=== PATIENT | female | born 1955 | race Caucasian/White ===

== ENCOUNTER → 2016-08-18 | Outpatient (CLI) | payer BC, OTHER ==
[2016-08-18 14:50] LABS: Basophils # (A) 0.1 k/uL (0-0.2); Basophils % (A) 1 %; CH 30.5; CHCM 32.3; Eosinophils # (A) 0.3 k/uL (0-0.7); Eosinophils % (A) 3 %; HCT 42.3 % (34.0-46.0); HDW 2.47; HGB 13.7 gm/dL (11.4-16.0); Luc # (Auto) 0.17; Luc % (Auto) 2; Lymphocytes # (A) 2.8 k/uL (1.0-4.8); Lymphocytes % (A) 29 %; MCH 30.6 pg (25.0-35.0); MCHC 32.3 g/dL (31.0-37.0); MCV 94.9 fL (80.0-100.0); Mean Platelet Volume 6.4; Monocytes # (A) 0.6 k/uL (0-1.0); Monocytes % (A) 6 %; Neutrophils # (A) 5.8 k/uL (1.3-7.7); Neutrophils % (A) 60 %; RBC 4.46 m/uL (3.80-5.40); RDW 13.9 % (11.5-15.5); WBC 9.7 k/uL (3.8-10.6); WBC (Perox) 9.59
== END | disposition home or self-care (01) ==
LOC: LABPAT 14:24
PROVIDERS: ATTEND Obstetrics & Gynecology
DX: Z01.812 Encounter for preprocedural laboratory examination (principal)
CPT/HCPCS: 85025

== ENCOUNTER 2016-08-24 06:20 | Day surgery (SDC) | payer BC, OTHER ==
[2016-08-20 10:53] VITALS: BMI 39.1
--- NOTE | 2016-08-23 10:39 | HP ---
DATE OF ADMISSION: 08/24/2016 This is a 61-year-old white female, 6, para 5-0-1-5, last menstrual period 2005. The patient has a history of endometrial polyps per D&C with simple to complex hyperplasia noted without atypia. She was treated with Provera 10 mg orally daily for one month, then switched to Prometrium 200 mg daily for 2 additional months. She has done well on this therapy and presents today for re-evaluation as well as inspection of the endometrial cavity. She is well aware of the risks, benefits, and alternatives of this procedure, as well as anesthetic risks. Review of systems is otherwise negative. Past medical history is significant for asthma, type 2 diabetes, goiter, hypertension, thyroid disease and heart murmur. PAST SURGICAL HISTORY: Adenoidectomy and tonsillectomy in the past, carpal tunnel release 2008, cholecystectomy 2015, D&C in the past, tubal ligation, thyroidectomy, nasal surgery, EGD. CURRENT MEDICATIONS: 1. Janumet 50/500 oral tablet twice daily. 2. Levothyroxine, 200 mcg daily. 3. Levothyroxine 25 mcg tablet daily. 4. Lisinopril hydrochlorothiazide 20/25 mg orally daily. 5. Meclizine 25 mg 4 times daily. 6. [place] 3 fatty acids twice daily. 7. Omeprazole 40 mg daily. 8. Pravastatin 40 mg tablet daily. 9. Singulair 10 mg tablet daily. 10. Xanax 0.25 mg t.i.d. p.r.n. 11. Zoloft 50 mg pills, 2 pills once daily. ALLERGIES: None known. FAMILY HISTORY: Significant for diabetes, heart disease, hypertension, kidney disease. Reproductive history is significant for 5 full term deliveries, all vaginal, one spontaneous miscarriage not requiring D&C. SOCIAL HISTORY: Significant for marital status, negative for tobacco, alcohol or drug use, caffeine daily. Review of systems is otherwise negative. On exam, this is a pleasant female, 5 feet 8 inches, 243 pounds, BMI 37, blood pressure 140/60. Patient is afebrile. HEENT exam reveals soft, supple neck, good range of motion, no obvious thyromegaly or cervical lymphadenopathy. Chest is clear to auscultation in all romero anteriorly and posteriorly. Cardiac exam reveals regular rate and rhythm without murmur, click or rub. The abdomen is obese, nontender, no organosplenomegaly, no CVA tenderness, active bowel sounds. Breasts are normal in inspection with no skin changes, nipple discharge, axillary adenopathy or discernible lesions or masses. Extremities reveal no edema, good range of motion, good peripheral pulses. External genitalia is age appropriate, slightly atrophic. Cervix is multiparous with no bleeding. Uterus is nontender, midline, mobile and small. Adnexa are small, mobile, equal and symmetric bilaterally; nonenlarged. Anus reveals no hemorrhoids, good sphincter tone. FIT negative stool. IMPRESSION: History of postmenopausal bleeding with previous endometrial sampling consistent with simple to complex hyperplasia with atypia. Status post 3 months of progesterone therapy, here for re-evaluation of the endometrial cavity. PLAN: Patient is aware of the risks, benefits, and alternatives of our plan. We will proceed with surgery at [facility] on Tuesday08/24/16.
[~2016-08-24 06:20] MED LIST: DEXAMETHASONE SOD PHOSPHATE 10 MG/ML 1 ML VIAL IV ONE; HYDROmorphone 1 MG/ML 1 ML SYRINGE IVP PRN; LACTATED RINGERS 1,000 ML IV SCH; MIDAZOLAM 2 MG/2 ML VIAL IV PRN; ONDANSETRON 4 MG/2 ML VIAL IVP ONE; Pre Op ABX Message 1 EACH MISC MISCELLANE ONE
[2016-08-24 07:19] LABS: Glucose,Whole Blood 183 mg/dL (75-99)
[2016-08-24] MEDS ORDERED: LIDOCAINE 1% 20 ML VIAL (10MG/ML) FOR IV START INTRADERMA ONE (07:22)
[2016-08-24] MEDS ORDERED: fentaNYL (PF) 50 MCG/ML 2 ML AMP ONE (08:06)
[2016-08-24] MEDS ORDERED: KETOROLAC 30 MG/ML 1 ML VIAL ONE (08:06)
[2016-08-24] MEDS ORDERED: LIDOCAINE 1% INJ 10MG/ML (20 ML MDV) ONE (08:06)
[2016-08-24] MEDS ORDERED: SUCCINYLCHOLINE CHLORIDE 100 MG/5 ML SYR IV ONE (08:06)
[2016-08-24] MEDS ORDERED: MIDAZOLAM 2 MG/2 ML VIAL ONE (08:06)
[2016-08-24] MEDS ORDERED: PROPOFOL 10 MG/ML 20 ML VIAL IV ONE (08:06)
--- NOTE | 2016-08-24 08:29 | P.OP ---
Date of Procedure: 08/24/16 Preoperative Diagnosis: Postmenopausal bleeding Postoperative Diagnosis: Same Procedure(s) Performed: Fractional D&C, hysteroscopy Anesthesia: KIARRA Surgeon: Julieth Dickson Estimated Blood Loss (ml): 10 IV fluids (ml): 200 Urine output (ml): 200 Pathology: other (Endocervical and endometrial curettings) Condition: stable Disposition: PACU Description of Procedure: Patient is brought to the operating suite where a general anesthetic is administered without difficulty. She's placed in the dorsal lithotomy position. The appropriate timeout is performed to assure proper patient and procedural identification. No antibiotics are deemed necessary. The cervix, vagina, and perineal bodies are all prepped and draped in the usual sterile fashion. Examination under anesthesia reveals a small cervix, small mobile smooth uterus, negative adnexa bilaterally. The bladder is drained for 200 mL of clear yellow urine. Weighted speculum was placed into the vagina. Kevorkian curette is used to curettage the endocervical cavity. The uterus then sounds to a depth of 10 cm in the anteverted position. Cervix is gently and systematically dilated with Hanks dilators. Hysteroscope is placed and the cavity is distended with sterile saline. Inspection of the cavity reveals the presence of small polyps, they are smooth and pink. Cervix is then dilated to 18 mm. A medium sharp curette is used and the cavity is thoroughly curettaged for a moderate amount of polypoid appearing tissue. When I am certain that the cavity is clear, the hysteroscope was reintroduced and the cavity is once again inspected. No additional polyps or tissue is appreciated. All sponge and instrument counts are correct. Patient is brought back to the recovery room in very good condition with stable vital signs including blood pressure 139/71, pulse 89. Toradol is given prior to leaving the operative suite. Patient will follow up with me in the office in 2 weeks.
[2016-08-24 08:38] VITALS: RESP 16; TEMP 98.4
[2016-08-24 08:52] LABS: Glucose,Whole Blood 173 mg/dL (75-99)
[2016-08-24 10:02] VITALS: BP 114/59; PULSE 74
== END 2016-08-24 10:52 | disposition home or self-care (01) ==
LOC: OR 06:20
PROVIDERS: ATTEND Obstetrics & Gynecology
DX: N84.0 Polyp of corpus uteri (principal); N95.0 Postmenopausal bleeding; N85.01 Benign endometrial hyperplasia; J45.909 Unspecified asthma, uncomplicated; E11.9 Type 2 diabetes mellitus without complications; I10 Essential (primary) hypertension; E78.5 Hyperlipidemia, unspecified; R01.1 Cardiac murmur, unspecified; E89.0 Postprocedural hypothyroidism; K76.0 Fatty (change of) liver, not elsewhere classified; K21.9 Gastro-esophageal reflux disease without esophagitis; Z79.84 Long term (current) use of oral hypoglycemic drugs; Z79.899 Other long term (current) drug therapy
CPT/HCPCS: 88305; 58558; J2250; J1100; J2405; J2001; J3010; J1885; J0330; J2704

== ENCOUNTER → 2017-01-28 | Outpatient (CLI) | payer BC | END | disposition home or self-care (01) | LOC: LABWHC1 14:59 | PROVIDERS: ATTEND Internal Medicine Endocrinology, Diabetes & Metabolism | DX: C73 Malignant neoplasm of thyroid gland (principal) | CPT/HCPCS: 36415; 84432; 84443; 86800 ==

== ENCOUNTER 2017-06-17 14:51 | Emergency (ER) | payer BC ==
[2017-06-17] MEDS ORDERED: ONDANSETRON ODT 4 MG TAB PO STA (15:28)
[2017-06-17] MEDS ORDERED: MORPHINE SULFATE 4 MG/ML SYRINGE IV STA (15:28)
[2017-06-17] MEDS ORDERED: ONDANSETRON 4 MG/2 ML VIAL IVP STA (15:32)
--- NOTE | 2017-06-17 15:40 | ED ---
Back Pain [facility] - General Chief Complaint: Back Pain/Injury Stated Complaint: Back pain Time Seen by Provider: 06/17/17 15:22 Source: patient, family Limitations: physical limitation - History of Present Illness Initial Comments: 61 years old female presents with a lower back pain and now pain in the both hips, she denies any fall she does not have any chronic back pain she would have a back pain once in a while will stay around for a day or 2 then he would do so back pain started about 3 TO go the hip pain started last night she denies any nausea or playing any fall or any heavy lifting any pushing or pulling. Denies any headache no neck stiffness no chest pain or shortness of breath no abdominal pain no frequency urgency dysuria no symptoms of TIA or CVAarea and she denies any bowel or bladder dysfunction - Related Data Home Medications Medication Instructions Recorded Confirmed ALPRAZolam 0.25 mg PO DAILY PRN 08/12/14 06/17/17 Fluticasone Propionate 2 spray EA NOSTRIL HS 08/12/14 06/17/17 Meclizine [Antivert] 25 mg PO QID 08/12/14 06/17/17 Montelukast [Singulair] 10 mg PO HS 08/12/14 06/17/17 Omeprazole 40 mg PO QAM 08/12/14 06/17/17 Albuterol Inhaler [Ventolin Hfa 1 puff INHALATION RT-Q6H PRN 07/09/15 06/17/17 Inhaler] Lisinopril-Hctz 20-25 mg 1 tab PO QAM 07/09/15 06/17/17 [Zestoretic 20-25] [place]-3 Acid Ethyl Esters [Lovaza] 2 gm PO BID 07/09/15 06/17/17 Tiotropium 18 Mcg/Puff [Spiriva] 1 puff INHALATION RT-HS 07/09/15 06/17/17 Levothyroxine Sodium [Synthroid] 200 mcg PO DAILY 04/30/17 06/17/17 glipiZIDE [Glucotrol] 10 mg PO BID 04/30/17 06/17/17 sitaGLIPtin [Januvia] 100 mg PO DAILY 04/30/17 06/17/17 Mometasone/Formoterol [Dulera 200 2 puff INHALATION RT-BID 06/17/17 06/17/17 Mcg/5 Mcg Inhaler] Sertraline [Zoloft] 50 mg PO BID 06/17/17 06/17/17 metFORMIN HCL ER [Glucophage Xr] 500 mg PO BID 06/17/17 06/17/17 Previous Rx's Medication Instructions Recorded Acetaminophen Tab [Tylenol Tab] 1,000 mg PO Q6HR #45 tablet 06/17/17 HYDROmorphone [Dilaudid] 1 mg PO Q8H PRN #15 tab 06/17/17 Allergies Allergy/AdvReac Type Severity Reaction Status Date / Time cat dander Allergy Dyspnea Verified 06/17/17 16:01 pollen extracts Allergy Unknown Verified 06/17/17 16:01 yeast, dried [yeast] Allergy Wheezing Verified 06/17/17 16:01 COTTON WOOD TREES Allergy Unknown Uncoded 06/17/17 16:01 Review of Systems ROS Statement: Those systems with pertinent positive or pertinent negative responses have been documented in the HPI. ROS Other: All systems not noted in ROS Statement are negative. Past Medical History Past Medical History: Diabetes Mellitus, GERD/Reflux, Hyperlipidemia, Hypertension, Osteoarthritis (OA), Sleep Apnea/CPAP/BIPAP, Thyroid Disorder Additional Past Medical History / Comment(s): MENIERES. SEVERE ENVIRONMENTAL ALLERGIES. CPAP @ 14L. CHRONIC BACK PAIN. History of Any Multi-Drug Resistant Organisms: None Reported Past Surgical History: Tonsillectomy, Tubal Ligation Additional Past Surgical History / Comment(s): BILATERAL EYE SURGERY FOR STRABISMUS. TOTAL THYROIDECTOMY Past Anesthesia/Blood Transfusion Reactions: No Reported Reaction Past Psychological History: Anxiety Smoking Status: Former smoker Past Alcohol Use History: None Reported Past Drug Use History: None Reported - Past Family History Sister(s) Family Medical History: Cancer Additional Family Medical History / Comment(s): BREAST General Exam - General Exam Comments Initial Comments: General: The patient is awake and alert, in no distress, and does not appear acutely ill.Mild distress Skin: Skin is warm and dry and no rashes or lesions are noted. Eye: Pupils are equal, round and reactive to light, extra-ocular movements are intact; there is normal conjunctiva bilaterally. Ears, nose, mouth and throat: There are moist mucous membranes and no oral lesions. Neck: The neck is supple, there is no tenderness or JVD. Cardiovascular: There is a regular rate and rhythm. No murmur, rub or gallop is appreciated. Respiratory: To auscultation bilateral, no wheezing no rhonchi no distress respiratory patel noticed Gastrointestinal: Soft, non-distended, non-tender abdomen without masses or organomegaly noted. There is no rebound or guarding present. Bowel sounds are unremarkable. Back: There ismild tenderness at the L4 and L5 region she is also tender over the right paraspinal area and tender over the right greater trochanter area left side exam is unremarkable straight leg raise is negative bilaterally deep tendon reflexes are within normal range Musculoskeletal: Normal ROM, no tenderness, There is no pedal edema. There is no calf tenderness or swelling. No cords were appreciated. Neurological: CN II-XII intact, Cranial nerves III through XII are intact. There are no obvious motor or sensory deficits. Coordination appears grossly intact. Speech is normal. Psychiatric: Cooperative, appropriate mood & affect, normal judgment. Limitations: physical limitation Course Vital Signs 06/17/17 15:19 Temperature 97.6 F Pulse Rate 79 Respiratory 20 Rate Blood Pressure 124/74 O2 Sat by Pulse 100 Oximetry She is reassessed at 1645, pain medication and took the edge off, as the x-ray reports were reviewed and discussed with the patient there is no fracture of the hips or there was no findings about the lumbar spine is unremarkable. Patient was advised not to do any bending over and twisting pushing pulling or heavy lifting she be gone home on a Dilaudid 1 mg by mouth 3 times a day when necessary she is also advised to do Tylenol 1 g by mouth every 8 hours when necessary follow with the family doctor or return to the ER if symptoms get worse Disposition Clinical Impression: Back pain, Hip pain Disposition: HOME SELF-CARE Condition: Good Instructions: Acute Low Back Pain (ED) Prescriptions: Acetaminophen Tab [Tylenol Tab] 1,000 mg PO Q6HR #45 tablet HYDROmorphone [Dilaudid] 1 mg PO Q8H PRN #15 tab PRN Reason: Pain Referrals: Abundio Garza MD [Primary Care Provider] - 1-2 days
[2017-06-17] MEDS ORDERED: HYDROmorphone 2 MG/ML 1 ML SYRINGE IM STA (16:18)
[2017-06-17] MEDS ORDERED: ACETAMINOPHEN TAB 500 MG TAB PO STA (16:20)
--- NOTE | 2017-06-17 16:27 | XR ---
EXAMINATION TYPE: XR lumbar spine 2 or 3V DATE OF EXAM: 06/17/2017 CLINICAL HISTORY: pain TECHNIQUE: Three views of the lumbar spine are submitted. COMPARISON: None. FINDINGS: There are 5 lumbar type vertebral bodies identified. The lumbar spine shows satisfactory alignment w ithout evidence of acute fracture or dislocation. Vertebral body heights are within normal limits. Mild degenerative disc disease is seen at all levels. Moderate facet joint arthropathy. Minimal ventr al spondylosis. The overlying soft tissue appears unremarkable. IMPRESSION: No acute fracture or dislocation is seen in the lumbar spine. ICD 10 NO FRACTURE, INITIAL EVALUATION
--- NOTE | 2017-06-17 16:28 | XR ---
EXAMINATION TYPE: XR Hip Bilateral Complete DATE OF EXAM: 06/17/2017 CLINICAL HISTORY: pain TECHNIQUE: AP and frogleg views of the bilateral hips are obtained. COMPARISON: None. FINDINGS: There is no acute fracture/dislocation evident. Moderate bilateral joint space narrowing. Associated spur formation. Bony convexity supra-acetabular regions may result in femoral acetabular i mpingement. The overlying soft tissue appears unremarkable. IMPRESSION: 1. There is no acute fracture or dislocation. ICD 10 NO FRACTURE, INITIAL EVALUATION
[2017-06-17 17:00] VITALS: BP 141/77; PULSE 75; RESP 18; TEMP 98
== END 2017-06-17 17:10 | disposition home or self-care (01) ==
LOC: EC 14:51
DX: M54.5 Low back pain (principal); M25.552 Pain in left hip; M25.551 Pain in right hip; I10 Essential (primary) hypertension; K21.9 Gastro-esophageal reflux disease without esophagitis; E11.9 Type 2 diabetes mellitus without complications; G47.30 Sleep apnea, unspecified; E07.9 Disorder of thyroid, unspecified; F41.9 Anxiety disorder, unspecified; Z87.891 Personal history of nicotine dependence; Z79.51 Long term (current) use of inhaled steroids; Z79.84 Long term (current) use of oral hypoglycemic drugs; Z79.899 Other long term (current) drug therapy; Z91.02 Food additives allergy status; Z91.09 Other allergy status, other than to drugs and biological substances; Z99.89 Dependence on other enabling machines and devices
CPT/HCPCS: 72100; 73521; 99283; 96374; 96375; 96372; J2270; J1170; J2405

== ENCOUNTER → 2017-08-23 | Outpatient (CLI) | payer BC ==
[2017-08-23 14:33] LABS: ALT 30 U/L (9-52); AST 60 U/L (14-36); Albumin 4.6 g/dL (3.5-5.0); Alkaline Phosphatase 54 U/L (38-126); Anion Gap 17 mmol/L; Blood Urea Nitrogen 21 mg/dL (7-17); Calcium 10.1 mg/dL (8.4-10.2); Carbon Dioxide 27 mmol/L (22-30); Chloride 102 mmol/L (98-107); Cholesterol 270 mg/dL (<200); Glucose 182 mg/dL (74-99); HDL Cholesterol 41 mg/dL (40-60); LDL Cholesterol,Calculated 164 mg/dL (0-99); Potassium 4.7 mmol/L (3.5-5.1); Sodium 146 mmol/L (137-145); Total Bilirubin 0.9 mg/dL (0.2-1.3); Total Protein 8.5 g/dL (6.3-8.2); Triglycerides 327 mg/dL (<150)
[2017-08-23 20:20] LABS: Thyroglobulin <0.20 ng/mL (1.60-59.90)
[2017-08-23 22:53] LABS: Hemoglobin A1C 7.7 % (4.0-6.0)
== END | disposition home or self-care (01) ==
LOC: LABWHC1 13:14
PROVIDERS: ATTEND Internal Medicine Endocrinology, Diabetes & Metabolism
DX: C73 Malignant neoplasm of thyroid gland (principal); E11.65 Type 2 diabetes mellitus with hyperglycemia
CPT/HCPCS: 36415; 80053; 80061; 82043; 82570; 83036; 84432; 84443; 86800

== ENCOUNTER 2017-12-27 23:52 | Observation (INO) | payer BC ==
--- NOTE | 2017-12-28 01:07 | ED ---
Abdominal Pain HPI - General Source: patient Mode of arrival: EMS Limitations: no limitations <Gale Rutledge - Last Filed: 12/28/17 02:42> <Alba Mariscal - Last Filed: 12/30/17 08:38> - General Chief Complaint: Abdominal Pain Stated Complaint: upper gastric pain Time Seen by Provider: 12/28/17 00:07 - History of Present Illness Initial Comments: 62-year-old female patient presented to the emergency department today as a transfer from [facility]. The patient was seen and evaluated there for epigastric abdominal pain. Patient reports that she was having pain in her mid abdomen for the last couple of months over the last 2 days her pain has been worsening. Patient states the pain worsens whenever she attempts to eat. She describes it as a burning pain. States that she has been having diarrhea for the last 4 years, that has not changed. She denies any nausea or vomiting. Denies any hematochezia or melena. She denies any fevers or chills. She does report that she has been feeling mildly short of breath but has been diagnosed with COPD. Patient does see Dr. Colon outpatient, she is scheduled for an EGD with her on Tuesday. Patient states that her pain was getting so bad that she couldn't wait to be seen till Tuesday. Patient was given a couple doses of pain medication as well as Pepcid and Zofran and there emergency department, she had no improvement of her symptoms of a center here for further evaluation. Patient did have CT abdomen and pelvis which did show a 14 mm umbilical hernia and inguinal hernias bilaterally which contained omental fat, no signs of incarceration. Patient denies any recent rash, chest pain, abdominal pain, back pain, numbness, tingling, dizziness, weakness, hematuria, dysuria, urinary urgency, urinary frequency, headache, visual changes, or any other complaints. (Gale Rutledge) - Related Data Home Medications Medication Instructions Recorded Confirmed Fluticasone Propionate 2 spray EA NOSTRIL HS 08/12/14 12/28/17 Montelukast [Singulair] 10 mg PO HS 08/12/14 12/28/17 Albuterol Inhaler [Ventolin Hfa 1 puff INHALATION RT-Q6H PRN 07/09/15 12/28/17 Inhaler] [place]-3 Acid Ethyl Esters [Lovaza] 2 gm PO BID 07/09/15 12/28/17 Tiotropium 18 Mcg/Puff [Spiriva] 1 puff INHALATION RT-HS 07/09/15 12/28/17 Levothyroxine Sodium [Synthroid] 200 mcg PO DAILY 04/30/17 12/28/17 glipiZIDE [Glucotrol] 10 mg PO BID 04/30/17 12/28/17 sitaGLIPtin [Januvia] 100 mg PO DAILY 04/30/17 12/28/17 Mometasone/Formoterol [Dulera 200 2 puff INHALATION RT-BID 06/17/17 12/28/17 Mcg/5 Mcg Inhaler] Sertraline [Zoloft] 50 mg PO BID 06/17/17 12/28/17 metFORMIN HCL ER [Glucophage Xr] 1,000 mg PO QAM 06/17/17 12/28/17 Atorvastatin [Lipitor] 40 mg PO HS 12/28/17 12/28/17 Gabapentin [Neurontin] 200 mg PO BID 12/28/17 12/28/17 Levothyroxine Sodium [Synthroid] 25 mcg PO DAILY 12/28/17 12/28/17 metFORMIN HCL ER [Glucophage Xr] 500 mg PO HS 12/28/17 12/28/17 Previous Rx's Medication Instructions Recorded Lisinopril [Zestril] 20 mg PO DAILY #30 tab 12/29/17 Omeprazole [PriLOSEC] 40 mg PO AC-BID #60 capsule. 12/29/17 Allergies Allergy/AdvReac Type Severity Reaction Status Date / Time cat dander Allergy Dyspnea Verified 12/28/17 11:52 pollen extracts Allergy Unknown Verified 12/28/17 11:52 yeast, dried [yeast] Allergy Wheezing Verified 12/28/17 11:52 COTTON WOOD TREES Allergy Unknown Uncoded 12/28/17 03:14 Review of Systems ROS Other: All systems not noted in ROS Statement are negative. <Gale Rutledge - Last Filed: 12/28/17 02:42> ROS Other: All systems not noted in ROS Statement are negative. <Alba Mariscal - Last Filed: 12/30/17 08:38> ROS Statement: Those systems with pertinent positive or pertinent negative responses have been documented in the HPI. Past Medical History Past Medical History: Diabetes Mellitus, GERD/Reflux, Hyperlipidemia, Hypertension, Osteoarthritis (OA), Sleep Apnea/CPAP/BIPAP, Thyroid Disorder Additional Past Medical History / Comment(s): MENIERES. SEVERE ENVIRONMENTAL ALLERGIES. CPAP @ 14L. CHRONIC BACK PAIN. History of Any Multi-Drug Resistant Organisms: None Reported Past Surgical History: Tonsillectomy, Tubal Ligation Additional Past Surgical History / Comment(s): BILATERAL EYE SURGERY FOR STRABISMUS. TOTAL THYROIDECTOMY Past Anesthesia/Blood Transfusion Reactions: No Reported Reaction Past Psychological History: Anxiety Smoking Status: Former smoker Past Alcohol Use History: None Reported Past Drug Use History: None Reported - Past Family History Sister(s) Family Medical History: Cancer Additional Family Medical History / Comment(s): BREAST <Gale Rutledge Filed: 12/28/17 02:42> General Exam Limitations: no limitations General appearance: alert, in no apparent distress, other (This is a well- developed, obese adult female patient in no acute distress. Vital signs upon presentation are temperature 99.9F, pulse 80, respirations 18, blood pressure 162/75, pulse ox 94% on room air.) Eye exam: Present: normal appearance, PERRL, EOMI. Absent: scleral icterus, conjunctival injection, periorbital swelling ENT exam: Present: normal exam, normal oropharynx, mucous membranes moist Cardiovascular Exam: Present: regular rate, normal rhythm, normal heart sounds. Absent: systolic murmur, diastolic murmur, rubs, gallop, clicks GI/Abdominal exam: Present: soft, tenderness (Patient has generalized abdominal tenderness), normal bowel sounds. Absent: distended, guarding, rebound, rigid Neurological exam: Present: alert, oriented X3, CN II-XII intact Psychiatric exam: Present: normal affect, normal mood Skin exam: Present: warm, dry, intact, normal color. Absent: rash <Gale Rutledge Filed: 12/28/17 02:42> Vital Signs 12/28/17 12/28/17 00:03 02:44 Temperature 99.9 F H 98.9 F Pulse Rate 80 78 Respiratory 18 16 Rate Blood Pressure 162/75 155/80 O2 Sat by Pulse 94 L 95 Oximetry Medical Decision Making - Radiology Data Radiology results: report reviewed <Gale Rutledge Filed: 12/28/17 02:42> - Lab Data Result diagrams: 12/29/17 06:47 12/29/17 06:47 <MariscalAlba Allen - Last Filed: 12/30/17 08:38> - Medical Decision Making 62-year-old female patient presented as a transfer from [facility] for abdominal pain with known hernia. The patient does see Dr. Colon outpatient. Patient had received several pain medications and nausea medication at the other facility, this did not improve her pain so she was transferred here for further evaluation. Upon arrival patient is complaining of some shortness of breath and does have to her oxygen, she does not wear this at home. We will add chest x-ray and EKG. Temperature is 99.9F she does exhibit generalized abdominal tenderness at all at lactic acid and blood culture as well. Patient will be admitted to Dr. Galindo with Dr. Colon consult. Pain management and nausea management will be provided. (Gale Rutledge) - EKG Data EKG Comments: EKG obtained at 05 23 shows sinus rhythm with a first-degree AV block. Ventricular rate is 70, IN interval 220, QR mandaen 100, QT 444, QTC 479. No evidence of ST elevation or depression. (Gale Rutledge) - Radiology Data CT abdomen and pelvis without contrast was obtained at [facility], finding show heart and lung bases exhibit linear scarring in the right lung base. Lung bases are otherwise clear. There are no pleural effusions. Heart size is normal. There is no pericardial effusion. Liver shows fatty infiltration. The gallbladder surgically absent. Spleen is normal. Pancreas is normal. There is a 12 mm in diameter left adrenal adenoma which is unchanged from previous computed tomography scan. The right adrenal gland has a normal unenhanced appearance. The kidneys and urinary bladder abnormal unenhanced appearance. The uterus is enlarged, irregular in outline, and contains numerous coarse calcifications consistent with multiple degenerating uterine fibroids. The ovaries are normal. There is no free fluid in the pelvis. There is no pelvic or inguinal lymphadenopathy. There are scattered colonic diverticula without evidence of acute inflammation. There is a normal appendix demonstrated. The gastrointestinal tract is otherwise unremarkable. There is no umbilical hernia containing normal fat measuring 14 mm in diameter. There is a left inguinal hernia containing normal fat measuring 2.6 cm in diameter. There is right inguinal hernia, containing normal fat measuring 20 mm in diameter. There is no mesenteric or retroperitoneal lymphadenopathy. Aorta and vascularity show calcific atherosclerotic vascular disease and the abdominal aorta. The inferior vena cava and portal venous system are normal. There is multilevel degenerative disc disease of the lumbar spine. There is a partially calcified disc protrusion at L5-S1. There is mild arthritis in both sacroiliac joints of both hips. Impression by Dr. West shows umbilical and bilateral inguinal hernias containing normal fat as described. These are unchanged since prior exam. Fatty liver infiltration. Left adrenal adenoma. Other findings as noted Two-view x-ray of the chest is obtained. There is no heart failure pneumonic infiltrate. costophrenic angles are clear. there is some linear density at the posterior lung base on the lateral view probably in the left lower lobe. impression by dr. finn shows some new pleural reaction at the left posterior lung bases compared to old exam. no heart failure. (Gale Rutledge) Disposition Decision to Admit Reason: Admit from [facility] Decision Date: 12/28/17 Decision Time: 01:16 <Gale Rutledge - Last Filed: 12/28/17 02:42> <Alba Mariscal - Last Filed: 12/30/17 08:38> Clinical Impression: Intractable abdominal pain, Hernia Disposition: ADMITTED IP TO THIS HOSP Condition: Serious
[2017-12-28] MEDS ORDERED: MORPHINE SULFATE 4 MG/ML SYRINGE IV PRN (01:08)
[2017-12-28] MEDS ORDERED: ONDANSETRON 4 MG/2 ML VIAL IVP PRN (01:08)
[2017-12-28] MEDS ORDERED: NALOXONE 0.4 MG/ML 1 ML VIAL IV PRN (01:08)
--- NOTE | 2017-12-28 01:30 | XR ---
EXAMINATION TYPE: XR chest 2V DATE OF EXAM: 12/28/2017 COMPARISON: 04/30/2017 HISTORY: Short of breath TECHNIQUE: Frontal and lateral views of the chest are obtained. FINDINGS: There is no heart failure nor confluent pneumonic infiltrate. Costophrenic angles are carol r. There is some linear density at the posterior lung base on the lateral view probably in the left l ower lobe. IMPRESSION: There is some new pleural reaction at the left posterior lung base compared to old exam. No heart failure.
[2017-12-28] MEDS: SODIUM CHLORIDE 0.9% 1,000 ML IV SCH ×2 (02:02→21:18)
[2017-12-28 03:19] VITALS: BMI 37.5
[2017-12-28] MEDS ORDERED: ALPRAZolam 0.25 MG TAB PO PRN (11:23)
[2017-12-28] MEDS ORDERED: ALBUTEROL NEBULIZED 2.5 MG/3 ML INHALATION PRN (11:23)
--- NOTE | 2017-12-28 11:46 | P.GSCN ---
History of Present Illness Consult date: 12/28/17 History of present illness: CHIEF COMPLAINT: Abdominal pain HISTORY OF PRESENT ILLNESS: The patient is a 62-year-old female who comes in with severe epigastric abdominal pain. She was seeing me in the outpatient setting as she reported epigastric abdominal pain for a few months on and off. She presented to a local emergency room and [place]. She reported the pain being severe 10 out of 10 prompting her presentation to the ER. Separately she also plan a bilateral abdominal pain. She has been able to pass flatus and have bowel movements on. She is scheduled for an outpatient upper endoscopy. As a result of her symptoms, she is admitted. Separately, she had a questionable outside computed tomography scan of bilateral inguinal hernias and umbilical hernia. General surgery is consulted further evaluation and management. PAST MEDICAL HISTORY: See list. PAST SURGICAL HISTORY: See list. MEDICATIONS: See list. ALLERGIES: See list. SOCIAL HISTORY: No illicit drug use FAMILY HISTORY: No reports of Crohn's disease or inflammatory bowel disease REVIEW OF ORGAN SYSTEMS: CONSTITUTIONAL: No fevers or chills. Morbidly obese, overweight 80+ pounds. HEENT: No troubles with vision or hearing. No reports of dysphagia. ENDOCRINE: Has diabetes. Past history of thyroid cancer. CARDIOVASCULAR: No heart attack. No chest pain. RESPIRATORY: She reports shortness of breath. GASTROINTESTINAL: No reports of recent blood in stools. Has history of hiatal hernia. NEURO: No reports of stroke or seizure disorders. PSYCH: No depression or suicidal ideation. History of anxiety. History of chronic pain. HEMATOLOGIC: No easy bruising or bleeding LYMPHATIC: No history of lymphoma. GENITOURINARY: Denies any blood in urine or increased urinary frequency. MUSCULOSKELETAL: Has back pain, stiffness or joint arthritis. SKIN: No skin cancer PHYSICAL EXAM: VITAL SIGNS: Currently stable. GENERAL: Well-developed in no acute distress. HEENT: No sclera icterus. Extraocular movements grossly intact. Moist buccal mucosa. Head is atraumatic, normocephalic. Hears conversational speech. No nasal drainage. NECK: Supple without lymphadenopathy. CHEST: Non-labored respirations and equal bilateral excursions. CARDIOVASCULAR: Regular rate with regular rhythm. Palpable 2+ radial pulses. ABDOMEN: Soft. Tender along epigastrium. Mild tenderness along bilateral lower abdomen. MUSCULOSKELETAL: No clubbing, cyanosis or edema. NEUROLOGIC: No focal or lateralizing signs. Cranial nerves II through XII grossly intact. PSYCH: Appropriate affect. Alert and oriented to person, place and time. SKIN: Well perfused. Good skin turgor. LABS: Pending ASSESSMENT: 1. Epigastric abdominal pain 2. History of intractable abdominal pain PLAN: 1. Will proceed with EGD. 2. Clear liquid diet. 3. Hernias to be addressed as outpatient. 4. Repeat CT abdomen and pelvis as well as computed tomography scan was over 1 week ago now with acute findings Thank you for this kind consultation. Past Medical History Past Medical History: COPD, Diabetes Mellitus, GERD/Reflux, Hyperlipidemia, Hypertension, Osteoarthritis (OA), Sleep Apnea/CPAP/BIPAP, Thyroid Disorder Additional Past Medical History / Comment(s): MENIERES. SEVERE ENVIRONMENTAL ALLERGIES. CPAP @ 14L. CHRONIC BACK PAIN. History of Any Multi-Drug Resistant Organisms: None Reported Past Surgical History: Cholecystectomy, Tonsillectomy, Tubal Ligation Additional Past Surgical History / Comment(s): BILATERAL EYE SURGERY FOR STRABISMUS. TOTAL THYROIDECTOMY, bilateral carpal tunnel Past Anesthesia/Blood Transfusion Reactions: No Reported Reaction Past Psychological History: Anxiety Smoking Status: Former smoker Past Alcohol Use History: None Reported Additional Past Alcohol Use History / Comment(s): SMOKED FOR 37 YRS, 1PPD Past Drug Use History: None Reported - Past Family History Sister(s) Family Medical History: Cancer Additional Family Medical History / Comment(s): BREAST Medications and Allergies Home Medications Medication Instructions Recorded Confirmed Type ALPRAZolam 0.25 mg PO DAILY PRN 08/12/14 12/28/17 History Fluticasone Propionate 2 spray EA NOSTRIL 08/12/14 12/28/17 History Meclizine [Antivert] 25 mg PO QID 08/12/14 12/28/17 History Montelukast [Singulair] 10 mg PO HS 08/12/14 12/28/17 History Omeprazole 40 mg PO QAM 08/12/14 12/28/17 History Albuterol Inhaler [Ventolin Hfa 1 puff INHALATION RT-Q6H PRN 07/09/15 12/28/17 History Inhaler] Lisinopril-Hctz 20-25 mg 1 tab PO QAM 07/09/15 12/28/17 History [Zestoretic 20-25] [place]-3 Acid Ethyl Esters [Lovaza] 2 gm PO BID 07/09/15 12/28/17 History Tiotropium 18 Mcg/Puff [Spiriva] 1 puff INHALATION RT-HS 07/09/15 12/28/17 History Levothyroxine Sodium [Synthroid] 200 mcg PO DAILY 04/30/17 12/28/17 History glipiZIDE [Glucotrol] 10 mg PO BID 04/30/17 12/28/17 History sitaGLIPtin [Januvia] 100 mg PO DAILY 04/30/17 12/28/17 History Acetaminophen Tab [Tylenol Tab] 1,000 mg PO Q6HR #45 tablet 06/17/17 12/28/17 Rx HYDROmorphone [Dilaudid] 1 mg PO Q8H PRN #15 tab 06/17/17 12/28/17 Rx Mometasone/Formoterol [Dulera 200 2 puff INHALATION RT-BID 06/17/17 12/28/17 History Mcg/5 Mcg Inhaler] Sertraline [Zoloft] 50 mg PO BID 06/17/17 12/28/17 History metFORMIN HCL ER [Glucophage Xr] 500 mg PO BID 06/17/17 12/28/17 History Allergies Allergy/AdvReac Type Severity Reaction Status Date / Time cat dander Allergy Dyspnea Verified 12/28/17 03:14 pollen extracts Allergy Unknown Verified 12/28/17 03:14 yeast, dried [yeast] Allergy Wheezing Verified 12/28/17 03:14 COTTON WO[employer]REES Allergy Unknown Uncoded 12/28/17 03:14 Surgical - Exam Vital Signs Temp Pulse Resp BP Pulse Ox 99.9 F H 80 18 162/75 94 L 12/28/17 00:03 12/28/17 00:03 12/28/17 00:03 12/28/17 00:03 12/28/17 00:03 Assessment and Plan (1) Hiatal hernia with GERD Current Visit: Yes Status: Acute Code(s): K21.9 - GASTRO-ESOPHAGEAL REFLUX DISEASE WITHOUT ESOPHAGITIS; K44.9 - DIAPHRAGMATIC HERNIA WITHOUT OBSTRUCTION OR GANGRENE SNOMED Code(s): 309762760 (2) Morbid obesity due to excess calories Current Visit: Yes Status: Acute Code(s): E66.01 - MORBID (SEVERE) OBESITY DUE TO EXCESS CALORIES SNOMED Code(s): 708503850 (3) BMI 37.0-37.9, adult Current Visit: Yes Status: Acute Code(s): Z68.37 - BODY MASS INDEX (BMI) 37.0-37.9, ADULT SNOMED Code(s): 582233616 (4) Thyroid cancer Current Visit: Yes Status: Acute Code(s): C73 - MALIGNANT NEOPLASM OF THYROID GLAND SNOMED Code(s): 990539975 (5) Diabetes type 2, uncontrolled Current Visit: Yes Status: Acute Code(s): E11.65 - TYPE 2 DIABETES MELLITUS WITH HYPERGLYCEMIA SNOMED Code(s): 19803385 (6) Hypothyroid Current Visit: Yes Status: Acute Code(s): E03.9 - HYPOTHYROIDISM, UNSPECIFIED SNOMED Code(s): 91202254 (7) Chronic pain Current Visit: Yes Status: Acute Code(s): G89.29 - OTHER CHRONIC PAIN SNOMED Code(s): 86841537 (8) Inguinal hernia Current Visit: Yes Status: Acute Code(s): K40.90 - UNIL INGUINAL HERNIA, W/ O OBST OR GANGR, NOT SPCF RECUR SNOMED Code(s): 954272368 (9) Umbilical hernia Current Visit: Yes Status: Acute Code(s): K42.9 - UMBILICAL HERNIA WITHOUT OBSTRUCTION OR GANGRENE SNOMED Code(s): 024139316
[2017-12-28] MEDS: IOPAMIDOL-300 CONTRAST 30 ML VIAL (ORAL USE) PO PRN ×2 (12:09→12:54)
[2017-12-28 12:25] LABS: ALT 36 U/L (9-52); AST 49 U/L (14-36); Albumin 3.6 g/dL (3.5-5.0); Alkaline Phosphatase 42 U/L (38-126); Amylase 39 U/L (30-110); Anion Gap 5 mmol/L; Blood Urea Nitrogen 22 mg/dL (7-17); Calcium 8.6 mg/dL (8.4-10.2); Carbon Dioxide 32 mmol/L (22-30); Chloride 105 mmol/L (98-107); Glucose 109 mg/dL (74-99); Lipase 71 U/L (23-300); Potassium 4.1 mmol/L (3.5-5.1); Sodium 142 mmol/L (137-145); Total Bilirubin 0.9 mg/dL (0.2-1.3); Total Protein 6.4 g/dL (6.3-8.2)
[2017-12-28 12:30] LABS: Basophils # (A) 0.1 k/uL (0-0.2); Basophils % (A) 1 %; Eosinophils # (A) 0.4 k/uL (0-0.7); Eosinophils % (A) 6 %; HCT 34.9 % (34.0-46.0); HGB 11.3 gm/dL (11.4-16.0); Lymphocytes # (A) 1.6 k/uL (1.0-4.8); Lymphocytes % (A) 23 %; MCH 29.7 pg (25.0-35.0); MCHC 32.5 g/dL (31.0-37.0); MCV 91.5 fL (80.0-100.0); Mean Platelet Volume 6.6; Monocytes # (A) 0.3 k/uL (0-1.0); Monocytes % (A) 5 %; Neutrophils # (A) 4.2 k/uL (1.3-7.7); Neutrophils % (A) 63 %; Platelet Count 290 k/uL (150-450); RBC 3.81 m/uL (3.80-5.40); WBC 6.7 k/uL (3.8-10.6)
--- NOTE | 2017-12-28 13:04 | P.HPIM ---
History of Present Illness Patient is 62-year-old female given his severe epigastric abdominal pain sharp in nature on and off has been going on for sometime and/in severity nonradiating had a cholecystectomy in the past. Patient the abdominal pain is associated with nausea worsens with eating area patient was seen in [facility]. Patient is supposed to get an upper GI endoscopy next Tuesday because of uncontrolled pain patient was transferred here for possible upper GI endoscopy or peptic ulcer disease. Patient was evaluated by Dr. Colon who is her surgeon. Patient will be started on IV Protonix. Patient has bilateral inguinal hernias which doesn't appear to be incarcerated or strangulated from the CAT scan. Review of Systems REVIEW OF SYSTEMS: CONSTITUTIONAL: No fever, no malaise, no fatigue. HEENT: No recent visual problems or hearing problems. Denied any sore throat. CARDIOVASCULAR: No chest pain, orthopnea, PND, no palpitations, no syncope. PULMONARY: No shortness of breath, no cough, no hemoptysis. GASTROINTESTINAL: As mentioned in HPI NEUROLOGICAL: No headaches, no weakness, no numbness. HEMATOLOGICAL: Denies any bleeding or petechiae. GENITOURINARY: Denies any burning micturition, frequency, or urgency. MUSCULOSKELETAL/RHEUMATOLOGICAL: Denies any joint pain, swelling, or any muscle pain. ENDOCRINE: Denies any polyuria or polydipsia. The rest of the 14-point review of systems is negative. Past Medical History Past Medical History: COPD, Diabetes Mellitus, GERD/Reflux, Hyperlipidemia, Hypertension, Osteoarthritis (OA), Sleep Apnea/CPAP/BIPAP, Thyroid Disorder Additional Past Medical History / Comment(s): MENIERES. SEVERE ENVIRONMENTAL ALLERGIES. CPAP @ 14L. CHRONIC BACK PAIN. History of Any Multi-Drug Resistant Organisms: None Reported Past Surgical History: Cholecystectomy, Tonsillectomy, Tubal Ligation Additional Past Surgical History / Comment(s): BILATERAL EYE SURGERY FOR STRABISMUS. TOTAL THYROIDECTOMY, bilateral carpal tunnel Past Anesthesia/Blood Transfusion Reactions: No Reported Reaction Past Psychological History: Anxiety Smoking Status: Former smoker Past Alcohol Use History: None Reported Additional Past Alcohol Use History / Comment(s): SMOKED FOR 37 YRS, 1PPD Past Drug Use History: None Reported - Past Family History Sister(s) Family Medical History: Cancer Additional Family Medical History / Comment(s): BREAST Medications and Allergies Home Medications Medication Instructions Recorded Confirmed Type Fluticasone Propionate 2 spray EA NOSTRIL HS 08/12/14 12/28/17 History Montelukast [Singulair] 10 mg PO HS 08/12/14 12/28/17 History Omeprazole 40 mg PO QAM 08/12/14 12/28/17 History Albuterol Inhaler [Ventolin Hfa 1 puff INHALATION RT-Q6H PRN 07/09/15 12/28/17 History Inhaler] Lisinopril-Hctz 20-25 mg 1 tab PO QAM 07/09/15 12/28/17 History [Zestoretic 20-25] [place]-3 Acid Ethyl Esters [Lovaza] 2 gm PO BID 07/09/15 12/28/17 History Tiotropium 18 Mcg/Puff [Spiriva] 1 puff INHALATION RT-HS 07/09/15 12/28/17 History Levothyroxine Sodium [Synthroid] 200 mcg PO DAILY 04/30/17 12/28/17 History glipiZIDE [Glucotrol] 10 mg PO BID 04/30/17 12/28/17 History sitaGLIPtin [Januvia] 100 mg PO DAILY 04/30/17 12/28/17 History Mometasone/Formoterol [Dulera 200 2 puff INHALATION RT-BID 06/17/17 12/28/17 History Mcg/5 Mcg Inhaler] Sertraline [Zoloft] 50 mg PO BID 06/17/17 12/28/17 History metFORMIN HCL ER [Glucophage Xr] 1,000 mg PO QAM 06/17/17 12/28/17 History Atorvastatin [Lipitor] 40 mg PO HS 12/28/17 12/28/17 History Gabapentin [Neurontin] 200 mg PO BID 12/28/17 12/28/17 History Levothyroxine Sodium [Synthroid] 25 mcg PO DAILY 12/28/17 12/28/17 History Meloxicam [Mobic] 7.5 mg PO DAILY 12/28/17 12/28/17 History Nitrofurantoin Monohyd/M-Cryst 100 mg PO Q12HR 12/28/17 12/28/17 History [Macrobid] metFORMIN HCL ER [Glucophage Xr] 500 mg PO HS 12/28/17 12/28/17 History Allergies Allergy/AdvReac Type Severity Reaction Status Date / Time cat dander Allergy Dyspnea Verified 12/28/17 11:52 pollen extracts Allergy Unknown Verified 12/28/17 11:52 yeast, dried [yeast] Allergy Wheezing Verified 12/28/17 11:52 COT[employer] Allergy Unknown Uncoded 12/28/17 03:14 Physical Exam Vitals: Vital Signs Temp Pulse Pulse Resp BP BP Pulse Ox 12/28/17 12:30 61 16 100/62 93 L 12/28/17 08:25 97.7 F 55 L 16 92/57 93 L 12/28/17 03:08 98.0 F 71 18 112/68 93 L 12/28/17 02:44 98.9 F 78 16 155/80 95 12/28/17 00:03 99.9 F H 80 18 162/75 94 L Intake and Output 12/27/17 12/28/17 12/28/17 22:59 06:59 14:59 Other: # Voids 1 Weight 108.862 kg PHYSICAL EXAMINATION: GENERAL: The patient is alert and oriented x3, not in any acute distress. Well developed, well nourished. HEENT: Pupils are round and equally reacting to light. EOMI. No scleral icterus. No conjunctival pallor. Normocephalic, atraumatic. No pharyngeal erythema. No thyromegaly. CARDIOVASCULAR: S1 and S2 present. No murmurs, rubs, or gallops. PULMONARY: Chest is clear to auscultation, no wheezing or crackles. ABDOMEN: Soft moderate abdominal tenderness and epigastric area no rebound or rigidity. Patient does have right upper quadrant tenderness as well. MUSCULOSKELETAL: No joint swelling or deformity. EXTREMITIES: No cyanosis, clubbing, or pedal edema. NEUROLOGICAL: Gross neurological examination did not reveal any focal deficits. SKIN: No rashes. Results CBC & Chem 7: 12/28/17 11:48 12/28/17 11:48 Labs: Abnormal Lab Results - Last 24 Hours (Table) 12/28/17 12/28/17 Range/Units 11:48 11:48 Hgb 11.3 L (11.4-16.0) gm/dL Carbon Dioxide 32 H (22-30) mmol/L BUN 22 H (7-17) mg/dL Glucose 109 H (74-99) mg/dL AST 49 H (14-36) U/L Thrombosis Risk Factor Assmnt - Choose All That Apply Any of the Below Risk Factors Present?: Yes Each Factor Represents 1 point: Age 41-60 years, Obesity (BMI >25) Other Risk Factors: No Thrombosis Risk Factor Assessment Total Risk Factor Score: 2 Thrombosis Risk Factor Assessment Level: Low Risk Assessment and Plan Plan: -Epigastric abdominal pain: Probably secondary to peptic ulcer disease with a hiatal hernia. Patient will undergo upper GI endoscopy will continue Protonix twice a day. -Type 2 diabetes mellitus: Patient will be started on sliding scale insulin hold off on oral hypoglycemic agents. -History of thyroid cancer status post thyroidectomy and patient is on high- dose of levothyroxine which will be continued -Morbid obesity -Hypertension -Bilateral inguinal hernia which doesn't appear to be incarcerated or strangulated. -Chronic pain -Hyperlipidemia -Sleep apnea and uses CPAP machine which will be continued
[2017-12-28] MEDS: PANTOPRAZOLE 40 MG/10 ML VIAL IVP SCH ×2 (14:12→21:18)
--- NOTE | 2017-12-28 14:28 | CT ---
EXAMINATION TYPE: CT abdomen pelvis w con DATE OF EXAM: 12/28/2017 COMPARISON: None HISTORY: Pain CT DLP: 1688 mGycm CONTRAST: CT scan of the abdomen and pelvis is performed with Oral Contrast and with IV Contrast, patient injec wendy with 100 mL of Isovue 300. FINDINGS: LUNG BASES-: No visible nodule. No infiltrate. Right basilar atelectasis. LIVER/GB: The gallbladde r surgically absent. The liver is enlarged. No space occupying hepatic lesion. Biliary tree is of nor mal caliber. PANCREAS: No inflammation. No distinct mass. SPLEEN: No splenic enlargement. No lesion seen. ADRENALS: No nodule. No thickening. KIDNEYS/BLADDER: No hydronephrosis. No nephrolithiasis. No distinct renal mass. Urinary bladder g rossly unremarkable. BOWEL: Normal appendix. Normal bowel caliber. No inflammation. GENITAL ORGANS: Uterine enlargement with multiple calcified masses compatible with leiomyomas. Uteru s measures 11.6 cm craniocaudal dimension. No ovarian masses seen. LYMPH NODES: There is evidence of periportal adenopathy with lymph node mass noted to measure approxi mately 4.0 x 2.7 cm as well as another lymph node measuring 1.6 cm. No additional adenopathy present. AORTA: No significant abnormality. OSSEOUS STRUCTURES: No significant abnormality is seen. OTHER: No significant additional abnormality is seen. IMPRESSION: 1. Periportal adenopathy of uncertain etiology. 2. Hepatomegaly. 3. Leiomyomatous change of the uterus with a uterine enlargement.
[2017-12-28] MEDS: INSULIN ASPART 100 UNIT/ML 1 ML 10 ML VIAL SQ SCH ×3 (14:33→21:17)
[2017-12-28] MEDS: ACETAMINOPHEN TAB 500 MG TAB PO SCH (15:51)
[2017-12-28] MEDS: MECLIZINE 25 MG TAB PO SCH ×3 (15:52→21:18)
[2017-12-28] MEDS ORDERED: IPRATROPIUM 0.5 MG/2.5 ML NEBU INHALATION SCH (16:00)
[2017-12-28 17:13] LABS: Glucose,Whole Blood 125 mg/dL (75-99)
[2017-12-28 18:21] LABS: Hemoglobin A1C 6.8 % (4.0-6.0)
[2017-12-28] MEDS: IPRATROPIUM 0.5 MG/2.5 ML NEBU INHALATION SCH (19:00)
[2017-12-28] MEDS: SYMBICORT 160-4.5 MCG INHALER INHALATION SCH (19:01)
[2017-12-28] MEDS ORDERED: MONTELUKAST 10 MG TAB PO SCH (21:00)
[2017-12-28] MEDS ORDERED: FLUTICASONE 50MCG/SPRAY NASAL 16GM EA NOSTRIL SCH (21:00)
[2017-12-28 21:06] LABS: Glucose,Whole Blood 109 mg/dL (75-99)
[2017-12-28] MEDS: SERTRALINE 50 MG TAB PO SCH (21:18)
[2017-12-29] MEDS: ACETAMINOPHEN TAB 500 MG TAB PO SCH ×4 (00:18→12:14)
[2017-12-29] MEDS ORDERED: LEVOTHYROXINE 100 MCG TAB PO SCH (06:30)
[2017-12-29 06:51] LABS: Glucose,Whole Blood 109 mg/dL (75-99)
[2017-12-29] MEDS: INSULIN ASPART 100 UNIT/ML 1 ML 10 ML VIAL SQ SCH ×2 (06:51→12:16)
[2017-12-29 07:10] LABS: Basophils # (A) 0.1 k/uL (0-0.2); Basophils % (A) 1 %; Eosinophils # (A) 0.3 k/uL (0-0.7); Eosinophils % (A) 5 %; HCT 36.2 % (34.0-46.0); HGB 11.6 gm/dL (11.4-16.0); Lymphocytes # (A) 2.1 k/uL (1.0-4.8); Lymphocytes % (A) 32 %; MCH 29.8 pg (25.0-35.0); MCHC 32.1 g/dL (31.0-37.0); MCV 92.8 fL (80.0-100.0); Mean Platelet Volume 6.7; Monocytes # (A) 0.3 k/uL (0-1.0); Monocytes % (A) 5 %; Neutrophils # (A) 3.6 k/uL (1.3-7.7); Neutrophils % (A) 55 %; Platelet Count 300 k/uL (150-450); WBC 6.5 k/uL (3.8-10.6)
[2017-12-29 07:34] LABS: Albumin 3.6 g/dL (3.5-5.0); Calcium 8.8 mg/dL (8.4-10.2); Potassium 4.9 mmol/L (3.5-5.1); Total Bilirubin 0.7 mg/dL (0.2-1.3); Total Protein 6.5 g/dL (6.3-8.2)
[2017-12-29] MEDS: IPRATROPIUM 0.5 MG/2.5 ML NEBU INHALATION SCH ×2 (08:09→12:18)
[2017-12-29] MEDS: SYMBICORT 160-4.5 MCG INHALER INHALATION SCH (08:09)
[2017-12-29] MEDS: MECLIZINE 25 MG TAB PO SCH ×2 (09:01→14:12)
[2017-12-29] MEDS: PANTOPRAZOLE 40 MG/10 ML VIAL IVP SCH (09:01)
[2017-12-29] MEDS: SERTRALINE 50 MG TAB PO SCH (09:40)
[2017-12-29 12:11] LABS: Glucose,Whole Blood 127 mg/dL (75-99)
--- NOTE | 2017-12-29 12:51 | P.DS ---
Providers Date of admission: 12/28/17 01:09 Attending physician: Leonardo Kwan Consults: 12/28/17 01:09 Consult Physician Routine Consulting Provider: Julieth Colon Consult Reason/Comments: Hernia; Abdominal Pain Do you want consulting provider notified?: Yes Primary care physician: Abundio Toledo Hospital Course: Patient was admitted for epigastric abdominal pain secondary to peptic is a disease and the patient is undergoing upper GI endoscopy. Patient most probably after the procedure patient will be discharged on Prilosec twice a day for 15 days followed by 40 mg daily. Meloxicam was discontinued. Patient blood pressure was low on admission because of which I'm getting rid of hydrocodone thiazide patient will continue her lisinopril. Rest of the regimen will be continued as it is. Her abdominal pain did improve from yesterday. Patient has an incidental finding of EOMI I'm of the uterus for which she can follow with a public health director as an outpatient PHYSICAL EXAMINATION: GENERAL: The patient is alert and oriented x3, not in any acute distress. Well developed, well nourished. HEENT: Pupils are round and equally reacting to light. EOMI. No scleral icterus. No conjunctival pallor. Normocephalic, atraumatic. No pharyngeal erythema. No thyromegaly. CARDIOVASCULAR: S1 and S2 present. No murmurs, rubs, or gallops. PULMONARY: Chest is clear to auscultation, no wheezing or crackles. ABDOMEN: Soft, nontender, nondistended, normoactive bowel sounds. No palpable organomegaly. MUSCULOSKELETAL: No joint swelling or deformity. EXTREMITIES: No cyanosis, clubbing, or pedal edema. NEUROLOGICAL: Gross neurological examination did not reveal any focal deficits. SKIN: No rashes. Assessment and Plan Plan: -Epigastric abdominal pain: Probably secondary to peptic ulcer disease with a hiatal hernia. -Type 2 diabetes mellitus: Patient will be started on sliding scale insulin hold off on oral hypoglycemic agents. -History of thyroid cancer status post thyroidectomy and patient is on high- dose of levothyroxine which will be continued -Morbid obesity -Hypertension -Bilateral inguinal hernia which doesn't appear to be incarcerated or strangulated. -Chronic pain -Hyperlipidemia -Sleep apnea and uses CPAP machine which will be continued Patient Condition at Discharge: Serious Plan - Discharge Summary Discharge Rx Participant: No New Discharge Prescriptions: New Lisinopril [Zestril] 20 mg PO DAILY #30 tab Omeprazole [PriLOSEC] 40 mg PO AC-BID #[address] Dempsey Montelukast [Singulair] 10 mg PO HS Fluticasone Propionate 2 spray EA NOSTRIL HS Tiotropium 18 Mcg/Puff [Spiriva] 1 puff INHALATION RT-HS [place]-3 Acid Ethyl Esters [Lovaza] 2 gm PO BID Albuterol Inhaler [Ventolin Hfa Inhaler] 1 puff INHALATION RT-Q6H PRN PRN Reason: Shortness Of Breath Or Wheezing sitaGLIPtin [Januvia] 100 mg PO DAILY glipiZIDE [Glucotrol] 10 mg PO BID Levothyroxine Sodium [Synthroid] 200 mcg PO DAILY metFORMIN HCL ER [Glucophage Xr] 1,000 mg PO QAM Mometasone/Formoterol [Dulera 200 Mcg/5 Mcg Inhaler] 2 puff INHALATION RT-BID Sertraline [Zoloft] 50 mg PO BID Atorvastatin [Lipitor] 40 mg PO HS Gabapentin [Neurontin] 200 mg PO BID metFORMIN HCL ER [Glucophage Xr] 500 mg PO HS Levothyroxine Sodium [Synthroid] 25 mcg PO DAILY Discontinued Omeprazole 40 mg PO QAM Lisinopril-Hctz 20-25 mg [Zestoretic 20-25] 1 tab PO QAM Meloxicam [Mobic] 7.5 mg PO DAILY Nitrofurantoin Monohyd/M-Cryst [Macrobid] 100 mg PO Q12HR Discharge Medication List Fluticasone Propionate 2 spray EA NOSTRIL HS 08/12/14 [History] Montelukast [Singulair] 10 mg PO HS 08/12/14 [History] Albuterol Inhaler [Ventolin Hfa Inhaler] 1 puff INHALATION RT-Q6H PRN 07/09/15 [ History] [place]-3 Acid Ethyl Esters [Lovaza] 2 gm PO BID 07/09/15 [History] Tiotropium 18 Mcg/Puff [Spiriva] 1 puff INHALATION RT-HS 07/09/15 [History] Levothyroxine Sodium [Synthroid] 200 mcg PO DAILY 04/30/17 [History] glipiZIDE [Glucotrol] 10 mg PO BID 04/30/17 [History] sitaGLIPtin [Januvia] 100 mg PO DAILY 04/30/17 [History] Mometasone/Formoterol [Dulera 200 Mcg/5 Mcg Inhaler] 2 puff INHALATION RT-BID [History] Sertraline [Zoloft] 50 mg PO BID 06/17/17 [History] metFORMIN HCL ER [Glucophage Xr] 1,000 mg PO QAM 06/17/17 [History] Atorvastatin [Lipitor] 40 mg PO HS 12/28/17 [History] Gabapentin [Neurontin] 200 mg PO BID 12/28/17 [History] Levothyroxine Sodium [Synthroid] 25 mcg PO DAILY 12/28/17 [History] metFORMIN HCL ER [Glucophage Xr] 500 mg PO HS 12/28/17 [History] Lisinopril [Zestril] 20 mg PO DAILY #30 tab 12/29/17 [Rx] Omeprazole [PriLOSEC] 40 mg PO AC-BID #60 capsule. 12/29/17 [Rx] Follow up Appointment(s)/Referral(s): Abundio Garza MD [Primary Care Provider] - 3 Days
--- NOTE | 2017-12-29 13:36 | P.PN ---
Subjective Progress Note Date: 12/29/17 Patient has been nothing by mouth for upper endoscopy today. Her computed tomography scan shows no acute findings. Patient's abdominal pain has improved. Objective - Vital Signs Vital signs: Vital Signs Temp 97.6 F 12/29/17 10:17 Pulse 60 12/29/17 12:27 Resp 18 12/29/17 10:17 BP 150/68 12/29/17 10:17 Pulse Ox 94 L 12/29/17 10:17 Intake & Output 12/28/17 12/29/17 12/29/17 18:59 06:59 18:59 Intake Total 1600 Balance 1600 Intake: Intake, IV Titration 400 Amount Sodium Chloride 0.9% 1, 400 000 ml @ 50 mls/hr IV . Q20H SHIRA Rx#:[id number] Oral 1200 Other: # Voids 1 - Exam ABDOMEN: Soft. No peritonitis. Minimal tenderness epigastrium. - Labs CBC & Chem 7: 12/29/17 06:47 12/29/17 06:47 Labs: Abnormal Lab Results - Last 24 Hours (Table) 12/28/17 12/28/17 12/28/17 Range/Units 11:48 17:07 21:03 BUN (7-17) mg/dL Glucose (74-99) mg/dL POC Glucose (mg/dL) 125 H 109 H (75-99) mg/dL Hemoglobin A1c 6.8 H (4.0-6.0) % AST (14-36) U/L 12/29/17 12/29/17 12/29/17 Range/Units 06:47 06:49 12:01 BUN 19 H (7-17) mg/dL Glucose 103 H (74-99) mg/dL POC Glucose (mg/dL) 109 H 127 H (75-99) mg/dL Hemoglobin A1c (4.0-6.0) % AST 46 H (14-36) U/L Microbiology - Last 24 Hours (Table) 12/28/17 01:53 Blood Culture - Preliminary Blood No Growth after 24 hours Assessment and Plan (1) Hiatal hernia with GERD Current Visit: Yes Status: Acute Code(s): K21.9 - GASTRO-ESOPHAGEAL REFLUX DISEASE WITHOUT ESOPHAGITIS; K44.9 - DIAPHRAGMATIC HERNIA WITHOUT OBSTRUCTION OR GANGRENE SNOMED Code(s): 165038175 (2) Morbid obesity due to excess calories Current Visit: Yes Status: Acute Code(s): E66.01 - MORBID (SEVERE) OBESITY DUE TO EXCESS CALORIES SNOMED Code(s): 884166787 (3) BMI 37.0-37.9, adult Current Visit: Yes Status: Acute Code(s): Z68.37 - BODY MASS INDEX (BMI) 37.0-37.9, ADULT SNOMED Code(s): 032229612 (4) Thyroid cancer Current Visit: Yes Status: Acute Code(s): C73 - MALIGNANT NEOPLASM OF THYROID GLAND SNOMED Code(s): 207446955 (5) Diabetes type 2, uncontrolled Current Visit: Yes Status: Acute Code(s): E11.65 - TYPE 2 DIABETES MELLITUS WITH HYPERGLYCEMIA SNOMED Code(s): 28891598 (6) Hypothyroid Current Visit: Yes Status: Acute Code(s): E03.9 - HYPOTHYROIDISM, UNSPECIFIED SNOMED Code(s): 46880031 (7) Chronic pain Current Visit: Yes Status: Acute Code(s): G89.29 - OTHER CHRONIC PAIN SNOMED Code(s): 94172495 (8) Inguinal hernia Current Visit: Yes Status: Acute Code(s): K40.90 - UNIL INGUINAL HERNIA, W/ O OBST OR GANGR, NOT SPCF RECUR SNOMED Code(s): 576411114 (9) Umbilical hernia Current Visit: Yes Status: Acute Code(s): K42.9 - UMBILICAL HERNIA WITHOUT OBSTRUCTION OR GANGRENE SNOMED Code(s): 161696289 Plan: 1. I have described options including continue hospitalization for upper endoscopy versus outpatient upper endoscopy. 2. Patient elected for outpatient upper endoscopy, Tuesday, January 02 at [facility] 3. Diet as tolerated. 4. Patient cleared from a surgical standpoint for discharge home
[2017-12-29 13:42] VITALS: BP 123/67; PULSE 62; RESP 16; TEMP 97.4
== END 2017-12-29 14:52 ==
LOC: EC 23:52 → 6PED 12-28 01:09
PROVIDERS: ADMIT Internal Medicine; ATTEND Internal Medicine
DX: R10.13 Epigastric pain (principal); K27.9 Peptic ulcer, site unspecified, unspecified as acute or chronic, without hemorrhage or perforation; K44.9 Diaphragmatic hernia without obstruction or gangrene; E11.65 Type 2 diabetes mellitus with hyperglycemia; E89.0 Postprocedural hypothyroidism; Z85.850 Personal history of malignant neoplasm of thyroid; E66.01 Morbid (severe) obesity due to excess calories; Z68.37 Body mass index [BMI] 37.0-37.9, adult; I10 Essential (primary) hypertension; K40.20 Bilateral inguinal hernia, without obstruction or gangrene, not specified as recurrent; G89.29 Other chronic pain; E78.5 Hyperlipidemia, unspecified; G47.30 Sleep apnea, unspecified; Z99.89 Dependence on other enabling machines and devices; R19.7 Diarrhea, unspecified; D25.9 Leiomyoma of uterus, unspecified; J44.9 Chronic obstructive pulmonary disease, unspecified; K42.9 Umbilical hernia without obstruction or gangrene; Z79.51 Long term (current) use of inhaled steroids; Z79.899 Other long term (current) drug therapy; Z79.890 Hormone replacement therapy; Z79.84 Long term (current) use of oral hypoglycemic drugs; Z91.018 Allergy to other foods; Z91.048 Other nonmedicinal substance allergy status; K21.9 Gastro-esophageal reflux disease without esophagitis; M19.90 Unspecified osteoarthritis, unspecified site; H81.09 Meniere's disease, unspecified ear; M54.9 Dorsalgia, unspecified; J30.1 Allergic rhinitis due to pollen; F41.9 Anxiety disorder, unspecified; Z87.891 Personal history of nicotine dependence; Z80.3 Family history of malignant neoplasm of breast; Z90.49 Acquired absence of other specified parts of digestive tract
CPT/HCPCS: 99285; 96374; 96375; 96376 ×2; 94640 ×4; 93005; 80053 ×2; 82150; 83605; 83690; 85025 ×2; 87040; 83036; 71046; 74177; G0378 ×2; J2270; J2405; C9113 ×2; Q9967

== ENCOUNTER 2018-04-20 09:25 | Day surgery (SDC) | payer BC ==
[2018-04-18 12:04] VITALS: BMI 36.1
[~2018-04-20 09:25] MED LIST changes: +HEPARIN SODIUM,PORCINE 5,000 UNIT/ML 1 ML VIAL SQ ONE; -HYDROmorphone 1 MG/ML 1 ML SYRINGE IVP PRN; -LACTATED RINGERS 1,000 ML IV SCH; +LIDOCAINE 1% 20 ML VIAL (10MG/ML) FOR IV START INTRADERMA PRN; -Pre Op ABX Message 1 EACH MISC MISCELLANE ONE; +SCOPOLAMINE 1.5MG/72HR PATCH TRANSDERM ONE; +ceFAZolin IN SWFI 2 GM/20 ML SYRINGE IVP ONE
[2018-04-20] MEDS: LACTATED RINGERS 1,000 ML IV SCH (10:15)
[2018-04-20 10:26] LABS: Glucose,Whole Blood 135 mg/dL (75-99)
--- NOTE | 2018-04-20 11:32 | P.GSHP ---
History of Present Illness H&P Date: 04/20/18 CHIEF COMPLAINT: Inguinal hernia, bilateral HISTORY OF PRESENT ILLNESS: The patient is a 62-year-old female who presents with a history of swelling and pain along the groins. Sh's noted increased swelling including pain of the area. Now she presents for repair of his inguinal hernia. PAST MEDICAL HISTORY: Please see list. PAST SURGICAL HISTORY: Please see list. MEDICATIONS: Please see list. ALLERGIES: Please see list. SOCIAL HISTORY: No illicit drug use FAMILY HISTORY: No reports of Crohn disease or ulcerative colitis. REVIEW OF ORGAN SYSTEMS: CONSTITUTIONAL: No reports of fevers or chills. No reports of weight loss despite prior attempts. GI: Denies any blood in stools or constipation. PHYSICAL EXAM: VITAL SIGNS: Stable GENERAL: Well-developed pleasant male in no acute distress. HEENT: No scleral icterus. Extraocular movements grossly intact. Moist buccal mucosa. NECK: Supple without lymphadenopathy. CHEST: Unlabored respirations. Equal bilateral excursions. CARDIOVASCULAR: Regular rate and rhythm. Distal 2+ pulses. ABDOMEN: Soft, nondistended. No peritoneal signs. Palpable defect of the groin MUSCULOSKELETAL: No clubbing, cyanosis, or edema. ASSESSMENT: 1. Inguinal hernia, bilateral PLAN: 1. Recommend proceeding with a robotic inguinal repair with mesh with bilateral approach. 2. Benefits and risks of surgical intervention was discussed including possibility of open technique. 3. DVT prophylaxis. 4. Antibiotic prophylaxis. Past Medical History Past Medical History: COPD, Diabetes Mellitus, GERD/Reflux, Hyperlipidemia, Hypertension, Osteoarthritis (OA), Sleep Apnea/CPAP/BIPAP, Thyroid Disorder Additional Past Medical History / Comment(s): MENIERES. SEVERE ENVIRONMENTAL ALLERGIES. CPAP @ 14L. CHRONIC BACK PAIN. History of Any Multi-Drug Resistant Organisms: None Reported Past Surgical History: Cholecystectomy, Orthopedic Surgery, Tonsillectomy, Tubal Ligation Additional Past Surgical History / Comment(s): BILATERAL EYE SURGERY FOR STRABISMUS. TOTAL THYROIDECTOMY, bilateral carpal tunnel Past Anesthesia/Blood Transfusion Reactions: No Reported Reaction Smoking Status: Former smoker - Past Family History Sister(s) Family Medical History: Cancer Additional Family Medical History / Comment(s): BREAST Medications and Allergies Home Medications Medication Instructions Recorded Confirmed Type Fluticasone Propionate 2 spray EA NOSTRIL HS 08/12/14 04/20/18 History Montelukast [Singulair] 10 mg PO HS 08/12/14 04/18/18 History Albuterol Inhaler [Ventolin Hfa 1 puff INHALATION RT-Q6H PRN 07/09/15 04/20/18 History Inhaler] [place]-3 Acid Ethyl Esters [Lovaza] 2 gm PO BID 07/09/15 04/18/18 History Tiotropium 18 Mcg/Puff [Spiriva] 1 puff INHALATION RT-HS 07/09/15 04/20/18 History Levothyroxine Sodium [Synthroid] 200 mcg PO DAILY 04/30/17 04/20/18 History glipiZIDE [Glucotrol] 10 mg PO BID 04/30/17 04/18/18 History sitaGLIPtin [Januvia] 100 mg PO DAILY 04/30/17 04/20/18 History Mometasone/Formoterol [Dulera 200 2 puff INHALATION RT-BID 06/17/17 04/18/18 History Mcg/5 Mcg Inhaler] Sertraline [Zoloft] 50 mg PO BID 06/17/17 04/18/18 History metFORMIN HCL ER [Glucophage Xr] 1,000 mg PO QAM 06/17/17 04/18/18 History Atorvastatin [Lipitor] 40 mg PO HS 12/28/17 04/20/18 History Gabapentin [Neurontin] 200 mg PO BID 12/28/17 04/18/18 History Levothyroxine Sodium [Synthroid] 25 mcg PO DAILY 12/28/17 04/18/18 History metFORMIN HCL ER [Glucophage Xr] 500 mg PO HS 12/28/17 04/18/18 History ALPRAZolam [Xanax] 0.25 mg PO TID PRN 04/18/18 04/18/18 History Cetirizine HCl [Zyrtec] 10 mg PO HS 04/18/18 04/18/18 History Lisinopril-Hctz 20-25 mg 1 tab PO DAILY 04/18/18 04/18/18 History [Zestoretic 20-25] Meclizine [Antivert] 25 mg PO QID 04/18/18 04/18/18 History Meloxicam [Mobic] 15 mg PO DAILY 04/18/18 04/18/18 History Omeprazole [PriLOSEC] 40 mg PO DAILY 04/18/18 04/18/18 History Allergies Allergy/AdvReac Type Severity Reaction Status Date / Time cat dander Allergy Dyspnea Verified 04/20/18 09:53 pollen extracts Allergy Unknown Verified 04/20/18 09:53 yeast, dried [yeast] Allergy Wheezing Verified 04/20/18 09:53 COTTON WOOD TREES Allergy Unknown Uncoded 04/20/18 09:53 Surgical - Exam Vital Signs Temp Pulse Resp BP Pulse Ox 98.2 F 59 L 16 143/63 94 L 04/20/18 10:14 04/20/18 10:14 04/20/18 10:14 04/20/18 10:14 04/20/18 10:14 Results - Labs Abnormal Lab Results - Last 24 Hours (Table) 04/20/18 Range/Units 10:06 POC Glucose (mg/dL) 135 H (75-99) mg/dL
[2018-04-20] MEDS ORDERED: LIDOCAINE 1% INJ 10MG/ML (20 ML MDV) ONE (11:46)
[2018-04-20] MEDS ORDERED: MIDAZOLAM 2 MG/2 ML VIAL ONE (11:46)
[2018-04-20] MEDS ORDERED: fentaNYL (PF) 50 MCG/ML 2 ML AMP ONE (11:46)
[2018-04-20] MEDS ORDERED: ePHEDrine SULFATE/0.9% NACL/PF 50 MG/5 ML SYRINGE IV ONE (11:46)
[2018-04-20] MEDS ORDERED: NEOSTIGMINE 1 MG/ML 10 ML VIAL ONE (11:46)
[2018-04-20] MEDS ORDERED: GLYCOPYRROLATE 0.2 MG/ML 2 ML VIAL ONE (11:46)
[2018-04-20] MEDS ORDERED: PROPOFOL 10 MG/ML 20 ML VIAL IV ONE (11:46)
[2018-04-20] MEDS ORDERED: ROCURONIUM BROMIDE 10 MG/ML 10 ML VIAL IV ONE (11:46)
[2018-04-20] MEDS ORDERED: SUCCINYLCHOLINE CHLORIDE 100 MG/5 ML SYR IV ONE (11:46)
[2018-04-20] MEDS ORDERED: BUPIVACAIN-EPI 0.25%-1:200,000 30 ML VIAL SQ ONE (12:50)
--- NOTE | 2018-04-20 13:54 | P.OP ---
Date of Procedure: 04/20/18 Description of Procedure: SURGEON: JULIETH COLON MD PREOPERATIVE DIAGNOSES: 1. Bilateral inguinal hernia per abnormal computed tomography scan 2. Umbilical hernia per abnormal computed tomography scan 3. Diabetes type 2, insulin-dependent, uncontrolled with diabetic neuropathy 4. Morbid obesity due to excess calories, BMI 36.2 5. Hypothyroidism 6. History of thyroid cancer, status post thyroidectomy 7. Fibromyalgia 8. Chronic obstructive pulmonary disease with chronic bronchitis 9. Gastroesophageal reflux disease 10. Depressive disorder 11. Hyperlipidemia 12. Generalized anxiety disorder 13. Obstructive sleep apnea POSTOPERATIVE DIAGNOSES: 1. Left lower abdominal wall incisional hernia with incarceration, 4 cm, initial 2. Umbilical hernia initial and reducible, 3 cm 3. Diabetes type 2, insulin-dependent, uncontrolled with diabetic neuropathy 4. Morbid obesity due to excess calories, BMI 36.2 5. Hypothyroidism 6. History of thyroid cancer, status post thyroidectomy 7. Fibromyalgia 8. Chronic obstructive pulmonary disease with chronic bronchitis 9. Gastroesophageal reflux disease 10. Depressive disorder 11. Hyperlipidemia 12. Generalized anxiety disorder 13. Obstructive sleep apnea OPERATION: 1. Robotic-assisted da Ronan Xi laparoscopic umbilical hernia repair with mesh , initial reducible, 3 cm 2. Robotic-assisted da Ronan Xi laparoscopic repair of incarcerated initial incisional hernia left lower abdomen, 4 cm without mesh Anesthesia: enio PLUNKETT Estimated Blood Loss (ml): 5 Pathology: none sent Condition: stable COMPLICATIONS: None. INDICATIONS: The patient is a 62-year-old female who presents with lower abdominal pain. Computed tomography scan demonstrated initial bilateral inguinal hernias and umbilical hernia. Surgical intervention with laparoscopic versus robotic and open techniques were reviewed. Placement of mesh was also reviewed. Benefits and risks were thoroughly described. Informed consent was obtained. DESCRIPTION OF PROCEDURE: The patient was brought into the operating room and laid in supine position. After general induction, the abdomen had been prepped and draped in standard sterile fashion. Ioban draping was also placed. Prior to incision, a timeout protocol was confirmed with surgical team regarding the patient's name including procedures to be performed. The robot was primed prior to the procedure. A field block using local anesthetic was placed along the proposed port sites. Initial incision was made with an #11 blade along the left upper quadrant. A 0 degree 5 mm laparoscopic trocar entry was performed and insufflated. Diagnostic laparoscopy demonstrated an umbilical hernia including no defects of the bilateral groins. At the left lower abdominal wall, an incarcerated hernia was identified. An 8 mm port was placed along the epigastrium followed by the right upper quadrant under direct localization. The 5-mm port was exchanged for an 8 mm robotic port. Placements of the ports were 15 cm from the target anatomy and approximately 10 cm apart. All trochars were positioned along the upper abdomen. The patient was positioned in reverse Trendelenburg 14 head down. The da Ronan Xi robot was previously primed, prepped and draped then docked along the left side of the patient. I then sat at the robot Da Ronan Xi console where working arms of the robot including Bovie cautery connected to robotic scissors, vessel sealer, needle driver/merchandiser, and graspers placed by the entry level administrative assistant. Fascial defect of 3 cm of the umbilicus was identified after cleaning the peritoneal fat of the abdominal wall. The hernia defect was oversewn using #1 Stratafix using fascial imbrication 3. Next, ventralight ST mesh 11.4 cm was placed with the rough side towards the abdominal wall and a Prolene stitch placed at the epicenter of the mesh to allow fixation during the case. 2-0 VLOC 12 inch sutures were used to fixate the mesh. Attention is now brought to the left lower quadrant abdominal wall hernia. The incarcerated contents was reduced as the peritoneal fat was cleaned from the abdominal wall. The defect was 4 cm in size of the fascia. Next, hemostasis was checked with cautery. The hernia defect was oversewn using #1 Stratafix using fascial imbrication 3. As a soft tissue buttress, a soft tissue flap was placed over the repair as the defect overlayed the sigmoid colon. A final endoscopic imaging was obtained. All instruments and pneumoperitoneum were evacuated from the abdominal cavity. The da Ronan Xi robot was undocked from the patient. I re-scrubbed into the case for closure of incisions. The incisions were reapproximated using 4-0 Monocryl in an interrupted subcuticular fashion. Liquid glue was applied to the skin after cleansing the skin with normal saline and dilute hydrogen peroxide. An abdominal binder was placed. At the end of the procedure, needle, sponge, and instrument count had been verified correct by registered nurse surgical services. The patient was taken to the postanesthesia care unit in stable condition. Operative Findings: 1. No hernias found in the bilateral groin 2. Large left lower abdominal wall incarcerated ventral hernia, initial 4 cm 3. Umbilical hernia initial and without incarceration, 3 cm 4. Mesh repair of umbilicus with 11.4 cm mesh 5. Soft tissue repair without mesh of left lower quadrant with fascial imbrication x 3 6. Console time 45 minutes Plan - Discharge Summary New Discharge Prescriptions: No Action Montelukast [Singulair] 10 mg PO HS Fluticasone Propionate 2 spray EA NOSTRIL HS Tiotropium 18 Mcg/Puff [Spiriva] 1 puff INHALATION RT-HS [place]-3 Acid Ethyl Esters [Lovaza] 2 gm PO BID Albuterol Inhaler [Ventolin Hfa Inhaler] 1 puff INHALATION RT-Q6H PRN PRN Reason: Shortness Of Breath Or Wheezing sitaGLIPtin [Januvia] 100 mg PO DAILY glipiZIDE [Glucotrol] 10 mg PO BID Levothyroxine Sodium [Synthroid] 200 mcg PO DAILY metFORMIN HCL ER [Glucophage Xr] 1,000 mg PO QAM Mometasone/Formoterol [Dulera 200 Mcg/5 Mcg Inhaler] 2 puff INHALATION RT-BID Sertraline [Zoloft] 50 mg PO BID Atorvastatin [Lipitor] 40 mg PO HS Gabapentin [Neurontin] 200 mg PO BID metFORMIN HCL ER [Glucophage Xr] 500 mg PO HS Levothyroxine Sodium [Synthroid] 25 mcg PO DAILY Cetirizine HCl [Zyrtec] 10 mg PO HS Meloxicam [Mobic] 15 mg PO DAILY Meclizine [Antivert] 25 mg PO QID Omeprazole [PriLOSEC] 40 mg PO DAILY Lisinopril-Hctz 20-25 mg [Zestoretic 20-25] 1 tab PO DAILY ALPRAZolam [Xanax] 0.25 mg PO TID PRN PRN Reason: Anxiety Discharge Medication List Fluticasone Propionate 2 spray EA NOSTRIL HS 08/12/14 [History] Montelukast [Singulair] 10 mg PO HS 08/12/14 [History] Albuterol Inhaler [Ventolin Hfa Inhaler] 1 puff INHALATION RT-Q6H PRN 07/09/15 [ History] [place]-3 Acid Ethyl Esters [Lovaza] 2 gm PO BID 07/09/15 [History] Tiotropium 18 Mcg/Puff [Spiriva] 1 puff INHALATION RT-HS 07/09/15 [History] Levothyroxine Sodium [Synthroid] 200 mcg PO DAILY 04/30/17 [History] glipiZIDE [Glucotrol] 10 mg PO BID 04/30/17 [History] sitaGLIPtin [Januvia] 100 mg PO DAILY 04/30/17 [History] Mometasone/Formoterol [Dulera 200 Mcg/5 Mcg Inhaler] 2 puff INHALATION RT-BID [History] Sertraline [Zoloft] 50 mg PO BID 06/17/17 [History] metFORMIN HCL ER [Glucophage Xr] 1,000 mg PO QAM 06/17/17 [History] Atorvastatin [Lipitor] 40 mg PO HS 12/28/17 [History] Gabapentin [Neurontin] 200 mg PO BID 12/28/17 [History] Levothyroxine Sodium [Synthroid] 25 mcg PO DAILY 12/28/17 [History] metFORMIN HCL ER [Glucophage Xr] 500 mg PO HS 12/28/17 [History] ALPRAZolam [Xanax] 0.25 mg PO TID PRN 04/18/18 [History] Cetirizine HCl [Zyrtec] 10 mg PO HS 04/18/18 [History] Lisinopril-Hctz 20-25 mg [Zestoretic 20-25] 1 tab PO DAILY 04/18/18 [History] Meclizine [Antivert] 25 mg PO QID 04/18/18 [History] Meloxicam [Mobic] 15 mg PO DAILY 04/18/18 [History] Omeprazole [PriLOSEC] 40 mg PO DAILY 04/18/18 [History] Follow up Appointment(s)/Referral(s): Julieth Colon MD [STAFF PHYSICIAN] - 04/25/18 4:15 pm Patient Instructions/Handouts: *Surgery [facility] - (Anesthesia) Discharge Instructions Outpatient Surgery, Abdominal Binder (DC), Ventral Hernia Repair ( DC) Activity/Diet/Wound Care/Special Instructions: No lifting over 4 pounds in 4 weeks. May shower. No bathtub soaks. Wear abdominal binder at all times for comfort. Discharge Disposition: HOME SELF-CARE
[2018-04-20 14:05] VITALS: TEMP 99.4
[2018-04-20] MEDS: HYDROmorphone 1 MG/ML 1 ML SYRINGE IVP PRN ×2 (14:10→14:15)
[2018-04-20 14:40] LABS: Glucose,Whole Blood 214 mg/dL (75-99)
[2018-04-20 16:34] VITALS: RESP 18
[2018-04-20 17:52] VITALS: BP 118/67; PULSE 68
== END 2018-04-20 17:54 | disposition home or self-care (01) ==
LOC: OR 09:25
PROVIDERS: ATTEND Surgery Plastic and Reconstructive Surgery
DX: K42.9 Umbilical hernia without obstruction or gangrene (principal); K43.0 Incisional hernia with obstruction, without gangrene; E11.40 Type 2 diabetes mellitus with diabetic neuropathy, unspecified; E11.65 Type 2 diabetes mellitus with hyperglycemia; E66.01 Morbid (severe) obesity due to excess calories; E78.5 Hyperlipidemia, unspecified; E89.0 Postprocedural hypothyroidism; F32.9 Major depressive disorder, single episode, unspecified; F41.1 Generalized anxiety disorder; G47.33 Obstructive sleep apnea (adult) (pediatric); I10 Essential (primary) hypertension; J44.9 Chronic obstructive pulmonary disease, unspecified; K21.9 Gastro-esophageal reflux disease without esophagitis; M19.90 Unspecified osteoarthritis, unspecified site; M79.7 Fibromyalgia; Z79.4 Long term (current) use of insulin; Z68.36 Body mass index [BMI] 36.0-36.9, adult; Z85.850 Personal history of malignant neoplasm of thyroid; Z87.891 Personal history of nicotine dependence; Z79.890 Hormone replacement therapy
CPT/HCPCS: 49653; C1781; J2250; J1644; J1100; J2710; J2405; J2001; J3010; J1170; J0330; J2704; J0690

== ENCOUNTER → 2018-11-20 | Outpatient (CLI) | payer BC ==
--- NOTE | 2018-11-20 11:33 | US ---
EXAMINATION TYPE: US thyroid st tissue head/neck DATE OF EXAM: 11/20/2018 COMPARISON: A 25/09/2014 CLINICAL HISTORY: C73 Malignant neoplasm of thyroid gland. Thyroidectomy thyroid ca. GLAND SIZE: Right Lobe: Surgically absent Left Lobe: Surgically absent Isthmus Thickness: Surgically absent Bilateral neck scanned, no evidence of lymphadenopathy. IMPRESSION: Postsurgical change with no evidence of recurrent mass or sizable residual thyroid tissue by ultrasou nd.
[2018-11-20 12:10] LABS: ALT 28 U/L (9-52); AST 47 U/L (14-36); African American GFR (CKD) >90 (>60 ml/min/1.73 sqM); Albumin 4.5 g/dL (3.5-5.0); Alkaline Phosphatase 51 U/L (38-126); Anion Gap 12 mmol/L; Blood Urea Nitrogen 23 mg/dL (7-17); Calcium 9.4 mg/dL (8.4-10.2); Carbon Dioxide 24 mmol/L (22-30); Chloride 108 mmol/L (98-107); Glucose 156 mg/dL (74-99); Potassium 4.3 mmol/L (3.5-5.1); Sodium 144 mmol/L (137-145); Total Bilirubin 0.7 mg/dL (0.2-1.3); Total Protein 7.6 g/dL (6.3-8.2)
[2018-11-20 17:53] LABS: Thyroglobulin <0.20 ng/mL (1.60-59.90)
[2018-11-20 18:38] LABS: Hemoglobin A1C 7.6 % (4.0-6.0)
== END | disposition home or self-care (01) ==
LOC: RADUSWWP 10:40
PROVIDERS: ATTEND Internal Medicine Endocrinology, Diabetes & Metabolism
DX: E11.65 Type 2 diabetes mellitus with hyperglycemia (principal); Z98.890 Other specified postprocedural states
CPT/HCPCS: 36415; 76536; 80053; 83036; 84432; 84443; 86800

== ENCOUNTER 2019-02-04 11:03 | Emergency (ER) | payer BC ==
[2019-02-04] MEDS ORDERED: SODIUM CHLORIDE 0.9% 1,000 ML IV STA (11:53)
[2019-02-04] MEDS ORDERED: ONDANSETRON 4 MG/2 ML VIAL IVP STA (11:54)
[2019-02-04 12:35] LABS: Basophils # (A) 0.1 k/uL (0-0.2); Basophils % (A) 1 %; Eosinophils # (A) 0.1 k/uL (0-0.7); Eosinophils % (A) 2 %; HCT 39.4 % (34.0-46.0); HGB 13.1 gm/dL (11.4-16.0); Lymphocytes # (A) 1.8 k/uL (1.0-4.8); Lymphocytes % (A) 23 %; MCH 29.9 pg (25.0-35.0); MCHC 33.3 g/dL (31.0-37.0); MCV 89.8 fL (80.0-100.0); Mean Platelet Volume 6.7; Monocytes # (A) 0.4 k/uL (0-1.0); Monocytes % (A) 5 %; Neutrophils # (A) 5.2 k/uL (1.3-7.7); Neutrophils % (A) 67 %; Platelet Count 261 k/uL (150-450); RBC 4.39 m/uL (3.80-5.40); RDW 13.8 % (11.5-15.5); WBC 7.7 k/uL (3.8-10.6)
[2019-02-04 12:45] LABS: Albumin 4.5 g/dL (3.5-5.0); Calcium 9.1 mg/dL (8.4-10.2); Potassium 3.6 mmol/L (3.5-5.1); Total Protein 7.7 g/dL (6.3-8.2)
--- NOTE | 2019-02-04 13:28 | ED ---
General Adult HPI - General Chief complaint: Fall Stated complaint: Fell/head/back/sides/bleeding Time Seen by Provider: 02/04/19 11:36 Source: patient, RN notes reviewed Mode of arrival: wheelchair Limitations: no limitations - History of Present Illness Initial comments: 63-year-old female with a past medical history of COPD, diabetes, GERD, hyperlipidemia, hypertension presents to the emergency department for multiple complaints. Patient states that about 4 days ago she had a trip and fall from standing and hit the front of her head on the ground. Patient did not lose consciousness at that time. Patient states she has had abdominal pain lower back pain and a headache since that time. States that she started to have nausea as well as diarrhea as well. States this is causing her to feel weak. Patient denies any saddle anesthesia. Denies any difficulty urinating. Denies any weakness of the lower extremities. Patient has no other complaints at this time including shortness of breath, chest pain, headache, or visual changes. - Related Data Home Medications Medication Instructions Recorded Confirmed Fluticasone Propionate 2 spray EA NOSTRIL HS 08/12/14 04/20/18 Montelukast [Singulair] 10 mg PO HS 08/12/14 04/18/18 Albuterol Inhaler [Ventolin Hfa 1 puff INHALATION RT-Q6H PRN 07/09/15 04/20/18 Inhaler] [place]-3 Acid Ethyl Esters [Lovaza] 2 gm PO BID 07/09/15 04/18/18 Tiotropium 18 Mcg/Puff [Spiriva] 1 puff INHALATION RT-HS 07/09/15 04/20/18 Levothyroxine Sodium [Synthroid] 200 mcg PO DAILY 04/30/17 04/20/18 glipiZIDE [Glucotrol] 10 mg PO BID 04/30/17 04/18/18 sitaGLIPtin [Januvia] 100 mg PO DAILY 04/30/17 04/20/18 Mometasone/Formoterol [Dulera 200 2 puff INHALATION RT-BID 06/17/17 04/18/18 Mcg/5 Mcg Inhaler] Sertraline [Zoloft] 50 mg PO BID 06/17/17 04/18/18 metFORMIN HCL ER [Glucophage Xr] 1,000 mg PO QAM 06/17/17 04/18/18 Atorvastatin [Lipitor] 40 mg PO HS 12/28/17 04/20/18 Gabapentin [Neurontin] 200 mg PO BID 12/28/17 04/18/18 Levothyroxine Sodium [Synthroid] 25 mcg PO DAILY 12/28/17 04/18/18 metFORMIN HCL ER [Glucophage Xr] 500 mg PO HS 12/28/17 04/18/18 ALPRAZolam [Xanax] 0.25 mg PO TID PRN 04/18/18 04/18/18 Cetirizine HCl [Zyrtec] 10 mg PO HS 04/18/18 04/18/18 Lisinopril-Hctz 20-25 mg 1 tab PO DAILY 04/18/18 04/18/18 [Zestoretic 20-25] Meclizine [Antivert] 25 mg PO QID 04/18/18 04/18/18 Meloxicam [Mobic] 15 mg PO DAILY 04/18/18 04/18/18 Omeprazole [PriLOSEC] 40 mg PO DAILY 04/18/18 04/18/18 Previous Rx's Medication Instructions Recorded Ciprofloxacin HCl [Cipro] 500 mg PO Q12H 5 Days #10 tab 02/04/19 Dicyclomine [Bentyl] 20 mg PO TID PRN #20 tablet 02/04/19 Metoclopramide [Reglan] 5 mg PO TID PRN #12 tab 02/04/19 Allergies Allergy/AdvReac Type Severity Reaction Status Date / Time cat dander Allergy Dyspnea Verified 02/04/19 11:15 pollen extracts Allergy Unknown Verified 02/04/19 11:15 yeast, dried [yeast] Allergy Wheezing Verified 02/04/19 11:15 COTTON WOOD TREES Allergy Unknown Uncoded 02/04/19 11:15 Review of Systems ROS Statement: Those systems with pertinent positive or pertinent negative responses have been documented in the HPI. ROS Other: All systems not noted in ROS Statement are negative. Past Medical History Past Medical History: COPD, Diabetes Mellitus, GERD/Reflux, Hyperlipidemia, Hypertension, Osteoarthritis (OA), Sleep Apnea/CPAP/BIPAP, Thyroid Disorder Additional Past Medical History / Comment(s): MENIERES. SEVERE ENVIRONMENTAL ALLERGIES. CPAP @ 14L. CHRONIC BACK PAIN. History of Any Multi-Drug Resistant Organisms: None Reported Past Surgical History: Cholecystectomy, Orthopedic Surgery, Tonsillectomy, Tubal Ligation Additional Past Surgical History / Comment(s): BILATERAL EYE SURGERY FOR STRABISMUS. TOTAL THYROIDECTOMY, bilateral carpal tunnel Past Anesthesia/Blood Transfusion Reactions: No Reported Reaction Past Psychological History: Anxiety Smoking Status: Former smoker Past Alcohol Use History: None Reported Past Drug Use History: None Reported - Past Family History Sister(s) Family Medical History: Cancer Additional Family Medical History / Comment(s): BREAST General Exam Limitations: no limitations General appearance: alert, in no apparent distress Head exam: Present: atraumatic, normocephalic, normal inspection Eye exam: Present: normal appearance, PERRL, EOMI. Absent: scleral icterus, conjunctival injection, periorbital swelling ENT exam: Present: normal exam, mucous membranes moist Neck exam: Present: normal inspection, full ROM. Absent: tenderness, meningismus, lymphadenopathy Respiratory exam: Present: normal lung sounds bilaterally. Absent: respiratory distress, wheezes, rales, rhonchi, stridor Cardiovascular Exam: Present: regular rate, normal rhythm, normal heart sounds. Absent: systolic murmur, diastolic murmur, rubs, gallop, clicks GI/Abdominal exam: Present: soft, tenderness (generalized tenderness in the abdomen), normal bowel sounds. Absent: distended, guarding, rebound, rigid Back exam: Absent: vertebral tenderness Neurological exam: Present: alert Psychiatric exam: Present: normal affect, normal mood Course Vital Signs 02/04/19 02/04/19 11:15 12:22 Temperature 97.4 F L Pulse Rate 72 69 Respiratory 18 20 Rate Blood Pressure 106/49 120/53 O2 Sat by Pulse 93 L 92 L Oximetry Medical Decision Making - Medical Decision Making 63-year-old female presents for multiple complaints. States that about 4 days ago she had a trip and fall from standing and hit the front of her head on the ground. Did not lose consciousness. No blood thinners. States she has had abdominal pain and some back pain since that time. No weakness of the lower extremities, numbness or tingling in the lower extremities, bladder or bowel changes, no difficulty urinating. Patient also started to have nausea and diarrhea. Vitals have been stable throughout patient's stay. CBC is unremarkable. CMP does show evidence of dehydration with a BUN to creatinine ratio of 31. Urine is positive for nitrites and 7 white blood cells. Culture pending. C. diff was negative however stool culture has pending. CT brain and C-spine was obtained which showed no acute changes. Given patient's abdominal discomfort with diarrhea CT abdomen and pelvis was ordered which showed lymph nodes in hepatomegaly that are unchanged. No acute abnormality. She reevaluated if not much better. At this time patient will be given Cipro which would cover for both urinary tract infection and infectious diarrhea. She will follow up with primary care in 1-2 days. She will return if she has any worsening symptoms. - Lab Data Result diagrams: 02/04/19 12:15 02/04/19 12:15 Lab Results 02/04/19 02/04/19 02/04/19 Range/Units 12:15 12:15 13:40 WBC 7.7 (3.8-10.6) k/uL RBC 4.39 (3.80-5.40) m/uL Hgb 13.1 (11.4-16.0) gm/dL Hct 39.4 (34.0-46.0) % MCV 89.8 (80.0-100.0) fL MCH 29.9 (25.0-35.0) pg MCHC 33.3 (31.0-37.0) g/dL RDW 13.8 (11.5-15.5) % Plt Count 261 (150-450) k/uL Neutrophils % 67 % Lymphocytes % 23 % Monocytes % 5 % Eosinophils % 2 % Basophils % 1 % Neutrophils # 5.2 (1.3-7.7) k/uL Lymphocytes # 1.8 (1.0-4.8) k/uL Monocytes # 0.4 (0-1.0) k/uL Eosinophils # 0.1 (0-0.7) k/uL Basophils # 0.1 (0-0.2) k/uL Sodium 141 (137-145) mmol/L Potassium 3.6 (3.5-5.1) mmol/L Chloride 105 (98-107) mmol/L Carbon Dioxide 23 (22-30) mmol/L Anion Gap 13 mmol/L BUN 26 H (7-17) mg/dL Creatinine 0.83 (0.52-1.04) mg/dL Est GFR (CKD-EPI)AfAm 87 (>60 ml/min/1.73 sqM) Est GFR (CKD-EPI)NonAf 76 (>60 ml/min/1.73 sqM) Glucose 92 (74-99) mg/dL Calcium 9.1 (8.4-10.2) mg/dL Total Bilirubin 1.0 (0.2-1.3) mg/dL AST 32 (14-36) U/L ALT 20 (9-52) U/L Alkaline Phosphatase 51 (38-126) U/L Total Protein 7.7 (6.3-8.2) g/dL Albumin 4.5 (3.5-5.0) g/dL Amylase 53 (30-110) U/L Lipase 107 (23-300) U/L Urine Color Yellow Urine Appearance Cloudy H (Clear) Urine pH 6.0 (5.0-8.0) Ur Specific [place] 1.030 (1.001-1.035) Urine Protein 1+ H (Negative) Urine Glucose (UA) Negative (Negative) Urine Ketones Negative (Negative) Urine Blood Moderate H (Negative) Urine Nitrite Positive H (Negative) Urine Bilirubin Negative (Negative) Urine Urobilinogen <2.0 (<2.0) mg/dL Ur Leukocyte Esterase Large H (Negative) Urine RBC 2 (0-5) /hpf Urine WBC 7 H (0-5) /hpf Ur Squamous Epith Cells 2 (0-4) /hpf Amorphous Sediment Few H (None) /hpf Urine Bacteria Many H (None) /hpf Hyaline Casts 13 H (0-2) /lpf C. difficile (EIA) Intrp (Negative) 02/04/19 Range/Units 13:40 WBC (3.8-10.6) k/uL RBC (3.80-5.40) m/uL Hgb (11.4-16.0) gm/dL Hct (34.0-46.0) % MCV (80.0-100.0) fL MCH (25.0-35.0) pg MCHC (31.0-37.0) g/dL RDW (11.5-15.5) % Plt Count (150-450) k/uL Neutrophils % % Lymphocytes % % Monocytes % % Eosinophils % % Basophils % % Neutrophils # (1.3-7.7) k/uL Lymphocytes # (1.0-4.8) k/uL Monocytes # (0-1.0) k/uL Eosinophils # (0-0.7) k/uL Basophils # (0-0.2) k/uL Sodium (137-145) mmol/L Potassium (3.5-5.1) mmol/L Chloride (98-107) mmol/L Carbon Dioxide (22-30) mmol/L Anion Gap mmol/L BUN (7-17) mg/dL Creatinine (0.52-1.04) mg/dL Est GFR (CKD-EPI)AfAm (>60 ml/min/1.73 sqM) Est GFR (CKD-EPI)NonAf (>60 ml/min/1.73 sqM) Glucose (74-99) mg/dL Calcium (8.4-10.2) mg/dL Total Bilirubin (0.2-1.3) mg/dL AST (14-36) U/L ALT (9-52) U/L Alkaline Phosphatase (38-126) U/L Total Protein (6.3-8.2) g/dL Albumin (3.5-5.0) g/dL Amylase (30-110) U/L Lipase (23-300) U/L Urine Color Urine Appearance (Clear) Urine pH (5.0-8.0) Ur Specific [place] (1.001-1.035) Urine Protein (Negative) Urine Glucose (UA) (Negative) Urine Ketones (Negative) Urine Blood (Negative) Urine Nitrite (Negative) Urine Bilirubin (Negative) Urine Urobilinogen (<2.0) mg/dL Ur Leukocyte Esterase (Negative) Urine RBC (0-5) /hpf Urine WBC (0-5) /hpf Ur Squamous Epith Cells (0-4) /hpf Amorphous Sediment (None) /hpf Urine Bacteria (None) /hpf Hyaline Casts (0-2) /lpf C. difficile (EIA) Intrp Negative (Negative) Disposition Clinical Impression: Diarrhea, Nausea Disposition: HOME SELF-CARE Condition: Good Instructions (If sedation given, give patient instructions): Acute Diarrhea (ED), Abdominal Pain (ED) Additional Instructions: Please take antibiotic as directed. Drink plenty of fluids. Follow-up with primary care in 1-2 days. Return to the emergency department if you have any worsening symptoms. Prescriptions: Dicyclomine [Bentyl] 20 mg PO TID PRN #20 tablet PRN Reason: pain Ciprofloxacin HCl [Cipro] 500 mg PO Q12H 5 Days #10 tab Metoclopramide [Reglan] 5 mg PO TID PRN #12 tab PRN Reason: Nausea Is patient prescribed a controlled substance at d/c from ED?: No Referrals: Abundio Garza MD [Primary Care Provider] - 1-2 days Time of Disposition: 16:06
--- NOTE | 2019-02-04 14:45 | CT ---
EXAMINATION TYPE: CT brain angelo alston con DATE OF EXAM: 02/04/2019 COMPARISON: None HISTORY: Fall injury CT DLP: 1553 mGycm Automated exposure control for dose reduction was used. TECHNIQUE: CT scan of the head and cervical spine are performed without contrast. FINDINGS: Ventricles have normal size. There is no mass effect nor midline shift. There is no sign of intracranial hemorrhage. The calvarium is intact. Vertebra have normal alignment. There is hypertrophic spurring anteriorly from C3 to C7. There is hyp ertrophic multilevel facet arthropathy. Skull base is intact. There is no evidence of a fracture. IMPRESSION: Spondylotic changes. No fracture. Negative CT scan of the brain.
[2019-02-04 14:49] LABS: Amorphous Sediment,Urine Few /hpf; Appearance,Urine Cloudy (Clear); Bacteria,Urine Many /hpf; Bilirubin,Urine Negative (Negative); Blood,Urine Moderate (Negative); Color,Urine Yellow; Glucose,Urine (UA) Negative (Negative); Hyaline Casts,Urine 13 /lpf (0-2); Ketones,Urine Negative (Negative); Leukocyte Esterase,Urine Large (Negative); Nitrite,Urine Positive (Negative); Protein,Urine 1+ (Negative); RBC,Urine 2 /hpf (0-5); Squamous Epithelial Cell,Urine 2 /hpf (0-4); Urobilinogen,Urine <2.0 mg/dL (<2.0); WBC,Urine 7 /hpf (0-5)
--- NOTE | 2019-02-04 14:50 | CT ---
EXAMINATION TYPE: CT abdomen pelvis w con DATE OF EXAM: 02/04/2019 COMPARISON: 12/28/2017 HISTORY: Abdominal pain CT DLP: 2172.3 mGycm Automated exposure control for dose reduction was used. TECHNIQUE: Helical acquisition of images was performed from the lung bases through the pelvis. CONTRAST: Performed without Oral Contrast and with IV Contrast, patient injected with 100 mL of Isovue 300. FINDINGS: There is some patchy atelectasis at the lung bases. There is no pleural effusion. Heart size is fadumo l. Liver is enlarged and measures 22.5 cm in length.. There are a few enlarged lymph nodes at the shimon hepatis that measure up to 1.8 cm. There are clips from cholecystectomy. Bile ducts are not dilated. Spleen appears normal. There is no pancreatic mass. There is stable 1 cm low-density left adrenal mass. Kidneys show satisfactory contrast opacification. There is no hydronephrosis. Ureters are not dilated. There is no retroperitoneal adenopathy. Bladder distends smoothly. There is no inguinal hernia. There are numerous phleboliths in the pelvis. Append ix appears normal. There is no mesenteric edema. There is no ascites or free air. There is no sign of a bowel obstructio n. Lumbar spine is intact. I see no bony destructive process. Bony pelvis is intact. There are multip le uterine fibroids with calcification. IMPRESSION: There are a few periportal lymph nodes unchanged. Hepatomegaly unchanged. No acute abnormality of the abdomen pelvis.
[2019-02-04 16:54] VITALS: BP 106/52; PULSE 80; RESP 21; TEMP 98.7
== END 2019-02-04 16:53 | disposition home or self-care (01) ==
LOC: EC 11:03
DX: R11.0 Nausea (principal); R19.7 Diarrhea, unspecified; R10.9 Unspecified abdominal pain; M54.5 Low back pain; E86.0 Dehydration; R16.0 Hepatomegaly, not elsewhere classified; R10.817 Generalized abdominal tenderness; J44.9 Chronic obstructive pulmonary disease, unspecified; E11.9 Type 2 diabetes mellitus without complications; K21.9 Gastro-esophageal reflux disease without esophagitis; E78.5 Hyperlipidemia, unspecified; I10 Essential (primary) hypertension; G47.30 Sleep apnea, unspecified; E07.9 Disorder of thyroid, unspecified; F41.9 Anxiety disorder, unspecified; Z79.890 Hormone replacement therapy; Z79.84 Long term (current) use of oral hypoglycemic drugs; Z79.899 Other long term (current) drug therapy; Z79.1 Long term (current) use of non-steroidal anti-inflammatories (NSAID); Z91.09 Other allergy status, other than to drugs and biological substances; Z91.018 Allergy to other foods; Z91.048 Other nonmedicinal substance allergy status; Z87.891 Personal history of nicotine dependence; Z90.49 Acquired absence of other specified parts of digestive tract
CPT/HCPCS: 36415; 80053; 82150; 83690; 85025; 81001; 87324; 87086; 87045; 87077; 87186; 87046; 72125; 70450; 74177; 99283; 96374; 96361; J2405; Q9967

== ENCOUNTER → 2019-10-11 | Outpatient (CLI) | payer BC ==
--- NOTE | 2019-10-11 13:09 | US ---
EXAMINATION TYPE: US thyroid st tissue head/neck DATE OF EXAM: 10/11/2019 COMPARISON: US 2019 CLINICAL HISTORY: C73 Malignant neoplasm of thyroid gland. History thyroid CA, thyroidectomy 3 years ago, patient on thyroid meds. RIGHT: surgically absent LEFT: surgically absent ISTHMUS: surgically absent Bilateral neck scanned, no evidence of lymphadenopathy. IMPRESSION: No suspicious nodule in the thyroidectomy bed sonographically. If increasing thyroglobuli n levels are seen repeat ultrasound would be recommended.
== END | disposition home or self-care (01) ==
LOC: RADUSWWP 12:18
PROVIDERS: ATTEND Internal Medicine Endocrinology, Diabetes & Metabolism
DX: C73 Malignant neoplasm of thyroid gland (principal)
CPT/HCPCS: 76536

== ENCOUNTER 2020-04-29 03:21 | Emergency (ER) | payer BC ==
[2020-04-29 03:30] VITALS: RESP 20
--- NOTE | 2020-04-29 03:36 | ED ---
Recheck HPI - General Chief Complaint: Overdose Stated Complaint: Overdose Time Seen by Provider: 04/29/20 03:27 Source: patient, EMS, RN notes reviewed, old records reviewed Mode of arrival: EMS Limitations: no limitations - History of Present Illness Initial Comments: This is a 64-year-old female who is accepted in transfer for evaluation. Patient was transfer secondary to history of positive coronavirus which was a positive chest today although patient states she originally tested positive greater than 20 days ago. Patient was also found to have taken one more vertical besides at night in transfer for observation. Patient has no symptoms. A symptomatic has no complaints and had no low blood sugars at prior facility per EMS her here in this emergency department MD Complaint: abnormal lab (Concern for low blood pressure secondary to many diabetic medications) -: hour(s) Returns Today for: Called Because of Abnormal Lab/Test, other (Sent DF for evaluation and observation regarding possibility of low blood sugar) Symptoms Since Prior Visit: no new symptoms Associated Symptoms: none Treatments Prior to Arrival: other (Patient was given no medications) - Related Data Home Medications Medication Instructions Recorded Confirmed Fluticasone Propionate 2 spray EA NOSTRIL HS 08/12/14 04/20/18 Montelukast [Singulair] 10 mg PO HS 08/12/14 04/18/18 Albuterol Inhaler (Mhu) [Ventolin 1 puff INHALATION RT-Q6H PRN 07/09/15 04/20/18 Hfa Inhaler (Mhu)] [place]-3 Acid Ethyl Esters [Lovaza] 2 gm PO BID 07/09/15 04/18/18 Tiotropium 18 Mcg/Puff [Spiriva] 1 puff INHALATION RT-HS 07/09/15 04/20/18 Levothyroxine Sodium [Synthroid] 200 mcg PO DAILY 04/30/17 04/20/18 glipiZIDE [Glucotrol] 10 mg PO BID 04/30/17 04/18/18 sitaGLIPtin [Januvia] 100 mg PO DAILY 04/30/17 04/20/18 Mometasone/Formoterol [Dulera 200 2 puff INHALATION RT-BID 06/17/17 04/18/18 Mcg-5 Mcg Inhaler] Sertraline [Zoloft] 50 mg PO BID 06/17/17 04/18/18 metFORMIN HCL ER [Glucophage Xr] 1,000 mg PO QAM 06/17/17 04/18/18 Atorvastatin [Lipitor] 40 mg PO HS 12/28/17 04/20/18 Gabapentin [Neurontin] 200 mg PO BID 12/28/17 04/18/18 Levothyroxine Sodium [Synthroid] 25 mcg PO DAILY 12/28/17 04/18/18 metFORMIN HCL ER [Glucophage Xr] 500 mg PO HS 12/28/17 04/18/18 ALPRAZolam [Xanax] 0.25 mg PO TID PRN 04/18/18 04/18/18 Cetirizine HCl [Zyrtec] 10 mg PO HS 04/18/18 04/18/18 Lisinopril-Hctz 20-25 mg 1 tab PO DAILY 04/18/18 04/18/18 [Zestoretic 20-25] Meclizine [Antivert] 25 mg PO QID 04/18/18 04/18/18 Meloxicam [Mobic] 15 mg PO DAILY 04/18/18 04/18/18 Omeprazole [PriLOSEC] 40 mg PO DAILY 04/18/18 04/18/18 Previous Rx's Medication Instructions Recorded Ciprofloxacin HCl [Cipro] 500 mg PO Q12H 5 Days #10 tab 02/04/19 Dicyclomine [Bentyl] 20 mg PO TID PRN #20 tablet 02/04/19 Metoclopramide [Reglan] 5 mg PO TID PRN #12 tab 02/04/19 Allergies Allergy/AdvReac Type Severity Reaction Status Date / Time cat dander Allergy Dyspnea Verified 04/29/20 03:27 pollen extracts Allergy Unknown Verified 04/29/20 03:27 yeast, dried [yeast] Allergy Wheezing Verified 04/29/20 03:27 COTTON WOOD TREES Allergy Unknown Uncoded 04/29/20 03:27 Review of Systems ROS Statement: Those systems with pertinent positive or pertinent negative responses have been documented in the HPI. ROS Other: All systems not noted in ROS Statement are negative. Past Medical History Past Medical History: COPD, Diabetes Mellitus, GERD/Reflux, Hyperlipidemia, Hypertension, Osteoarthritis (OA), Sleep Apnea/CPAP/BIPAP, Thyroid Disorder Additional Past Medical History / Comment(s): MENIERES. SEVERE ENVIRONMENTAL ALLERGIES. CPAP @ 14L. CHRONIC BACK PAIN. History of Any Multi-Drug Resistant Organisms: None Reported Past Surgical History: Cholecystectomy, Orthopedic Surgery, Tonsillectomy, Tubal Ligation Additional Past Surgical History / Comment(s): BILATERAL EYE SURGERY FOR STRABI SMUS. TOTAL THYROIDECTOMY, bilateral carpal tunnel Past Anesthesia/Blood Transfusion Reactions: No Reported Reaction Past Psychological History: Anxiety Smoking Status: Former smoker Past Alcohol Use History: None Reported Past Drug Use History: None Reported - Past Family History Sister(s) Family Medical History: Cancer Additional Family Medical History / Comment(s): BREAST General Exam Limitations: no limitations General appearance: alert, in no apparent distress Head exam: Present: atraumatic, normocephalic, normal inspection Eye exam: Present: normal appearance, PERRL, EOMI. Absent: scleral icterus, conjunctival injection, periorbital swelling ENT exam: Present: normal exam, mucous membranes moist Neck exam: Present: normal inspection. Absent: tenderness, meningismus, lymphadenopathy Respiratory exam: Present: normal lung sounds bilaterally. Absent: respiratory distress, wheezes, rales, rhonchi, stridor Cardiovascular Exam: Present: regular rate, normal rhythm, normal heart sounds. Absent: systolic murmur, diastolic murmur, rubs, gallop, clicks GI/Abdominal exam: Present: soft, normal bowel sounds. Absent: distended, tenderness, guarding, rebound, rigid Extremities exam: Present: normal inspection, full ROM, normal capillary refill. Absent: tenderness, pedal edema, joint swelling, calf tenderness Back exam: Present: normal inspection Neurological exam: Present: alert, oriented X3, CN II-XII intact Psychiatric exam: Present: normal affect, normal mood Skin exam: Present: warm, dry, intact, normal color. Absent: rash Course Vital Signs 04/29/20 04/29/20 04/29/20 03:23 03:27 06:48 Temperature 98.4 F 98.7 F Pulse Rate 76 71 78 Respiratory 20 20 Rate Blood Pressure 159/90 152/71 154/82 O2 Sat by Pulse 94 L 95 95 Oximetry - Reevaluation(s) Reevaluation #1: Medical record is reviewed Patient has significant improvement in symptoms Patient has no recent change in complaints Patient is informed of findings and plan here in the ER, due to no recurrent low blood sugar no we'll low blood sugar in the first place as well as coronavirus greater than 20 days ago Patient feels good for discharge Medical Decision Making - Medical Decision Making C4 female was sent for observation regarding possibility of low blood sugar secondary to much diabetic medication oral patient no low blood sugar throughout ER stay no low blood sugar prior facility and has no complaints able to eat and drink and can be discharged home - Lab Data Lab Results 04/29/20 04/29/20 04/29/20 Range/Units 04:20 05:19 06:11 POC Glucose (mg/dL) 149 H 160 H 127 H (75-99) mg/dL POC Glu Utility Bagger ID Abundio Lopez Taylor Myers, Taylor Disposition Clinical Impression: Drug overdose Disposition: HOME SELF-CARE Condition: Good Instructions (If sedation given, give patient instructions): Adult Overdose (ED) Is patient prescribed a controlled substance at d/c from ED?: No Referrals: None,Stated [Primary Care Provider] - 1-2 days
[2020-04-29 04:21] LABS: Glucose,Whole Blood 149 mg/dL (75-99)
[2020-04-29 05:21] LABS: Glucose,Whole Blood 160 mg/dL (75-99)
[2020-04-29 06:14] LABS: Glucose,Whole Blood 127 mg/dL (75-99)
[2020-04-29 06:50] VITALS: BP 154/82; PULSE 78; TEMP 98.7
== END 2020-04-29 07:46 | disposition home or self-care (01) ==
LOC: EC 03:21
DX: T38.3X1A Poisoning by insulin and oral hypoglycemic [antidiabetic] drugs, accidental (unintentional), initial encounter (principal); I10 Essential (primary) hypertension; G89.29 Other chronic pain; M54.9 Dorsalgia, unspecified; E07.9 Disorder of thyroid, unspecified; J44.9 Chronic obstructive pulmonary disease, unspecified; E11.9 Type 2 diabetes mellitus without complications; E78.5 Hyperlipidemia, unspecified; K21.9 Gastro-esophageal reflux disease without esophagitis; M19.90 Unspecified osteoarthritis, unspecified site; F41.9 Anxiety disorder, unspecified; G47.30 Sleep apnea, unspecified; Z79.1 Long term (current) use of non-steroidal anti-inflammatories (NSAID); Z79.899 Other long term (current) drug therapy; Z79.51 Long term (current) use of inhaled steroids; Z79.890 Hormone replacement therapy; Z79.84 Long term (current) use of oral hypoglycemic drugs; Z91.048 Other nonmedicinal substance allergy status; Z91.09 Other allergy status, other than to drugs and biological substances; Z99.89 Dependence on other enabling machines and devices; Z87.891 Personal history of nicotine dependence
CPT/HCPCS: 36415; 99284

== ENCOUNTER → 2020-10-08 | Outpatient (CLI) | payer MEDICARE ==
[2020-10-09 01:57] LABS: African American GFR (CKD) 54.9 (60.0-200.0); Albumin 4.6 g/dL (3.80-4.90); Albumin/Globulin Ratio 1.64 (1.60-3.17); Anion Gap 11.3 mmol/L (4.00-12.00); BUN/Creat Ratio 27.5 Ratio (12.00-20.00); Calcium 10.1 mg/dL (8.7-10.3); Carbon Dioxide 22.7 mmol/L (21.6-31.8); Chol/HDL Ratio 6.29; Globulin 2.8 g/dL (1.6-3.3); LDL Cholesterol,Calculated 167.8 mg/dL (0.0-131.0); Non-African American GFR(CKD) 47.4 (60.0-200.0); Potassium 4.7 mmol/L (3.5-5.5); Total Bilirubin 0.6 mg/dL (0.2-1.2); Total Protein 7.4 g/dL (6.2-8.2); VLDL Calculation 49.2 mg/dL (5.00-40.00)
== END | disposition home or self-care (01) ==
LOC: LABWHC1 09:04
PROVIDERS: ATTEND Internal Medicine Endocrinology, Diabetes & Metabolism
DX: E11.65 Type 2 diabetes mellitus with hyperglycemia (principal); C73 Malignant neoplasm of thyroid gland
CPT/HCPCS: 36415; 80053; 80061; 82043; 82570; 83036; 84432; 84443; 86800

== ENCOUNTER 2020-10-28 22:39 | Inpatient (IN) | payer MEDICARE ==
--- NOTE | 2020-10-28 23:18 | ED ---
Recheck HPI - General Chief Complaint: Abdominal Pain Stated Complaint: Abdominal pain Time Seen by Provider: 10/28/20 22:43 Source: patient, EMS, RN notes reviewed, old records reviewed Mode of arrival: EMS - History of Present Illness Initial Comments: This is a 65-year-old female presented by EMS for evaluation of abdominal pain. Patient was found of splenic infarct outside facility. At this time patient symptoms are controlled. She will be admitted for evaluation and treatment MD Complaint: other (She found of splenic infarction) -: unknown Returns Today for: persistent/worsening pain related to initial visit Symptoms Since Prior Visit: worsening pain Associated Symptoms: nausea, abdominal pain Treatments Prior to Arrival: other medications, Given Pain Meds on - Related Data Home Medications Medication Instructions Recorded Confirmed Montelukast [Singulair] 10 mg PO HS 08/12/14 10/28/20 Levothyroxine Sodium [Synthroid] 200 mcg PO DAILY 04/30/17 10/28/20 glipiZIDE [Glucotrol] 10 mg PO BID 04/30/17 10/28/20 Sertraline [Zoloft] 150 mg PO DAILY 06/17/17 10/28/20 metFORMIN HCL ER [Glucophage Xr] 1,000 mg PO DAILY 06/17/17 10/28/20 Levothyroxine Sodium [Synthroid] 25 mcg PO DAILY 12/28/17 10/28/20 metFORMIN HCL ER [Glucophage Xr] 500 mg PO HS 12/28/17 10/28/20 Cetirizine HCl [Zyrtec] 10 mg PO HS 04/18/18 10/28/20 Meclizine [Antivert] 25 mg PO QID PRN 04/18/18 10/28/20 Meloxicam [Mobic] 15 mg PO DAILY 04/18/18 10/28/20 Omeprazole [PriLOSEC] 40 mg PO DAILY 04/18/18 10/28/20 Fenofibrate Nanocrystallized 145 mg PO DAILY 10/28/20 10/28/20 [Fenofibrate] Furosemide [Lasix] 40 mg PO DAILY 10/28/20 10/28/20 lisinopriL [Prinivil] 20 mg PO DAILY 10/28/20 10/28/20 Previous Rx's Medication Instructions Recorded Aspirin 325 mg PO DAILY #30 tab 10/31/20 HYDROcodone/APAP 5-325MG [Hugo 1 each PO Q6H PRN #12 tab 10/31/20 5-325] Allergies Allergy/AdvReac Type Severity Reaction Status Date / Time cat dander Allergy Dyspnea Verified 10/28/20 23:02 pollen extracts Allergy Unknown Verified 10/28/20 23:02 yeast, dried [yeast] Allergy Wheezing Verified 10/28/20 23:02 COTTON WOOD TREES Allergy Unknown Uncoded 10/28/20 22:51 Review of Systems ROS Statement: Those systems with pertinent positive or pertinent negative responses have been documented in the HPI. ROS Other: All systems not noted in ROS Statement are negative. Past Medical History Past Medical History: COPD, Diabetes Mellitus, GERD/Reflux, Hyperlipidemia, Hypertension, Osteoarthritis (OA), Sleep Apnea/CPAP/BIPAP, Thyroid Disorder Additional Past Medical History / Comment(s): MENIERES. SEVERE ENVIRONMENTAL ALLERGIES. CPAP @ 14L. CHRONIC BACK PAIN. History of Any Multi-Drug Resistant Organisms: None Reported Past Surgical History: Cholecystectomy, Orthopedic Surgery, Tonsillectomy, Tubal Ligation Additional Past Surgical History / Comment(s): BILATERAL EYE SURGERY FOR STRABISMUS. TOTAL THYROIDECTOMY, bilateral carpal tunnel Past Anesthesia/Blood Transfusion Reactions: No Reported Reaction Past Psychological History: Anxiety Smoking Status: Former smoker Past Alcohol Use History: None Reported Past Drug Use History: None Reported - Past Family History Sister(s) Family Medical History: Cancer Additional Family Medical History / Comment(s): BREAST Mother Family Medical History: Coronary Artery Disease (CAD), Diabetes Mellitus, Hypertension, Renal Disease Father Family Medical History: Coronary Artery Disease (CAD), Diabetes Mellitus, Hypertension General Exam General appearance: alert, in no apparent distress Head exam: Present: atraumatic, normocephalic, normal inspection Eye exam: Present: normal appearance, PERRL, EOMI. Absent: scleral icterus, conjunctival injection, periorbital swelling ENT exam: Present: normal exam, mucous membranes moist Neck exam: Present: normal inspection. Absent: tenderness, meningismus, lymphadenopathy Respiratory exam: Present: normal lung sounds bilaterally. Absent: respiratory distress, wheezes, rales, rhonchi, stridor Cardiovascular Exam: Present: regular rate, normal rhythm, normal heart sounds. Absent: systolic murmur, diastolic murmur, rubs, gallop, clicks GI/Abdominal exam: Present: soft, normal bowel sounds. Absent: distended, tende rness, guarding, rebound, rigid Extremities exam: Present: normal inspection, full ROM, normal capillary refill. Absent: tenderness, pedal edema, joint swelling, calf tenderness Back exam: Present: normal inspection Neurological exam: Present: alert, oriented X3, CN II-XII intact Psychiatric exam: Present: normal affect, normal mood Skin exam: Present: warm, dry, intact, normal color. Absent: rash Course Vital Signs 10/28/20 10/29/20 10/29/20 22:46 01:01 02:37 Temperature 98.6 F Pulse Rate 60 65 54 L Respiratory 16 22 18 Rate Blood Pressure 135/50 107/51 107/51 O2 Sat by Pulse 95 92 L 95 Oximetry 10/29/20 10/29/20 10/29/20 04:00 05:00 06:00 Temperature Pulse Rate 58 L 70 58 L Respiratory 18 18 18 Rate Blood Pressure 90/50 96/51 100/46 O2 Sat by Pulse 95 95 94 L Oximetry 10/29/20 10/29/20 09:41 15:24 Temperature 97.9 F Pulse Rate 65 70 Respiratory 22 16 Rate Blood Pressure 123/56 96/48 O2 Sat by Pulse 95 97 Oximetry - Reevaluation(s) Reevaluation #1: Medical record is reviewed Transferring paperwork is reviewed Patient no significant acute distress Patient symptoms improved here in the ER Patient informed of results and questions answered Medical Decision Making - Medical Decision Making 65 female who did present for splenic infarct does have history of chronic abdominal pain. At this point patient will be admitted for abdominal pain and treatment. Vascular surgery to evaluate - Lab Data Result diagrams: 10/30/20 07:00 10/30/20 07:00 Disposition Clinical Impression: Chronic pain, Intractable abdominal pain, Splenic infarction Disposition: ADMITTED IP TO THIS [facility] Condition: Fair Is patient prescribed a controlled substance at d/c from ED?: No
[2020-10-28] MEDS ORDERED: MORPHINE SULFATE 4 MG/ML SYRINGE IV PRN (23:45)
[2020-10-28] MEDS ORDERED: NALOXONE 0.4 MG/ML 1 ML VIAL IV PRN (23:45)
[2020-10-29] MEDS ORDERED: HEPARIN SODIUM 1,000 UN/ML (10ML VL) IV PRN (00:29)
[2020-10-29] MEDS: SODIUM CHLORIDE 0.9% 1,000 ML IV SCH ×2 (00:32→21:02)
[2020-10-29] MEDS: HYDROmorphone 1 MG/ML 1 ML SYRINGE IVP PRN ×3 (00:47→21:08)
[2020-10-29] MEDS: ONDANSETRON 4 MG/2 ML VIAL IVP PRN ×2 (00:48→19:57)
[2020-10-29] MEDS: HEPARIN SOD,PORK IN 0.45% NACL 25,000 UNIT in 0.45% NACL 1 250ML.BAG IV SCH (00:58)
[2020-10-29] MEDS ORDERED: MECLIZINE 25 MG TAB PO PRN (02:12)
--- NOTE | 2020-10-29 02:13 | P.HPIM ---
History of Present Illness H&P Date: 10/29/20 The patient is a 65-year-old female with a PMH of hypertension, hypothyroidism, type II DM, objective sleep apnea who was sent to the [facility] emergency room from [facility] where she had presented earlier today with a complaint of abdominal pain. The patient reports that she has been experiencing left-sided sharp abdominal pain for the past 2 days, which initially was mild 2-3 out of 10 and gradually worsened to 7 out of 10 at maximal intensity. She reports that the pain is constant, with no alleviating or exacerbating features. She also reports associated nausea and thereby has not been able to eat or drink much for the past 2 days. She denied any history of abdominal pain. The patient underwent an extensive evaluation at [facility] which was all reviewed including a CT abdomen and pelvis with and without contrast which revealed evidence of a splenic infarct along with multiple calcified uterine fibroids. Patient denied any history of blood clots in the past. Also denied history of A. fib or any other cardiac arrhythmias. Laboratory evaluation was remarkable for WBC count of 9.9, hemoglobin 12.6, platelets 256, sodium 143, potassium 3.6, chloride 104, CO2 25, glucose 81, BUN 26, creatinine 0.9, calcium 9.4, AST 46, ALT 18, alk phos 45, T bili 0.7, abdomen 5.0, lactic acid 1.6, INR 1.07, magnesium 1.9, troponin less than 0.012, lipase 346, UA unremarkable. The patient was started on heparin infusion and was transferred to [facility]. EKG from [facility] revealed sinus rhythm at 62 bpm with borderline prolonged SC interval along with borderline intraventricular conduction delay. Review of systems: Pertinent positives and negatives as discussed in HPI, a complete review of systems was performed and all other systems are negative. Physical examination: General: non toxic, no distress, appears at stated age, obese Derm: no unusual rashes/lesions no unusual ecchymoses, warm, dry Head: atraumatic, normocephalic, symmetric Eyes: EOMI, no lid lag, anicteric sclera, pupils equal round reactive to light ENT: Nose and ears atraumatic, no thrush, no pharyngeal erythema Neck: No thyromegaly, no cervical lymphadenopathy, trachea midline, supple Mouth: no lip lesion, mucus membranes moist Cardiovascular: S1S2 reg, no murmur, positive posterior tibial pulse bilateral, no edema, capillary refill less than 2 seconds Lungs: CTA bilateral, no rhonchi, no rales , no accessory muscle use Abdominal: soft, diffuse left-sided tenderness to palpation, minimal guarding, no appreciable organomegaly, normal bowel sounds Ext: no gross muscle atrophy, muscle strength 5 out of 5 in all 4 extremities grossly, no contractures, Neuro: CN II-XI grossly intact, light touch intact all 4 extremities, finger to nose within normal limits, Psych: Alert, oriented, appropriate affect Assessment/plan Splenic infarct, unclear etiology -Case was discussed by Dr. Rocha with vascular surgery it infrastructure consultant who plans on angiography and possible intervention in a.m. -Continue with heparin infusion -Pain control -Antiemetics -IV fluids -Cardiac monitoring -Obtain echocardiogram Type II DM -Lispro insulin sliding scale with blood glucose monitoring -Hold oral hypoglycemics -Check A1c Chronic conditions: Hypertension, hyperlipidemia, hypothyroidism, obstructive sleep apnea -Continue with home meds -Advised patient to obtain her home CPAP - if unavailable, start patient on BiPAP at night DVT prophylaxis -Heparin infusion The patient is admitted with an anticipated greater than 2 midnight stay for evaluation of splenic infarct CODE STATUS: Full Code Discussed with: Patient Anticipated discharge date: 2-[address]: Home A total of 35 minutes was spent on the care of this complex patient more than 50% of the time was spent in counseling and care coordination. Past Medical History Past Medical History: COPD, Diabetes Mellitus, GERD/Reflux, Hyperlipidemia, Hypertension, Osteoarthritis (OA), Sleep Apnea/CPAP/BIPAP, Thyroid Disorder Additional Past Medical History / Comment(s): MENIERES. SEVERE ENVIRONMENTAL ALLERGIES. CPAP @ 14L. CHRONIC BACK PAIN. History of Any Multi-Drug Resistant Organisms: None Reported Past Surgical History: Cholecystectomy, Orthopedic Surgery, Tonsillectomy, Tubal Ligation Additional Past Surgical History / Comment(s): BILATERAL EYE SURGERY FOR STRABISMUS. TOTAL THYROIDECTOMY, bilateral carpal tunnel Past Anesthesia/Blood Transfusion Reactions: No Reported Reaction Past Psychological History: Anxiety Smoking Status: Former smoker Past Alcohol Use History: None Reported Past Drug Use History: None Reported - Past Family History Sister(s) Family Medical History: Cancer Additional Family Medical History / Comment(s): BREAST Medications and Allergies Home Medications Medication Instructions Recorded Confirmed Type Montelukast [Singulair] 10 mg PO HS 08/12/14 10/28/20 History Levothyroxine Sodium [Synthroid] 200 mcg PO DAILY 04/30/17 10/28/20 History glipiZIDE [Glucotrol] 10 mg PO BID 04/30/17 10/28/20 History Sertraline [Zoloft] 150 mg PO DAILY 06/17/17 10/28/20 History metFORMIN HCL ER [Glucophage Xr] 1,000 mg PO DAILY 06/17/17 10/28/20 History Levothyroxine Sodium [Synthroid] 25 mcg PO DAILY 12/28/17 10/28/20 History metFORMIN HCL ER [Glucophage Xr] 500 mg PO HS 12/28/17 10/28/20 History Cetirizine HCl [Zyrtec] 10 mg PO HS 04/18/18 10/28/20 History Meclizine [Antivert] 25 mg PO QID PRN 04/18/18 10/28/20 History Meloxicam [Mobic] 15 mg PO DAILY 04/18/18 10/28/20 History Omeprazole [PriLOSEC] 40 mg PO DAILY 04/18/18 10/28/20 History Famotidine [Pepcid] 20 mg PO HS 10/28/20 10/28/20 History Fenofibrate Nanocrystallized 145 mg PO DAILY 10/28/20 10/28/20 History [Fenofibrate] Furosemide [Lasix] 40 mg PO DAILY 10/28/20 10/28/20 History lisinopriL [Prinivil] 20 mg PO DAILY 10/28/20 10/28/20 History Allergies Allergy/AdvReac Type Severity Reaction Status Date / Time cat dander Allergy Dyspnea Verified 10/28/20 23:02 pollen extracts Allergy Unknown Verified 10/28/20 23:02 yeast, dried [yeast] Allergy Wheezing Verified 10/28/20 23:02 COTTON WOOD TREES Allergy Unknown Uncoded 10/28/20 22:51 Physical Exam Vitals: Vital Signs Temp Pulse Resp BP Pulse Ox 10/29/20 01:01 65 22 107/51 92 L 10/28/20 22:46 98.6 F 60 16 135/50 95 Intake and Output 10/28/20 10/28/20 10/29/20 14:59 22:59 06:59 Other: Weight 110.677 kg
[2020-10-29 04:17] LABS: Basophils # (A) 0.1 k/uL (0-0.2); Basophils % (A) 1 %; Eosinophils # (A) 0.2 k/uL (0-0.7); Eosinophils % (A) 3 %; HGB 11.8 gm/dL (11.4-16.0); Lymphocytes # (A) 2.5 k/uL (1.0-4.8); Lymphocytes % (A) 34 %; MCH 29.6 pg (25.0-35.0); MCV 92.6 fL (80.0-100.0); Mean Platelet Volume 7.2; Monocytes # (A) 0.4 k/uL (0-1.0); Monocytes % (A) 5 %; Neutrophils # (A) 4.1 k/uL (1.3-7.7); Neutrophils % (A) 55 %; Platelet Count 239 k/uL (150-450); RDW 13.9 % (11.5-15.5); WBC 7.4 k/uL (3.8-10.6)
[2020-10-29 04:21] LABS: Potassium 3.6 mmol/L (3.5-5.1)
[2020-10-29 04:22] LABS: Albumin 4.4 g/dL (3.5-5.0); Calcium 8.8 mg/dL (8.4-10.2); Phosphorus 4.6 mg/dL (2.5-4.5); Total Bilirubin 0.4 mg/dL (0.2-1.3); Total Protein 7.2 g/dL (6.3-8.2)
[2020-10-29 07:42] LABS: Glucose,Whole Blood 130 mg/dL (75-99)
[2020-10-29] MEDS: INSULIN ASPART (NovoLOG) 100 UNIT/ML VIAL SQ SCH ×4 (07:46→21:08)
[2020-10-29] MEDS: SERTRALINE 50 MG TAB PO SCH (09:27)
[2020-10-29] MEDS: lisinopriL 20 MG TAB PO SCH (09:32)
[2020-10-29] MEDS: FENOFIBRATE 160 MG TAB PO SCH (09:32)
[2020-10-29] MEDS: LEVOTHYROXINE 25 MCG TAB PO SCH (09:32)
[2020-10-29] MEDS: PANTOPRAZOLE 40 MG/10 ML VIAL IV SCH (09:33)
--- NOTE | 2020-10-29 10:08 | P.GSCN ---
History of Present Illness Consult date: 10/29/20 Reason for Consult: Splenic infarct Requesting physician: Antonieta Santana History of present illness: As a pleasant 65-year-old white female who presented to the hospital yesterday with complaints of sharp pain in the left lower quadrant abdomen that was wrapping around to her back. Her past medical history includes COPD, diabetes mellitus, GERD, hyperlipidemia, hypertension, osteoarthritis, thyroid disorder, and obstructive sleep apnea. Her past surgical history includes cholecystectomy and tubal ligation. She is a former smoker who quit in 2010. She reports that pain is constant and sharp with nothing relieving it. She has having some nausea, no vomiting, reports normal bowel movements with no blood or black stool. She denies any previous history of pain similar. States last colonoscopy was approximately 5 years ago with no concerning findings. Denies any history of clotting disorder, heart disease, no history of DVT or pulmonary embolism. Does report a history of fibroids with previous pain in the past. States she is menopausal, did have postmenopausal bleeding approximately [address] of abdomen and pelvis with and without contrast completed at [facility] showing multiple calcified uterine fibroids. 3 cm area of decreased density and decreased enhancement in superior spleen consistent with infarct. 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 She denies any shortness of breath, chest pain, fevers or chills. Reports not much improvement in her pain, continues to be sharp and constant wrapping around to her flank region. She is currently on a heparin drip. Labs unremarkable. Review of Systems A 14 point review of systems was completed all pertinent positives and negatives as stated in the HPI. Past Medical History Past Medical History: COPD, Diabetes Mellitus, GERD/Reflux, Hyperlipidemia, Hypertension, Osteoarthritis (OA), Sleep Apnea/CPAP/BIPAP, Thyroid Disorder Additional Past Medical History / Comment(s): MENIERES. SEVERE ENVIRONMENTAL ALLERGIES. CPAP @ 14L. CHRONIC BACK PAIN. History of Any Multi-Drug Resistant Organisms: None Reported Past Surgical History: Cholecystectomy, Orthopedic Surgery, Tonsillectomy, Tubal Ligation Additional Past Surgical History / Comment(s): BILATERAL EYE SURGERY FOR STRABISMUS. TOTAL THYROIDECTOMY, bilateral carpal tunnel Past Anesthesia/Blood Transfusion Reactions: No Reported Reaction Past Psychological History: Anxiety Smoking Status: Former smoker Past Alcohol Use History: None Reported Past Drug Use History: None Reported - Past Family History Sister(s) Family Medical History: Cancer Additional Family Medical History / Comment(s): BREAST Medications and Allergies Home Medications Medication Instructions Recorded Confirmed Type Montelukast [Singulair] 10 mg PO HS 08/12/14 10/28/20 History Levothyroxine Sodium [Synthroid] 200 mcg PO DAILY 04/30/17 10/28/20 History glipiZIDE [Glucotrol] 10 mg PO BID 04/30/17 10/28/20 History Sertraline [Zoloft] 150 mg PO DAILY 06/17/17 10/28/20 History metFORMIN HCL ER [Glucophage Xr] 1,000 mg PO DAILY 06/17/17 10/28/20 History Levothyroxine Sodium [Synthroid] 25 mcg PO DAILY 12/28/17 10/28/20 History metFORMIN HCL ER [Glucophage Xr] 500 mg PO HS 12/28/17 10/28/20 History Cetirizine HCl [Zyrtec] 10 mg PO HS 04/18/18 10/28/20 History Meclizine [Antivert] 25 mg PO QID PRN 04/18/18 10/28/20 History Meloxicam [Mobic] 15 mg PO DAILY 04/18/18 10/28/20 History Omeprazole [PriLOSEC] 40 mg PO DAILY 04/18/18 10/28/20 History Famotidine [Pepcid] 20 mg PO HS 10/28/20 10/28/20 History Fenofibrate Nanocrystallized 145 mg PO DAILY 10/28/20 10/28/20 History [Fenofibrate] Furosemide [Lasix] 40 mg PO DAILY 10/28/20 10/28/20 History lisinopriL [Prinivil] 20 mg PO DAILY 10/28/20 10/28/20 History Allergies Allergy/AdvReac Type Severity Reaction Status Date / Time cat dander Allergy Dyspnea Verified 10/28/20 23:02 pollen extracts Allergy Unknown Verified 10/28/20 23:02 yeast, dried [yeast] Allergy Wheezing Verified 10/28/20 23:02 COTTON WO[employer] TREES Allergy Unknown Uncoded 10/28/20 22:51 Surgical - Exam Vital Signs Temp Pulse Resp BP Pulse Ox 98.6 F 60 16 135/50 95 10/28/20 22:46 10/28/20 22:46 10/28/20 22:46 10/28/20 22:46 10/28/20 22:46 General appearance: The patient is alert, oriented, appears in no acute distress. HET: Head is normocephalic and atraumatic. Neck: Supple without lymphadenopathy. Trachea midline. Heart: S1 S2. Regular rate and rhythm. Lungs: Clear to auscultation. Abdomen: Soft, tender in left lower quadrant and left upper quadrant, epigastric tenderness, nondistended with bowel sounds. No peritoneal signs. No palpable organomegaly or masses. Extremities: Normal skin color and turgor. No cyanosis, rash, ulceration, clu bbing, or edema. Radial and pedal pulses are 2/4 bilaterally. Neurological: No focal deficits. Strength and sensation are grossly intact. Results - Labs 10/29/20 03:56 10/29/20 03:56 Abnormal Lab Results - Last 24 Hours (Table) 10/29/20 10/29/20 Range/Units 03:56 07:41 BUN 26 H (7-17) mg/dL Glucose 114 H (74-99) mg/dL POC Glucose (mg/dL) 130 H (75-99) mg/dL Phosphorus 4.6 H (2.5-4.5) mg/dL AST 41 H (14-36) U/L Diabetes panel 10/29/20 Range/Units 03:56 Sodium 142 (137-145) mmol/L Potassium 3.6 (3.5-5.1) mmol/L Chloride 106 (98-107) mmol/L Carbon Dioxide 29 (22-30) mmol/L BUN 26 H (7-17) mg/dL Creatinine 0.89 (0.52-1.04) mg/dL Glucose 114 H (74-99) mg/dL Calcium 8.8 (8.4-10.2) mg/dL AST 41 H (14-36) U/L ALT 17 (4-34) U/L Alkaline Phosphatase 42 (38-126) U/L Total Protein 7.2 (6.3-8.2) g/dL Albumin 4.4 (3.5-5.0) g/dL Calcium panel 10/29/20 Range/Units 03:56 Calcium 8.8 (8.4-10.2) mg/dL Phosphorus 4.6 H (2.5-4.5) mg/dL Albumin 4.4 (3.5-5.0) g/dL Pituitary panel 10/29/20 Range/Units 03:56 Sodium 142 (137-145) mmol/L Potassium 3.6 (3.5-5.1) mmol/L Chloride 106 (98-107) mmol/L Carbon Dioxide 29 (22-30) mmol/L BUN 26 H (7-17) mg/dL Creatinine 0.89 (0.52-1.04) mg/dL Glucose 114 H (74-99) mg/dL Calcium 8.8 (8.4-10.2) mg/dL Adrenal panel 10/29/20 Range/Units 03:56 Sodium 142 (137-145) mmol/L Potassium 3.6 (3.5-5.1) mmol/L Chloride 106 (98-107) mmol/L Carbon Dioxide 29 (22-30) mmol/L BUN 26 H (7-17) mg/dL Creatinine 0.89 (0.52-1.04) mg/dL Glucose 114 H (74-99) mg/dL Calcium 8.8 (8.4-10.2) mg/dL Total Bilirubin 0.4 (0.2-1.3) mg/dL AST 41 H (14-36) U/L ALT 17 (4-34) U/L Alkaline Phosphatase 42 (38-126) U/L Total Protein 7.2 (6.3-8.2) g/dL Albumin 4.4 (3.5-5.0) g/dL Assessment and Plan Assessment: 1. Abdominal pain 2. CT abdomen and pelvis with reported evidence of splenic infarct 3. Multiple uterine fibroids 4. History COPD 5. Diabetes mellitus 6. History of GERD 7. Hyperlipidemia 8. Hypertension 9. Hypothyroid Plan: 1. Continue IV heparin drip for now 2. CT abdomen and pelvis report reviewed 3. Protonix 40 mg twice a day 4. Antiemetics as needed 5. Further recommendations to follow following evaluation by vascular surgeon Thank you for this consultation and allowing us take part in the plan of care of your patient during her hospital stay The impression and plan of care has been dictated as directed. Dr. Jeong I performed a history and examination of this patient, discussed the same with the dictator. I agree with the dictator's note ,documented as a scribe. Any additional findings or plans will be noted.
[2020-10-29 12:17] LABS: Glucose,Whole Blood 103 mg/dL (75-99)
--- NOTE | 2020-10-29 13:54 | P.PN ---
Subjective Progress Note Date: 10/29/20 Patient was seen and evaluated by me in the ER. She still complaining of pain mostly in the left upper quadrant. No acute events overnight. She is currently on IV heparin drip. Objective - Vital Signs Vital signs: Vital Signs Temp 98.6 F 10/28/20 22:46 Pulse 65 10/29/20 09:41 Resp 22 10/29/20 09:41 BP 123/56 10/29/20 09:41 Pulse Ox 95 10/29/20 09:41 Intake & Output 10/28/20 10/29/20 10/29/20 18:59 06:59 18:59 Intake Total 109.571 Balance 109.571 Weight 110.677 kg 110.677 kg Intake: Intake, IV Titration 109.571 Amount Heparin Sod,Pork in 0.45% 109.571 NaCl 25,000 unit In 0.45 % NaCl 1 250ml.bag @ 9 UNITS/KG/HR 9.961 mls/hr IV .Q24H [facility] Rx#: [id number] - Exam General: The patient is awake and alert, in no distress Eye: there is normal conjunctiva bilaterally. Neck: The neck is supple, there is no JVD. Cardiovascular: Normal S1-S2, no S3-S4, no murmurs. Respiratory: Lungs clear to auscultation bilaterally Gastrointestinal: Abdomen is soft, nontender Musculoskeletal: There is no pedal edema. Neurological:. Speech is normal. Skin: Skin is warm and dry - Labs CBC & Chem 7: 10/29/20 03:56 10/29/20 03:56 Labs: Abnormal Lab Results - Last 24 Hours (Table) 10/29/20 10/29/20 10/29/20 Range/Units 03:56 07:41 12:06 BUN 26 H (7-17) mg/dL Glucose 114 H (74-99) mg/dL POC Glucose (mg/dL) 130 H 103 H (75-99) mg/dL Phosphorus 4.6 H (2.5-4.5) mg/dL AST 41 H (14-36) U/L Assessment and Plan Assessment: This is a 65-year-old female with past medical history noted below who presented to [facility] originally with abdominal pain. Patient was evaluated and a computed tomography scan of the abdomen and pelvis showed evidence of splenic infarct. Patient was transferred to our hospital for vascular surgery evaluation. 1. Splenic infarct, currently on IV heparin drip awaiting vascular surgery recommendations. Pain control and supportive care. IV fluid hydration. 2. Type 2 diabetes, continue sliding scale insulin. Hold oral agent 3. Chronic medical problems: Essential hypertension, hyperlipidemia, hypothyroidism, obstructive sleep apnea Today, I reviewed her medication list and lab work results. We will continue supportive care. Appreciate vascular surgery recommendations.
[2020-10-29 14:47] LABS: Hemoglobin A1C 5.7 % (4.0-6.0)
[2020-10-29 16:56] LABS: Glucose,Whole Blood 99 mg/dL (75-99)
--- NOTE | 2020-10-29 19:39 | CT ---
EXAMINATION TYPE: CT angio thor/abd pel aorta DATE OF EXAM: 10/29/2020 COMPARISON: Chest CT scan 04/30/2017 HISTORY: chest pain CT DLP: 1147.8 mGycm Automated exposure control for dose reduction was used. CONTRAST: Performed with IV Contrast, patient injected with 100 mL of Isovue 370. Images obtained from the thoracic inlet to the floor the pelvis with IV contrast. There are 3-D post processed images. There is noncalcified 1.5 cm nodule in the lateral aspect of the right upper lobe. There is mild subs egmental atelectasis at the lung bases. Heart size is fairly normal. There is no pericardial effusion . There is no mediastinal adenopathy. There are no hilar masses. Pulmonary arteries appear intact. Th ere are no filling defects. Thoracic aorta is intact. There is no aneurysm or dissection. Liver spleen stomach pancreas appear intact. The bile ducts are not dilated. There are clips from cho lecystectomy. There is no adrenal mass. Kidneys show satisfactory contrast opacification. There is no hydronephrosi s. Ureters are not dilated. Bladder distends smoothly. There are calcified multiple uterine fibroids. Uterus is anteverted. There is no inguinal hernia. There is arterial flow in the celiac artery and superior mesenteric artery. There is arterial flow in the renal and femoral and iliac arteries. I see no hemodynamic stenosis. There is no arterial aneury sm or dissection. Thoracic and lumbar spine are intact. There is no compression fracture. The bony pelvis is intact. Th e hip joints are intact. There is no hip dysplasia. IMPRESSION: No significant angiographic abnormality. Mild patchy atelectasis at the lung bases. This appears slightly increased compared to old exam. There is right upper lobe mass noncalcified which is new compared to old exam. Follow-up recommended.
[2020-10-29 20:21] LABS: Glucose,Whole Blood 134 mg/dL (75-99)
[2020-10-29] MEDS: MONTELUKAST 10 MG TAB PO SCH (21:08)
[2020-10-30] MEDS: SODIUM CHLORIDE 0.9% 1,000 ML IV SCH (02:42)
[2020-10-30] MEDS: HEPARIN SOD,PORK IN 0.45% NACL 25,000 UNIT in 0.45% NACL 1 250ML.BAG IV SCH (03:05)
[2020-10-30 06:32] LABS: Glucose,Whole Blood 107 mg/dL (75-99)
[2020-10-30] MEDS: INSULIN ASPART (NovoLOG) 100 UNIT/ML VIAL SQ SCH ×4 (06:34→20:12)
[2020-10-30] MEDS: LEVOTHYROXINE 25 MCG TAB PO SCH (06:36)
[2020-10-30 07:30] LABS: Basophils # (A) 0.1 k/uL (0-0.2); Basophils % (A) 1 %; Eosinophils # (A) 0.1 k/uL (0-0.7); Eosinophils % (A) 2 %; Lymphocytes # (A) 2.2 k/uL (1.0-4.8); Lymphocytes % (A) 33 %; MCH 30.9 pg (25.0-35.0); MCHC 33.3 g/dL (31.0-37.0); MCV 92.8 fL (80.0-100.0); Mean Platelet Volume 7.4; Monocytes # (A) 0.3 k/uL (0-1.0); Monocytes % (A) 4 %; Neutrophils % (A) 59 %; Platelet Count 239 k/uL (150-450); RBC 3.88 m/uL (3.80-5.40); RDW 13.6 % (11.5-15.5); WBC 6.7 k/uL (3.8-10.6)
[2020-10-30 08:03] LABS: African American GFR (CKD) >90 (>60 ml/min/1.73 sqM); Anion Gap 4 mmol/L; Blood Urea Nitrogen 18 mg/dL (7-17); Carbon Dioxide 32 mmol/L (22-30); Chloride 109 mmol/L (98-107); Glucose 112 mg/dL (74-99); Non-African American GFR(CKD) 81 (>60 ml/min/1.73 sqM); Potassium 4.1 mmol/L (3.5-5.1); Sodium 145 mmol/L (137-145)
[2020-10-30] MEDS: FENOFIBRATE 160 MG TAB PO SCH (09:37)
[2020-10-30] MEDS: SERTRALINE 50 MG TAB PO SCH (09:37)
[2020-10-30] MEDS: lisinopriL 20 MG TAB PO SCH (09:37)
[2020-10-30] MEDS: PANTOPRAZOLE 40 MG/10 ML VIAL IV SCH (09:37)
[2020-10-30] MEDS: LORATADINE 10 MG TAB PO SCH (10:49)
[2020-10-30 11:40] LABS: Glucose,Whole Blood 132 mg/dL (75-99)
--- NOTE | 2020-10-30 14:39 | P.PN ---
Subjective Progress Note Date: 10/30/20 Principal diagnosis: Splenic infarct The patient is seen and examined lying in bed. She states her pain has improved some today. Still states about a 6 out of 10 in a little worse after eating. Denies any nausea or vomiting. States that she did have a normal bowel movement today. Denies any shortness of breath or chest pain. Denies any pain in her lower extremities. She is on a heparin drip at this time. Her CTA showed splenic infarct when Dr. Jeong reviewed it, she discussed with radiology who is going to add addendum to note. Objective - Vital Signs Vital signs: Vital Signs Temp 98.4 F 10/30/20 02:00 Pulse 58 L 10/30/20 02:00 Resp 17 10/30/20 02:00 BP 123/58 10/30/20 02:00 Pulse Ox 92 L 10/30/20 02:00 Intake & Output 10/29/20 10/30/20 10/30/20 18:59 06:59 18:59 Intake Total 202.317 47.683 180 Balance 202.317 47.683 180 Weight 110.677 kg Intake: Intake, IV Titration 202.317 47.683 Amount Heparin Sod,Pork in 0.45% 202.317 47.683 NaCl 25,000 unit In 0.45 % NaCl 1 250ml.bag @ 9 UNITS/KG/HR 9.961 mls/hr IV .Q24H [facility] Rx#: [id number] Oral 180 Other: Voiding Method Toilet - Exam General appearance: The patient is alert, oriented, appears in no acute distress. Obese. HET: Head is normocephalic and atraumatic. Neck: Supple without lymphadenopathy. Trachea midline. Heart: S1 S2. Regular rate and rhythm. Lungs: Clear to auscultation. Abdomen: Soft, left lower quadrant tenderness, left flank tenderness, nondistended with bowel sounds. Obese. Extremities: Normal skin color and turgor. No cyanosis, rash, ulceration, clubbing, or edema. Radial and pedal pulses are 2/4 bilaterally. Neurological: No focal deficits. Alert and oriented 3. - Labs CBC & Chem 7: 10/30/20 07:00 10/30/20 07:00 Labs: Abnormal Lab Results - Last 24 Hours (Table) 10/29/20 10/29/20 10/29/20 Range/Units 12:06 17:47 20:18 APTT 37.3 H (22.0-30.0) sec Chloride (98-107) mmol/L Carbon Dioxide (22-30) mmol/L BUN (7-17) mg/dL Glucose (74-99) mg/dL POC Glucose (mg/dL) 103 H 134 H (75-99) mg/dL 10/30/20 10/30/20 10/30/20 Range/Units 06:29 07:00 07:00 APTT 33.0 H (22.0-30.0) sec Chloride 109 H (98-107) mmol/L Carbon Dioxide 32 H (22-30) mmol/L BUN 18 H (7-17) mg/dL Glucose 112 H (74-99) mg/dL POC Glucose (mg/dL) 107 H (75-99) mg/dL Assessment and Plan Assessment: 1. Abdominal pain 2. CT abdomen and pelvis with reported evidence of splenic infarct 3. Multiple uterine fibroids 4. History COPD 5. Diabetes mellitus 6. History of GERD 7. Hyperlipidemia 8. Hypertension 9. Hypothyroid Plan: 1. May discontinue heparin gtt and will not require long-term anticoagulation 2. CT angiogram thoracic aortic abdomen and pelvis ordered and reviewed 3. Protonix 40 mg twice a day 4. Antiemetics as needed 5. Claritin ordered for seasonal ALLERGIES 6. [facility] Thank you for this consultation and allowing us take part in the plan of care of your patient during her hospital stay The impression and plan of care has been dictated as directed. Dr. Jeong I performed a history and examination of this patient, discussed the same with the dictator. I agree with the dictator's note ,documented as a scribe. Any additional findings or plans will be noted.
--- NOTE | 2020-10-30 15:09 | P.PN ---
Subjective Progress Note Date: 10/30/20 Patient is doing fairly well today. She is still having pain in the left upper quadrant that she is rating is 5 out of 10 which is better compared to yesterday. No acute events overnight. Objective - Vital Signs Vital signs: Vital Signs Temp 97.2 F L 10/30/20 12:00 Pulse 59 L 10/30/20 12:00 Resp 16 10/30/20 12:00 BP 140/61 10/30/20 12:00 Pulse Ox 96 10/30/20 12:00 Intake & Output 10/29/20 10/30/20 10/30/20 18:59 06:59 18:59 Intake Total 202.317 47.683 727.523 Balance 202.317 47.683 727.523 Weight 110.677 kg Intake: Intake, IV Titration 202.317 47.683 187.523 Amount Heparin Sod,Pork in 0.45% 202.317 47.683 187.523 NaCl 25,000 unit In 0.45 % NaCl 1 250ml.bag @ 9 UNITS/KG/HR 9.961 mls/hr IV .Q24H [facility] Rx#: [id number] Oral 540 Other: Voiding Method Toilet Toilet # Voids 2 # Bowel Movements 1 - Exam General: The patient is awake and alert, in no distress Eye: there is normal conjunctiva bilaterally. Neck: The neck is supple, there is no JVD. Cardiovascular: Normal S1-S2, no S3-S4, no murmurs. Respiratory: Lungs clear to auscultation bilaterally Gastrointestinal: Abdomen is soft, nontender Musculoskeletal: There is no pedal edema. Neurological:. Speech is normal. Skin: Skin is warm and dry - Labs CBC & Chem 7: 10/30/20 07:00 10/30/20 07:00 Labs: Abnormal Lab Results - Last 24 Hours (Table) 10/29/20 10/29/20 10/30/20 Range/Units 17:47 20:18 06:29 APTT 37.3 H (22.0-30.0) sec Chloride (98-107) mmol/L Carbon Dioxide (22-30) mmol/L BUN (7-17) mg/dL Glucose (74-99) mg/dL POC Glucose (mg/dL) 134 H 107 H (75-99) mg/dL 10/30/20 10/30/20 10/30/20 Range/Units 07:00 07:00 11:39 APTT 33.0 H (22.0-30.0) sec Chloride 109 H (98-107) mmol/L Carbon Dioxide 32 H (22-30) mmol/L BUN 18 H (7-17) mg/dL Glucose 112 H (74-99) mg/dL POC Glucose (mg/dL) 132 H (75-99) mg/dL 10/30/20 Range/Units 12:12 APTT 36.4 H (22.0-30.0) sec Chloride (98-107) mmol/L Carbon Dioxide (22-30) mmol/L BUN (7-17) mg/dL Glucose (74-99) mg/dL POC Glucose (mg/dL) (75-99) mg/dL Assessment and Plan Assessment: This is a 65-year-old female with past medical history noted below who presented to [facility] originally with abdominal pain. Patient was evaluated and a computed tomography scan of the abdomen and pelvis showed evidence of splenic infarct. Patient was transferred to our hospital for vascular surgery evaluation. 1. 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 CT angiogram of the thoracic, abdomen, and pelvis aorta showed evidence of a focal wedge-shaped defect in the upper pole of the spleen representing splenic infarct noted on outside CT. No acute findings otherwise. We will obtain echocardiogram to rule out intracardiac source of emboli. I discussed the case with vascular surgery attending. No need for full anticoagulation at this time. Would discontinue IV heparin drip and start aspirin 325 mg daily. Pain control and supportive care. 2. Type 2 diabetes, continue sliding scale insulin. Hold oral agent 3. Chronic medical problems: Essential hypertension, hyperlipidemia, hypothyroidism, obstructive sleep apnea Today, I reviewed her medication list and lab work results. We will continue supportive care. Appreciate vascular surgery recommendations. Anticipate discharge home tomorrow
[2020-10-30 16:46] LABS: Glucose,Whole Blood 87 mg/dL (75-99)
[2020-10-30] MEDS: HYDROcodone/APAP 5-325MG 1 EACH TAB PO PRN (16:53)
[2020-10-30] MEDS: ASPIRIN 325 MG TAB PO SCH (16:53)
[2020-10-30] MEDS: MONTELUKAST 10 MG TAB PO SCH (20:13)
[2020-10-30 20:14] LABS: Glucose,Whole Blood 100 mg/dL (75-99)
[2020-10-31 06:21] LABS: Glucose,Whole Blood 114 mg/dL (75-99)
[2020-10-31] MEDS: INSULIN ASPART (NovoLOG) 100 UNIT/ML VIAL SQ SCH ×2 (06:35→12:19)
[2020-10-31] MEDS: HYDROcodone/APAP 5-325MG 1 EACH TAB PO PRN ×2 (06:36→12:25)
[2020-10-31] MEDS: LEVOTHYROXINE 25 MCG TAB PO SCH (06:36)
[2020-10-31 06:43] VITALS: BP 141/65; PULSE 59; RESP 16; TEMP 97.4
[2020-10-31] MEDS ORDERED: PANTOPRAZOLE 40 MG TABLET PO SCH (07:30)
--- NOTE | 2020-10-31 10:16 | P.PN ---
Subjective Progress Note Date: 10/31/20 Principal diagnosis: Splenic infarct Patient is seen and examined sitting up at bedside. She's been up and ambulating. States her pain has improved. Rates it at a 5 out of 10 as an achy/throbbing pain. No nausea or vomiting. Tolerating her diet. Echocardiogram performed this morning and pending results. Heparin drip has been discontinued. Objective - Vital Signs Vital signs: Vital Signs Temp 97.4 F L 10/31/20 06:00 Pulse 59 L 10/31/20 06:00 Resp 16 10/31/20 06:00 BP 141/65 10/31/20 06:00 Pulse Ox 95 10/31/20 06:00 Intake & Output 10/30/20 10/31/20 10/31/20 18:59 06:59 18:59 Intake Total 727.523 180 Balance 727.523 180 Intake: Intake, IV Titration 187.523 Amount Heparin Sod,Pork in 0.45% 187.523 NaCl 25,000 unit In 0.45 % NaCl 1 250ml.bag @ 9 UNITS/KG/HR 9.961 mls/hr IV .Q24H [facility] Rx#: [id number] Oral 540 180 Other: Voiding Method Toilet # Voids 1 1 # Bowel Movements 1 - Exam General appearance: The patient is alert, oriented, appears in no acute distress. Obese. HET: Head is normocephalic and atraumatic. Neck: Supple without lymphadenopathy. Trachea midline. Heart: S1 S2. Regular rate and rhythm. Lungs: Clear to auscultation. Abdomen: Soft, left lower quadrant tenderness, left flank tenderness, nondistended with bowel sounds. Obese. Extremities: Normal skin color and turgor. No cyanosis, rash, ulceration, clubbing, or edema. Radial and pedal pulses are 2/4 bilaterally. Neurological: No focal deficits. Alert and oriented 3. - Labs CBC & Chem 7: 10/30/20 07:00 10/30/20 07:00 Labs: Abnormal Lab Results - Last 24 Hours (Table) 10/30/20 10/30/20 10/30/20 Range/Units 11:39 12:12 20:12 APTT 36.4 H (22.0-30.0) sec POC Glucose (mg/dL) 132 H 100 H (75-99) mg/dL 10/31/20 Range/Units 06:19 APTT (22.0-30.0) sec POC Glucose (mg/dL) 114 H (75-99) mg/dL Assessment and Plan Assessment: 1. Abdominal pain 2. CT abdomen and pelvis with reported evidence of splenic infarct 3. Multiple uterine fibroids 4. History COPD 5. Diabetes mellitus 6. History of GERD 7. Hyperlipidemia 8. Hypertension 9. Hypothyroid Plan: 1. May discontinue heparin gtt and will not require custodial anticoagulation 2. CT angiogram thoracic aortic abdomen and pelvis ordered and reviewed 3. Protonix 40 mg twice a day 4. Antiemetics as needed 5. Claritin ordered for seasonal ALLERGIES 6. Echocardiogram pending results 7. [facility] Thank you for this consultation and allowing us take part in the plan of care of your patient during her hospital stay The impression and plan of care has been dictated as directed. Dr. Jeong I performed a history and examination of this patient, discussed the same with the dictator. I agree with the dictator's note ,documented as a scribe. Any additional findings or plans will be noted.
[2020-10-31] MEDS: FENOFIBRATE 160 MG TAB PO SCH (10:27)
[2020-10-31] MEDS: ASPIRIN 325 MG TAB PO SCH (10:27)
[2020-10-31] MEDS: lisinopriL 20 MG TAB PO SCH (10:28)
[2020-10-31] MEDS: LORATADINE 10 MG TAB PO SCH (10:28)
[2020-10-31] MEDS: SERTRALINE 50 MG TAB PO SCH (10:28)
--- NOTE | 2020-10-31 10:43 | ECHOF ---
Referral Reason:Rule out intracardiac source for emboli MEASUREMENTS -------- HEIGHT: 358.1 cm WEIGHT: 43.1 kg BP: IVSd: 1.3 cm (0.6 - 1.1) LVIDd: 4.4 cm (3.9 - 5.3) LVPWd: 1.5 cm (0.6 - 1.1) IVSs: 1.5 cm LVIDs: 3.6 cm LVPWs: 1.4 cm LAESV Index (A-L): 21.51 ml/m Ao Diam: 3.1 cm (2.0 - 3.7) AV Cusp: 2.0 cm (1.5 - 2.6) MV EXCURSION: 21.844 mm (> 18.000) MV EF SLOPE: 114 mm/s (70 - 150) MV E Mejia: 0.41 m/s MV DecT: 319 ms MV A Mejia: 0.64 m/s MV E/A Ratio: 0.64 RAP: 5.00 mmHg RVSP: 15.03 mmHg FINDINGS -------- Sinus rhythm. This was a technically adequate study. The left ventricular size is normal. There is mild concentric left ventricular hypertrophy. Overa ll left ventricular systolic function is normal with, an EF between 55 - 60 %. The right ventricle is normal in size. Normal LA size by volume 22+/-6 ml/m2. The right atrial size is normal. The aortic valve was not well visualized. Mild mitral regurgitation is present. Mild tricuspid regurgitation present. Right ventricular systolic pressure is normal at < 35 mmHg. The pulmonic valve was not well visualized. The aortic root size is normal. Echo free space represents a pericardial fat pad. CONCLUSIONS -------- 1. The left ventricular size is normal. 2. There is mild concentric left ventricular hypertrophy. 3. Overall left ventricular systolic function is normal with, an EF between 55 - 60 %. 4. The right ventricle is normal in size. 5. Normal LA size by volume 22+/-6 ml/m2. 6. The right atrial size is normal. 7. The aortic valve was not well visualized. 8. Mild mitral regurgitation is present. 9. Mild tricuspid regurgitation present. 10. The pulmonic valve was not well visualized. 11. The aortic root size is normal. 12. Echo free space represents a pericardial fat pad. REPRODUCTION PRODUCTION MANAGER: Astrid Liao RDCS
--- NOTE | 2020-10-31 11:52 | P.DS ---
Providers Date of admission: 10/28/20 23:47 Expected date of discharge: 10/31/20 Attending physician: Antonieta Santana MD Consults: 10/28/20 23:45 Consult Physician Routine Consulting Provider: Shakir Roper Consult Reason/Comments: ?thrombus Do you want consulting provider notified?: Yes Primary care physician: Stated None Hospital Course: This is a 65-year-old female with past medical history noted below who presented to [facility] originally with abdominal pain. Patient was evaluated and a computed tomography scan of the abdomen and pelvis showed evidence of splenic infarct. Patient was transferred to our hospital for vascular surgery evaluation. 1. 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 CT angiogram of the thoracic, abdomen, and pelvis aorta showed evidence of a focal wedge-shaped defect in the upper pole of the spleen representing splenic infarct noted on outside CT. No acute findings otherwise. ECHOCARDIOGRAM WITH NO EVIDENCE OF INTRACARDIAC SOURCE. I discussed the case with vascular surgery attending. No need for full anticoagulation at this time. start aspirin 325 mg daily. Pain control and supportive care. 2. Type 2 diabetes, resume home medication 3. Chronic medical problems: Essential hypertension, hyperlipidemia, hypothyroidism, obstructive sleep apnea Patient will be discharged home in a stable condition. She will follow-up with hematology for further hypercoagulable workup. She was advised to follow-up with her PCP to get up-to-date on her pneumococcal vaccine, H. influenza type B, and N. meningitis Patient Condition at Discharge: Fair Plan - Discharge Summary Discharge Rx Participant: No New Discharge Prescriptions: New Aspirin 325 mg PO DAILY #30 tab HYDROcodone/APAP 5-325MG [[place] 5-325] 1 each PO Q6H PRN #12 tab PRN Reason: Pain Continue Montelukast [Singulair] 10 mg PO HS glipiZIDE [Glucotrol] 10 mg PO BID Levothyroxine Sodium [Synthroid] 200 mcg PO DAILY metFORMIN HCL ER [Glucophage Xr] 1,000 mg PO DAILY Sertraline [Zoloft] 150 mg PO DAILY metFORMIN HCL ER [Glucophage Xr] 500 mg PO HS Levothyroxine Sodium [Synthroid] 25 mcg PO DAILY Cetirizine HCl [Zyrtec] 10 mg PO HS Meloxicam [Mobic] 15 mg PO DAILY Meclizine [Antivert] 25 mg PO QID PRN PRN Reason: Vertigo Omeprazole [PriLOSEC] 40 mg PO DAILY Fenofibrate Nanocrystallized [Fenofibrate] 145 mg PO DAILY Furosemide [Lasix] 40 mg PO DAILY lisinopriL [Prinivil] 20 mg PO DAILY Discontinued Famotidine [Pepcid] 20 mg PO HS Discharge Medication List Montelukast [Singulair] 10 mg PO HS 08/12/14 [History] Levothyroxine Sodium [Synthroid] 200 mcg PO DAILY 04/30/17 [History] glipiZIDE [Glucotrol] 10 mg PO BID 04/30/17 [History] Sertraline [Zoloft] 150 mg PO DAILY 06/17/17 [History] metFORMIN HCL ER [Glucophage Xr] 1,000 mg PO DAILY 06/17/17 [History] Levothyroxine Sodium [Synthroid] 25 mcg PO DAILY 12/28/17 [History] metFORMIN HCL ER [Glucophage Xr] 500 mg PO HS 12/28/17 [History] Cetirizine HCl [Zyrtec] 10 mg PO HS 04/18/18 [History] Meclizine [Antivert] 25 mg PO QID PRN 04/18/18 [History] Meloxicam [Mobic] 15 mg PO DAILY 04/18/18 [History] Omeprazole [PriLOSEC] 40 mg PO DAILY 04/18/18 [History] Fenofibrate Nanocrystallized [Fenofibrate] 145 mg PO DAILY 10/28/20 [History] Furosemide [Lasix] 40 mg PO DAILY 10/28/20 [History] lisinopriL [Prinivil] 20 mg PO DAILY 10/28/20 [History] Aspirin 325 mg PO DAILY #30 tab 10/31/20 [Rx] HYDROcodone/APAP 5-325MG [[place] 5-325] 1 each PO Q6H PRN #12 tab 10/31/20 [Rx] Follow up Appointment(s)/Referral(s): Stas Fernandez MD [STAFF PHYSICIAN] - 1 Week None,Stated [Primary Care Provider] - 1-2 days Discharge Disposition: HOME SELF-CARE
[2020-10-31 12:04] LABS: Glucose,Whole Blood 93 mg/dL (75-99)
== END 2020-10-31 15:05 | disposition home or self-care (01) | DRG 816 ==
LOC: EC 22:39 → 5NMEDONC 23:47 → 3SCARD 10-29 15:16
PROVIDERS: ADMIT Internal Medicine; ATTEND Internal Medicine
DX: D73.5 Infarction of spleen (principal); E11.9 Type 2 diabetes mellitus without complications; I10 Essential (primary) hypertension; E89.0 Postprocedural hypothyroidism; E78.5 Hyperlipidemia, unspecified; G47.33 Obstructive sleep apnea (adult) (pediatric); K21.9 Gastro-esophageal reflux disease without esophagitis; D25.9 Leiomyoma of uterus, unspecified; J44.9 Chronic obstructive pulmonary disease, unspecified; G89.29 Other chronic pain; M54.9 Dorsalgia, unspecified; Z79.82 Long term (current) use of aspirin; Z79.890 Hormone replacement therapy; Z79.4 Long term (current) use of insulin; Z79.899 Other long term (current) drug therapy; Z83.3 Family history of diabetes mellitus; Z87.891 Personal history of nicotine dependence; Z90.49 Acquired absence of other specified parts of digestive tract; Z98.51 Tubal ligation status; Z91.048 Other nonmedicinal substance allergy status
CPT/HCPCS: 71275; 74174; 80048; 80053; 83036; 83735; 84100; 85025; 85730; 87635; 93306; 99285

== ENCOUNTER 2021-04-08 07:29 | Day surgery (SDC) | payer MEDICARE, OTHER ==
[2021-04-06 10:59] VITALS: BMI 36.1
[2021-04-08] MEDS ORDERED: SODIUM CHLORIDE 0.9% 500 ML 500 ML IV ONE (07:48)
[2021-04-08 08:03] VITALS: RESP 16; TEMP 97.8
[2021-04-08 08:07] LABS: Glucose,Whole Blood 120 mg/dL (75-99)
[2021-04-08] MEDS ORDERED: fentaNYL (PF) 50 MCG/ML 2 ML AMP IV ONE (09:57)
[2021-04-08] MEDS ORDERED: MIDAZOLAM 2 MG/2 ML VIAL IV ONE (09:57)
[2021-04-08] MEDS ORDERED: BENZOCAINE SPRAY 1 CAN MUCOUS MEM ONE (09:57)
[2021-04-08 10:56] VITALS: PULSE 56
[2021-04-08 11:15] VITALS: BP 174/80
[2021-04-08] MEDS ORDERED: SODIUM CHLORIDE 0.9% 1,000 ML IV SCH (12:00)
--- NOTE | 2021-04-28 12:32 | ECHOT ---
TRANSESOPHAGEAL ECHOCARDIOGRAM INDICATION: Splenic infarct. Rule out cardiac source for thromboembolic phenomenon. PROCEDURE NOTE: After obtaining informed consent, transesophageal echocardiogram was performed in left lateral position using an Omniplane probe. Local and IV sedation were obtained using Xylocaine spray, intravenous Versed and fentanyl. Tolerated the procedure well without any obvious immediate complications. The total sedation time was 10 minutes. Patient underwent 2D, M-mode and color Doppler evaluation along with spectral analysis. FINDINGS: 1. Interatrial septum. There is a small atrial septal defect noted with rdhz-ea-eedzm shunt by color-flow Doppler and dnxkc-qr-biko shunt by agitated saline contrast study. 2. Left ventricle has normal size and systolic function. 3. Left atrial appendage is free of thrombus. Mitral valve shows moderate mitral regurgitation. 4. Aortic valve is free of stenosis or regurgitation. Tricuspid valve appears normal. CONCLUSIONS: Septum secundum atrial septal defect with bidirectional shunt. PLAN: This patient has splenic infarct without any clear-cut etiology and will be referred to Dr. Sands for ASD closure. MMODL / IJN: [id number] /
== END 2021-04-08 11:40 | disposition home or self-care (01) ==
LOC: CATHCVL 07:29
PROVIDERS: ATTEND Internal Medicine Cardiovascular Disease
DX: Q21.1 Atrial septal defect (principal); I10 Essential (primary) hypertension; E11.9 Type 2 diabetes mellitus without complications; E03.9 Hypothyroidism, unspecified; G47.33 Obstructive sleep apnea (adult) (pediatric); C34.91 Malignant neoplasm of unspecified part of right bronchus or lung; Z82.49 Family history of ischemic heart disease and other diseases of the circulatory system; D73.5 Infarction of spleen; E78.2 Mixed hyperlipidemia; F17.210 Nicotine dependence, cigarettes, uncomplicated; Z79.84 Long term (current) use of oral hypoglycemic drugs; Z79.899 Other long term (current) drug therapy; Z20.822 Contact with and (suspected) exposure to COVID-19
CPT/HCPCS: 93312; 93320; 93325; 87635; J2250; J3010

== ENCOUNTER → 2021-04-22 | Outpatient (CLI) | payer MEDICARE, OTHER ==
[2021-04-22 12:34] LABS: HCT 40.4 % (34.0-46.0); MCH 30.1 pg (25.0-35.0); MCHC 32.3 g/dL (31.0-37.0); MCV 93.4 fL (80.0-100.0); Mean Platelet Volume 7.3; Platelet Count 302 k/uL (150-450); RBC 4.33 m/uL (3.80-5.40); WBC 8.2 k/uL (3.8-10.6)
[2021-04-22 12:52] LABS: Potassium 4.2 mmol/L (3.5-5.1)
== END | disposition home or self-care (01) ==
LOC: LABPAT 11:19
PROVIDERS: ATTEND Internal Medicine
DX: Z01.812 Encounter for preprocedural laboratory examination (principal); Q21.1 Atrial septal defect
CPT/HCPCS: 36415; 80051; 82565; 84520; 85027

== ENCOUNTER 2021-05-07 10:18 | Day surgery (SDC) | payer MEDICARE, OTHER ==
[2021-05-04 12:27] VITALS: BMI 36.6
[~2021-05-07 10:18] MED LIST changes: -DEXAMETHASONE SOD PHOSPHATE 10 MG/ML 1 ML VIAL IV ONE; -HEPARIN SODIUM,PORCINE 5,000 UNIT/ML 1 ML VIAL SQ ONE; -LIDOCAINE 1% 20 ML VIAL (10MG/ML) FOR IV START INTRADERMA PRN; -MIDAZOLAM 2 MG/2 ML VIAL IV PRN; -ONDANSETRON 4 MG/2 ML VIAL IVP ONE; -SCOPOLAMINE 1.5MG/72HR PATCH TRANSDERM ONE; +SODIUM CHLORIDE 0.9% 1,000 ML in EMPTY BAG 1 BAG IV ONE; -ceFAZolin IN SWFI 2 GM/20 ML SYRINGE IVP ONE
[2021-05-07 10:52] VITALS: RESP 18
[2021-05-07 10:52] LABS: Glucose,Whole Blood 130 mg/dL (75-99)
[2021-05-07] MEDS ORDERED: LIDOCAINE 1% INJ 10MG/ML (20 ML MDV) ONE ×2 (11:57→12:16)
[2021-05-07] MEDS ORDERED: CLOPIDOGREL 75 MG TAB PO ONE (12:04)
[2021-05-07] MEDS ORDERED: MIDAZOLAM 2 MG/2 ML VIAL IV ONE (12:05)
[2021-05-07] MEDS ORDERED: fentaNYL (PF) 50 MCG/ML 2 ML AMP IV ONE (12:05)
[2021-05-07] MEDS ORDERED: fentaNYL (PF) 50 MCG/ML 2 ML AMP ONE (12:09)
[2021-05-07] MEDS ORDERED: CLOPIDOGREL 75 MG TAB ONE (12:09)
[2021-05-07] MEDS: HEPARIN SODIUM 1,000 UN/ML (10ML VL) IV ONE ×2 (12:15→12:35)
[2021-05-07] MEDS ORDERED: LIDOCAINE 1% INJ 10MG/ML (20 ML MDV) SQ ONE (12:15)
[2021-05-07] MEDS ORDERED: HEPARIN SODIUM 1,000 UN/ML (10ML VL) ONE (12:22)
--- NOTE | 2021-05-07 12:56 | P.PCN ---
Description of Procedure: TRANSCATHETER CLOSURE OF INTERATRIAL COMMUNICATION/ ASD PROCEDURES PERFORMED: 1. Closure of secundum ASD via a right femoral venous percutaneous approach using a 30mm Amplatzer Occluder device. 2. Intracardiac echocardiography using an 8-Estonian AcuNav ultrasound catheter 3. RFV access under direct U/S visualization x 2 OPERATORS: 1. Miguel Sands DO interventional cardiology INDICATIONS: History of thromboembolism with splenic infarct. ASD with color flow across inter-atrial septum and positive bubble study by CELSO. SEDATION: Under my direct supervision the patient was administered moderate conscious sedation with Versed and Fentanyl for a total of 38 minutes. PRPOCEDURE SUMMARY: Prior to sedation, the risks, benefits and alternatives of the procedure were discussed with the patient in detail and all questions were answered to the patient's satisfaction. Both verbal and written consents were obtained. The patient was transported to the cardiac catheterization suite and prepped and draped in the usual sterile fashion for access to the right groin. The patient received conscious sedation in the form of Versed and Fentanyl intravenously. 2% lidocaine was infused into the right groin for local anesthesia. Then, under direct ultrasound visualization, right femoral vein was accessed using micropuncture technique and two 8-Estonian 11 cm sheaths were placed into the right femoral vein. The 8-Estonian AcuNav ICE ultrasound catheter was then advanced through into the right atrium where intracardiac echocardiography was performed. PRE PROCEDURE ULTRASOUND: This demonstrated no evidence of pericardial effusion. It demonstrated normal appearing aortic valve. Overall the left ventricular function and chamber size appeared within normal limits. The LV function appeared preserved with no significant wall motion abnormalities. There was color flow visualized across the inter-atrial septum with ICE. The tricuspid valve appeared normal and the RV appeared normal in size. The visualized portions of the left atrium and left atrial appendage demonstrated no significant abnormalities. There was a signi ficant 8 mm secundum ASD with predominantly igub-vb-hipgy shunt. After images were obtained with the ICE catheter, a 6-Estonian multipurpose catheter was inserted into the RFV and was used to cross the septum into the left atrium. Heparin was given to keep ACT > 200-250. The catheter was then advanced into the LA and placed in the L superior pulmonary vein. A 0.035 260 cm Steele wire was then advanced via the catheter and placed in the vein. The catheter was then removed and the 8-Estonian sheath was also removed over the Amplatzer wire. This was exchanged for a 8 Estonian 36-zhqfkg-lyxb delivery sheath with introducer. This was advanced to the septal defect where the sheath was then advanced across the defect over the Steele wire. The introducer was removed and blood was drawn. The Amplatzer wire was then removed. A 30mm Amplatzer PFO occluder device was then opened, prepped and then loaded into the sheath. Under fluoroscopy and ultrasound guidance, the Amplatzer occluder was advanced through the edge of the sheath. The left atrial side was deployed and was pulled back to the interatrial septum and the right atrial side was deployed. With the device still captured, intracardiac echocardiography was performed demonstrating good capture on all 6 rims with no impingement on valvular function. The delivery system was then released and removed. The final intracardiac echocardiographic i mages were again once obtained. POST DELIVERY INTRACARDIAC ECHOCARDIOGRAPHIC IMAGES: This demonstrated again no evidence of pericardial effusion. All 6 rims were visualized and demonstrated adequate purchase and the device in stable position. There was no further evidence of interatrial communication by color flow Doppler. The aortic and mitral valves appeared to be functioning appropriately with no impingement of flow. Again overall the left ventricular function appeared within normal limits and again, no effusion was noted. At this point, the 8-Estonian catheters were left in place to be pulled in post op. The patient was transferred to the CVSU in stable condition. COMPLICATIONS: None. FINAL IMPRESSIONS: Successful closure of a secundum ASD with a 30 mm Amplatzer PFO occluder device. No evidence of complication, arrhythmia or other noted. RECOMMENDATIONS: A limited transthoracic echocardiogram will be obtained in the morning. The patient will be transferred to the floor, monitoring overnight. Will plan for discharge in the morning. Aspirin daily, Plavix 75 mg daily, followup in the clinic in approximately 1 week as previously scheduled. Antibiotic prophylaxis for any procedure for one year.
[2021-05-07] MEDS ORDERED: ALBUTEROL NEBULIZED 2.5 MG/3 ML INHALATION PRN (12:58)
[2021-05-07] MEDS ORDERED: hydrALAZINE HCL 20 MG/ML 1 ML VIAL ONE (14:31)
[2021-05-07] MEDS ORDERED: hydrALAZINE HCL 20 MG/ML 1 ML VIAL IVP STA (14:39)
[2021-05-07 15:30] LABS: Glucose,Whole Blood 98 mg/dL (75-99)
[2021-05-07 16:38] LABS: Glucose,Whole Blood 131 mg/dL (75-99)
[2021-05-07] MEDS: MECLIZINE 25 MG TAB PO SCH ×3 (16:56→21:15)
[2021-05-07] MEDS ORDERED: ONDANSETRON 4 MG/2 ML VIAL IVP STA (16:58)
[2021-05-07] MEDS: SODIUM CHLORIDE 0.9% 1,000 ML IV SCH (16:59)
[2021-05-07] MEDS: glipiZIDE 10 MG TAB PO SCH (17:00)
[2021-05-07 20:16] LABS: Glucose,Whole Blood 145 mg/dL (75-99)
[2021-05-07] MEDS: SYMBICORT 160-4.5 MCG INHALER INHALATION SCH (20:28)
[2021-05-07] MEDS ORDERED: MONTELUKAST 10 MG TAB PO SCH (21:00)
[2021-05-07] MEDS ORDERED: FAMOTIDINE 20 MG TAB PO SCH (21:00)
[2021-05-07] MEDS ORDERED: tiZANidine 4 MG TAB PO SCH (21:00)
[2021-05-07] MEDS: metFORMIN 500 MG TAB PO SCH (21:15)
[2021-05-07] MEDS: amLODIPine 10 MG TAB PO SCH (21:15)
[2021-05-08 06:03] LABS: Glucose,Whole Blood 113 mg/dL (75-99)
[2021-05-08] MEDS: glipiZIDE 10 MG TAB PO SCH (06:20)
[2021-05-08] MEDS: SODIUM CHLORIDE 0.9% 1,000 ML IV SCH (06:21)
[2021-05-08] MEDS ORDERED: LEVOTHYROXINE 125 MCG TAB PO SCH (06:30)
[2021-05-08] MEDS: SYMBICORT 160-4.5 MCG INHALER INHALATION SCH (07:22)
[2021-05-08] MEDS: IPRATROPIUM 0.5 MG/2.5 ML NEBU INHALATION SCH ×2 (07:22→11:04)
--- NOTE | 2021-05-08 07:54 | XR ---
EXAMINATION TYPE: XR chest 2V DATE OF EXAM: 05/08/2021 COMPARISON: 12/28/2017 HISTORY: 65-year-old female ASD, PFO placement TECHNIQUE: PA and lateral views FINDINGS: Heart upper limits of normal in size. PFO closure device noted. Aorta and pulmonary vasculature are w ithin normal limits. Hyperinflation. Mild interstitial prominence. Strandy bibasilar atelectasis. Enlarging right upper lobe pulmonary nodule now 2.4 cm versus 1.5 cm on 10/29/2020. Lung cancer is hig hly suggested. IMPRESSION: 1. Enlarging right upper lobe pulmonary nodule currently 2.4 cm versus 1.5 cm on 10/29/2020. Lung canc er is highly suspected. Appropriate further workup and evaluation is recommended. Called to nurse Maya ross in [facility] at 7:50am. 2. Hyperinflation likely reflects mild emphysema. PFO closure device. Portal and heart size.
[2021-05-08] MEDS ORDERED: MELOXICAM 7.5 MG TAB PO SCH (09:00)
[2021-05-08] MEDS ORDERED: FLUTICASONE 50MCG/SPRAY NASAL 16GM EA NOSTRIL SCH (09:00)
[2021-05-08] MEDS ORDERED: CLOPIDOGREL 75 MG TAB PO SCH (09:00)
[2021-05-08] MEDS ORDERED: FENOFIBRATE 160 MG TAB PO SCH (09:00)
[2021-05-08] MEDS ORDERED: ASPIRIN 325 MG TAB PO SCH (09:00)
[2021-05-08] MEDS ORDERED: FUROSEMIDE 40 MG TAB PO SCH (09:00)
[2021-05-08] MEDS ORDERED: MAGNESIUM OXIDE 400 MG TAB PO SCH (09:00)
[2021-05-08] MEDS ORDERED: SERTRALINE 50 MG TAB PO SCH (09:00)
[2021-05-08] MEDS ORDERED: PANTOPRAZOLE 40 MG TABLET PO SCH (09:00)
[2021-05-08] MEDS ORDERED: lisinopriL 20 MG TAB PO SCH (09:00)
[2021-05-08 09:05] VITALS: TEMP 97.9
[2021-05-08] MEDS: amLODIPine 10 MG TAB PO SCH (09:43)
[2021-05-08] MEDS: MECLIZINE 25 MG TAB PO SCH (09:43)
[2021-05-08] MEDS: metFORMIN 500 MG TAB PO SCH (09:44)
--- NOTE | 2021-05-08 09:48 | P.DS ---
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 She therefore was evaluated with recommendations for ASD closure. She underwent successful ASD closure 05/07/2021 with a 30 mm Amplatzer to follow closure device. On 05/08/2021 she has been hemodynamically stable without any hematoma noted from the right femoral site. Echocardiogram performed this morning showed PFO occluder in position without any abnormalities. She did have a chest x-ray performed which showed increasing size of a nodule however this was compared to before she had partial lobectomy for lung cancer. We therefore discussed following up with Dr. Fernandez for further evaluation in the next week or 2. Plan - Discharge Summary Discharge Rx Participant: Yes New Discharge Prescriptions: New Clopidogrel [Plavix] 75 mg PO DAILY #90 tab Continue Aspirin 325 mg PO DAILY #30 tab No Action Montelukast [Singulair] 10 mg PO HS glipiZIDE [Glucotrol] 10 mg PO BID Sertraline [Zoloft] 50 mg PO DAILY metFORMIN HCL ER [Glucophage XR] 500 mg PO BID Meloxicam [Mobic] 15 mg PO DAILY Meclizine [Antivert] 25 mg PO QID Omeprazole [PriLOSEC] 40 mg PO DAILY Fenofibrate Nanocrystallized [Fenofibrate] 145 mg PO DAILY ondansetron HCL [Zofran] 8 mg PO Q8HR PRN PRN Reason: Nausea Famotidine [Pepcid] 20 mg PO HS Budesonide/Formoterol Fumarate [Symbicort 160-4.5 Mcg Inhaler] 2 puff INHA LATION BID Levothyroxine Sodium [Euthyrox] 250 mcg PO DAILY Cinnamon Bark [Cinnamon] 500 mg PO DAILY Tiotropium 18 Mcg/Puff [Spiriva] 1 puff INHALATION DAILY Fluticasone Nasal [place] [Flonase Nasal [place]] 2 spray EA NOSTRIL DAILY Furosemide [Lasix] 40 mg PO DAILY lisinopriL [Prinivil] 20 mg PO QAM tiZANidine [Zanaflex] 4 mg PO HS Albuterol Sulfate [Ventolin HFA] 1 - 2 puff INHALATION Q6H PRN PRN Reason: COPD Magnesium 250 mg PO DAILY Discharge Medication List Montelukast [Singulair] 10 mg PO HS 08/12/14 [History] glipiZIDE [Glucotrol] 10 mg PO BID 04/30/17 [History] Sertraline [Zoloft] 50 mg PO DAILY 06/17/17 [History] metFORMIN HCL ER [Glucophage XR] 500 mg PO BID 12/28/17 [History] Meclizine [Antivert] 25 mg PO QID 04/18/18 [History] Meloxicam [Mobic] 15 mg PO DAILY 04/18/18 [History] Omeprazole [PriLOSEC] 40 mg PO DAILY 04/18/18 [History] Fenofibrate Nanocrystallized [Fenofibrate] 145 mg PO DAILY 10/28/20 [History] Furosemide [Lasix] 40 mg PO DAILY 10/28/20 [History] lisinopriL [Prinivil] 20 mg PO QAM 10/28/20 [History] Albuterol Sulfate [Ventolin HFA] 1 - 2 puff INHALATION Q6H PRN 04/06/21 [History] Budesonide/Formoterol Fumarate [Symbicort 160-4.5 Mcg Inhaler] 2 puff INHALATION BID 04/06/21 [History] Cinnamon Bark [Cinnamon] 500 mg PO DAILY 04/06/21 [History] Famotidine [Pepcid] 20 mg PO HS 04/06/21 [History] Levothyroxine Sodium [Euthyrox] 250 mcg PO DAILY 04/06/21 [History] Magnesium 250 mg PO DAILY 04/06/21 [History] Tiotropium 18 Mcg/Puff [Spiriva] 1 puff INHALATION DAILY 04/06/21 [History] ondansetron HCL [Zofran] 8 mg PO Q8HR PRN 04/06/21 [History] tiZANidine [Zanaflex] 4 mg PO HS 04/06/21 [History] Fluticasone Nasal [place] [Flonase Nasal [place]] 2 spray EA NOSTRIL DAILY 05/04/21 [History] Aspirin 325 mg PO DAILY #30 tab 05/08/21 [Rx] Clopidogrel [Plavix] 75 mg PO DAILY #90 tab 05/08/21 [Rx] Follow up Appointment(s)/Referral(s): Channing Macias MD [STAFF PHYSICIAN] - 1 Week Stas Fernandez MD [STAFF PHYSICIAN] - 1 Week
--- NOTE | 2021-05-08 10:00 | ECHOF ---
Referral Reason:Post ASD/PFO Insertion MEASUREMENTS -------- HEIGHT: 175.3 cm WEIGHT: 112.9 kg BP: 124/58 FINDINGS -------- This was a technically difficult study with suboptimal views. There is an interatrial closure device in place without evidence of shunt. There is no pericardial effusion. CONCLUSIONS -------- 1. There is an interatrial closure device in place without evidence of shunt. 2. There is no pericardial effusion. NET LEAD ARCHITECT: Rosa Andrews RDCS
[2021-05-08 11:48] LABS: Glucose,Whole Blood 87 mg/dL (75-99)
[2021-05-08 13:38] VITALS: BP 140/67; PULSE 60
== END 2021-05-08 15:12 | disposition home health service (06) ==
LOC: CATHCVL 10:18 → 3SCARD 12:51 → CATHCVL 05-08 15:12
PROVIDERS: ATTEND Internal Medicine
DX: Q21.1 Atrial septal defect (principal); Z20.822 Contact with and (suspected) exposure to COVID-19
CPT/HCPCS: 93662; 93580; 93308; 94640; 86900; 86901; 86850; 87635; 71046; C1769 ×5; C1894; J2250; J0360; J2405; J0690; J2001; J3010; J1644

== ENCOUNTER → 2021-06-24 | Outpatient (CLI) | payer MEDICARE, OTHER ==
--- NOTE | 2021-06-24 13:50 | CT ---
EXAMINATION TYPE: CT Chest Abd Pelvis w con DATE OF EXAM: 06/24/2021 COMPARISON: CT dated 10/29/2020 HISTORY: lung CA CT DLP: 2446 mGycm Automated exposure control for dose reduction was used. CONTRAST: CT scan of the chest, abdomen and pelvis is performed with Oral Contrast and with IV Contrast, patien t injected with 100 mL of Isovue 300. FINDINGS: Chest: Expiratory exposure. Interval partial resection of the right upper lobe with surgical sutures seen at the posterior aspect of the right upper lobe. Soft tissue thickening is seen along the surgical sutu re measuring 19 x 51 mm, likely related to postoperative changes. It is not possible to exclude under lying lesion at that location. Expected loss of volume of the right lung postsurgically. Minimal atelectasis is seen at the medial a spect of the right lower lobe. Minimal peripheral reticulations are seen in the lung bases more on th e left side. Grossly unremarkable lungs otherwise. No sizable pleural or pericardial effusion. Cardiomegaly, for correlation with echocardiographic results. Scattered arterial atherosclerotic calc ifications. No pathologically enlarged lymph nodes in the chest. Healed fracture of the axillary port ion of the right eighth rib. Degenerative changes of thoracic spine. No aggressive bone lesion. Abdomen and pelvis: Motion artifacts in the abdomen. Enlarged liver with hepatic steatosis. With this limitation, no defi nite hepatic focal lesion identified. Previous cholecystectomy. Expected evolution of the previously seen superior splenic infarct. Unremarkable spleen otherwise. Persistent collateral vessels seen surr ounding the spleen mainly inferiorly. Unremarkable pancreas, right adrenal and kidneys. Stable 15 mm left adrenal nodule since 2018 CT scan consistent with a benign nodule, likely adenoma. Scattered arterial atherosclerotic calcifications. The urinary bladder is not distended. Multiple variable sized calcifications are seen within the bulk y uterus likely due to underlying multiple uterine fibroids, please correlate with pelvic ultrasound results. No gross adnexal mass. Unremarkable nondistended stomach, duodenum and small bowel. Significant fecal loading of the colon. Normal appendix. Bilateral fat-containing inguinal hernias. N o suspicious lymphadenopathy or sizable ascites. Degenerative changes of the lower lumbar spine with significant facet osteoarthropathy. Degenerative changes of the sacroiliac joints, symphysis pubis an d to a lesser extent the right hip joint. No aggressive bone lesion. IMPRESSION: Interval partial resection of the right upper lobe as described above. The described soft tissue thic kening along the surgical suture in the right upper lobe could be related to postsurgical changes how ever it is not possible to exclude underlying lesion. Attention on follow-up. No other suspicious les ion or lymphadenopathy is seen in the chest. No evidence of metastatic disease seen in the abdomen or the pelvis. Incidental findings as described above.
== END | disposition home or self-care (01) ==
LOC: RADCTMAIN 09:45
PROVIDERS: ATTEND Internal Medicine Hematology & Oncology
DX: C34.11 Malignant neoplasm of upper lobe, right bronchus or lung (principal)
CPT/HCPCS: 82565; 84520; 71260; 74177; 36415; Q9967

== ENCOUNTER → 2021-08-28 | Outpatient (CLI) | payer MEDICARE, OTHER ==
--- NOTE | 2021-08-28 11:36 | CT ---
EXAMINATION TYPE: CT ChestAbdPelvis w con DATE OF EXAM: 08/28/2021 COMPARISON: CT 06/24/2021 HISTORY: Lung CA CT DLP: 2393.6 mGycm Automated exposure control for dose reduction was used. CONTRAST: CT scan of the chest, abdomen and pelvis is performed with Oral Contrast and with IV Contrast, patien t injected with 100 mL of Isovue 300. FINDINGS: Postop changes are again noted in the posterior right chest, there is areas of scarring, pl eural thickening, linear high attenuation likely related to surgery LUNGS: The lungs are grossly clear, there is no concerning parenchymal mass or nodule identified. T here is no pleural effusion or pneumothorax seen. The tracheobronchial tree is patent. MEDIASTINUM: Right hilar adenopathy is present AORTA: No significant abnormality is seen. OTHER: Inferior atrial occlusive device is again noted. LIVER/GB: No significant change is appreciated, patient is post cholecystectomy, liver shows low atte nuation possibly related to hepatic steatosis, liver is enlarged. PANCREAS: No significant abnormality is seen. SPLEEN: Somewhat irregular in shape similar to prior. ADRENALS: Nodule associated with the left adrenal gland appears stable, right adrenal gland shows no mass. KIDNEYS: No significant abnormality is seen. REPRODUCTIVE ORGANS: Bulky partially calcified uterus is consistent with fibroids and similar to prio r exam BOWEL: Some thickening in the colonic wall could be related to muscular hypertrophy, difficult to ex clude a mucosal lesion, the appendix is normal, there is no bowel obstruction. FREE AIR: No Free Air visible. ASCITES: None seen. RETROPERITONEAL ADENOPATHY: No retroperitoneal adenopathy is seen. LYMPH NODES: No greater than 1 cm abdominal or pelvic lymph nodes are appreciated. URINARY BLADDER: No significant abnormality is seen. PELVIC ADENOPATHY: None visualized. OSSEOUS STRUCTURES: No significant abnormality is seen. IMPRESSION: Postop changes, right hilar adenopathy. Hepatomegaly and hepatic steatosis. Stable left a drenal nodule.
== END | disposition home or self-care (01) ==
LOC: RADCTMAIN 08:02
PROVIDERS: ATTEND Internal Medicine Hematology & Oncology
DX: C34.11 Malignant neoplasm of upper lobe, right bronchus or lung (principal); K76.0 Fatty (change of) liver, not elsewhere classified; R16.0 Hepatomegaly, not elsewhere classified; R59.0 Localized enlarged lymph nodes; E27.8 Other specified disorders of adrenal gland
CPT/HCPCS: 82565; 84520; 71260; 74177; 36415; Q9967

== ENCOUNTER → 2021-11-05 | Outpatient (CLI) | payer MEDICARE, OTHER ==
--- NOTE | 2021-11-06 17:05 | CT ---
EXAMINATION TYPE: CT ChestAbdPelvis w con DATE OF EXAM: 11/05/2021 COMPARISON: CT dated 08/28/2021 HISTORY: lung cancer, follow up for METS CT DLP: 2555.2 mGycm Automated exposure control for dose reduction was used. CONTRAST: CT scan of the chest, abdomen and pelvis is performed with Oral Contrast and with IV Contrast, patien t injected with 70mL mL of Isovue 300. FINDINGS: LUNGS: Grossly stable postsurgical changes and soft tissue thickening along the surgical suture in th e superior posterior aspect of the right lung. Newly seen 8mm groundglass infiltration at the posteri or aspect of the right lower lobe, nonspecific. Attention on follow-up. Unchanged lungs otherwise. Pa tent trachea and main bronchi. No pleural effusion. MEDIASTINUM: Larger right hilar lymphadenopathy measuring 2.6 x 3.9 cm compared to 2.1 x 2.7 cm previ ously. No other pathologically enlarged or progressive lymph nodes in the chest. No gross cardiomegal y. Scattered arterial atherosclerotic calcifications. OTHER: Degenerative changes of the thoracic and lower cervical spine. No gross aggressive bone lesio n. LIVER/GB: Enlarged liver with hepatic steatosis. With this limitation, no definite hepatic focal lesi on identified. Previous cholecystectomy. PANCREAS: No significant abnormality is seen. SPLEEN: Stable irregular outline of the spleen as well as perisplenic collateral vascular channels. ADRENALS: Stable 16 mm left adrenal nodule. Unremarkable right adrenal. KIDNEYS: No significant abnormality is seen. BOWEL: Duodenal diverticulum. No evidence of bowel obstruction. REPRODUCTIVE ORGANS: Enlarged uterus with multiple uterine calcifications, possibly due to uterine fi broids. Recommend correlation with pelvic ultrasound results. No gross adnexal mass. LYMPH NODES: No significant abdominal or pelvic lymph nodes are appreciated. OSSEOUS STRUCTURES: No aggressive bone lesion. OTHER: Scattered arterial atherosclerotic calcifications. No sizable ascites. IMPRESSION: 1. Newly seen 8mm groundglass infiltration at the posterior aspect of the right lower lung lobe, nons pecific. Attention on follow-up. Unchanged lungs otherwise. 2. Interval enlargement of the right hilar lymph node, suspicious for progressive metastatic lymph no de. 3. Otherwise stable condition in the chest, abdomen and the pelvis. Other findings as described above .
== END | disposition home or self-care (01) ==
LOC: RADCTMAIN 16:29
PROVIDERS: ATTEND Internal Medicine Hematology & Oncology
DX: C34.11 Malignant neoplasm of upper lobe, right bronchus or lung (principal); I51.7 Cardiomegaly
CPT/HCPCS: 82565; 84520; 71260; 74177; 36415; Q9967 ×2

== ENCOUNTER → 2022-02-26 | Outpatient (CLI) | payer MEDICARE, OTHER ==
--- NOTE | 2022-02-26 22:18 | CT ---
EXAMINATION TYPE: CT abdomen w con DATE OF EXAM: 02/26/2022 COMPARISON: 11/05/2021, 08/28/2021 HISTORY: 66-year-old female C34.11, lung cancer, abdominal pain and distention TECHNIQUE: Contiguous axial scanning of the abdomen following administration of 70 mL Isovue 300 IV c ontrast. Delayed images through the kidneys and coronal/sagittal reconstructions performed. CT DLP: 1810.6 mGycm Automated exposure control for dose reduction was used. FINDINGS: Heart upper limits of normal in size without pericardial effusion. PFO closure device noted. Scattere d cysts scarring within the lower lungs. No pleural effusion. Liver enlarged at 22.2 cm with diffuse low-attenuation. No focal lesions seen. Portal venous system i s patent. No biliary ductal dilatation. Cholecystectomy clips. 1.2 cm lymph node right paracardiac was only 6 mm back on 08/28/2021. Gastrohepatic ligament lymph node increasing in size currently 9 mm versus 5 mm, previously. Scattered prominent retroperitoneal nodes measuring up to 9 mm in the aortocaval region. 1.4 cm nodule left adrenal gland remains unchanged. Right adrenal gland, spleen, pancreas within normal limits. No excretion of contrast from the kidneys on delayed kidney images. No dilated small bowel, free fluid, or free air. Mild stool burden. Normal appendix. No pericolonic i nflammatory change. Collateral vessels noted posterior and inferior to the spleen. Partially visualized fibroid uterus. Pelvis not imaged. Bones: Hypertrophic facet arthropathy mid to lower lumbar spine with grade 1 anterolisthesis L4-L5. A new osseous lytic lesion posterior aspect of the T12 vertebral body. IMPRESSION: 1. FINDINGS SUGGEST EARLY RECURRENT DISEASE: 2. ENLARGING RIGHT PERICARDIAC LYMPH NODE CURRENTLY 1.2 CM VERSUS 6 MM BACK ON 08/28/2021. 3. ENLARGING GASTROHEPATIC LIGAMENT LYMPH NODE CURRENTLY 9 MM VERSUS 5 MM, PREVIOUSLY. 4. NEW LYTIC OSSEOUS LESION POSTERIOR T12 VERTEBRAL BODY. 5. INCIDENTAL: PFO CLOSURE DEVICE, HEPATOMEGALY WITH HEPATIC STEATOSIS, AND STABLE 1.4 CM LEFT ADRENA L NODULE/ADENOMA, AND PARTIALLY VISUALIZED FIBROID UTERUS. PELVIS NOT IMAGED.
== END | disposition home or self-care (01) ==
LOC: RADCTMAIN 13:27
PROVIDERS: ATTEND Internal Medicine
DX: C34.11 Malignant neoplasm of upper lobe, right bronchus or lung (principal); D25.9 Leiomyoma of uterus, unspecified; M89.9 Disorder of bone, unspecified
CPT/HCPCS: 82565; 84520; 74160; 36415; Q9967

== ENCOUNTER 2022-05-16 12:14 | Emergency (ER) | payer MEDICARE, OTHER ==
--- NOTE | 2022-05-16 12:25 | ED ---
General Adult HPI - General Source: patient, RN notes reviewed Mode of arrival: wheelchair Limitations: no limitations <Christopher Yip - Last Filed: 05/16/22 12:23> <Radha Jason - Last Filed: 05/16/22 22:43> - General Stated complaint: hip pain Time Seen by Provider: 05/16/22 12:23 - History of Present Illness Initial comments: 66 year old female presents emergency Department with chief complaint of right hip pain. Patient states that she is on chemotherapy and which her last treatment was 2 weeks ago for lung cancer and Lymph Nodes. Patient States Her Oncologist Is Dr. Arambula. Patient states that she was told that the pain was from the chemotherapy that she was having some reaction with this. Patient states is too painful cannot tolerated at home with pain medication. Patient has appears or chills denies any rashes. Denies any trauma or fall. (Christopher Yip) Advanced triage note reviewed: 66-year-old female presents to the emergency department with a chief complaint of right hip pain has progressively gotten worse over the last 5 days. She notes that occurs every same that she has chemotherapy. Last chemotherapy dose was on 2021. She reports that the pain has worsened and she is unable to bear weight. She was prescribed Pur[place] 10's and has been taking double her dose without relief. She denies any recent trauma or previous injury. She denies any dizziness lightheadedness numbness, tingling. (Radha Jason) - Related Data Home Medications Medication Instructions Recorded Confirmed Montelukast [Singulair] 10 mg PO HS 08/12/14 05/16/22 Sertraline [Zoloft] 150 mg PO DAILY 06/17/17 05/16/22 Meclizine [Antivert] 25 mg PO QID 04/18/18 05/16/22 Meloxicam [Mobic] 15 mg PO DAILY 04/18/18 05/16/22 Omeprazole [PriLOSEC] 40 mg PO DAILY 04/18/18 05/16/22 Fenofibrate Nanocrystallized 145 mg PO DAILY 10/28/20 05/16/22 [Fenofibrate] Furosemide [Lasix] 40 mg PO DAILY 10/28/20 05/16/22 lisinopriL [Prinivil] 20 mg PO QAM 10/28/20 05/16/22 Albuterol Sulfate [Ventolin HFA] 1 - 2 puff INHALATION Q6H PRN 04/06/21 05/16/22 Budesonide/Formoterol Fumarate 2 puff INHALATION BID 04/06/21 05/16/22 [Symbicort 160-4.5 Mcg Inhaler] Cinnamon Bark [Cinnamon] 500 mg PO DAILY 04/06/21 05/16/22 Tiotropium 18 Mcg/Puff [Spiriva] 1 puff INHALATION DAILY 04/06/21 05/16/22 ondansetron HCL [Zofran] 8 mg PO Q8HR PRN 04/06/21 05/16/22 tiZANidine [Zanaflex] 4 mg PO TID 04/06/21 05/16/22 Fluticasone Nasal [place] [Flonase 2 spray EA NOSTRIL DAILY 05/04/21 05/16/22 Nasal [place]] Ascorbic Acid [Vitamin C] 500 mg PO DAILY 05/16/22 05/16/22 Bismuth Subsalicylate [Kaopectate] 262 mg PO DAILY PRN 05/16/22 05/16/22 Cholecalciferol [Vitamin D3 (10 10 mcg PO DAILY 05/16/22 05/16/22 Mcg = 400 Iu)] Hydrocodone/Acetaminophen 1 tab PO Q6H 05/16/22 05/16/22 [Hydrocodone/Acetaminophen 10-325] Levothyroxine Sodium [Euthyrox] 200 mcg PO DAILY 05/16/22 05/16/22 Talala-3 Fatty Acids [Talala-3] 1,000 mg PO DAILY 05/16/22 05/16/22 Sucralfate [Carafate] 1 gm PO QID 05/16/22 05/16/22 Tirzepatide [Mounjaro] 2.5 mg SQ LOZANO 05/16/22 05/16/22 Vitamin A 2,400 mcg PO DAILY 05/16/22 05/16/22 Vitamin E 268 mg PO DAILY 05/16/22 05/16/22 Previous Rx's Medication Instructions Recorded Clopidogrel [Plavix] 75 mg PO DAILY #90 tab 05/08/21 Allergies Allergy/AdvReac Type Severity Reaction Status Date / Time cat dander Allergy Dyspnea Verified 05/16/22 15:52 pollen extracts Allergy Unknown Verified 05/16/22 15:52 yeast, dried [yeast] Allergy Wheezing Verified 05/16/22 15:52 COTTON WOOD TREES Allergy Unknown Uncoded 09/04/21 17:48 Review of Systems ROS Other: All systems not noted in ROS Statement are negative. <Christopher Yip - Last Filed: 05/16/22 12:23> ROS Other: All systems not noted in ROS Statement are negative. <Radha Jason - Last Filed: 05/16/22 22:43> ROS Statement: Those systems with pertinent positive or pertinent negative responses have been documented in the HPI. Past Medical History Past Medical History: Cancer, COPD, Diabetes Mellitus, GERD/Reflux, Hyperlipidemia, Hypertension, Osteoarthritis (OA), Sleep Apnea/CPAP/BIPAP, Thyroid Disorder Additional Past Medical History / Comment(s): Right lung cancer diagnosed November 2020. MENIERES. SEVERE ENVIRONMENTAL ALLERGIES. CPAP use. CHRONIC BACK PAIN. Splenic Infarct. Hx Thyroid cancer 6 yrs ago. Fatty liver. Varicose veins. had diarrhea couple weeks ago but resolved History of Any Multi-Drug Resistant Organisms: None Reported Past Surgical History: Cholecystectomy, Orthopedic Surgery, Tonsillectomy, Tubal Ligation Additional Past Surgical History / Comment(s): BILATERAL EYE SURGERY FOR STRABISMUS. TOTAL THYROIDECTOMY, bilateral carpal tunnel, "cancer removed from right lung". recent CELSO 05-07-21 PFO closure Past Anesthesia/Blood Transfusion Reactions: No Reported Reaction Past Psychological History: No Psychological Hx Reported Smoking Status: Former smoker Past Alcohol Use History: None Reported Past Drug Use History: None Reported - Past Family History Mother Family Medical History: Coronary Artery Disease (CAD), Diabetes Mellitus, Hypertension, Renal Disease Father Family Medical History: Coronary Artery Disease (CAD), Diabetes Mellitus, Hypertension Sister(s) Family Medical History: Cancer Additional Family Medical History / Comment(s): BREAST Cancer. <Christopher Yip - Last Filed: 05/16/22 12:23> General Exam General appearance: alert, in no apparent distress Head exam: Present: atraumatic, normocephalic, normal inspection Eye exam: Present: normal appearance, PERRL, EOMI. Absent: scleral icterus, conjunctival injection, periorbital swelling ENT exam: Present: normal exam, mucous membranes moist Neck exam: Present: normal inspection. Absent: tenderness, meningismus, lymphadenopathy Respiratory exam: Present: normal lung sounds bilaterally. Absent: respiratory distress, wheezes, rales, rhonchi, stridor Cardiovascular Exam: Present: regular rate, normal rhythm, normal heart sounds. Absent: systolic murmur, diastolic murmur, rubs, gallop, clicks GI/Abdominal exam: Present: soft, normal bowel sounds. Absent: distended, tenderness, guarding, rebound, rigid Extremities exam: Present: normal inspection, full ROM, normal capillary refill. Absent: tenderness, pedal edema, joint swelling, calf tenderness Back exam: Present: normal inspection Neurological exam: Present: alert, oriented X3, CN II-XII intact Psychiatric exam: Present: normal affect, normal mood Skin exam: Present: warm, dry, intact, normal color. Absent: rash <Radha Jason - Last Filed: 05/16/22 22:43> Course Vital Signs 05/16/22 05/16/22 12:27 16:00 Temperature 97.8 F 97.7 F Pulse Rate 77 91 Respiratory 16 18 Rate Blood Pressure 183/70 145/64 O2 Sat by Pulse 95 96 Oximetry Medical Decision Making - Lab Data Result diagrams: 05/16/22 13:10 05/16/22 13:10 <Radha Jason - Last Filed: 05/16/22 22:43> - Medical Decision Making Was pt. sent in by a medical professional or institution ([facility] Prince, BARGAIN TABLE CLERK, urgent care, hospital, or fdc...) When possible be specific @ -[No] Did you speak to anyone other than the patient for history (EMS, parent, family, police, friend...)? What history was obtained from this source @ -[No] Did you review nursing and triage notes (agree or disagree)? Why? @ -[I reviewed and agree with nursing and triage notes] Were old charts reviewed (outside hosp., previous admission, EMS record, old EKG, old radiological studies, urgent care reports/EKG's, fdc records)? Report findings @ -[No old charts were reviewed] Differential Diagnosis (chest pain, altered mental status, abdominal pain women, abdominal pain men, vaginal bleeding, weakness, fever, dyspnea, syncope, heada isha, dizziness, GI bleed, back pain, seizure, CVA, palpatations, mental health)? @ -[not applicable] EKG interpreted by me (3pts min.). @ - X-rays interpreted by me (1pt min.). @ -negative for acute fracture CT interpreted by me (1pt min.). @ -[None done] U/S interpreted by me (1pt. min.). @ -[None done] What testing was considered but not performed or refused? (CT, X-rays, U/S, labs)? Why? @ -[None] What meds were considered but not given or refused? Why? @ -[None] Did you discuss the management of the patient with other professionals (professionals i.e. , PA, BARGAIN TABLE CLERK, lab, RT, psych nurse, licensed master social worker, horse riding coach or instructor, teacher, correctional program officer, showcase maker)? Give summary @ -[No] Was smoking cessation discussed for >3mins.? @ -[No] Was critical care preformed (if so, how long)? @ -[No] Were there social determinants of health that impacted care today? How? (Homelessness, low income, unemployed, alcoholism, drug addiction, transportation, low edu. Level, literacy, decrease access to med. care, mcc, rehab)? @ -[No] Was there de-escalation of care discussed even if they declined (Discuss DNR or withdrawal of care, Hospice)? DNR status @ -[No] What co-morbidities impacted this encounter? (DM, HTN, Smoking, COPD, CAD, Cancer, CVA, ARF, Chemo, Hep., AIDS, mental health diagnosis, sleep apnea, morbid obesity)? @ -[None] Was patient admitted / discharged? Hospital course, mention meds given and r oute, prescriptions, significant lab abnormalities, going to OR and other pertinent info. @ 66 -year-old female presents to the emergency for chronic low back pain. Physical exam is essentially unremarkable. X-rays are unremarkable for any evidence of trauma or fracture. 0.5 mg of Dilaudid for symptomatic improvement in the emergency department. I discussed the results in detail with the patient, patient verbalized understanding and return precautions were discu ssed. I recommend close follow-up with PCP in 1-2 days. Case discussed with Dr. Rocha who agrees with plan for care Undiagnosed new problem with uncertain prognosis? @ -Chronic back pain Drug Therapy requiring intensive monitoring for toxicity (Heparin, Nitro, Insulin, Cardizem)? @ -[No] Were any procedures done? @ -[No] Diagnosis/symptom? @ -chronic back pain Acute, or Chronic, or Acute on Chronic? @ -acute Uncomplicated (without systemic symptoms) or Complicated (systemic symptoms)? @ -uncomplicated Side effects of treatment? @ -[No] Exacerbation, Progression, or Severe Exacerbation? @ -[No] Poses a threat to life or bodily function? How? (Chest pain, [place], [place], pneumonia, PE, COPD, DKA, ARF, appy, cholecystitis, CVA, Diverticulitis, Homicidal, Suicidal, threat to staff... and all critical care pts) @ -[No] (Radha Jason) - Lab Data Lab Results 05/16/22 05/16/22 05/16/22 Range/Units 13:10 13:10 13:10 WBC 6.8 (3.8-10.6) k/uL RBC 4.32 (3.80-5.40) m/uL Hgb 12.9 (11.4-16.0) gm/dL Hct 38.7 (34.0-46.0) % MCV 89.5 (80.0-100.0) fL MCH 29.9 (25.0-35.0) pg MCHC 33.3 (31.0-37.0) g/dL RDW 13.1 (11.5-15.5) % Plt Count 348 (150-450) k/uL MPV 7.6 Neutrophils % 77 % Lymphocytes % 13 % Monocytes % 4 % Eosinophils % 2 % Basophils % 1 % Neutrophils # 5.2 (1.3-7.7) k/uL Lymphocytes # 0.9 L (1.0-4.8) k/uL Monocytes # 0.3 (0-1.0) k/uL Eosinophils # 0.2 (0-0.7) k/uL Basophils # 0.1 (0-0.2) k/uL Sodium 145 (137-145) mmol/L Potassium 3.8 (3.5-5.1) mmol/L Chloride 108 H (98-107) mmol/L Carbon Dioxide 24 (22-30) mmol/L Anion Gap 13 mmol/L BUN 13 (7-17) mg/dL Creatinine 0.59 (0.52-1.04) mg/dL Est GFR (CKD-EPI)AfAm >90 (>60 ml/min/1.73 sqM) Est GFR (CKD-EPI)NonAf >90 (>60 ml/min/1.73 sqM) Glucose 115 H (74-99) mg/dL Plasma Lactic Acid Jose 0.9 (0.7-2.0) mmol/L Calcium 9.5 (8.4-10.2) mg/dL Total Bilirubin 0.7 (0.2-1.3) mg/dL AST 48 H (14-36) U/L ALT 15 (4-34) U/L Alkaline Phosphatase 64 (38-126) U/L C-Reactive Protein 2.0 H (<1.0) mg/dL Total Protein 8.4 H (6.3-8.2) g/dL Albumin 4.7 (3.5-5.0) g/dL Disposition <Christopher Yip - Last Filed: 05/16/22 12:23> Is patient prescribed a controlled substance at d/c from ED?: No Time of Disposition: 22:43 <Radha Jason - Last Filed: 05/16/22 22:43> Clinical Impression: Chronic back pain Disposition: HOME SELF-CARE Condition: Stable Referrals: Nonstaff,Physician [Primary Care Provider] - 1-2 days
--- NOTE | 2022-05-16 13:02 | XR ---
EXAMINATION TYPE: XR Hip RT and AP Pelvis DATE OF EXAM: 05/16/2022 12:46 PM INDICATION: Patient age:Female; 66 years old; Reason for study: pain; COMPARISON: 06/17/2017 TECHNIQUE: The right hip was examined in the frontal and lateral projections and a AP pelvis. FINDINGS: Osteophytes formation of the right acetabulum and to a lesser extent the left acetabulum. N o evidence for acute process, joint dislocation or significant soft tissue swelling. Scattered pelvic fluid was are present. Suspected calcified uterine fibroids also present. IMPRESSION: 1. No acute process. 2. Mild to moderate hip osteoporosis.
[2022-05-16 13:37] LABS: Basophils # (A) 0.1 k/uL (0-0.2); Basophils % (A) 1 %; Eosinophils # (A) 0.2 k/uL (0-0.7); Eosinophils % (A) 2 %; HCT 38.7 % (34.0-46.0); HGB 12.9 gm/dL (11.4-16.0); Lymphocytes # (A) 0.9 k/uL (1.0-4.8); Lymphocytes % (A) 13 %; MCH 29.9 pg (25.0-35.0); MCHC 33.3 g/dL (31.0-37.0); MCV 89.5 fL (80.0-100.0); Mean Platelet Volume 7.6; Monocytes # (A) 0.3 k/uL (0-1.0); Monocytes % (A) 4 %; Neutrophils # (A) 5.2 k/uL (1.3-7.7); Neutrophils % (A) 77 %; Platelet Count 348 k/uL (150-450); RBC 4.32 m/uL (3.80-5.40); RDW 13.1 % (11.5-15.5); WBC 6.8 k/uL (3.8-10.6)
[2022-05-16 13:48] LABS: ALT 15 U/L (4-34); AST 48 U/L (14-36); African American GFR (CKD) >90 (>60 ml/min/1.73 sqM); Albumin 4.7 g/dL (3.5-5.0); Alkaline Phosphatase 64 U/L (38-126); Anion Gap 13 mmol/L; Blood Urea Nitrogen 13 mg/dL (7-17); Calcium 9.5 mg/dL (8.4-10.2); Carbon Dioxide 24 mmol/L (22-30); Chloride 108 mmol/L (98-107); Glucose 115 mg/dL (74-99); Non-African American GFR(CKD) >90 (>60 ml/min/1.73 sqM); Potassium 3.8 mmol/L (3.5-5.1); Sodium 145 mmol/L (137-145); Total Bilirubin 0.7 mg/dL (0.2-1.3); Total Protein 8.4 g/dL (6.3-8.2)
[2022-05-16] MEDS ORDERED: LIDOCAINE 5% PATCH TOPICAL SCH (14:45)
[2022-05-16] MEDS ORDERED: HYDROmorphone 0.5 MG/0.5 ML SYRINGE IVP STA (15:02)
[2022-05-16 16:53] VITALS: BP 145/64; PULSE 91; RESP 18; TEMP 97.7
== END 2022-05-16 16:00 | disposition home or self-care (01) ==
LOC: EC 12:14
DX: G89.29 Other chronic pain (principal); M54.50 Low back pain, unspecified; I10 Essential (primary) hypertension; J44.9 Chronic obstructive pulmonary disease, unspecified; E11.9 Type 2 diabetes mellitus without complications; K21.9 Gastro-esophageal reflux disease without esophagitis; M19.90 Unspecified osteoarthritis, unspecified site; G47.30 Sleep apnea, unspecified; E07.9 Disorder of thyroid, unspecified; Z87.891 Personal history of nicotine dependence; Z79.51 Long term (current) use of inhaled steroids; Z79.890 Hormone replacement therapy; Z79.899 Other long term (current) drug therapy; Z91.018 Allergy to other foods
CPT/HCPCS: 36415; 80053; 83605; 85025; 86140; 73502; 99284; 96374; J1170

== ENCOUNTER 2022-05-19 10:46 | Emergency (ER) | payer MEDICARE, OTHER ==
[2022-05-19 12:07] LABS: Basophils # (A) 0.1 k/uL (0-0.2); Basophils % (A) 1 %; Eosinophils # (A) 0.1 k/uL (0-0.7); Eosinophils % (A) 2 %; HCT 42.4 % (34.0-46.0); HGB 13.8 gm/dL (11.4-16.0); Lymphocytes # (A) 0.7 k/uL (1.0-4.8); Lymphocytes % (A) 11 %; MCH 29.2 pg (25.0-35.0); MCHC 32.5 g/dL (31.0-37.0); Monocytes # (A) 0.3 k/uL (0-1.0); Monocytes % (A) 5 %; Neutrophils # (A) 4.8 k/uL (1.3-7.7); Neutrophils % (A) 80 %; Platelet Count 399 k/uL (150-450); RBC 4.71 m/uL (3.80-5.40); RDW 13.3 % (11.5-15.5); WBC 6.1 k/uL (3.8-10.6)
[2022-05-19] MEDS ORDERED: MORPHINE SULFATE 2 MG/ML SYRINGE IVP ONE (12:11)
[2022-05-19 12:17] LABS: Appearance,Urine Cloudy (Clear); Bacteria,Urine Many /hpf; Bilirubin,Urine Negative (Negative); Blood,Urine Negative (Negative); Color,Urine Yellow; Glucose,Urine (UA) Negative (Negative); Ketones,Urine 1+ (Negative); Leukocyte Esterase,Urine Moderate (Negative); Mucus,Urine Few /hpf; Nitrite,Urine Negative (Negative); Protein,Urine 1+ (Negative); Specific Gravity,Urine 1.029 (1.001-1.035); Squamous Epithelial Cell,Urine 8 /hpf (0-4); WBC,Urine 7 /hpf (0-5)
[2022-05-19 12:22] LABS: ALT 16 U/L (4-34); AST 49 U/L (14-36); African American GFR (CKD) >90 (>60 ml/min/1.73 sqM); Albumin 4.8 g/dL (3.5-5.0); Alkaline Phosphatase 67 U/L (38-126); Anion Gap 11 mmol/L; Blood Urea Nitrogen 22 mg/dL (7-17); C Reactive Protein 2.3 mg/dL (<1.0); Calcium 9.6 mg/dL (8.4-10.2); Carbon Dioxide 26 mmol/L (22-30); Chloride 106 mmol/L (98-107); Glucose 124 mg/dL (74-99); Lipase 678 U/L (23-300); Non-African American GFR(CKD) >90 (>60 ml/min/1.73 sqM); Sodium 143 mmol/L (137-145); Total Bilirubin 0.8 mg/dL (0.2-1.3); Total Protein 8.7 g/dL (6.3-8.2)
[2022-05-19 12:33] LABS: Potassium 3.9 mmol/L (3.5-5.1)
[2022-05-19] MEDS ORDERED: HYDROmorphone 0.5 MG/0.5 ML SYRINGE IVP STA (13:37)
--- NOTE | 2022-05-19 13:50 | CT ---
EXAMINATION TYPE: CT abdomen pelvis wo con DATE OF EXAM: 05/19/2022 COMPARISON: 02/26/2022 INDICATION: Abdominal pain DLP: 860.9 mGycm, Automated exposure control for dose reduction was used. CONTRAST: 0 mL of Isovue 300. Study performed without Oral Contrast TECHNIQUE: Axial images were obtained from above the diaphragm to the pubic rami in the axial plane a t 5 mm thick sections. Reconstructed images are reviewed on the computer in the coronal plane. FINDINGS: Limited CT sections are obtained the lung bases. The lung bases are clear. CT ABDOMEN: There is a 0.6 cm retrocrural lymph node which is slightly enlarged by CT criteria. Veronica l less than 0.5 cm. There is a prominent celiac axis lymph node measuring 1.3 cm. Series 201 image 23 . This is larger than comparison. Additional shotty lymphadenopathy is upper abdomen. There are addit ional prominent lymph nodes periaortic region measuring 1.1-1.2 cm in size. Example image 201 image 3 2. Liver: Normal Spleen: Normal Pancreas: Normal Adrenal glands: Left adrenal gland is thickened with a 1.3 cm nodule on the posterior limb Gallbladder: Surgically absent Kidneys: No masses are evident. No hydronephrosis is present. No cysts are present. Delayed images were obtained through the kidneys, which remain unremarkable. Aorta: Vascular calcification is within the aorta. Inferior vena cava: Normal. CT PELVIS: Loops of bowel within the abdomen and pelvis are normal. There are loops of bowel which are incom pletely distended or lack oral contrast limiting their evaluation. Appendix: Normal as visualized. Urinary bladder: Normal. Genitourinary structures: Multiple calcified uterine fibroids are present. Adnexa are normal. Osseous structures: The lower thoracic lytic area is again evident with loss of the posterior wall an d extension towards the left pedicle. Series 201 image 19. Sacroiliac joint degenerative changes are present. Facet hypertrophy is present through the lumbar spine. IMPRESSIONS: 1. Multiple enlarged lymph nodes through the upper abdomen and retrocrural space. 2. Stable appearance left adrenal gland 3. Increased lytic lesion lower thoracic level.
--- NOTE | 2022-05-19 14:19 | CT ---
EXAMINATION TYPE: CT pelvis wo con DATE OF EXAM: 05/19/2022 COMPARISON: None HISTORY: Right hip pain CT DLP: 899.1 mGycm Automated exposure control for dose reduction was used. Contrast: None Technique: Axial images 3 mm thick sections. Reconstructed images in the coronal and sagittal plane. FINDINGS: Sacroiliac joint vacuum phenomenon is present on the right. Note is made of calcified fibroids within the uterus. Attention is paid to the right hip. Femoral head articulates with the acetabulum. Joint space narrowi ng is present. No acute fracture is evident. Soft tissues appear normal. IMPRESSION: 1. MODERATE OSTEOARTHRITIC DEGENERATIVE CHANGE. 2. NO ACUTE OSSEOUS ABNORMALITY RADIOGRAPHICALLY APPARENT. FOLLOW-UP CAN BE PERFORMED CLINICALLY I NDICATED.
--- NOTE | 2022-05-19 14:32 | ED ---
General Adult HPI - General Chief complaint: Extremity Problem,Nontraumatic Stated complaint: revisit - cancer pt/pain/abn labs Time Seen by Provider: 05/19/22 11:27 Source: patient, RN notes reviewed Mode of arrival: ambulatory Limitations: no limitations - History of Present Illness Initial comments: 66-year-old female with a past medical history of cancer presents to the emergency department with a chief complaint of a right hip pain. She reports that the pain is so bad that she has been able to walk around and get around at home She was here on 03/16/2023 for the same. She reports that her pain is unmanageable at home and that her PCP recommend she be evaluated in the ED. She has been taking [place] without relief of her symptoms. She denies any trauma or previous injury. Denies any ache, abdominal pain, nausea,, diarrhea. - Related Data Home Medications Medication Instructions Recorded Confirmed Montelukast [Singulair] 10 mg PO HS 08/12/14 05/19/22 Sertraline [Zoloft] 150 mg PO DAILY 06/17/17 05/19/22 Meclizine [Antivert] 25 mg PO QID 04/18/18 05/19/22 Meloxicam [Mobic] 15 mg PO DAILY 04/18/18 05/19/22 Omeprazole [PriLOSEC] 40 mg PO DAILY 04/18/18 05/19/22 Fenofibrate Nanocrystallized 145 mg PO DAILY 10/28/20 05/19/22 [Fenofibrate] Furosemide [Lasix] 40 mg PO DAILY 10/28/20 05/19/22 lisinopriL [Prinivil] 20 mg PO DAILY 10/28/20 05/19/22 Albuterol Sulfate [Ventolin HFA] 1 puff INHALATION RT-Q4H PRN 04/06/21 05/19/22 Budesonide/Formoterol Fumarate 2 puff INHALATION RT-BID 04/06/21 05/19/22 [Symbicort 160-4.5 Mcg Inhaler] Cinnamon Bark [Cinnamon] 500 mg PO DAILY 04/06/21 05/19/22 Tiotropium 18 Mcg/Puff [Spiriva] 1 puff INHALATION RT-DAILY 04/06/21 05/19/22 ondansetron HCL [Zofran] 8 mg PO Q8HR PRN 04/06/21 05/19/22 tiZANidine [Zanaflex] 4 mg PO TID 04/06/21 05/19/22 Fluticasone Nasal [place] [Flonase 2 spray EA NOSTRIL DAILY 05/04/21 05/19/22 Nasal [place]] Ascorbic Acid [Vitamin C] 500 mg PO DAILY 05/16/22 05/19/22 Bismuth Subsalicylate [Kaopectate] 262 mg PO DAILY PRN 05/16/22 05/19/22 Cholecalciferol [Vitamin D3 (10 10 mcg PO DAILY 05/16/22 05/19/22 Mcg = 400 Iu)] Hydrocodone/Acetaminophen 1 tab PO Q6H 05/16/22 05/19/22 [Hydrocodone/Acetaminophen 10-325] [place]-3 Fatty Acids [[place]-3] 1,000 mg PO DAILY 05/16/22 05/19/22 Sucralfate [Carafate] 1 gm PO QID 05/16/22 05/19/22 Tirzepatide [Mounjaro] 2.5 mg SQ [place]ZAN[place] 05/16/22 05/19/22 Vitamin A 2,400 mcg PO DAILY 05/16/22 05/19/22 Vitamin E 268 mg PO DAILY 05/16/22 05/19/22 Levothyroxine Sodium [Euthyrox] 250 mcg PO DAILY 05/19/22 05/19/22 amLODIPine [Norvasc] 5 mg PO DAILY 05/19/22 05/19/22 Previous Rx's Medication Instructions Recorded Clopidogrel [Plavix] 75 mg PO DAILY #90 tab 05/08/21 Naproxen 250 mg PO TID 14 Days #45 tab 05/19/22 Allergies Allergy/AdvReac Type Severity Reaction Status Date / Time cat dander Allergy Dyspnea Verified 05/19/22 13:09 pollen extracts Allergy Unknown Verified 05/19/22 13:09 yeast, dried [yeast] Allergy Wheezing Verified 05/19/22 13:09 COTTON WOOD TREES Allergy Unknown Uncoded 05/19/22 13:09 Review of Systems ROS Statement: Those systems with pertinent positive or pertinent negative responses have been documented in the HPI. ROS Other: All systems not noted in ROS Statement are negative. Past Medical History Past Medical History: Cancer, COPD, Diabetes Mellitus, GERD/Reflux, Hyperlipidemia, Hypertension, Osteoarthritis (OA), Sleep Apnea/CPAP/BIPAP, Thyroid Disorder Additional Past Medical History / Comment(s): Right lung cancer diagnosed November 2020. MENIERES. SEVERE ENVIRONMENTAL ALLERGIES. CPAP use. CHRONIC BACK PAIN. Splenic Infarct. Hx Thyroid cancer 6 yrs ago. Fatty liver. Varicose veins. had diarrhea couple weeks ago but resolved History of Any Multi-Drug Resistant Organisms: None Reported Past Surgical History: Cholecystectomy, Orthopedic Surgery, Tonsillectomy, Tubal Ligation Additional Past Surgical History / Comment(s): BILATERAL EYE SURGERY FOR STRABISMUS. TOTAL THYROIDECTOMY, bilateral carpal tunnel, "cancer removed from right lung". recent CELSO 05-07-21 PFO closure Past Anesthesia/Blood Transfusion Reactions: No Reported Reaction Past Psychological History: No Psychological Hx Reported Smoking Status: Former smoker Past Alcohol Use History: None Reported Past Drug Use History: None Reported - Past Family History Mother Family Medical History: Coronary Artery Disease (CAD), Diabetes Mellitus, Hype rtension, Renal Disease Father Family Medical History: Coronary Artery Disease (CAD), Diabetes Mellitus, Hypertension Sister(s) Family Medical History: Cancer Additional Family Medical History / Comment(s): BREAST Cancer. General Exam Limitations: no limitations General appearance: alert, in no apparent distress Head exam: Present: atraumatic, normocephalic, normal inspection Eye exam: Present: normal appearance, PERRL, EOMI. Absent: scleral icterus, conjunctival injection, periorbital swelling ENT exam: Present: normal exam, mucous membranes moist Neck exam: Present: normal inspection. Absent: tenderness, meningismus, lymphadenopathy Respiratory exam: Present: normal lung sounds bilaterally. Absent: respiratory distress, wheezes, rales, rhonchi, stridor Cardiovascular Exam: Present: regular rate, normal rhythm, normal heart sounds. Absent: systolic murmur, diastolic murmur, rubs, gallop, clicks GI/Abdominal exam: Present: soft, normal bowel sounds. Absent: distended, tenderness, guarding, rebound, rigid Extremities exam: Present: normal inspection, full ROM, normal capillary refill. Absent: tenderness, pedal edema, joint swelling, calf tenderness Back exam: Present: normal inspection Neurological exam: Present: alert, oriented X3, CN II-XII intact Psychiatric exam: Present: normal affect, normal mood Skin exam: Present: warm, dry, intact, normal color. Absent: rash Course Vital Signs 05/19/22 05/19/22 11:01 14:42 Temperature 98.5 F Pulse Rate 81 83 Respiratory 24 18 Rate Blood Pressure 177/82 174/77 O2 Sat by Pulse 96 95 Oximetry - Reevaluation(s) Reevaluation #1: 05/19/22 13:36 He shouldn't reevaluated. Patient still reports pain at rest. Dilaudid ordered. Reevaluation #2: 05/19/22 15:[address] Georges who agrees with plan for discharge with recommend follow up with pain management. Reevaluation #3: 05/19/22 16:16 Pt ambulated to bathroom with minimal assistance Medical Decision Making - Medical Decision Making Was pt. sent in by a medical professional or institution (, PA, [employer], urgent care, hospital, or penitentiary...) When possible be specific @ -[No] Did you speak to anyone other than the patient for history (EMS, parent, family, police, friend...)? What history was obtained from this source @ -[No] Did you review nursing and triage notes (agree or disagree)? Why? @ -[I reviewed and agree with nursing and triage notes] Were old charts reviewed (outside hosp., previous admission, EMS record, old EKG, old radiological studies, urgent care reports/EKG's, penitentiary records)? Report findings @ -[No old charts were reviewed] Differential Diagnosis (chest pain, altered mental status, abdominal pain women, abdominal pain men, vaginal bleeding, weakness, fever, dyspnea, syncope, headache, dizziness, GI bleed, back pain, seizure, CVA, palpatations, mental health)? @ -[not applicable] EKG interpreted by me (3pts min.). @ -[As above] X-rays interpreted by me (1pt min.). @ -[None done] CT interpreted by me (1pt min.). @ -Negative for any acute abdominal process, no acute pelvic fracture or soft tissue swelling U/S interpreted by me (1pt. min.). @ -[None done] What testing was considered but not performed or refused? (CT, X-rays, U/S, labs)? Why? @ -[None] What meds were considered but not given or refused? Why? @ -[None] Did you discuss the management of the patient with other professionals (professionals i.e. , PA, [employer], lab, RT, psych nurse, social work faculty member, traffic engineering director, teacher, staff antisubmarine officer, classification case manager)? Give summary @ -i discussed the Case with Dr. Georges, PCP who agrees with plan and for patient to follow up with pain management. Was smoking cessation discussed for >3mins.? @ -[No] Was critical care preformed (if so, how long)? @ -[No] Were there social determinants of health that impacted care today? How? (Homelessness, low income, unemployed, alcoholism, drug addiction, transportatio n, low edu. Level, literacy, decrease access to med. care, group home, rehab)? @ -[No] Was there de-escalation of care discussed even if they declined (Discuss DNR or withdrawal of care, Hospice)? DNR status @ -[No] What co-morbidities impacted this encounter? (DM, HTN, Smoking, COPD, CAD, Cancer, CVA, ARF, Chemo, Hep., AIDS, mental health diagnosis, sleep apnea, morbid obesity)? @ -[None] Was patient admitted / discharged? Hospital course, mention meds given and route, prescriptions, significant lab abnormalities, going to OR and other pertinent info. @ -66-year-old female presents to the emergency department for chronic right hip pain. Patient had assisted 3 and physical performed, physical exam is essentially unremarkable with mild tenderness to palpation of the right hip. Patient had lab work and imaging ordered and performed while in the emerg ency department, workup is essentially unremarkable. I discussed the results in detail with the patient, all questions and concerns were addressed. Patient is agreeable with the plan for discharge and will report her pain symptoms at her next infusion appointment which is scheduled for 05/25/2022. MARCELA Ogchild welfare manager will call the pain clinic tomorrow and will call the patient when the ap pointment is scheduled. The patient was discharged in stable condition with recommended close follow-up with primary care in 1-2 days. Return precautions were discussed. I discussed the case with Dr. Priya ANDERSON who agrees with the plan of care. Undiagnosed new problem with uncertain prognosis? @ -[No] Drug Therapy requiring intensive monitoring for toxicity (Heparin, Nitro, Insulin, Cardizem)? @ -[No] Were any procedures done? @ -[No] Diagnosis/symptom? @ -Chronic R hip pain Acute, or Chronic, or Acute on Chronic? @ -chronic Uncomplicated (without systemic symptoms) or Complicated (systemic symptoms)? @ -[default] Side effects of treatment? @ -[No] Exacerbation, Progression, or Severe Exacerbation? @ -[No] Poses a threat to life or bodily function? How? (Chest pain, [place], MD, pneumonia, PE, COPD, DKA, ARF, appy, cholecystitis, CVA, Diverticulitis, Homicidal, Suic idal, threat to staff... and all critical care pts) @ -[No] - Lab Data Result diagrams: 05/19/22 12:02 05/19/22 12:02 Lab Results 05/19/22 05/19/22 05/19/22 Range/Units 12:02 12:02 12:02 WBC 6.1 (3.8-10.6) k/uL RBC 4.71 (3.80-5.40) m/uL Hgb 13.8 (11.4-16.0) gm/dL Hct 42.4 (34.0-46.0) % MCV 90.0 (80.0-100.0) fL MCH 29.2 (25.0-35.0) pg MCHC 32.5 (31.0-37.0) g/dL RDW 13.3 (11.5-15.5) % Plt Count 399 (150-450) k/uL MPV 8.0 Neutrophils % 80 % Lymphocytes % 11 % Monocytes % 5 % Eosinophils % 2 % Basophils % 1 % Neutrophils # 4.8 (1.3-7.7) k/uL Lymphocytes # 0.7 L (1.0-4.8) k/uL Monocytes # 0.3 (0-1.0) k/uL Eosinophils # 0.1 (0-0.7) k/uL Basophils # 0.1 (0-0.2) k/uL Sodium 143 (137-145) mmol/L Potassium 3.9 (3.5-5.1) mmol/L Chloride 106 (98-107) mmol/L Carbon Dioxide 26 (22-30) mmol/L Anion Gap 11 mmol/L BUN 22 H (7-17) mg/dL Creatinine 0.59 (0.52-1.04) mg/dL Est GFR (CKD-EPI)AfAm >90 (>60 ml/min/1.73 sqM) Est GFR (CKD-EPI)NonAf >90 (>60 ml/min/1.73 sqM) Glucose 124 H (74-99) mg/dL Calcium 9.6 (8.4-10.2) mg/dL Total Bilirubin 0.8 (0.2-1.3) mg/dL AST 49 H (14-36) U/L ALT 16 (4-34) U/L Alkaline Phosphatase 67 (38-126) U/L C-Reactive Protein 2.3 H (<1.0) mg/dL Total Protein 8.7 H (6.3-8.2) g/dL Albumin 4.8 (3.5-5.0) g/dL Lipase 678 H (23-300) U/L Urine Color Yellow Urine Appearance Cloudy H (Clear) Urine pH 6.0 (5.0-8.0) Ur Specific [place] 1.029 (1.001-1.035) Urine Protein 1+ H (Negative) Urine Glucose (UA) Negative (Negative) Urine Ketones 1+ H (Negative) Urine Blood Negative (Negative) Urine Nitrite Negative (Negative) Urine Bilirubin Negative (Negative) Urine Urobilinogen 2.0 (<2.0) mg/dL Ur Leukocyte Esterase Moderate H (Negative) Urine WBC 7 H (0-5) /hpf Ur Squamous Epith Cells 8 H (0-4) /hpf Urine Bacteria Many H (None) /hpf Urine Mucus Few H (None) /hpf Disposition Clinical Impression: Right hip pain Disposition: HOME SELF-CARE Condition: Stable Instructions (If sedation given, give patient instructions): Constipation (ED) Additional Instructions: Please return to the nearest emergency department if worsening pain, abdominal pain, or fevers develop Prescriptions: Naproxen 250 mg PO TID 14 Days #45 tab Is patient prescribed a controlled substance at d/c from ED?: No If Rx opioid, was Start Talking consent form obtained?: No [facility]errals: [facility] [NON-STAFF] - As Soon As Possible (Contact regarding a ppointment.) Nonstaff,Physician [Primary Care Provider] - 1-2 days Michael Arambula MD [STAFF PHYSICIAN] - 06/01/22 11:15 am (soonest available appointment) Time of Disposition: 16:17
[2022-05-19 14:43] VITALS: PULSE 83; RESP 18
[2022-05-19 17:14] VITALS: BP 182/84; TEMP 97.6
== END 2022-05-19 17:15 | disposition home or self-care (01) ==
LOC: EC 10:46
DX: M25.551 Pain in right hip (principal); I10 Essential (primary) hypertension; J44.9 Chronic obstructive pulmonary disease, unspecified; K21.9 Gastro-esophageal reflux disease without esophagitis; E78.5 Hyperlipidemia, unspecified; M19.90 Unspecified osteoarthritis, unspecified site; G47.30 Sleep apnea, unspecified; E07.9 Disorder of thyroid, unspecified; Z87.891 Personal history of nicotine dependence; Z79.890 Hormone replacement therapy; Z79.899 Other long term (current) drug therapy; Z88.8 Allergy status to other drugs, medicaments and biological substances
CPT/HCPCS: 36415; 80053; 83690; 85025; 86140; 81001; 72192; 74176; 99284; 96374; 96375; J2270; J1170

== ENCOUNTER 2022-05-28 10:35 | Inpatient (IN) | payer MEDICARE, OTHER ==
[2022-05-28] MEDS ORDERED: SODIUM CHLORIDE 0.9% 1,000 ML IV STA (10:51)
[2022-05-28] MEDS ORDERED: FAMOTIDINE 20 MG/2 ML VIAL IV STA (10:52)
--- NOTE | 2022-05-28 10:54 | ED ---
General Adult HPI - General Chief complaint: Weakness Stated complaint: Weakness Time Seen by Provider: 05/28/22 10:36 Source: patient, EMS, RN notes reviewed Mode of arrival: EMS Limitations: no limitations - History of Present Illness Initial comments: Patient is a pleasant 66-year-old female presenting to the emergency department with concerns with not feeling well. Patient has lung cancer with positive lymph nodes. Patient did do 3 rounds of chemotherapy, last was around a month ago. Patient has progressively worsened over the past month. Decreased appetite, only tolerating around half of normal. Patient occasionally has nausea. Patient feels fatigued and generally weak. Patient feels generally achy. On questioning patient does admit to having some abdominal discomfort - Related Data Home Medications Medication Instructions Recorded Confirmed Montelukast [Singulair] 10 mg PO HS 08/12/14 05/28/22 Sertraline [Zoloft] 150 mg PO DAILY 06/17/17 05/28/22 Meclizine [Antivert] 25 mg PO QID 04/18/18 05/28/22 Meloxicam [Mobic] 15 mg PO DAILY 04/18/18 05/28/22 Omeprazole [PriLOSEC] 40 mg PO DAILY 04/18/18 05/28/22 Fenofibrate Nanocrystallized 145 mg PO DAILY 10/28/20 05/28/22 [Fenofibrate] Furosemide [Lasix] 40 mg PO DAILY 10/28/20 05/28/22 lisinopriL [Prinivil] 20 mg PO DAILY 10/28/20 05/28/22 Albuterol Sulfate [Ventolin HFA] 1 puff INHALATION RT-Q4H PRN 04/06/21 05/28/22 Budesonide/Formoterol Fumarate 2 puff INHALATION RT-BID 04/06/21 05/28/22 [Symbicort 160-4.5 Mcg Inhaler] Cinnamon Bark [Cinnamon] 500 mg PO DAILY 04/06/21 05/28/22 Tiotropium 18 Mcg/Puff [Spiriva] 1 puff INHALATION RT-DAILY 04/06/21 05/28/22 ondansetron HCL [Zofran] 8 mg PO Q8HR PRN 04/06/21 05/28/22 tiZANidine [Zanaflex] 4 mg PO TID 04/06/21 05/28/22 Fluticasone Nasal [place] [Flonase 2 spray EA NOSTRIL DAILY 05/04/21 05/28/22 Nasal [place]] Ascorbic Acid [Vitamin C] 500 mg PO DAILY 05/16/22 05/28/22 Bismuth Subsalicylate [Kaopectate] 262 mg PO DAILY PRN 05/16/22 05/28/22 Cholecalciferol [Vitamin D3 (10 10 mcg PO DAILY 05/16/22 05/28/22 Mcg = 400 Iu)] [place]-3 Fatty Acids [[place]-3] 1,000 mg PO DAILY 05/16/22 05/28/22 Sucralfate [Carafate] 1 gm PO QID 05/16/22 05/28/22 Tirzepatide [Mounjaro] 2.5 mg SQ LOZANO 05/16/22 05/28/22 Vitamin A 2,400 mcg PO DAILY 05/16/22 05/28/22 Vitamin E 268 mg PO DAILY 05/16/22 05/28/22 Levothyroxine Sodium [Euthyrox] 250 mcg PO DAILY 05/19/22 05/28/22 amLODIPine [Norvasc] 5 mg PO DAILY 05/19/22 05/28/22 HYDROcodone/APAP 5-325MG [Severance 1 tab PO TID PRN 05/28/22 05/28/22 5-325] Previous Rx's Medication Instructions Recorded Clopidogrel [Plavix] 75 mg PO DAILY #90 tab 05/08/21 Naproxen 250 mg PO TID 14 Days #45 tab 05/19/22 Allergies Allergy/AdvReac Type Severity Reaction Status Date / Time cat dander Allergy Dyspnea Verified 05/19/22 13:09 pollen extracts Allergy Unknown Verified 05/19/22 13:09 yeast, dried [yeast] Allergy Wheezing Verified 05/19/22 13:09 COTTON WOOD TREES Allergy Unknown Uncoded 05/19/22 13:09 Review of Systems ROS Statement: Those systems with pertinent positive or pertinent negative responses have been documented in the HPI. ROS Other: All systems not noted in ROS Statement are negative. Constitutional: Denies: fever Eyes: Denies: eye pain ENT: Denies: ear pain Respiratory: Denies: cough, dyspnea Cardiovascular: Denies: chest pain Endocrine: Reports: fatigue Gastrointestinal: Reports: as per HPI, abdominal pain, nausea Genitourinary: Denies: dysuria Musculoskeletal: Denies: back pain Skin: Denies: rash Past Medical History Past Medical History: Cancer, COPD, Diabetes Mellitus, GERD/Reflux, Hyperlipidemia, Hypertension, Osteoarthritis (OA), Sleep Apnea/CPAP/BIPAP, Thyroid Disorder Additional Past Medical History / Comment(s): Right lung cancer diagnosed November 2020. MENIERES. SEVERE ENVIRONMENTAL ALLERGIES. CPAP use. CHRONIC BACK PAIN. Splenic Infarct. Hx Thyroid cancer 6 yrs ago. Fatty liver. Varicose veins. had diarrhea couple weeks ago but resolved History of Any Multi-Drug Resistant Organisms: None Reported Past Surgical History: Cholecystectomy, Orthopedic Surgery, Tonsillectomy, Tubal Ligation Additional Past Surgical History / Comment(s): BILATERAL EYE SURGERY FOR STRABISMUS. TOTAL THYROIDECTOMY, bilateral carpal tunnel, "cancer removed from right lung". recent CELSO 05-07-21 PFO closure Past Anesthesia/Blood Transfusion Reactions: No Reported Reaction Past Psychological History: No Psychological Hx Reported Smoking Status: Former smoker Past Alcohol Use History: None Reported Past Drug Use History: None Reported - Past Family History Mother Family Medical History: Coronary Artery Disease (CAD), Diabetes Mellitus, Hypertension, Renal Disease Father Family Medical History: Coronary Artery Disease (CAD), Diabetes Mellitus, Hypertension Sister(s) Family Medical History: Cancer Additional Family Medical History / Comment(s): BREAST Cancer. General Exam Limitations: no limitations General appearance: alert, in no apparent distress Head exam: Present: normocephalic Eye exam: Present: normal appearance, PERRL Neck exam: Present: normal inspection Respiratory exam: Present: normal lung sounds bilaterally Cardiovascular Exam: Present: regular rate, normal rhythm GI/Abdominal exam: Present: soft, tenderness (Mild to moderate diffuse tenderness), normal bowel sounds. Absent: distended, guarding, rebound, rigid, pulsatile mass Extremities exam: Present: normal inspection. Absent: pedal edema, calf tenderness Neurological exam: Present: alert. Absent: motor sensory deficit Psychiatric exam: Present: normal affect, normal mood Skin exam: Present: normal color Course Vital Signs 05/28/22 05/28/22 05/28/22 10:39 12:06 13:46 Temperature 97.4 F L Pulse Rate 73 90 90 Respiratory 20 18 20 Rate Blood Pressure 167/93 169/89 170/90 O2 Sat by Pulse 93 L 94 L 93 L Oximetry EKG Findings - EKG Results: EKG: interpreted by ERMD (Left axis. LVH criteria. No acute ST change.), sinus rhythm Medical Decision Making - Medical Decision Making Was pt. sent in by a medical professional or institution (MIGUE Prince, INFORMATION SECURITY DIRECTOR, urgent care, hospital, or halfway...) When possible be specific @ -No Did you speak to anyone other than the patient for history (EMS, parent, family, police, friend...)? What history was obtained from this source @ -Family is available including and daughter for help provide history of patient. They were not available on original assessment however provide history and reevaluation. Did you review nursing and triage notes (agree or disagree)? Why? @ -I reviewed and agree with nursing and triage notes Were old charts reviewed (outside hosp., previous admission, EMS record, old EKG, old radiological studies, urgent care reports/EKG's, halfway records)? Report findings @ -No old charts were reviewed Differential Diagnosis (chest pain, altered mental status, abdominal pain women, abdominal pain men, vaginal bleeding, weakness, fever, dyspnea, syncope, headache, dizziness, GI bleed, back pain, seizure, CVA, palpatations, mental health)? @ -Differential Abdominal Pain Women: Appendicitis, Cholecystitis, diverticulosis, ischemic bowel, pancreatitis, hepatitis, UTI, gastroenteritis, AAA, incarcerated hernia, bowel obstruction, constipation, inflammatory bowel, hepatitis, peptic ulcer disease, splenic infarction, perforated viscus, vulvitis, ovarian torsion, PID, kidney stone, placenta abruption, this is not meant to be an all-inclusive list EKG interpreted by me (3pts min.). @ -As above X-rays interpreted by me (1pt min.). @ -As above CT interpreted by me (1pt min.). @ -None done U/S interpreted by me (1pt. min.). @ -None done What testing was considered but not performed or refused? (CT, X-rays, U/S, labs)? Why? @ -None What meds were considered but not given or refused? Why? @ -None Did you discuss the management of the patient with other professionals (professionals i.e. , MIGUE, INFORMATION SECURITY DIRECTOR, lab, RT, psych nurse, social services, entertainment lawyer, teacher, equal opportunity officer, director of casework)? Give summary @ -Case was discussed with Dr. Galindo, who will admit covering hospital call. Was smoking cessation discussed for >3mins.? @ -No Was critical care preformed (if so, how long)? @ -No Were there social determinants of health that impacted care today? How? (Homelessness, low income, unemployed, alcoholism, drug addiction, transportation, low edu. Level, literacy, decrease access to med. care, senior care, rehab)? @ -No Was there de-escalation of care discussed even if they declined (Discuss DNR or withdrawal of care, Hospice)? DNR status @ -No What co-morbidities impacted this encounter? (DM, HTN, Smoking, COPD, CAD, Cancer, CVA, ARF, Chemo, Hep., AIDS, mental health diagnosis, sleep apnea, morbid obesity)? @ -Patient does have history of lung cancer Was patient admitted / discharged? Hospital course, mention meds given and route, prescriptions, significant lab abnormalities, going to OR and other pertinent info. @ -Patient reevaluated and still remains uncomfortable, somewhat worse now having some back spasms. Patient and family updated on results and plan. Patient will be admitted for oncology evaluation regarding further care as well as pain control Undiagnosed new problem with uncertain prognosis? @ -No Drug Therapy requiring intensive monitoring for toxicity (Heparin, Nitro, Insulin, Cardizem)? @ -No Were any procedures done? @ -No Diagnosis/symptom? @ -Abdominal pain Acute, or Chronic, or Acute on Chronic? @ -Acute on chronic Uncomplicated (without systemic symptoms) or Complicated (systemic symptoms)? @ -, Acute metastatic disease Side effects of treatment? @ -No Exacerbation, Progression, or Severe Exacerbation? @ -Severe exacerbation Poses a threat to life or bodily function? How? (Chest pain, [place], [place], pneumonia, PE, COPD, DKA, ARF, appy, cholecystitis, CVA, Diverticulitis, Homicidal, Suicidal, threat to staff... and all critical care pts) @ -Threat to vital he function regarding metastatic lung cancer - Lab Data Result diagrams: 05/28/22 11:05 05/28/22 11:05 Lab Results 05/28/22 05/28/22 05/28/22 Range/Units 11:05 11:05 11:05 WBC 8.7 (3.8-10.6) k/uL RBC 4.87 (3.80-5.40) m/uL Hgb 13.8 (11.4-16.0) gm/dL Hct 43.1 (34.0-46.0) % MCV 88.4 (80.0-100.0) fL MCH 28.4 (25.0-35.0) pg MCHC 32.1 (31.0-37.0) g/dL RDW 13.5 (11.5-15.5) % Plt Count 361 (150-450) k/uL MPV 7.1 Neutrophils % 84 % Lymphocytes % 10 % Monocytes % 3 % Eosinophils % 1 % Basophils % 0 % Neutrophils # 7.3 (1.3-7.7) k/uL Lymphocytes # 0.8 L (1.0-4.8) k/uL Monocytes # 0.3 (0-1.0) k/uL Eosinophils # 0.1 (0-0.7) k/uL Basophils # 0.0 (0-0.2) k/uL Sodium 143 (137-145) mmol/L Potassium 3.5 (3.5-5.1) mmol/L Chloride 108 H (98-107) mmol/L Carbon Dioxide 25 (22-30) mmol/L Anion Gap 10 mmol/L BUN 18 H (7-17) mg/dL Creatinine 0.46 L (0.52-1.04) mg/dL Est GFR (CKD-EPI)AfAm >90 (>60 ml/min/1.73 sqM) Est GFR (CKD-EPI)NonAf >90 (>60 ml/min/1.73 sqM) Glucose 128 H (74-99) mg/dL Plasma Lactic Acid Jose 1.2 (0.7-2.0) mmol/L Calcium 9.1 (8.4-10.2) mg/dL Phosphorus 3.1 (2.5-4.5) mg/dL Magnesium 1.8 (1.6-2.3) mg/dL Total Bilirubin 0.8 (0.2-1.3) mg/dL AST 51 H (14-36) U/L ALT 13 (4-34) U/L Alkaline Phosphatase 73 (38-126) U/L Total Protein 7.9 (6.3-8.2) g/dL Albumin 4.4 (3.5-5.0) g/dL TSH 5.130 H (0.465-4.680) mIU/L Free T4 1.53 (0.78-2.19) ng/dL Free T3 pg/mL 3.0 (2.8-5.3) pg/ml - Radiology Data Radiology results: report reviewed (Report CT abdomen and pelvis reviewed) Interpreted by me: Chest x-ray shows no acute process Disposition Clinical Impression: Abdominal pain, Metastatic primary lung cancer Disposition: ADMITTED IP TO THIS [facility] Condition: Serious Is patient prescribed a controlled substance at d/c from ED?: No Referrals: None,Stated [REFERRING] - 1-2 days Time of Disposition: 13:56
[2022-05-28 11:16] LABS: Basophils % (A) 0 %; Eosinophils # (A) 0.1 k/uL (0-0.7); Eosinophils % (A) 1 %; HCT 43.1 % (34.0-46.0); HGB 13.8 gm/dL (11.4-16.0); Lymphocytes # (A) 0.8 k/uL (1.0-4.8); Lymphocytes % (A) 10 %; MCH 28.4 pg (25.0-35.0); MCHC 32.1 g/dL (31.0-37.0); MCV 88.4 fL (80.0-100.0); Mean Platelet Volume 7.1; Monocytes # (A) 0.3 k/uL (0-1.0); Monocytes % (A) 3 %; Neutrophils # (A) 7.3 k/uL (1.3-7.7); Neutrophils % (A) 84 %; Platelet Count 361 k/uL (150-450); RBC 4.87 m/uL (3.80-5.40); RDW 13.5 % (11.5-15.5); WBC 8.7 k/uL (3.8-10.6)
[2022-05-28 11:37] LABS: ALT 13 U/L (4-34); AST 51 U/L (14-36); African American GFR (CKD) >90 (>60 ml/min/1.73 sqM); Albumin 4.4 g/dL (3.5-5.0); Alkaline Phosphatase 73 U/L (38-126); Anion Gap 10 mmol/L; Blood Urea Nitrogen 18 mg/dL (7-17); Calcium 9.1 mg/dL (8.4-10.2); Carbon Dioxide 25 mmol/L (22-30); Chloride 108 mmol/L (98-107); Glucose 128 mg/dL (74-99); Magnesium 1.8 mg/dL (1.6-2.3); Non-African American GFR(CKD) >90 (>60 ml/min/1.73 sqM); Phosphorus 3.1 mg/dL (2.5-4.5); Potassium 3.5 mmol/L (3.5-5.1); Sodium 143 mmol/L (137-145); Total Bilirubin 0.8 mg/dL (0.2-1.3); Total Protein 7.9 g/dL (6.3-8.2)
[2022-05-28 11:53] LABS: T4, Free (Free Thyroxine) 1.53 ng/dL (0.78-2.19)
[2022-05-28] MEDS ORDERED: MORPHINE SULFATE 4 MG/ML SYRINGE IVP STA (11:59)
--- NOTE | 2022-05-28 12:45 | XR ---
EXAMINATION TYPE: XR chest 1V portable DATE OF EXAM: 05/28/2022 12:40 PM COMPARISON: Chest radiographs from 05/08/2021 TECHNIQUE: XR chest 1V portable Portable AP radiograph of the chest. CLINICAL INDICATION:Female, 66 years old with history of Weakness; FINDINGS: Lungs/Pleura: There is no evidence of pleural effusion, focal consolidation, or pneumothorax. Hyperi nflation. Postsurgical changes of the right lung. Pulmonary vascularity: Unremarkable. Heart/mediastinum: Cardiomediastinal silhouette is unremarkable. PFO closure device noted. Musculoskeletal: Multiple level degenerative disc disease changes seen throughout the spine. No acute osseous and amounted. IMPRESSION: 1. No acute cardiopulmonary disease/process. 2. COPD changes.
--- NOTE | 2022-05-28 13:14 | CT ---
EXAMINATION TYPE: CT abdomen pelvis w con DATE OF EXAM: 05/28/2022 COMPARISON: 05/19/2022, 02/26/2022, 11/05/2021 HISTORY: 66-year-old female lower abd pain. Previous reports indicate a history of lung cancer. TECHNIQUE: Contiguous axial scanning of the abdomen and pelvis following administration of 100 ml Iso [id number] IV contrast. Delayed images through the kidneys and coronal/sagittal reconstructions perform ed. CT DLP: 1322.7 mGycm Automated exposure control for dose reduction was used. FINDINGS: Heart normal size without pericardial effusion. Some strandy atelectasis or scarring in the lower margret gs. A couple small adjacent 5 mm and smaller pulmonary nodules overlying the right hemidiaphragm, axi al image 9. 3 mm subpleural pulmonary nodule lateral left lower lobe, axial image 3. Liver enlarged measuring 21.0 cm. No focal lesion seen. Portal venous system is patent. There are cho lecystectomy clips. Stable prominence to the bile duct. Right pericardiac lymph node 1.3 cm versus 1.2 cm on 02/26/2022. Gastrohepatic ligament alonzo mass now much larger at 5.3 cm on axial and 5.0 cm on coronal. Chirs hepatic alonzo mass measuring up to 4.5 cm on axial and 6.1 cm on coronal. Portacaval node 2.4 cm results is not enlarged previously. Anterior peripancreatic node enlarged at 3.7 cm. Left periaortic node 3.1 x 1.7 cm versus nonenlarged previously. Few additional enlarged upper abdominal retroperitoneal nodes are demonstrated. Right retrocrural node enlarged at 1 cm now. Nodule within the left adrenal gland measures 1.8 cm versus 1.5 cm, previously. Low attenuation on th e 05/19/2022 study, possible underlying adrenal adenoma. Right adrenal gland, kidneys, spleen, common pancreas otherwise show no gross abnormality. Some scattered prominent fluid-filled small bowel loops are present. No dilated small bowel, free air , or free fluid. Normal appendix. Some liquid stool within the right side of the colon. Left-sided clonic diverticulos is. No pericolic inflammatory change seen. Bladder is urine distended. Very bulky fibroid uterus. Multiple calcified and noncalcified uterine fi broids are present measuring up to 4.9 cm, sagittal image 52. The fibroid change distorts the uterine contours. Large bilateral periuterine varices are demonstrated. Numerous pelvic phleboliths. Ovaries not well seen, likely small postmenopausal. No abnormal fluid collection the pelvis or pelvic lympha denopathy. Bones: Moderate degenerative change at the hips. Lytic lesion involving the T12 vertebral body. There is some extraosseous extension through the poste rior vertebral body cortex into the ventral epidural space. Possible moderate focal spinal canal sten osis here, axial image 24 and sagittal image 62. Additional lytic lesion involving the left L3 vertebral body. Lytic lesion involving the right ischial tuberosity. IMPRESSION: 1. ADVISED APPROPRIATE ONCOLOGIC FOLLOW-UP . THERE HAS BEEN NEOPLASTIC DISEASE PROGRESSION COMPARED T O 02/26/2022: 2. INTERVAL DEVELOPMENT OF METASTATIC ALONZO MASSES IN THE GASTROHEPATIC LIGAMENT AND CHRIS HEPATIC RE GION MEASURING UP TO 6.1 CM. 3. ADDITIONAL RIGHT PERICARDIAC, PORTACAVAL, ANTERIOR PERIPANCREATIC, RIGHT RETROCRURAL, AND UPPER AB DOMINAL RETROPERITONEAL ADENOPATHY MEASURING UP TO 3.7 CM. 4. A FEW SUBTLE PULMONARY NODULES IN THE VISUALIZED LOWER LUNGS MEASURING UP TO 5 MM ARE NONSPECIFIC BUT COULD BE EARLY METASTATIC PULMONARY NODULES THEY WERE NOT CLEARLY SEEN PREVIOUSLY. 5. PROGRESSION IN OSSEOUS METASTATIC DISEASE. THE T12 LYTIC LESION NOW SHOWS GREATER DEGREE OF EXTRAO SSEOUS EXTENSION INTO THE VENTRAL EPIDURAL SPACE. THERE MAY BE A MODERATE FOCAL SPINAL CANAL STENOSIS HERE. NEW LESION TOWARDS THE LEFT AT L3 AND WITHIN THE RIGHT ISCHIAL TUBEROSITY. 6. INCIDENTAL: PROMINENT FLUID-FILLED SMALL BOWEL LOOPS AND LIQUID STOOL IN THE RIGHT SIDE OF THE COL ON. CONSIDER ENTERITIS. 7. VERY BULKY FIBROID UTERUS. THERE ARE LARGE BILATERAL PERIUTERINE VARICES WHICH MAY REFLECT PELVIC CONGESTION SYNDROME.
[2022-05-28] MEDS ORDERED: HYDROmorphone 1 MG/ML 1 ML SYRINGE IVP STA (13:56)
[2022-05-28] MEDS ORDERED: ACETAMINOPHEN TAB 325 MG TAB PO PRN (13:57)
[2022-05-28] MEDS ORDERED: ONDANSETRON 4 MG/2 ML VIAL IVP PRN (13:57)
[2022-05-28] MEDS ORDERED: NALOXONE 0.4 MG/ML 1 ML VIAL IV PRN (13:57)
[2022-05-28] MEDS ORDERED: HYDROmorphone 0.5 MG/0.5 ML SYRINGE IVP PRN (13:57)
[2022-05-28] MEDS ORDERED: SODIUM CHLORIDE 0.9% 1,000 ML IV SCH (14:00)
[2022-05-28] MEDS: DEXAMETHASONE SOD PHOSPHATE 4 MG/ML 1 ML VIAL IVP SCH ×2 (18:08→22:55)
[2022-05-28] MEDS ORDERED: ONDANSETRON 4 MG TAB PO PRN (18:22)
[2022-05-28] MEDS ORDERED: HYDROcodone/APAP 5-325MG 1 EACH TAB PO PRN (18:22)
[2022-05-28 19:44] LABS: Appearance,Urine Clear (Clear); Bacteria,Urine Many /hpf; Bilirubin,Urine Negative (Negative); Blood,Urine Negative (Negative); Color,Urine Yellow; Glucose,Urine (UA) Negative (Negative); Hyaline Casts,Urine 18 /lpf (0-2); Ketones,Urine Trace (Negative); Leukocyte Esterase,Urine Trace (Negative); Nitrite,Urine Positive (Negative); PH, Urine 6.5 (5.0-8.0); Protein,Urine 1+ (Negative); RBC,Urine 2 /hpf (0-5); Squamous Epithelial Cell,Urine 3 /hpf (0-4); WBC,Urine 18 /hpf (0-5)
[2022-05-28] MEDS: SYMBICORT 160-4.5 MCG INHALER INHALATION SCH (19:44)
[2022-05-28 19:50] LABS: Specific Gravity,Urine >1.050 (1.001-1.035)
[2022-05-28] MEDS ORDERED: LACTULOSE 20 GM/30 ML CUP PO PRN (19:52)
[2022-05-28] MEDS ORDERED: TEMAZEPAM 15 MG CAP PO PRN (19:52)
[2022-05-28] MEDS ORDERED: CALCIUM CARBONATE 500 MG CHEWABLE PO PRN (19:52)
--- NOTE | 2022-05-28 19:55 | P.HPIM ---
History of Present Illness H&P Date: 05/28/22 Chief Complaint: Weak tired This is a pleasant 66-year-old patient was family doctor is out of the area . She follows locally with her oncologist Dr. Fernandez. Patient was diagnosed with lung cancer around October 2020. Patient has received several rounds of chemotherapy and radiation treatment. As of her last visit she would hold things are coming along fine. But for last few weeks patient is being having decreased appetite. Increasing weight loss. Abdominal pain. Has normally 5-7 bowel movements loose every day. Last chemotherapy was about a month ago. Finding it difficult to get about. Patient is accompanied by her in the room, her daughters on the phone and a sister at the bedside. No fever no chills. Patient was told earlier today by Dr. Fernandez that other alternative treatments will be looked into. Because of her back pain. She doesn't finding it difficult to get up. Review of systems: GEN.: Weight loss decreased appetite EYES: None HEENT: None NECK: None RESPIRATORY: None CARDIOVASCULAR: None GASTROINTESTINAL: Abdominal pain, diarrhea GENITOURINARY: None MUSCULOSKELETAL: Back joint pains LYMPHATICS: None HEMATOLOGICAL: None PSYCHIATRY: Feels low NEUROLOGICAL: None Past medical history to include: COPD, diabetes, GERD, hypertension, hyperlipidemia, prostatitis, obstetrical sleep apnea does not use CPAP, hypothyroid, lung cancer diagnosed in October 2020 Mnire's disease, splenic infarct, thyroid cancer 6 years ago, fatty liver, varicose veins Social history: This with her and son. Does use a walker. Patient smoked for about 37 years stopped in 2008. No alcohol. Physical examination: VITAL SIGNS: 97.4, 73, 20, 167/93, 93% room air GENERAL: BMI 34.1, laying in bed awake tired. EYES: Pupils equal. Conjunctiva palel. HEENT: External appearance of nose and ears normal, oral cavity grossly normal. NECK: JVD not raised; masses not palpable. HEART: First and second heart sounds are normal; no edema. LUNGS: Respiratory rate normal; decreased breath sounds. ABDOMEN: Soft, diffuse tenderness, no guarding rigidity, liver spleen not palpable, no masses palpable. PSYCH: Alert and oriented x3; mood and affect anxiousl. MUSCULOSKELETAL:No Clubbing/cyanosis;muscles-grossly intact NEUROLOGICAL: Cranial nerves grossly intact; no facial asymmetry, power and sensation grossly intact. LYMPHATICS: No lymph nodes palpable in the axilla and neck INVESTIGATIONS, reviewed in the clinical context: White count 8.17 globin 13.8 platelets 361 progression 3.5 BUN 18 creatinine 0.46 TSH 5.1 EKG tracing personally reviewed by me-normal sinus rhythm. Some ST deviations depression. Chest x-ray film personally reviewed by me-portable/mediastinum to the right. PFO closure device reported. Hyperinflation. CT abdomen pelvis: Plastic disease progression. Metastatic alonzo masses in the gastrohepatic liga ment and shimon hepatic lesion up to 6.1 cm. Right pericardiac, portocaval, anterior perihepatic the pancreatic right retrocrural, upper abdominal retroperitoneal adenopathy up to 3.07 cm progression of osseous metastatic disease. T12 lactic lesion showing fixed extension into the ventral epidural space. Focal spinal canal stenosis. Fluid-filled small bowel loops and liquid stools. Large bilateral periuterine varices. Assessment and plan: -Patient has a diagnosis of lung cancer from summer. Being followed by Dr. neff. Has received chemo and radiation treatment. Of late patient been having progressive worsening systemic symptoms including weight loss loci of appetite. Increasing generalized pain including bone and abdominal pain. Computed tomography scan is showing extensive metastatic disease. In closing intra-abdominal lymphadenopathy. Consult Dr. Feranndez -Clinical dehydration from poor oral intake Ensure one can 3 times a day. Full liquid diet. -COPD in a previous smoker Symbicort -Hypothyroid Levothyroxin -Metastatic bone pain NSAIDs. IV Solu-Medrol -GERD Prilosec -Depression Zoloft -Essential hypertension Prinivil, Norvasc -DO NOT RESUSCITATE Discussed at length with the patient and her down on the phone and a sister the bedside. IV fluids. Full liquid diet. Pain management. Advanced care planning: Care was discussed the patient, of the bedside and patient's daughter and the phone. Given her advanced condition patient decided proceed with a DO NOT RESUSCITATE CODE STATUS. Understanding other treatment is to continue right now. She understands the guarded prognosis. Time spent for this 20 minutes Past Medical History Past Medical History: Cancer, COPD, Diabetes Mellitus, GERD/Reflux, Hyperlipidemia, Hypertension, Osteoarthritis (OA), Sleep Apnea/CPAP/BIPAP, Thyroid Disorder Additional Past Medical History / Comment(s): Right lung cancer diagnosed OctNovember 2020-came into ER on 05/28/[address] showing neoplastic disease progression compared to 02/26/22 and progression in osseous metastatic disease in thoracic and lumbar spine, MENIERES disease, SEVERE ENVIRONMENTAL ALLERGIES. CHRONIC BACK PAIN. Splenic Infarct. Hx Thyroid cancer 6 yrs ago. Fatty liver. Varicose veins. had diarrhea couple weeks ago but resolved History of Any Multi-Drug Resistant Organisms: None Reported Past Surgical History: Cholecystectomy, Orthopedic Surgery, Tonsillectomy, Tubal Ligation Additional Past Surgical History / Comment(s): BILATERAL EYE SURGERY FOR STRABISMUS. TOTAL THYROIDECTOMY, bilateral carpal tunnel, "cancer removed from right lung". recent CELSO 05-07-21 PFO closure Past Anesthesia/Blood Transfusion Reactions: No Reported Reaction Past Psychological History: No Psychological Hx Reported Additional Psychological History / Comment(s): Pt resides with her spouse and their son. She has a cane and walker. She drives. Smoking Status: Former smoker Past Alcohol Use History: None Reported Additional Past Alcohol Use History / Comment(s): Pt started smoking in 1971 and quit in 2008. Past Drug Use History: None Reported - Past Family History Mother Family Medical History: Coronary Artery Disease (CAD), Diabetes Mellitus, Hypertension, Renal Disease Father Family Medical History: Coronary Artery Disease (CAD), Diabetes Mellitus, Hypertension Sister(s) Family Medical History: Cancer Additional Family Medical History / Comment(s): BREAST Cancer. Medications and Allergies Home Medications Medication Instructions Recorded Confirmed Type Montelukast [Singulair] 10 mg PO HS 08/12/14 05/28/22 History Sertraline [Zoloft] 150 mg PO DAILY 06/17/17 05/28/22 History Meclizine [Antivert] 25 mg PO QID 04/18/18 05/28/22 History Meloxicam [Mobic] 15 mg PO DAILY 04/18/18 05/28/22 History Omeprazole [PriLOSEC] 40 mg PO DAILY 04/18/18 05/28/22 History Fenofibrate Nanocrystallized 145 mg PO DAILY 10/28/20 05/28/22 History [Fenofibrate] Furosemide [Lasix] 40 mg PO DAILY 10/28/20 05/28/22 History lisinopriL [Prinivil] 20 mg PO DAILY 10/28/20 05/28/22 History Albuterol Sulfate [Ventolin HFA] 1 puff INHALATION RT-Q4H PRN 04/06/21 05/28/22 History Budesonide/Formoterol Fumarate 2 puff INHALATION RT-BID 04/06/21 05/28/22 History [Symbicort 160-4.5 Mcg Inhaler] Cinnamon Bark [Cinnamon] 500 mg PO DAILY 04/06/21 05/28/22 History Tiotropium 18 Mcg/Puff [Spiriva] 1 puff INHALATION RT-DAILY 04/06/21 05/28/22 History ondansetron HCL [Zofran] 8 mg PO Q8HR PRN 04/06/21 05/28/22 History tiZANidine [Zanaflex] 4 mg PO TID 04/06/21 05/28/22 History Fluticasone Nasal [place] [Flonase 2 spray EA NOSTRIL DAILY 05/04/21 05/28/22 History Nasal [place]] Clopidogrel [Plavix] 75 mg PO DAILY #90 tab 05/08/21 05/28/22 Rx Ascorbic Acid [Vitamin C] 500 mg PO DAILY 05/16/22 05/28/22 History Bismuth Subsalicylate [Kaopectate] 262 mg PO DAILY PRN 05/16/22 05/28/22 History Cholecalciferol [Vitamin D3 (10 10 mcg PO DAILY 05/16/22 05/28/22 History Mcg = 400 Iu)] [place]-3 Fatty Acids [[place]-3] 1,000 mg PO DAILY 05/16/22 05/28/22 History Sucralfate [Carafate] 1 gm PO QID 05/16/22 05/28/22 History Tirzepatide [Mounjaro] 2.5 mg SQ LOZANO 05/16/22 05/28/22 History Vitamin A 2,400 mcg PO DAILY 05/16/22 05/28/22 History Vitamin E 268 mg PO DAILY 05/16/22 05/28/22 History Levothyroxine Sodium [Euthyrox] 250 mcg PO DAILY 05/19/22 05/28/22 History Naproxen 250 mg PO TID 14 Days #45 tab 05/19/22 05/28/22 Rx amLODIPine [Norvasc] 5 mg PO DAILY 05/19/22 05/28/22 History HYDROcodone/APAP 5-325MG [[place] 1 tab PO TID PRN 05/28/22 05/28/22 History 5-325] Non Formulary Drug 1 each PO ONCE 05/28/22 05/28/22 History Allergies Allergy/AdvReac Type Severity Reaction Status Date / Time cat dander Allergy Dyspnea Verified 05/19/22 13:09 pollen extracts Allergy Unknown Verified 05/19/22 13:09 yeast, dried [yeast] Allergy Wheezing Verified 05/19/22 13:09 COTTON WOOD TREES Allergy Unknown Uncoded 05/19/22 13:09 Physical Exam Vitals: Vital Signs Temp Pulse Pulse Resp BP BP Pulse Ox 05/28/22 19:00 97.8 F 70 16 153/91 91 L 05/28/22 13:46 90 20 170/90 93 L 05/28/22 12:06 90 18 169/89 94 L 05/28/22 10:39 97.4 F L 73 20 167/93 93 L Intake and Output 05/28/22 05/28/22 05/28/22 06:59 14:59 22:59 Intake Total 225 Balance 225 Intake: Intake, IV Titration 225 Amount Sodium Chloride 0.9% 1, 225 000 ml @ 75 mls/hr IV . [id number] [facility] Rx#:[id number] Other: Weight 98.883 kg 98.883 kg Results CBC & Chem 7: 05/28/22 11:05 05/28/22 11:05 Labs: Abnormal Lab Results - Last 24 Hours (Table) 05/28/22 05/28/22 Range/Units 11:05 11:05 Lymphocytes # 0.8 L (1.0-4.8) k/uL Chloride 108 H (98-107) mmol/L BUN 18 H (7-17) mg/dL Creatinine 0.46 L (0.52-1.04) mg/dL Glucose 128 H (74-99) mg/dL AST 51 H (14-36) U/L TSH 5.130 H (0.465-4.680) mIU/L Thrombosis Risk Factor Assmnt - Choose All That Apply Any of the Below Risk Factors Present?: Yes Each Factor Represents 1 point: Abnormal pulmonary function (COPD), Obesity (BMI >25) Other Risk Factors: Yes Each Risk Factor Represents 2 Points: Age 61-74 years, Malignancy Other congenital or acquired thrombophilia - If yes, enter type in comment: No Thrombosis Risk Factor Assessment Total Risk Factor Score: 6 Thrombosis Risk Factor Assessment Level: High Risk
[2022-05-28] MEDS ORDERED: DEXTROSE 50% SYRINGE 50 ML IVP PRN ×2 (19:57)
[2022-05-28] MEDS: FLUTICASONE 50MCG/SPRAY NASAL 16GM EA NOSTRIL SCH ×2 (20:38→20:40)
[2022-05-28] MEDS: PANTOPRAZOLE 40 MG TABLET PO SCH (20:38)
[2022-05-28] MEDS: PSYLLIUM HUSK 100% 6 GM PACKET PO SCH (20:38)
[2022-05-28] MEDS: ENOXAPARIN 40 MG/0.4 ML SYRINGE SQ SCH (20:40)
[2022-05-28] MEDS: tiZANidine 4 MG TAB PO SCH (20:41)
[2022-05-28] MEDS: DEXTROSE 5%-0.45% NACL 1,000 ML IV SCH (20:41)
[2022-05-28] MEDS ORDERED: FAMOTIDINE 20 MG TAB PO SCH (21:00)
[2022-05-28] MEDS: HYDROmorphone 1 MG/ML 1 ML SYRINGE IVP PRN (22:54)
--- NOTE | 2022-05-28 22:55 | MR ---
EXAMINATION TYPE: MR tspine/lspine wo con DATE OF EXAM: 05/28/2022 COMPARISON: None HISTORY: Met lung ca,poss cord compression Multiplanar multiecho imaging of the thoracic and lumbar spine performed with no contrast. The thoracic vertebral normal alignment. On the T2 images there is increased signal in the vertebral bodies in the midthoracic spine and could relate to radiation reaction. This is seen at T3-T7 levels. No thoracic paraspinal mass. There is a rounded 1.5 cm area of increased signal on the STIR images i n the T10 vertebral body on the right side. This has corresponding low signal on T1 images and extend s into the pedicle. There is similar abnormal increased signal in the T12 vertebral body with slight compression of 10%. The thoracic spinal cord has normal signal pattern. No edema. No evidence of thoracic spinal stenosis . The lumbar vertebrae have normal alignment. Disc spaces are fairly normal. No compression fracture. T he neural foramina are widely patent in the lumbar spine. Lumbar nerve roots appear normal. No spinal stenosis. Posterior elements are intact. The sacroiliac joints are intact. On the STIR images there is abnormal increased signal in the L3 vertebral body anteriorly which invol ves most of the left side of the body. There is similar increased signal in the S1 vertebra. No signi ficant compression. IMPRESSION: There is evidence of radiation changes in the T3 to the T7 vertebral bodies. Abnormal signal pattern in the T10 and T12 L3 and S1 vertebra suggestive of metastatic disease. Mild compression fracture of T12. There is some mild T12 expansion of the vertebral body but no significan t spinal stenosis. Expansion is towards the left side impinging on the left side T12-L1 neural forame n.
[2022-05-29] MEDS: DEXTROSE 5%-0.45% NACL 1,000 ML IV SCH ×3 (05:47→21:15)
[2022-05-29] MEDS: LEVOTHYROXINE 125 MCG TAB PO SCH (05:47)
[2022-05-29] MEDS: HYDROmorphone 1 MG/ML 1 ML SYRINGE IVP PRN ×2 (05:51→08:56)
[2022-05-29 07:09] LABS: Glucose,Whole Blood 107 mg/dL (70-110)
[2022-05-29] MEDS ORDERED: PANTOPRAZOLE 40 MG TABLET PO SCH (07:30)
[2022-05-29] MEDS: INSULIN ASPART (NovoLOG) 100 UNIT/ML VIAL SQ SCH ×3 (07:52→17:58)
[2022-05-29] MEDS: SYMBICORT 160-4.5 MCG INHALER INHALATION SCH ×2 (07:57→19:28)
[2022-05-29] MEDS: ALBUTEROL HFA INHALER INHALATION PRN ×3 (07:58→19:28)
[2022-05-29] MEDS: TIOTROPIUM 2.5 MCG INHALER INHALATION SCH (07:58)
[2022-05-29] MEDS: tiZANidine 4 MG TAB PO SCH ×3 (08:29→23:06)
[2022-05-29] MEDS: ENOXAPARIN 40 MG/0.4 ML SYRINGE SQ SCH (08:29)
[2022-05-29] MEDS: amLODIPine 5 MG TAB PO SCH (08:29)
[2022-05-29] MEDS: lisinopriL 20 MG TAB PO SCH (08:29)
[2022-05-29] MEDS: SERTRALINE 50 MG TAB PO SCH (08:29)
[2022-05-29] MEDS: DEXAMETHASONE SOD PHOSPHATE 4 MG/ML 1 ML VIAL IVP SCH ×2 (08:29→18:00)
[2022-05-29] MEDS: FENOFIBRATE 160 MG TAB PO SCH (08:29)
[2022-05-29] MEDS: PSYLLIUM HUSK 100% 6 GM PACKET PO SCH ×2 (08:29→21:15)
[2022-05-29] MEDS: PANTOPRAZOLE 40 MG TABLET PO SCH ×2 (08:29→21:13)
[2022-05-29] MEDS: CLOPIDOGREL 75 MG TAB PO SCH (08:30)
[2022-05-29] MEDS: FLUTICASONE 50MCG/SPRAY NASAL 16GM EA NOSTRIL SCH (08:30)
[2022-05-29] MEDS ORDERED: MORPHINE SULFATE 4 MG/ML SYRINGE IVP PRN ×3 (11:03→15:30)
--- NOTE | 2022-05-29 11:23 | P.CONS ---
History of Present Illness - Reason for Consult Consult date: 05/28/22 metastatic lung cancer Requesting physician: Xander Suarez - Chief Complaint weakness, pain - History of Present Illness Patient is a 66-year-old female presenting to the emergency department with generalized weakness and pain. 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 Patient reports that she has been having increased lower abdominal pain, lower back pain and hip pain over the last month. Also reports generalized weakness, fatigue and decreased appetite with a 35 pound weight loss. Also complains of nausea, mild dysphagia and intermittent headache and dizziness. Oncology Hx: Patient presented with left-sided abdominal discomfort for the past 2-3 weeks, progressed 2-3 days prior to admit to where the patient was having difficulty with walking or taking a deep breathe. At [facility] and had a CT that showed evidence of a splenic infarct in the upper pole of the spleen. Transferred to [facility]. CT angiogram confirmed presence of a focal wedge defect in the upper pole of the spleen that was felt to be compatible with infarct. Spleen otherwise appeared to be normal. Angiogram did not show any specific vascular abnormality especially in the abdominal vasculature. There was a right upper lobe noncalcified mass, 1.5 cm that was new finding compared to prior CT scan in 04/24. The patient had echocardiogram that showed EF between 55-60%. Labs from 10/30/20 showed CBC to be normal. Baseline coags were also normal. The patient has multiple cardiovascular risk factors including hypertension, hypercholesterolemia and diabetes. She also has a long-standing smoking history but quit in 2008. She has never had a documented arterial or venous thrombosis prior to this event. She denied any family history of clotting disorder. She denied any known chronic inflammatory disorder, ongoing steroid use or hormonal supplementation. She did have Covid in 03/28, but did not require hospitaliz ation. Had colonoscopy within the prior 3-4 years, as well as a mammogram in 2019. Hypercoagulable workup was negative, other than barely positive cardiolipin IgM only with a titer of 14 ( ULN 12), which is nonspecific. Workup for any underlying hemolysis was also negative. She did see pulmonary medicine regarding RUL nodule, and PET 12/27/20 did show abnormal uptake with SUV 8.05. No other areas of uptake were seen. Sent to cardiothoracic surgery, resection of lung nodule 02/27/21, path large cell neuroendocrine carcinoma, grade 3, 2.4 cm with margins negative. 0/4 lymph nodes were involved. Referred to the [facility] for opinion regarding need for adjuvant chemotherapy, ad juvant chemotherapy was not recommended. She was placed on f/u with serial imaging. CT CAP 11/06/21 revealed increased sized of right hilar LAD, possible small right paratracheal lymph node, but this is less than 1 cm (8 mm). She started concurrent chemo/RT and completed 6 cycles. She is s/p 3 cycles of Imfinzi, missed last treatment due to progressive symptoms as above. Review of Systems 10 point ROS is negative except as stated in the HPI Past Medical History Past Medical History: Cancer, COPD, Diabetes Mellitus, GERD/Reflux, Hyperlipidemia, Hypertension, Osteoarthritis (OA), Sleep Apnea/CPAP/BIPAP, Thyroid Disorder Additional Past Medical History / Comment(s): Right lung cancer diagnosed November 2020-came into ER on 05/28/[address] showing neoplastic disease progression compared to 02/26/22 and progression in osseous metastatic disease in thoracic and lumbar spine, MENIERES disease, SEVERE ENVIRONMENTAL ALLERGIES. CHRONIC BACK PAIN. Splenic Infarct. Hx Thyroid cancer 6 yrs ago. Fatty liver. Varicose veins. had diarrhea couple weeks ago but resolved History of Any Multi-Drug Resistant Organisms: None Reported Past Surgical History: Cholecystectomy, Orthopedic Surgery, Tonsillectomy, Tubal Ligation Additional Past Surgical History / Comment(s): BILATERAL EYE SURGERY FOR STRABISMUS. TOTAL THYROIDECTOMY, bilateral carpal tunnel, "cancer removed from right lung". recent CELSO 05-07-21 PFO closure Past Anesthesia/Blood Transfusion Reactions: No Reported Reaction Past Psychological History: No Psychological Hx Reported Additional Psychological History / Comment(s): Pt resides with her spouse and their son. She has a cane and walker. She drives. Smoking Status: Former smoker Past Alcohol Use History: None Reported Additional Past Alcohol Use History / Comment(s): Pt started smoking in 1971 and quit in 2008. Past Drug Use History: None Reported - Past Family History Mother Family Medical History: Coronary Artery Disease (CAD), Diabetes Mellitus, Hypertension, Renal Disease Father Family Medical History: Coronary Artery Disease (CAD), Diabetes Mellitus, Hypertension Sister(s) Family Medical History: Cancer Additional Family Medical History / Comment(s): BREAST Cancer. Medications and Allergies Home Medications Medication Instructions Recorded Confirmed Type Montelukast [Singulair] 10 mg PO HS 08/12/14 05/28/22 History Sertraline [Zoloft] 150 mg PO DAILY 06/17/17 05/28/22 History Meclizine [Antivert] 25 mg PO QID 04/18/18 05/28/22 History Meloxicam [Mobic] 15 mg PO DAILY 04/18/18 05/28/22 History Omeprazole [PriLOSEC] 40 mg PO DAILY 04/18/18 05/28/22 History Fenofibrate Nanocrystallized 145 mg PO DAILY 10/28/20 05/28/22 History [Fenofibrate] Furosemide [Lasix] 40 mg PO DAILY 10/28/20 05/28/22 History lisinopriL [Prinivil] 20 mg PO DAILY 10/28/20 05/28/22 History Albuterol Sulfate [Ventolin HFA] 1 puff INHALATION RT-Q4H PRN 04/06/21 05/28/22 History Budesonide/Formoterol Fumarate 2 puff INHALATION RT-BID 04/06/21 05/28/22 History [Symbicort 160-4.5 Mcg Inhaler] Cinnamon Bark [Cinnamon] 500 mg PO DAILY 04/06/21 05/28/22 History Tiotropium 18 Mcg/Puff [Spiriva] 1 puff INHALATION RT-DAILY 04/06/21 05/28/22 History ondansetron HCL [Zofran] 8 mg PO Q8HR PRN 04/06/21 05/28/22 History tiZANidine [Zanaflex] 4 mg PO TID 04/06/21 05/28/22 History Fluticasone Nasal [place] [Flonase 2 spray EA NOSTRIL DAILY 05/04/21 05/28/22 History Nasal [place]] Clopidogrel [Plavix] 75 mg PO DAILY #90 tab 05/08/21 05/28/22 Rx Ascorbic Acid [Vitamin C] 500 mg PO DAILY 05/16/22 05/28/22 History Bismuth Subsalicylate [Kaopectate] 262 mg PO DAILY PRN 05/16/22 05/28/22 History Cholecalciferol [Vitamin D3 (10 10 mcg PO DAILY 05/16/22 05/28/22 History Mcg = 400 Iu)] [place]-3 Fatty Acids [[place]-3] 1,000 mg PO DAILY 05/16/22 05/28/22 History Sucralfate [Carafate] 1 gm PO QID 05/16/22 05/28/22 History Tirzepatide [Mounjaro] 2.5 mg SQ LOZANO 05/16/22 05/28/22 History Vitamin A 2,400 mcg PO DAILY 05/16/22 05/28/22 History Vitamin E 268 mg PO DAILY 05/16/22 05/28/22 History Levothyroxine Sodium [Euthyrox] 250 mcg PO DAILY 05/19/22 05/28/22 History Naproxen 250 mg PO TID 14 Days #45 tab 05/19/22 05/28/22 Rx amLODIPine [Norvasc] 5 mg PO DAILY 05/19/22 05/28/22 History HYDROcodone/APAP 5-325MG [[place] 1 tab PO TID PRN 05/28/22 05/28/22 History 5-325] Non Formulary Drug 1 each PO ONCE 05/28/22 05/28/22 History Allergies Allergy/AdvReac Type Severity Reaction Status Date / Time cat dander Allergy Dyspnea Verified 05/19/22 13:09 pollen extracts Allergy Unknown Verified 05/19/22 13:09 yeast, dried [yeast] Allergy Wheezing Verified 05/19/22 13:09 COTTON WOOD TREES Allergy Unknown Uncoded 05/19/22 13:09 Physical Exam Vitals: Vital Signs Temp Pulse Resp BP Pulse Ox 05/28/22 13:46 90 20 170/90 93 L 05/28/22 12:06 90 18 169/89 94 L 05/28/22 10:39 97.4 F L 73 20 167/93 93 L Intake and Output 05/28/22 05/28/22 05/28/22 06:59 14:59 22:59 Other: Weight 98.883 kg 98.883 kg - Constitutional General appearance: average body habitus, no acute distress - EENT Eyes: anicteric sclerae, EOMI ENT: hearing grossly normal - Neck Neck: no lymphadenopathy - Respiratory Respiratory: bilateral: CTA - Cardiovascular Rhythm: regular Heart sounds: normal: S1, S2 Abnormal Heart Sounds: no systolic murmur, no diastolic murmur, no rub, no S3 Gallop, no S4 Gallop, no click, no other - Gastrointestinal General gastrointestinal: no organomegaly, soft, tenderness Localized gastrointestinal: tender: RUQ, RLQ - Integumentary Integumentary: normal - Neurologic grossly intact. Sensation intact in BLE and in pelvis region - Musculoskeletal Musculoskeletal: generalized weakness, strength equal bilaterally - Psychiatric Psychiatric: A&O x's 3, appropriate affect, intact judgment & insight Results CBC & Chem 7: 05/28/22 11:05 05/28/22 11:05 Labs: Abnormal Lab Results - Last 24 Hours (Table) 05/28/22 05/28/22 Range/Units 11:05 11:05 Lymphocytes # 0.8 L (1.0-4.8) k/uL Chloride 108 H (98-107) mmol/L BUN 18 H (7-17) mg/dL Creatinine 0.46 L (0.52-1.04) mg/dL Glucose 128 H (74-99) mg/dL AST 51 H (14-36) U/L TSH 5.130 H (0.465-4.680) mIU/L Chest x-ray: report reviewed CT scan - abdomen: report reviewed CT scan - pelvis: report reviewed Assessment and Plan (1) Neuroendocrine carcinoma of lung Current Visit: Yes Status: Acute Priority: High Code(s): C7A.8 - OTHER MALIGNANT NEUROENDOCRINE TUMORS SNOMED Code(s): 937450615 Plan: Metastatic 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 -Pt follows up with Dr. De Los Santos for [facility] attests: I have seen and examined patient, performed H&P, developed impression and plan of care. Discussed with dictator. Agree with documentation, dictated as scribe.
--- NOTE | 2022-05-29 12:33 | MR ---
MRI thoracic spine w con HISTORY: Rule out cord compression. There is a history of lung cancer. COMPARISON: Performed on 05/28/2022. TECHNIQUE: Multiecho multiplanar images of lumbar spine were obtained following contrast menstruation . FINDINGS: There is a large metastatic lesion involving T12 which projects posteriorly and mildly compresses the conus medullaris. There is no pathologic fracture. IMPRESSION: Mild cord compression from a metastatic lesion involving T12 with posterior extension. The pre-of com pression is mildly increased compared to the prior study on 05/28/2022.
--- NOTE | 2022-05-29 12:35 | MR ---
EXAMINATION TYPE: MR lumbar spine w con DATE OF EXAM: 05/29/2022 COMPARISON: None HISTORY: Lung cancer rule out metastatic disease to the lumbar spine. Altered echo multiplanar images of the lumbar spine were obtained with contrast. FINDINGS: There is a metastatic lesion to L3 but no pathologic fracture or spinal cord compromise at the L3 lev el. There is a metastatic lesion of the superior posterior aspect of S1 which projects posteriorly exerts slight mass effect on the left S1 nerve root but no mass effect on the thecal cord. There is a small enhancing nodule along the posterior aspect of the lumbar spine at the L3-4 level consistent with an intradural extra medullary metastatic deposit. IMPRESSION: Metastatic disease to the lumbar spine as described above.
[2022-05-29 12:40] LABS: Glucose,Whole Blood 129 mg/dL (70-110)
[2022-05-29] MEDS: LORazepam 0.5 MG TAB PO PRN (14:37)
[2022-05-29] MEDS: MORPHINE SULFATE 4 MG/ML SYRINGE IVP PRN ×2 (16:04→21:13)
[2022-05-29 17:32] LABS: Glucose,Whole Blood 122 mg/dL (70-110)
--- NOTE | 2022-05-29 18:15 | P.GSCN ---
History of Present Illness Consult date: 05/29/22 Reason for Consult: Metastatic cancer with diffuse lymphadenopathy History of present illness: Recently diagnosed with lung cancer & underwent chemo & radiation for 8 weeks. Four weeks ago was started on a once monthly treatment, Durvalumab. Noticed on her 2-3 dose, developing abdominal pain. This month was supposed to be her 4th dose but she did not receive it as she was in the ED for abdominal pain. Associated decreased appetite, anorexia, nausea & diarrhea. Continues to have diffuse abdominal pain with some but not complete relief with Morphine. Not eating much per family at bedside. Review of Systems - Constitutional Reports as per HPI, Reports anorexia, Reports fatigue, Reports lethargy - Cardiovascular Reports high blood pressure, Denies chest pain - Respiratory Denies cough, Denies dyspnea - Gastrointestinal Reports abdominal pain, Reports bloating, Reports diarrhea - Genitourinary Genitourinary: Reports difficulty voiding - Musculoskeletal Reports low back pain - Psychiatric Reports change in appetite - Endocrine Endocrine Comment(s): Hx thyroid cancer Reports high blood sugars - Hematologic/Lymphatic Hematologic/Lymphatic Comment(s): History of lung cancer s/p chemo & radiation Past Medical History Past Medical History: Cancer, COPD, Diabetes Mellitus, GERD/Reflux, Hyperl ipidemia, Hypertension, Osteoarthritis (OA), Sleep Apnea/CPAP/BIPAP, Thyroid Disorder Additional Past Medical History / Comment(s): Right lung cancer diagnosed November 2020-came into ER on 05/28/[address] showing neoplastic disease progression compared to 02/26/22 and progression in osseous metastatic disease in thoracic and lumbar spine, MENIERES disease, SEVERE ENVIRONMENTAL ALLERGIES. CHRONIC BACK PAIN. Splenic Infarct. Hx Thyroid cancer 6 yrs ago. Fatty liver. Varicose veins. had diarrhea couple weeks ago but resolved History of Any Multi-Drug Resistant Organisms: None Reported Past Surgical History: Cholecystectomy, Orthopedic Surgery, Tonsillectomy, Tubal Ligation Additional Past Surgical History / Comment(s): BILATERAL EYE SURGERY FOR STRABISMUS. TOTAL THYROIDECTOMY, bilateral carpal tunnel, "cancer removed from right lung". recent CELSO 05-07-21 PFO closure. Bilateral carpal tunnel release. Past Anesthesia/Blood Transfusion Reactions: No Reported Reaction Past Psychological History: No Psychological Hx Reported Additional Psychological History / Comment(s): Pt resides with her spouse and their son. She has a cane and walker. She drives. Smoking Status: Former smoker Past Alcohol Use History: None Reported Additional Past Alcohol Use History / Comment(s): Pt started smoking in 1971 and quit in 2008. Past Drug Use History: None Reported - Past Family History Mother Family Medical History: Coronary Artery Disease (CAD), Diabetes Mellitus, Hypertension, Renal Disease Father Family Medical History: Coronary Artery Disease (CAD), Diabetes Mellitus, Hypertension Sister(s) Family Medical History: Cancer Additional Family Medical History / Comment(s): BREAST Cancer. Medications and Allergies Home Medications Medication Instructions Recorded Confirmed Type Montelukast [Singulair] 10 mg PO HS 08/12/14 05/28/22 History Sertraline [Zoloft] 150 mg PO DAILY 06/17/17 05/28/22 History Meclizine [Antivert] 25 mg PO QID 04/18/18 05/28/22 History Meloxicam [Mobic] 15 mg PO DAILY 04/18/18 05/28/22 History Omeprazole [PriLOSEC] 40 mg PO DAILY 04/18/18 05/28/22 History Fenofibrate Nanocrystallized 145 mg PO DAILY 10/28/20 05/28/22 History [Fenofibrate] Furosemide [Lasix] 40 mg PO DAILY 10/28/20 05/28/22 History lisinopriL [Prinivil] 20 mg PO DAILY 10/28/20 05/28/22 History Albuterol Sulfate [Ventolin HFA] 1 puff INHALATION RT-Q4H PRN 04/06/21 05/28/22 History Budesonide/Formoterol Fumarate 2 puff INHALATION RT-BID 04/06/21 05/28/22 History [Symbicort 160-4.5 Mcg Inhaler] Cinnamon Bark [Cinnamon] 500 mg PO DAILY 04/06/21 05/28/22 History Tiotropium 18 Mcg/Puff [Spiriva] 1 puff INHALATION RT-DAILY 04/06/21 05/28/22 History ondansetron HCL [Zofran] 8 mg PO Q8HR PRN 04/06/21 05/28/22 History tiZANidine [Zanaflex] 4 mg PO TID 04/06/21 05/28/22 History Fluticasone Nasal [place] [Flonase 2 spray EA NOSTRIL DAILY 05/04/21 05/28/22 History Nasal [place]] Clopidogrel [Plavix] 75 mg PO DAILY #90 tab 05/08/21 05/28/22 Rx Ascorbic Acid [Vitamin C] 500 mg PO DAILY 05/16/22 05/28/22 History Bismuth Subsalicylate [Kaopectate] 262 mg PO DAILY PRN 05/16/22 05/28/22 History Cholecalciferol [Vitamin D3 (10 10 mcg PO DAILY 05/16/22 05/28/22 History Mcg = 400 Iu)] [place]-3 Fatty Acids [[place]-3] 1,000 mg PO DAILY 05/16/22 05/28/22 History Sucralfate [Carafate] 1 gm PO QID 05/16/22 05/28/22 History Tirzepatide [Mounjaro] 2.5 mg SQ LOZANO 05/16/22 05/28/22 History Vitamin A 2,400 mcg PO DAILY 05/16/22 05/28/22 History Vitamin E 268 mg PO DAILY 05/16/22 05/28/22 History Levothyroxine Sodium [Euthyrox] 250 mcg PO DAILY 05/19/22 05/28/22 History Naproxen 250 mg PO TID 14 Days #45 tab 05/19/22 05/28/22 Rx amLODIPine [Norvasc] 5 mg PO DAILY 05/19/22 05/28/22 History HYDROcodone/APAP 5-325MG [[place] 1 tab PO TID PRN 05/28/22 05/28/22 History 5-325] Non Formulary Drug 1 each PO ONCE 05/28/22 05/28/22 History Allergies Allergy/AdvReac Type Severity Reaction Status Date / Time cat dander Allergy Dyspnea Verified 05/19/22 13:09 pollen extracts Allergy Unknown Verified 05/19/22 13:09 yeast, dried [yeast] Allergy Wheezing Verified 05/19/22 13:09 C[employer] Allergy Unknown Uncoded 05/19/22 13:09 Surgical - Exam Vital Signs Temp Pulse Resp BP Pulse Ox 97.4 F L 73 20 167/93 93 L 05/28/22 10:39 05/28/22 10:39 05/28/22 10:39 05/28/22 10:39 05/28/22 10:39 - General well developed, well nourished, no distress - Eyes no icteric - ENT no hearing loss - Respiratory normal respiratory effort, clear to auscultation - Cardiovascular Rhythm: regular - Abdomen Diffusely tender, no peritoneal signs Abdomen: soft, no guarding, no rigid, no rebound, no distended - Integumentary Dry, no diaphoresis - Neurologic no disoriented, no confused - Psychiatric oriented to person, oriented to place, memory intact Results - Labs 05/28/22 11:05 05/28/22 11:05 Abnormal Lab Results - Last 24 Hours (Table) 05/28/22 05/28/22 05/28/22 Range/Units 10:52 11:05 11:05 Lymphocytes # 0.8 L (1.0-4.8) k/uL Chloride 108 H (98-107) mmol/L BUN 18 H (7-17) mg/dL Creatinine 0.46 L (0.52-1.04) mg/dL Glucose 128 H (74-99) mg/dL AST 51 H (14-36) U/L TSH 5.130 H (0.465-4.680) mIU/L Ur Specific [place] >1.050 H (1.001-1.035) Urine Protein 1+ H (Negative) Urine Ketones Trace H (Negative) Urine Nitrite Positive H (Negative) Ur Leukocyte Esterase Trace H (Negative) Urine WBC 18 H (0-5) /hpf Urine Bacteria Many H (None) /hpf Hyaline Casts 18 H (0-2) /lpf Microbiology - Last 24 Hours (Table) 05/28/22 10:52 Urine Culture - Preliminary Urine,Voided Diabetes panel 05/28/22 Range/Units 11:05 Sodium 143 (137-145) mmol/L Potassium 3.5 (3.5-5.1) mmol/L Chloride 108 H (98-107) mmol/L Carbon Dioxide 25 (22-30) mmol/L BUN 18 H (7-17) mg/dL Creatinine 0.46 L (0.52-1.04) mg/dL Glucose 128 H (74-99) mg/dL Calcium 9.1 (8.4-10.2) mg/dL AST 51 H (14-36) U/L ALT 13 (4-34) U/L Alkaline Phosphatase 73 (38-126) U/L Total Protein 7.9 (6.3-8.2) g/dL Albumin 4.4 (3.5-5.0) g/dL Thyroid panel 05/28/22 Range/Units 11:05 TSH 5.130 H (0.465-4.680) mIU/L Calcium panel 05/28/22 Range/Units 11:05 Calcium 9.1 (8.4-10.2) mg/dL Phosphorus 3.1 (2.5-4.5) mg/dL Albumin 4.4 (3.5-5.0) g/dL Pituitary panel 05/28/22 Range/Units 11:05 Sodium 143 (137-145) mmol/L Potassium 3.5 (3.5-5.1) mmol/L Chloride 108 H (98-107) mmol/L Carbon Dioxide 25 (22-30) mmol/L BUN 18 H (7-17) mg/dL Creatinine 0.46 L (0.52-1.04) mg/dL Glucose 128 H (74-99) mg/dL Calcium 9.1 (8.4-10.2) mg/dL TSH 5.130 H (0.465-4.680) mIU/L Adrenal panel 05/28/22 Range/Units 11:05 Sodium 143 (137-145) mmol/L Potassium 3.5 (3.5-5.1) mmol/L Chloride 108 H (98-107) mmol/L Carbon Dioxide 25 (22-30) mmol/L BUN 18 H (7-17) mg/dL Creatinine 0.46 L (0.52-1.04) mg/dL Glucose 128 H (74-99) mg/dL Calcium 9.1 (8.4-10.2) mg/dL Total Bilirubin 0.8 (0.2-1.3) mg/dL AST 51 H (14-36) U/L ALT 13 (4-34) U/L Alkaline Phosphatase 73 (38-126) U/L Total Protein 7.9 (6.3-8.2) g/dL Albumin 4.4 (3.5-5.0) g/dL - Imaging CT scan - abdomen: report reviewed, image reviewed CT scan - chest: report reviewed, image reviewed Assessment and Plan (1) Abdominal pain Narrative/Plan: Extensive lymphadenopathy, suspicious for metastatic disease Current Visit: Yes Status: Acute Code(s): R10.9 - UNSPECIFIED ABDOMINAL PAIN SNOMED Code(s): 76076583 Plan: No indications for acute surgical intervention. Recommend consult to IR for biopsy of lymph nodes. Would recommend surgical oncology consultation: Dr. Iglesia Parson, [facility] [place]; or PCP choosing. Thank you for this consultation & allowing me to participate in the care of your patient. Time with Patient: Greater than 30 (Face to face discussing CT results, history & plan of care with patient & her family. Questions answered.)
--- NOTE | 2022-05-29 18:26 | P.PN ---
Progress Note - Text Progress Note Date: 05/29/22 Chief Complaint: Weak tired This is a pleasant 66-year-old patient was family doctor is out of the area . She follows locally with her oncologist Dr. Fernandez. Patient was diagnosed with lung cancer around October 2020. Patient has received several rounds of chemotherapy and radiation treatment. As of her last visit she would hold things are coming along fine. But for last few weeks patient is being having decreased appetite. Increasing weight loss. Abdominal pain. Has normally 5-7 bowel movements loose every day. Last chemotherapy was about a month ago. Finding it difficult to get about. Patient is accompanied by her in the room, her daughters on the phone and a sister at the bedside. No fever no chills. Patient was told earlier today by Dr. Fernandez that other alternative treatments will be looked into. Because of her back pain. She doesn't finding it difficult to get up. May 29: Patient completed thoracolumbar spine MRI today. Does show lytic lesions. Continues to have back pain. On IV Solu-Medrol and NSAIDs. Having some liquid stools. Tolerated some full liquids. Discussed with patient several family members at the bedside. Increase Metamucil to twice a day Active Medications Acetaminophen (Acetaminophen Tab 325 Mg Tab) 650 mg PO Q6HR PRN PRN Reason: Mild Pain or Fever > 100.5 Albuterol Sulfate (Albuterol Hfa Inhaler) 1 puff INHALATION RT-Q4H PRN PRN Reason: COPD Last Admin: 05/29/22 15:11 Dose: 1 puff Amlodipine Besylate (Amlodipine 5 Mg Tab) 5 mg PO DAILY [facility] Last Admin: 05/29/22 08:29 Dose: 5 mg Budesonide/Formoterol Fumarate (Symbicort 160-4.5 Mcg Inhaler) 2 puff I NHALATION RT-BID [facility] Last Admin: 05/29/22 07:57 Dose: 2 puff Calcium Carbonate/Glycine (Calcium Carbonate 500 Mg Chewable) 1,000 mg PO Q4HR PRN PRN Reason: Dyspepsia Clopidogrel Bisulfate (Clopidogrel 75 Mg Tab) 75 mg PO DAILY [facility] Last Admin: 05/29/22 08:30 Dose: 75 mg Dexamethasone Sodium Phosphate (Dexamethasone Sod Phosphate 4 Mg/Ml 1 Ml Vial) 4 mg IVP Q8HR [facility] Last Admin: 05/29/22 18:00 Dose: 4 mg Dextrose/Water (Dextrose 50% Syringe 50 Ml) 25 ml IVP PER PROTOCOL PRN; Protocol PRN Reason: Hypoglycemia Dextrose/Water (Dextrose 50% Syringe 50 Ml) 50 ml IVP PER PROTOCOL PRN; Protocol PRN Reason: Hypoglycemia Enoxaparin Sodium (Enoxaparin 40 Mg/0.4 Ml Syringe) 40 mg SQ DAILY [facility] Last Admin: 05/29/22 08:29 Dose: 40 mg Fenofibrate (Fenofibrate 160 Mg Tab) 160 mg PO DAILY [facility] Last Admin: 05/29/22 08:29 Dose: 160 mg Fluticasone Propionate (Fluticasone 50mcg/[place] Nasal 16gm) 2 spray EA NOSTRIL DAILY [facility] Last Admin: 05/29/22 08:30 Dose: 2 spray Dextrose/Sodium Chloride (Dextrose 5%-1/2ns Iv Soln) 1,000 mls @ 125 mls/hr IV .Q8H [facility] Last Admin: 05/29/22 16:05 Dose: 125 mls/hr Insulin Aspart (Insulin Aspart (Novolog) 100 Unit/Ml Vial) 0 unit SQ AC-TID [facility]; Protocol Last Admin: 05/29/22 17:58 Dose: Not Given Lactulose (Lactulose 20 Gm/30 Ml Cup) 20 gm PO DAILY PRN PRN Reason: Constipation Levothyroxine Sodium (Levothyroxine 125 Mcg Tab) 250 mcg PO DAILY@0630 [facility] Last Admin: 05/29/22 05:47 Dose: 250 mcg Lisinopril (Lisinopril 20 Mg Tab) 20 mg PO DAILY [facility] Last Admin: 05/29/22 08:29 Dose: 20 mg Lorazepam (Lorazepam 0.5 Mg Tab) 0.5 mg PO Q6HR PRN PRN Reason: Anxiety Last Admin: 05/29/22 14:37 Dose: 0.5 mg Morphine Sulfate (Morphine Sulfate 4 Mg/Ml Syringe) 5 mg IVP Q4HR PRN PRN Reason: Pain/Discomfort Last Admin: 05/29/22 16:04 Dose: 5 mg Naloxone HCl (Naloxone 0.4 Mg/Ml 1 Ml Vial) 0.2 mg IV Q2M PRN PRN Reason: Opioid Reversal Ondansetron HCl (Ondansetron 4 Mg/2 Ml Vial) 4 mg IVP Q8HR PRN PRN Reason: Nausea And Vomiting Ondansetron HCl (Ondansetron 4 Mg Tab) 8 mg PO Q8HR PRN PRN Reason: Nausea Pantoprazole Sodium (Pantoprazole 40 Mg Tablet) 40 mg PO BID [facility] Last Admin: 05/29/22 08:29 Dose: 40 mg Psyllium Hydrophilic Mucilloid (Psyllium Husk 100% 6 Gm Packet) 6 gm PO BID [facility] Sertraline HCl (Sertraline 50 Mg Tab) 150 mg PO DAILY [facility] Last Admin: 05/29/22 08:29 Dose: 150 mg Temazepam (Temazepam 15 Mg Cap) 15 mg PO HS PRN PRN Reason: Insomnia Tiotropium [place] (Tiotropium 2.5 Mcg Inhaler) 1 puff INHALATION RT-DAILY [facility] Last Admin: 05/29/22 07:58 Dose: 1 puff Tizanidine HCl (Tizanidine 4 Mg Tab) 4 mg PO TID [facility] Last Admin: 05/29/22 18:01 Dose: 4 mg Past medical history to include: COPD, diabetes, GERD, hypertension, hyperlipidemia, prostatitis, obstetrical sleep apnea does not use CPAP, hypothyroid, lung cancer diagnosed in October 2020 Mnire's disease, splenic infarct, thyroid cancer 6 years ago, fatty liver, varicose veins Social history: This with her and son. Does use a walker. Patient smoked for about 37 years stopped in 2008. No alcohol. Physical examination: VITAL SIGNS: 98.4, 68, 14, 124/78, 92% GENERAL: Declining in bed, uncomfortable EYES: Pupils equal. Conjunctiva palel. HEENT: External appearance of nose and ears normal, oral cavity grossly normal. NECK: JVD not raised; masses not palpable. HEART: First and second heart sounds are normal; no edema. LUNGS: Respiratory rate normal; decreased breath sounds. ABDOMEN: Soft, diffuse tenderness, no guarding rigidity, liver spleen not palpable, no masses palpable. PSYCH: Alert and oriented x3; mood and affect anxiousl. MUSCULOSKELETAL:No Clubbing/cyanosis;muscles-grossly intact INVESTIGATIONS, reviewed in the clinical context: Thoracolumbar spine MRI: Metastatic lesion to L3. Superior aspect of S1. Slight mass effect. On the left S1 nerve. L3-L4 interval extramedullary metastatic deposit. Mild cord compression from metastatic lesion involving T12 posterior extension. White count 8.17 globin 13.8 platelets 361 progression 3.5 BUN 18 creatinine 0.46 TSH 5.1 EKG tracing personally reviewed by me-normal sinus rhythm. Some ST deviations depression. Chest x-ray film personally reviewed by me-portable/mediastinum to the right. PFO closure device reported. Hyperinflation. CT abdomen pelvis: Plastic disease progression. Metastatic alonzo masses in the gastrohepatic ligament and shimon hepatic lesion up to 6.1 cm. Right pericardiac, portocaval, anterior perihepatic the pancreatic right retrocrural, upper abdominal retroperitoneal adenopathy up to 3.07 cm progression of osseous metastatic disease. T12 lactic lesion showing fixed extension into the ventral epidural space. Focal spinal canal stenosis. Fluid-filled small bowel loops and liquid stools. Large bilateral periuterine varices. 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 Being followed by Dr. fernandez. Has received chemo and radiation treatment. Of late patient been having progressive worsening systemic symptoms including weight loss loci of appetite. Increasing generalized pain including bone and abdominal pain. Computed tomography scan is showing extensive metastatic disease. - intra-abdominal lymphadenopathy. Follow with Dr. Fernandez -Clinical dehydration from poor oral intake Ensure one can 3 times a day. Full liquid diet. IV fluids -COPD in a previous smoker Symbicort -Hypothyroid Levothyroxin -Metastatic bone pain at thoracolumbar spine NSAIDs. IV Solu-Medrol -GERD Prilosec -Depression Zoloft -Acute on chronic medical debility from progressive malignancy -Essential hypertension Prinivil, Norvasc -DO NOT RESUSCITATE Continue his IV Solu-Medrol. NSAIDs. Increase Metamucil. Prognosis guarded. Discussed with patient and family
--- NOTE | 2022-05-29 18:51 | P.PN ---
Subjective Progress Note Date: 05/29/22 the patient continues to complain of significant low back pain. She continues to complain of abdominal pain also though this is comparatively less severe. No history of any new leg weakness, loss of sensation of the lower Ixodes, or bowel or bladder. At the time of exam the patient was able to bear weight while transferring from bed to wheelchair Objective - Vital Signs Vital signs: Vital Signs Temp 98.4 F 05/29/22 13:30 Pulse 68 05/29/22 13:30 Resp 14 05/29/22 13:30 BP 124/78 05/29/22 13:30 Pulse Ox 92 L 05/29/22 13:30 FiO2 Intake & Output 05/28/22 05/29/22 05/29/22 18:59 06:59 18:59 Intake Total 225 1500 240 Balance 225 1500 240 Weight 98.883 kg Intake: Intake, IV Titration 225 1500 Amount Dextrose 5%-0.45% NaCl 1, 1500 000 ml @ 125 mls/hr IV . Q8H [facility] Rx#:[id number] Sodium Chloride 0.9% 1, 225 000 ml @ 75 mls/hr IV . [id number] [facility] Rx#:[id number] Oral 240 Other: Voiding Method Bedside Commode Bedside Commode # Voids 3 - Constitutional General appearance: Present: mild distress - EENT Eyes: Present: EOMI ENT: Present: hearing grossly normal, normal oropharynx - Respiratory Respiratory: bilateral: CTA - Cardiovascular Rhythm: regular Heart sounds: normal: S1, S2 - Gastrointestinal General gastrointestinal: Present: soft Localized gastrointestinal: tender: RUQ, epigastric periumbilical - Integumentary Integumentary: Present: normal - Neurologic Neurologic: Present: CNII-XII intact - Musculoskeletal Musculoskeletal: Present: generalized weakness, strength equal bilaterally - Psychiatric Psychiatric: Present: A&O x's 3, appropriate affect - Labs CBC & Chem 7: 05/28/22 11:05 05/28/22 11:05 Labs: Abnormal Lab Results - Last 24 Hours (Table) 05/28/22 05/29/22 05/29/22 Range/Units 10:52 12:39 17:31 POC Glucose (mg/dL) 129 H 122 H (70-110) mg/dL Ur Specific [place] >1.050 H (1.001-1.035) Urine Protein 1+ H (Negative) Urine Ketones Trace H (Negative) Urine Nitrite Positive H (Negative) Ur Leukocyte Esterase Trace H (Negative) Urine WBC 18 H (0-5) /hpf Urine Bacteria Many H (None) /hpf Hyaline Casts 18 H (0-2) /lpf Microbiology - Last 24 Hours (Table) 05/28/22 10:52 Urine Culture - Preliminary Urine,Voided Assessment and Plan (1) Neoplasm related pain Narrative/Plan: the patient continues to complain of significant back pain, as well as abdominal pain, with the former more significant. The Dilaudid appears to help but duration of control is much less than desired. - Patient will be changed to IV morphine 4 mg, every 3 hours when necessary. Case discussed with nursing. She'll be monitored on the same. Depending on the level of pain control further adjustments, including addition of long-acting pain medications, will be made. - Continue IV steroids - MRI, noncontrast component, confirms the presence of metastatic disease in the thoracic and lumbar spine, without evidence of any spinal cord compromise. The contrast study is elevated to confirm the same. Continue steroids in the meantime. - Add IV bisphosphonate -no evidence of cord compression by exam Current Visit: Yes Status: Acute Code(s): G89.3 - NEOPLASM RELATED PAIN (ACUTE) (CHRONIC) SNOMED Code(s): 10807803324151 (2) Metastatic primary lung cancer Narrative/Plan: the patient's scans have confirmed progression, which is also the cause of her pain. This has been discussed with the patient and her family. She will follow-up with Dr. Vivek Arambula outpatient for new treatment plan. She will also be referred back to the radiation oncologist, Dr De Los Santos , for palliative radi ation to the symptomatic vertebral lesions Current Visit: Yes Status: Acute Code(s): C34.90 - MALIGNANT NEOPLASM OF UNSP PART OF UNSP BRONCHUS OR LUNG SNOMED Code(s): 48306234
[2022-05-29] MEDS ORDERED: ZOLEDRONIC ACID 4 MG in SODIUM CHLORIDE 0.9% 100 ML IV ONE (19:30)
[2022-05-29 20:48] LABS: Glucose,Whole Blood 136 mg/dL (70-110)
[2022-05-29] MEDS: DEXAMETHASONE SOD PHOSPHATE 10 MG/ML 1 ML VIAL IVP SCH ×2 (20:58→23:08)
[2022-05-30] MEDS: MORPHINE SULFATE 4 MG/ML SYRINGE IVP PRN ×5 (02:41→21:00)
[2022-05-30] MEDS: DEXTROSE 5%-0.45% NACL 1,000 ML IV SCH ×3 (05:53→23:35)
[2022-05-30] MEDS: LEVOTHYROXINE 125 MCG TAB PO SCH (06:47)
[2022-05-30] MEDS: ALBUTEROL HFA INHALER INHALATION PRN ×4 (07:19→20:34)
[2022-05-30] MEDS: TIOTROPIUM 2.5 MCG INHALER INHALATION SCH (07:19)
[2022-05-30] MEDS: SYMBICORT 160-4.5 MCG INHALER INHALATION SCH ×2 (07:19→20:34)
[2022-05-30 07:42] LABS: Glucose,Whole Blood 111 mg/dL (70-110)
[2022-05-30] MEDS: INSULIN ASPART (NovoLOG) 100 UNIT/ML VIAL SQ SCH ×3 (07:44→17:57)
[2022-05-30] MEDS: SERTRALINE 50 MG TAB PO SCH (08:28)
[2022-05-30] MEDS: DEXAMETHASONE SOD PHOSPHATE 10 MG/ML 1 ML VIAL IVP SCH ×2 (08:29→16:52)
[2022-05-30] MEDS: PANTOPRAZOLE 40 MG TABLET PO SCH ×2 (08:29→21:05)
[2022-05-30] MEDS: tiZANidine 4 MG TAB PO SCH ×3 (08:29→21:04)
[2022-05-30] MEDS: amLODIPine 5 MG TAB PO SCH (08:29)
[2022-05-30] MEDS: ENOXAPARIN 40 MG/0.4 ML SYRINGE SQ SCH (08:29)
[2022-05-30] MEDS: CLOPIDOGREL 75 MG TAB PO SCH (08:29)
[2022-05-30] MEDS: lisinopriL 20 MG TAB PO SCH (08:29)
[2022-05-30] MEDS: FENOFIBRATE 160 MG TAB PO SCH (08:29)
[2022-05-30] MEDS: FLUTICASONE 50MCG/SPRAY NASAL 16GM EA NOSTRIL SCH (08:30)
[2022-05-30] MEDS: PSYLLIUM HUSK 100% 6 GM PACKET PO SCH ×2 (08:30→21:06)
[2022-05-30 12:53] LABS: Glucose,Whole Blood 151 mg/dL (70-110)
[2022-05-30] MEDS ORDERED: MORPHINE ORAL SOLN 10 MG/5 ML CUP PO PRN (13:09)
--- NOTE | 2022-05-30 15:35 | P.PN ---
Progress Note - Text Progress Note Date: 05/30/22 MRI reviewed. Full consult pending. T12 enhancing lesion with central stenosis. Multilevel enhancing lesions also seen through the imaged thoracic and lumbar spine. CT of T and L spine ordered for bone anatomy. Will likely need some type of stabilization and decompression along with biopsy.
--- NOTE | 2022-05-30 17:32 | CT ---
EXAMINATION TYPE: CT thor lumbar spine wo con DATE OF EXAM: 05/30/2022 COMPARISON: CT abdomen 05/28/2022 HISTORY: T12 metestatic lesion CT DLP: 2161 mGycm Automated exposure control for dose reduction was used. Images obtained from T12 to S1 vertebra without contrast. There is T12 vertebral body lucency on the posterior aspect with destructive changes and some mass ex tension into the spinal canal. Exam limited by lack of any contrast. No significant compression defor mity. There is approximate 50% narrowing of the spinal canal due to the tumor extension into the spin al canal. Lesion measures approximately 3 x 2.5 cm. There is a destructive lesion on the left lateral aspect of the L3 vertebral body measuring 2 cm. The sacroiliac joints are intact. There is patchy infiltrate in the right lower lobe. IMPRESSION: Destructive lesion with mass extension into the spinal canal at the T12 vertebral body and 50% canal narrowing. Left side L3 vertebral body destructive lesion. No significant change compared to CT scan 2 days ago.
[2022-05-30 17:42] LABS: Glucose,Whole Blood 108 mg/dL (70-110)
[2022-05-30 20:54] LABS: Glucose,Whole Blood 142 mg/dL (70-110)
[2022-05-30] MEDS: MOUNJARO 2.5 MG SQ SCH (21:03)
--- NOTE | 2022-05-30 21:54 | P.PN ---
Progress Note - Text Progress Note Date: 05/30/22 Chief Complaint: Weak tired This is a pleasant 66-year-old patient was family doctor is out of the area . She follows locally with her oncologist Dr. Fernandez. Patient was diagnosed with lung cancer around October 2020. Patient has received several rounds of chemotherapy and radiation treatment. As of her last visit she would hold things are coming along fine. But for last few weeks patient is being having decreased appetite. Increasing weight loss. Abdominal pain. Has normally 5-7 bowel movements loose every day. Last chemotherapy was about a month ago. Finding it difficult to get about. Patient is accompanied by her in the room, her daughters on the phone and a sister at the bedside. No fever no chills. Patient was told earlier today by Dr. Fernandez that other alternative treatments will be looked into. Because of her back pain. She doesn't finding it difficult to get up. May 29: Patient completed thoracolumbar spine MRI today. Does show lytic lesions. Continues to have back pain. On IV Solu-Medrol and NSAIDs. Having some liquid stools. Tolerated some full liquids. Discussed with patient several family members at the bedside. Increase Metamucil to twice a day May 30: Started morphine sulfate oral 5 mg every 4 when necessary for pain. Patient diary is better with Metamucil. Up to 2 bowel movements the last 24 hours. Diet is being changed to ground diet. Discussed with the daughter the bedside. Etc. for a few minutes at the site of the bed. Patient is seen by Dr. Enamorado from orthopedics. Active Medications Acetaminophen (Acetaminophen Tab 325 Mg Tab) 650 mg PO Q6HR PRN PRN Reason: Mild Pain or Fever > 100.5 Albuterol Sulfate (Albuterol Hfa Inhaler) 1 puff INHALATION RT-Q4H PRN PRN Reason: COPD Last Admin: 05/30/22 20:34 Dose: 1 puff Amlodipine Besylate (Amlodipine 5 Mg Tab) 5 mg PO DAILY [facility] Last Admin: 05/30/22 08:29 Dose: 5 mg Budesonide/Formoterol Fumarate (Symbicort 160-4.5 Mcg Inhaler) 2 puff INHALATION RT-BID [facility] Last Admin: 05/30/22 20:34 Dose: 2 puff Calcium Carbonate/Glycine (Calcium Carbonate 500 Mg Chewable) 1,000 mg PO Q4HR PRN PRN Reason: Dyspepsia Clopidogrel Bisulfate (Clopidogrel 75 Mg Tab) 75 mg PO DAILY [facility] Last Admin: 05/30/22 08:29 Dose: 75 mg Dexamethasone Sodium Phosphate (Dexamethasone Sod Phosphate 10 Mg/Ml 1 Ml Vial) 6 mg IVP Q8HR [facility] Last Admin: 05/30/22 16:52 Dose: 6 mg Dextrose/Water (Dextrose 50% Syringe 50 Ml) 25 ml IVP PER PROTOCOL PRN; Protocol PRN Reason: Hypoglycemia Dextrose/Water (Dextrose 50% Syringe 50 Ml) 50 ml IVP PER PROTOCOL PRN; Protocol PRN Reason: Hypoglycemia Enoxaparin Sodium (Enoxaparin 40 Mg/0.4 Ml Syringe) 40 mg SQ DAILY [facility] Last Admin: 05/30/22 08:29 Dose: 40 mg Fenofibrate (Fenofibrate 160 Mg Tab) 160 mg PO DAILY [facility] Last Admin: 05/30/22 08:29 Dose: 160 mg Fluticasone Propionate (Fluticasone 50mcg/[place] Nasal 16gm) 2 spray EA NOSTRIL DAILY [facility] Last Admin: 05/30/22 08:30 Dose: 2 spray Dextrose/Sodium Chloride (Dextrose 5%-1/2ns Iv Soln) 1,000 mls @ 125 mls/hr IV .Q8H [facility] Last Admin: 05/30/22 14:19 Dose: 125 mls/hr Insulin Aspart (Insulin Aspart (Novolog) 100 Unit/Ml Vial) 0 unit SQ AC-TID [facility]; Protocol Last Admin: 05/30/22 17:57 Dose: Not Given Lactulose (Lactulose 20 Gm/30 Ml Cup) 20 gm PO DAILY PRN PRN Reason: Constipation Levothyroxine Sodium (Levothyroxine 125 Mcg Tab) 250 mcg PO DAILY@0630 [facility] Last Admin: 05/30/22 06:47 Dose: 250 mcg Lisinopril (Lisinopril 20 Mg Tab) 20 mg PO DAILY [facility] Last Admin: 05/30/22 08:29 Dose: 20 mg Lorazepam (Lorazepam 0.5 Mg Tab) 0.5 mg PO Q6HR PRN PRN Reason: Anxiety Last Admin: 05/29/22 14:37 Dose: 0.5 mg Morphine Sulfate (Morphine Sulfate 4 Mg/Ml Syringe) 5 mg IVP Q4HR PRN PRN Reason: Pain/Discomfort Last Admin: 05/30/22 21:00 Dose: 5 mg Morphine Sulfate (Morphine Oral Soln 10 Mg/5 Ml Cup) 5 mg PO Q4HR PRN PRN Reason: Pain Naloxone HCl (Naloxone 0.4 Mg/Ml 1 Ml Vial) 0.2 mg IV Q2M PRN PRN Reason: Opioid Reversal Mounjaro 2.5 Mg 2.5 mg SQ LOZANO [facility] Last Admin: 05/30/22 21:03 Dose: 2.5 mg Ondansetron HCl (Ondansetron 4 Mg/2 Ml Vial) 4 mg IVP Q8HR PRN PRN Reason: Nausea And Vomiting Ondansetron HCl (Ondansetron 4 Mg Tab) 8 mg PO Q8HR PRN PRN Reason: Nausea Pantoprazole Sodium (Pantoprazole 40 Mg Tablet) 40 mg PO BID [facility] Last Admin: 05/30/22 21:05 Dose: 40 mg Psyllium Hydrophilic Mucilloid (Psyllium Husk 100% 6 Gm Packet) 6 gm PO BID [facility] Last Admin: 05/30/22 21:06 Dose: 6 gm Sertraline HCl (Sertraline 50 Mg Tab) 150 mg PO DAILY [facility] Last Admin: 05/30/22 08:28 Dose: 150 mg Temazepam (Temazepam 15 Mg Cap) 15 mg PO HS PRN PRN Reason: Insomnia Tiotropium [place] (Tiotropium 2.5 Mcg Inhaler) 1 puff INHALATION RT-DAILY [facility] Last Admin: 05/30/22 07:19 Dose: 1 puff Tizanidine HCl (Tizanidine 4 Mg Tab) 4 mg PO TID [facility] Last Admin: 05/30/22 21:04 Dose: 4 mg Past medical history to include: COPD, diabetes, GERD, hypertension, hyperlipidemia, prostatitis, obstetrical sleep apnea does not use CPAP, hypothyroid, lung cancer diagnosed in October 2020 Mnire's disease, splenic infarct, thyroid cancer 6 years ago, fatty liver, varicose veins Social history: This with her and son. Does use a walker. Patient smoked for about 37 years stopped in 2008. No alcohol. Physical examination: VITAL SIGNS: 97.9, 68, 16, 151/77, 91% room air GENERAL: in bed, not in distress EYES: Pupils equal. Conjunctiva palel. HEENT: External appearance of nose and ears normal, oral cavity grossly normal. NECK: JVD not raised; masses not palpable. HEART: First and second heart sounds are normal; no edema. LUNGS: Respiratory rate normal; decreased breath sounds. ABDOMEN: Soft, diffuse tenderness, no guarding rigidity, liver spleen not palpable, no masses palpable. PSYCH: Alert and oriented x3; mood and affect anxiousl. MUSCULOSKELETAL:No Clubbing/cyanosis;muscles-grossly intact INVESTIGATIONS, reviewed in the clinical context: Thoracolumbar spine MRI: Metastatic lesion to L3. Superior aspect of S1. Sligh t mass effect. On the left S1 nerve. L3-L4 interval extramedullary metastatic deposit. Mild cord compression from metastatic lesion involving T12 posterior extension. White count 8.17 globin 13.8 platelets 361 progression 3.5 BUN 18 creatinine 0.46 TSH 5.1 EKG tracing personally reviewed by me-normal sinus rhythm. Some ST deviations depression. Chest x-ray film personally reviewed by me-portable/mediastinum to the right. PFO closure device reported. Hyperinflation. CT abdomen pelvis: Plastic disease progression. Metastatic alonzo masses in the gastrohepatic ligament and shimon hepatic lesion up to 6.1 cm. Right pericardiac, portocaval, anterior perihepatic the pancreatic right retrocrural, upper abdominal retroperitoneal adenopathy up to 3.07 cm progression of osseous metastatic dise ase. T12 lactic lesion showing fixed extension into the ventral epidural space. Focal spinal canal stenosis. Fluid-filled small bowel loops and liquid stools. Large bilateral periuterine varices. 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 Being followed by Dr. fernandez. Has received chemo and radiation treatment. Of late patient been having progressive worsening systemic symptoms including weight loss loci of appetite. Increasing generalized pain including bone and abdominal pain. Computed tomography scan is showing extensive metastatic disease. - intra-abdominal lymphadenopathy. Follow with Dr. Fernandez -Clinical dehydration from poor oral intake Ensure one can 3 times a day. IV fluids -COPD in a previous smoker Symbicort -Hypothyroid Levothyroxin -Metastatic bone pain at thoracolumbar spine NSAIDs. IV Solu-Medrol -GERD Prilosec -Depression Zoloft -Acute on chronic medical debility from progressive malignancy -Essential hypertension Prinivil, Norvasc -DO NOT RESUSCITATE IV Solu-Medrol. NSAIDs. Diet discussed at length with the patient and the daughter the bedside. As a nurse. Sitter with the edge of the bed as tolerated.
--- NOTE | 2022-05-30 23:15 | P.PN ---
Subjective Progress Note Date: 05/30/22 The patient reports somewhat better pain control. Denies any history of loss of bowel or bladder session, or lower extremity sensation. Bowel and bladder sensation remained intact Objective - Vital Signs Vital signs: Vital Signs Temp 98.9 F 05/30/22 19:04 Pulse 66 05/30/22 19:04 Resp 18 05/30/22 19:04 BP 167/83 05/30/22 19:04 Pulse Ox 93 L 05/30/22 19:04 FiO2 21 05/29/22 19:29 Intake & Output 05/30/22 05/30/22 05/31/22 06:59 18:59 06:59 Intake Total 590 480 Output Total 1000 Balance 590 -520 Intake: Oral 590 480 Output: Urine 1000 Other: Voiding Method Bedside Commode Bedside Commode # Voids 2 - Constitutional General appearance: Present: no acute distress - EENT Eyes: Present: EOMI ENT: Present: hearing grossly normal, normal oropharynx - Respiratory Respiratory: bilateral: CTA - Cardiovascular Rhythm: regular Heart sounds: normal: S1, S2 - Gastrointestinal General gastrointestinal: Present: normal bowel sounds, soft - Integumentary Integumentary: Present: normal - Neurologic Neurologic: Present: CNII-XII intact - Musculoskeletal Musculoskeletal: Present: generalized weakness, strength equal bilaterally - Psychiatric Psychiatric: Present: A&O x's 3, appropriate affect - Labs CBC & Chem 7: 05/28/22 11:05 05/28/22 11:05 Labs: Abnormal Lab Results - Last 24 Hours (Table) 05/30/22 05/30/22 05/30/22 Range/Units 07:38 12:52 20:44 POC Glucose (mg/dL) 111 H 151 H 142 H (70-110) mg/dL Microbiology - Last 24 Hours (Table) 05/28/22 10:52 Urine Culture - Preliminary Urine,Voided Gram Neg Bacilli Assessment and Plan (1) Neoplasm related pain Narrative/Plan: The patient reports somewhat better pain control. Fentanyl as well as not started as noted, based on hospital policy regarding criteria for starting long- acting pain medication. Patient is continuing on steroids, with dose increased yesterday. Zometa has also been administered. - Extensively discussed Criteria for starting long-acting pain medication. If patient's pain is controlled with steroids, Zometa, and short-acting medications 4-5 times a day or less, then long-acting pain medications may not be required. Current Visit: Yes Status: Acute Code(s): G89.3 - NEOPLASM RELATED PAIN (ACUTE) (CHRONIC) SNOMED Code(s): 07132400788348 (2) Metastatic primary lung cancer Narrative/Plan: Patient's MRI results were discussed with her. Contrast study does show some cord compression at T12. There is no evidence of any neurologic deficit so far. Due to surgery will be consulted to evaluate for need for any surgical intervention. We discussed that the patient will require radiation at some point, with or without surgery. - The patient will need change of systemic therapy. This will be started after discharge, with exact regimen decided by Dr. Vivek Arambula Current Visit: Yes Status: Acute Code(s): C34.90 - MALIGNANT NEOPLASM OF UNSP PART OF UNSP BRONCHUS OR LUNG SNOMED Code(s): 50511774
[2022-05-31] MEDS: DEXAMETHASONE SOD PHOSPHATE 10 MG/ML 1 ML VIAL IVP SCH ×4 (00:05→23:19)
[2022-05-31] MEDS: MORPHINE SULFATE 4 MG/ML SYRINGE IVP PRN ×5 (01:54→19:37)
[2022-05-31] MEDS: DEXTROSE 5%-0.45% NACL 1,000 ML IV SCH ×3 (03:43→21:11)
[2022-05-31] MEDS: LEVOTHYROXINE 125 MCG TAB PO SCH (05:57)
--- NOTE | 2022-05-31 07:01 | P.CNOR ---
History of Present Illness - [facility] Consult date: 05/31/22 Consult reason: fracture History of present illness: 66 yo female with known hx of lung CA presenting with increasing back pain, dehydration, difficulty with ambulation due to back pain. She had MRI of T and L spine as well as CT scan showing lytic lesion in T12 with pathological fracture as well as enhancing lesion within T12 causing cord and conus compression. There is pending instability at this level as well as pain with motion or movement. Denies any bowel or bladder issues although she has had diarrhea recently. No overt loss of control. Denies any perineal numbness/tingling. Denies any weakness in legs while in bed but hard to get up and move about. No f/c/sob/cp. Review of Systems Constitutional: Reports as per HPI Past Medical History Past Medical History: Cancer, COPD, Diabetes Mellitus, GERD/Reflux, Hyp erlipidemia, Hypertension, Osteoarthritis (OA), Sleep Apnea/CPAP/BIPAP, Thyroid Disorder Additional Past Medical History / Comment(s): Right lung cancer diagnosed November 2020-came into ER on 05/28/[address] showing neoplastic disease progression compared to 02/26/22 and progression in osseous metastatic disease in thoracic and lumbar spine, MENIERES disease, SEVERE ENVIRONMENTAL ALLERGIES. CHRONIC BACK PAIN. Splenic Infarct. Hx Thyroid cancer 6 yrs ago. Fatty liver. Varicose veins. had diarrhea couple weeks ago but resolved History of Any Multi-Drug Resistant Organisms: None Reported Past Surgical History: Cholecystectomy, Orthopedic Surgery, Tonsillectomy, Tubal Ligation Additional Past Surgical History / Comment(s): BILATERAL EYE SURGERY FOR STRABISMUS. TOTAL THYROIDECTOMY, bilateral carpal tunnel, "cancer removed from right lung". recent CELSO 05-07-21 PFO closure. Bilateral carpal tunnel release. Past Anesthesia/Blood Transfusion Reactions: No Reported Reaction Past Psychological History: No Psychological Hx Reported Additional Psychological History / Comment(s): Pt resides with her spouse and their son. She has a cane and walker. She drives. Smoking Status: Former smoker Past Alcohol Use History: None Reported Additional Past Alcohol Use History / Comment(s): Pt started smoking in 1971 and quit in 2008. Past Drug Use History: None Reported - Past Family History Mother Family Medical History: Coronary Artery Disease (CAD), Diabetes Mellitus, Hypertension, Renal Disease Father Family Medical History: Coronary Artery Disease (CAD), Diabetes Mellitus, Hypertension Sister(s) Family Medical History: Cancer Additional Family Medical History / Comment(s): BREAST Cancer. Medications and Allergies Home Medications Medication Instructions Recorded Confirmed Type Montelukast [Singulair] 10 mg PO HS 08/12/14 05/28/22 History Sertraline [Zoloft] 150 mg PO DAILY 06/17/17 05/28/22 History Meclizine [Antivert] 25 mg PO QID 04/18/18 05/28/22 History Meloxicam [Mobic] 15 mg PO DAILY 04/18/18 05/28/22 History Omeprazole [PriLOSEC] 40 mg PO DAILY 04/18/18 05/28/22 History Fenofibrate Nanocrystallized 145 mg PO DAILY 10/28/20 05/28/22 History [Fenofibrate] Furosemide [Lasix] 40 mg PO DAILY 10/28/20 05/28/22 History lisinopriL [Prinivil] 20 mg PO DAILY 10/28/20 05/28/22 History Albuterol Sulfate [Ventolin HFA] 1 puff INHALATION RT-Q4H PRN 04/06/21 05/28/22 History Budesonide/Formoterol Fumarate 2 puff INHALATION RT-BID 04/06/21 05/28/22 History [Symbicort 160-4.5 Mcg Inhaler] Cinnamon Bark [Cinnamon] 500 mg PO DAILY 04/06/21 05/28/22 History Tiotropium 18 Mcg/Puff [Spiriva] 1 puff INHALATION RT-DAILY 04/06/21 05/28/22 History ondansetron HCL [Zofran] 8 mg PO Q8HR PRN 04/06/21 05/28/22 History tiZANidine [Zanaflex] 4 mg PO TID 04/06/21 05/28/22 History Fluticasone Nasal [place] [Flonase 2 spray EA NOSTRIL DAILY 05/04/21 05/28/22 History Nasal [place]] Clopidogrel [Plavix] 75 mg PO DAILY #90 tab 05/08/21 05/28/22 Rx Ascorbic Acid [Vitamin C] 500 mg PO DAILY 05/16/22 05/28/22 History Bismuth Subsalicylate [Kaopectate] 262 mg PO DAILY PRN 05/16/22 05/28/22 History Cholecalciferol [Vitamin D3 (10 10 mcg PO DAILY 05/16/22 05/28/22 History Mcg = 400 Iu)] Superior-3 Fatty Acids [Superior-3] 1,000 mg PO DAILY 05/16/22 05/28/22 History Sucralfate [Carafate] 1 gm PO QID 05/16/22 05/28/22 History Tirzepatide [Mounjaro] 2.5 mg SQ LOZANO 05/16/22 05/28/22 History Vitamin A 2,400 mcg PO DAILY 05/16/22 05/28/22 History Vitamin E 268 mg PO DAILY 05/16/22 05/28/22 History Levothyroxine Sodium [Euthyrox] 250 mcg PO DAILY 05/19/22 05/28/22 History Naproxen 250 mg PO TID 14 Days #45 tab 05/19/22 05/28/22 Rx amLODIPine [Norvasc] 5 mg PO DAILY 05/19/22 05/28/22 History HYDROcodone/APAP 5-325MG [[place] 1 tab PO TID PRN 05/28/22 05/28/22 History 5-325] Non Formulary Drug 1 each PO ONCE 05/28/22 05/28/22 History Allergies Allergy/AdvReac Type Severity Reaction Status Date / Time cat dander Allergy Dyspnea Verified 05/19/22 13:09 pollen extracts Allergy Unknown Verified 05/19/22 13:09 yeast, dried [yeast] Allergy Wheezing Verified 05/19/22 13:09 COTTON WOOD TREES Allergy Unknown Uncoded 05/19/22 13:09 Physical Examination Osteopathic Statement: *. No significant issues noted on an osteopathic structural exam other than those noted in the History and Physical/Consult. PHYSICAL EXAMINATION: Vitals: stable at this time General: Awake, alert, appropriate for age, in no acute distress. HEENT: No unusual neck masses around region of lateral neck triangle, thyroid, supraclavicular groove. Extremities: Skin warm and dry without no acute lesions, coloration, temperature, skin intact, no tenderness or erythema. Integument: Hairy patches: Absent Dorsal skin dimples: Absent Cafe au lait spots: Absent Surgical incisions: non- Palpation: Please see Pain drawing on Intake sheet for further detail. (Tenderness = T, Nontender = NT, Swelling = S, Ecchymosis = E) Findings on Midline and paraspinal palpation and percussion: Cervical: NT Thoracic: tender to palpation over medial structures as well as midline structures paraspinal structures Lumbar: tenderness to palpation midline Sacral: NT Special findings: positive ballottement over T11-T12 VASCULAR STATUS : Wrist Pulses: [2/4 bilateral radial and ulnar] Pedal Pulses: [2/4 bilateral DP and PT] Color: [Normal] Edema: [None] NEUROLOGIC EXAMINATION: Mental Status: Awake and alert, fully oriented, with normal attention, concentration and memory, and fluent, appropriate speech. Cranial Nerves: I: Olfactory not tested. II: Visual acuity normal, no visual field deficit noted with confrontation. III,IV: Normal pupillary reflexes & intact extraocular movements without nystagmus. V,: Intact symmetrical facial sensation. VII: Intact symmetrical facial motor movement VIII: Hearing intact. IX,X: Intact gag, swallow, & normal voice. XI: Sternocleidomastoid, trapezius function intact. XII: Tongue midline with normal movements. Special Tests: L'hermitte's Sign: Absent Spurling'Sign: Absent Bilateral Cubital percussion test: Absent Bilateral Romeo-Tinel sign - Carpal region: Absent Bilateral Straight Leg Raising: Absent Bilateral Motor Exam (0-5/5, N/T) STRENGTH UPPER EXTREMITY [5]/5 in all major muscle groups of the UE b/l [Except:] LOWER EXTREMITY 4+/5 in all major muscle groups of the LE b/l movement and participation exam causes pain in the back REFLEXES Upper Extremity: RIGHT [2]/4 LEFT [2]/4 Lower Extremity: RIGHT [2]/4 LEFT [2]/4 Pathological Reflexes Carrillo's: RIGHT [Absent] LEFT [Absent] Babinski: RIGHT [Absent] LEFT [Absent] Clonus: RIGHT [None] LEFT [None] SENSORY Pain and LT sense [Intact C5-T1 and L2-S1] Dermatomal deficit bilateral lower extremity anterior thigh as well as posterior leg to calf Gait and Functional Evaluation: Ambulatory aids: walker Results MRI and CT reviewed and demonstrate T12 lytic lesion with pathological fracture of T12. Lesion is enhancing and is causing canal encroachment on the cord and conus at this level due to expansile nature. There is reasonable anterior bone stock except for the lesion area in T12 body, there is some extension into the pedicle on the LHS. There are multiple other smaller regions of enhancing lesions through the T and L spine noted none of which cause fracture or instability like the T12 lesion. - Labs Labs: Abnormal Lab Results - Last 24 Hours (Table) 05/30/22 05/30/22 05/30/22 Range/Units 07:38 12:52 20:44 POC Glucose (mg/dL) 111 H 151 H 142 H (70-110) mg/dL Microbiology - Last 24 Hours (Table) 05/28/22 10:52 Urine Culture - Final Urine,Voided Escherichia coli H & H 05/28/22 Range/Units 11:05 Hgb 13.8 (11.4-16.0) gm/dL Hct 43.1 (34.0-46.0) % Result Diagrams: 05/28/22 11:05 05/28/22 11:05 Assessment and Plan Assessment: 66 yo female known metestatic CA T12 lytic expansile lesion with pathological fracture LE weakness Difficulty with ADLs Plan: - discussed with the patient different options for treatment including medical treatment versus bracing with steroids versus surgical treatment. Surgical ketty atment is the only treatment that offers absolute stability with decompression however there is risks with this and we discussed them at length. The patient was amendable to any path but she would like to talk with her family first which is reasonable. She states her family will be available and will stop by and discussed with her family their wishes. She is tentatively on the schedule for tomorrow for a T9 through L3 stabilization and decompression with biopsy of T12 - recommend Decadron - TLSO brace - pain control as needed
[2022-05-31 07:32] LABS: Glucose,Whole Blood 129 mg/dL (70-110)
[2022-05-31] MEDS: ALBUTEROL HFA INHALER INHALATION PRN ×3 (07:47→20:29)
[2022-05-31] MEDS: TIOTROPIUM 2.5 MCG INHALER INHALATION SCH (07:47)
[2022-05-31] MEDS: SYMBICORT 160-4.5 MCG INHALER INHALATION SCH ×2 (07:47→20:29)
[2022-05-31 07:57] LABS: ALT 16 U/L (4-34); AST 39 U/L (14-36); African American GFR (CKD) >90 (>60 ml/min/1.73 sqM); Albumin 3.8 g/dL (3.5-5.0); Albumin/Globulin Ratio 1.2; Alkaline Phosphatase 60 U/L (38-126); Anion Gap 10 mmol/L; Blood Urea Nitrogen 10 mg/dL (7-17); Calcium 8.3 mg/dL (8.4-10.2); Carbon Dioxide 24 mmol/L (22-30); Chloride 105 mmol/L (98-107); Globulin 3.1 g/dL; Glucose 127 mg/dL (74-99); Non-African American GFR(CKD) >90 (>60 ml/min/1.73 sqM); Potassium 3.4 mmol/L (3.5-5.1); Sodium 139 mmol/L (137-145); Total Bilirubin 0.5 mg/dL (0.2-1.3); Total Protein 6.9 g/dL (6.3-8.2)
[2022-05-31] MEDS: INSULIN ASPART (NovoLOG) 100 UNIT/ML VIAL SQ SCH ×3 (08:01→17:46)
[2022-05-31] MEDS: CLOPIDOGREL 75 MG TAB PO SCH (09:37)
[2022-05-31] MEDS: SERTRALINE 50 MG TAB PO SCH (09:37)
[2022-05-31] MEDS: amLODIPine 5 MG TAB PO SCH (09:38)
[2022-05-31] MEDS: PANTOPRAZOLE 40 MG TABLET PO SCH ×2 (09:38→21:12)
[2022-05-31] MEDS: lisinopriL 20 MG TAB PO SCH (09:38)
[2022-05-31] MEDS: FENOFIBRATE 160 MG TAB PO SCH (09:38)
[2022-05-31] MEDS: FLUTICASONE 50MCG/SPRAY NASAL 16GM EA NOSTRIL SCH (09:39)
[2022-05-31] MEDS: ENOXAPARIN 40 MG/0.4 ML SYRINGE SQ SCH (09:39)
[2022-05-31] MEDS: PSYLLIUM HUSK 100% 6 GM PACKET PO SCH ×2 (09:40→21:12)
[2022-05-31] MEDS: tiZANidine 4 MG TAB PO SCH ×3 (09:41→21:12)
[2022-05-31 11:24] LABS: Glucose,Whole Blood 130 mg/dL (70-110)
--- NOTE | 2022-05-31 13:33 | P.PN ---
Progress Note - Text Progress Note Date: 05/31/22 Spine Surgery Clinical and Risk Review Molly Whitfield is a 66 yo female presenting for evaluation of low back pain, recent ffs, severe pain when up and about, hx of Lung CA with LE weakness. It was my pleasure to have seen and examined Molly Whitfield . In our visit today we have had a chance to go over subjective complaints, physical examination findings and treatments including the natural course history without intervention and various interventional options. The patients imaging demonstrates T12 erosive metestatic lesion with pathological fracture through T12. Tumor mass causing severe compression on cord and conus at T12. Diffuse metestatic findings in remainder of spine. On physical exam, Molly Whitfield demonstrates pain with any motion. Inability to ambulate due to pain in her back. B/L LE radiculopathy and weakness secondary to pain and debility. I have explained to the patient that as their condition progresses it will cause further neurological deficits and eventual paralysis. Based on the patients imaging, physical exam, and the rapid progression and disabling nature of their symptoms, at this time I recommend surgery in the form or a: T9-L3 stabilization with T12 decompression, biopsy and separation surgery. I discussed the risk and benefits of this procedure at length with Molly Whitfield and her family at bedside. The patient and her daughter at bedside agreed to considered pursuing the procedure abovementioned. Prior to surgery, she should follow up with her PCP (Cardio, ID, IM etc) for clearance. Questions were invited and answered, and the patient wishes to proceed as outlined below. Currently, I am recommendin. T9-L3 stabilization with T12 decompression, biopsy and separation surgery 2. Follow up with PCP for surgical clearance 3. Review of surgical risks and benefits as well as an educational packet on the proposed surgical procedure. Risks: All surgical procedures come with inherent risks, including those related to positioning, anesthesia, intraoperative findings, and postoperative complications. It is important to understand that surgery does not come with any guarantee of a successful outcome as complications and adverse events are always possible. The patient was given a handout in office today discussing the surgical procedure and risks associated with the intervention, both of which were discussed with the patient. These risks include but are not limited to the following: * Experiencing same, different or even worse symptoms in back, neck, arms, or legs compared to before surgery. * Requiring further surgery or other forms of treatment presently or at some time in the future at same or other levels of the intended spine surgery. * On an extreme but fortunately relatively rare basis severe complication such as blindness, stroke, heart attack, temporary and/or permanent nerve injury, paralysis, coma, or may occur, sometimes without known explanation. * Surgical complications may include but are not limited to risk of infection, fluid accumulation in the surgical dissection site, including a seroma or hematoma, that requires additional surgery, wound drainage, bleedi ng, new numbness or weakness, vision changes/loss, spinal fluid leakage, non- healing and/or infected incision, headaches, difficulty or inability to swallow, hoarseness, hemopneumothorax, pneumothorax, impotence, retrograde ejaculation, vaginal dryness; injury to nerves, spinal cord, blood vessels, lymphatics or other vital organs (i.e., bowel injury, injury to the great vessels); heterotopic bone formation; complications related to the hardware such as screws, rods, cages including misplaced hardware, device failure, instrumentation at the wrong spine level, hardware fracture/breakage, or zeo dware loosening; vertebral failure of the spinal column above or below the newly placed hardware; retained surgical instrumentations or devices and the need for further surgery. * Medical risks of the planned spine surgery include but are not limited to generalized Infections to the whole body or local areas outside of the surgical site (sepsis), heart attack, bleeding, anaphylaxis, meningitis, seizure, epilepsy, hearing loss, burn calhoun, laceration of the head or other areas of the body, bruising, hypersensitivity of the skin, bladder over distension; allergic reaction; shoulder injury related to positioning; fat, blood and air clots to other areas of the body like heart, lungs, brain; failure of internal organs such as lungs, kidneys, liver and excessive bleeding. If blood transfusions are necessary, note that transfusions may cause intolerance reactions such as anaphylaxis or other complex reactions. * Despite best efforts, the results of spine surgery might not heal in terms of bone, soft tissues such as skin, fascia, ligaments, and joints. Additionally, in order to achieve best possible results, spine surgery may be carried out beyond the initially planned levels and involve decompression, fusion including insertion of hardware at levels other than the original intended area of surgical interest change some portions of the procedure in order to ensure the best possible outcomes. * With spine surgery and spinal fusion, there are different off label uses of instrumentation (devices, implants and hardware) as well as biological substances (bone morphogenic proteins, demineralized bone matrix) as well as using extra bone from allograft sources (i.e. cadaver bone) or autograft (iliac crest bone, ribs, or the spine itself). The patient has been given information about these practices and their inherent risks and benefits. The patient has had a chance to review all the listed information, has been given print outs detailing this information, and has had all his/her questions answered to their satisfaction. It was my pleasure to have seen and examined Molly Whitfield . In our visit today we have had a chance to go over my understanding of our patient's current condition, the natural course history without intervention and various interventional options. Questions were invited and answered, and the patient wishes to proceed as outlined above. I have seen and examined the patient for 25 minutes and we have spent more than 50% of the time in repeat and detailed counseling about the patient's condition, its natural course history with out and as much as can be predicted with surgery and re-review of various surgical treatment options. In conclusion, Molly Whitfield and her daughter requested we proceed with the above suggested surgery and are willing to accept risks and limitations of the suggested surgery as nature of the disease process and our best attempts at treatment for the condition. Thank you again for allowing us to be part of your patient's care. Please don't hesitate to contact me if you have any further questions. Signed and authenticated by: Jonathan [facility] [address]
--- NOTE | 2022-05-31 17:12 | P.PN ---
Subjective Progress Note Date: 05/31/22 Principal diagnosis: Abd pain, cord compression, metastatic neuroendocrine large cell lung carcinoma In f/u this am pt is in tears, she is holding her right lower abd, reports pain all across abd, she had diarrhea with loss of bowel control-this happens when she is stressed out so, no new. Her pain is worse with movement. Objective - Vital Signs Vital signs: Vital Signs Temp 98.4 F 05/31/22 12:29 Pulse 62 05/31/22 12:29 Resp 18 05/31/22 12:29 BP 132/68 05/31/22 12:29 Pulse Ox 91 L 05/31/22 12:29 FiO2 21 05/29/22 19:29 Intake & Output 05/30/22 05/31/22 05/31/22 18:59 06:59 18:59 Intake Total 480 0 Output Total 1000 Balance -520 0 Intake: Oral 480 0 Output: Urine 1000 Other: Voiding Method Bedside Commode Bedside Commode Bedside Commode # Voids 2 2 # Bowel Movements 0 - Constitutional General appearance: Present: average body habitus, disheveled, severe distress - EENT Eyes: Present: anicteric sclerae, EOMI ENT: Present: hearing grossly normal - Respiratory Respiratory: bilateral: CTA - Cardiovascular Rhythm: regular Heart sounds: normal: S1, S2 Abnormal Heart Sounds: Absent: systolic murmur, diastolic murmur, rub, S3 Gallop, S4 Gallop, click, other - Peripheral edema leg Peripheral Edema: bilateral: None - Gastrointestinal General gastrointestinal: Present: tenderness - Integumentary Integumentary: Present: pale - Musculoskeletal Musculoskeletal: Present: generalized weakness - Psychiatric Psychiatric: Present: A&O x's 3 - Labs CBC & Chem 7: 05/28/22 11:05 05/31/22 05:43 Labs: Abnormal Lab Results - Last 24 Hours (Table) 05/30/22 05/31/22 05/31/22 Range/Units 20:44 05:43 07:00 Potassium 3.4 L (3.5-5.1) mmol/L Creatinine 0.48 L (0.52-1.04) mg/dL Glucose 127 H (74-99) mg/dL POC Glucose (mg/dL) 142 H 129 H (70-110) mg/dL Calcium 8.3 L (8.4-10.2) mg/dL AST 39 H (14-36) U/L 05/31/22 Range/Units 11:21 Potassium (3.5-5.1) mmol/L Creatinine (0.52-1.04) mg/dL Glucose (74-99) mg/dL POC Glucose (mg/dL) 130 H (70-110) mg/dL Calcium (8.4-10.2) mg/dL AST (14-36) U/L Microbiology - Last 24 Hours (Table) 05/28/22 10:52 Urine Culture - Final Urine,Voided Escherichia coli Assessment and Plan (1) Neuroendocrine carcinoma of lung Current Visit: Yes Status: Acute Priority: High Code(s): C7A.8 - OTHER MALIGNANT NEUROENDOCRINE TUMORS SNOMED Code(s): 127441806 Plan: 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 Unfortunately, no significant disease control, had rapid onset of disease progression. -New plan for treatment. No treatment until pt has recovered from surgery and is adequately healed Spinal cord compression -Patient started on steroids for symptom management. PPI ordered for prevention of steroid induced gastritis -Lumbar and thoracic MRI order placed to evaluate disease progression. Dr. Enamorado following with pt. Surgery tomorrow -Pt follows up with Dr. De Los Santos for RadOnc. She will see him 1-2 weeks after surgery, possible palliative radiation
[2022-05-31] MEDS: IOPAMIDOL CONTRAST (ORAL USE) VIAL PO PRN ×2 (17:18→18:06)
[2022-05-31 17:42] LABS: Glucose,Whole Blood 123 mg/dL (70-110)
--- NOTE | 2022-05-31 19:29 | CT ---
EXAMINATION TYPE: CT abdomen pelvis w con CT DLP: 1687.0 mGycm, Automated exposure control for dose reduction was used. DATE OF EXAM: 05/31/2022 7:00 PM COMPARISON: CT abdomen pelvis most recent from 05/28/2022 CLINICAL INDICATION:Female, 66 years old with history of abd pain; Abdomen pain. Metastatic CA. TECHNIQUE: Axial CT of the abdomen and pelvis. Sagittal and coronal reformats were created on a [employer] workstation. Contrast used:100cc mL of Isovue 300 with IV Contrast, Oral contrast used: with Oral Contrast FINDINGS: LOWER CHEST: Right apical measures similarly at 12 mm. ABDOMEN LIVER: Unremarkable GALLBLADDER AND BILE DUCTS: Gallbladder surgically absent. PANCREAS: Unremarkable. SPLEEN: Unremarkable. ADRENAL GLANDS: Unchanged left adrenal nodule measuring 12 mm. KIDNEYS AND URETERS: No evidence of hydronephrosis or renal calculus. The ureters are unremarkable. PELVIS BLADDER: Unremarkable REPRODUCTIVE: Calcified fibroids within the uterus. ABDOMEN & PELVIS STOMACH AND BOWEL: No evidence of bowel obstruction. PERITONEUM/RETROPERITONEUM: No evidence of pneumoperitoneum. Trace free fluid is within the abdomen. . VASCULATURE: No evidence of aortic aneurysm. MUSCULOSKELETAL: Similar osseous metastatic lytic lesions involving L3 measuring 2.0 cm and T12 measu ring up to 2.5 cm with suggestion of pathologic fracture cortical/trabecular buckling. LYMPH NODES: Lymphadenopathy within the abdomen is unchanged from 2 days prior coating shimon hepatis lymph node measuring up to 2.8 cm in short axis and portacaval measuring up to 2.5 cm in short axis. Additional similar right retroperitoneal lymph nodes measuring up to 15 mm in short axis near the lef t renal sinus. SOFT TISSUE/ABDOMINAL WALL: Unremarkable IMPRESSION: 1. No evidence for acute change from one 2022 CT abdomen pelvis. 2. Scattered metastatic lymph nodes and osseous lytic lesions. 3. T12 osseous lesion with trabeculae buckling could represent underlying pathologic fracture. Consi janell MRI.
--- NOTE | 2022-05-31 19:48 | P.PN ---
Progress Note - Text Progress Note Date: 05/31/22 Chief Complaint: Weak tired This is a pleasant 66-year-old patient was family doctor is out of the area . She follows locally with her oncologist Dr. Fernandez. Patient was diagnosed with lung cancer around October 2020. Patient has received several rounds of chemotherapy and radiation treatment. As of her last visit she would hold things are coming along fine. But for last few weeks patient is being having decreased appetite. Increasing weight loss. Abdominal pain. Has normally 5-7 bowel movements loose every day. Last chemotherapy was about a month ago. Finding it difficult to get about. Patient is accompanied by her in the room, her daughters on the phone and a sister at the bedside. No fever no chills. Patient was told earlier today by Dr. Fernandez that other alternative treatments will be looked into. Because of her back pain. She doesn't finding it difficult to get up. May 29: Patient completed thoracolumbar spine MRI today. Does show lytic lesions. Continues to have back pain. On IV Solu-Medrol and NSAIDs. Having some liquid stools. Tolerated some full liquids. Discussed with patient several family members at the bedside. Increase Metamucil to twice a day May 30: Started morphine sulfate oral 5 mg every 4 when necessary for pain. Patient diary is better with Metamucil. Up to 2 bowel movements the last 24 hours. Diet is being changed to ground diet. Discussed with the daughter the bedside. Etc. for a few minutes at the site of the bed. Patient is seen by Dr. Enamorado from orthopedics. May 31: Patient is actually 3 BMs since yesterday. Metamucil working. Morphine dose adjusted by oncology. Discussed with family at the bedside.. Dr. Enamorado spoke to the family about surgical intervention to the metastatic spine. Patient eating about 25%. Because of patient's comorbidities and poor function status patient is high risk for surgery with no absolute contra indications to proceed for surgery. We'll consult cardiology-for perioperative cardiovascular risk management. Active Medications Acetaminophen (Acetaminophen Tab 325 Mg Tab) 650 mg PO Q6HR PRN PRN Reason: Mild Pain or Fever > 100.5 Albuterol Sulfate (Albuterol Hfa Inhaler) 1 puff INHALATION RT-Q4H PRN PRN Reason: COPD Last Admin: 05/31/22 11:31 Dose: 1 puff Amlodipine Besylate (Amlodipine 5 Mg Tab) 5 mg PO DAILY [facility] Last Admin: 05/31/22 09:38 Dose: 5 mg Budesonide/Formoterol Fumarate (Symbicort 160-4.5 Mcg Inhaler) 2 puff INHALATION RT-BID [facility] Last Admin: 05/31/22 07:47 Dose: 2 puff Calcium Carbonate/Glycine (Calcium Carbonate 500 Mg Chewable) 1,000 mg PO Q4HR PRN PRN Reason: Dyspepsia Clopidogrel Bisulfate (Clopidogrel 75 Mg Tab) 75 mg PO DAILY [facility] Last Admin: 05/31/22 09:37 Dose: 75 mg Dexamethasone Sodium Phosphate (Dexamethasone Sod Phosphate 10 Mg/Ml 1 Ml Vial) 6 mg IVP Q8HR [facility] Last Admin: 05/31/22 15:43 Dose: 6 mg Dextrose/Water (Dextrose 50% Syringe 50 Ml) 25 ml IVP PER PROTOCOL PRN; Protocol PRN Reason: Hypoglycemia Dextrose/Water (Dextrose 50% Syringe 50 Ml) 50 ml IVP PER PROTOCOL PRN; Protocol PRN Reason: Hypoglycemia Enoxaparin Sodium (Enoxaparin 40 Mg/0.4 Ml Syringe) 40 mg SQ DAILY [facility] Last Admin: 05/31/22 09:39 Dose: 40 mg Fenofibrate (Fenofibrate 160 Mg Tab) 160 mg PO DAILY [facility] Last Admin: 05/31/22 09:38 Dose: 160 mg Fluticasone Propionate (Fluticasone 50mcg/[place] Nasal 16gm) 2 spray EA NOSTRIL DAILY [facility] Last Admin: 05/31/22 09:39 Dose: 2 spray Dextrose/Sodium Chloride (Dextrose 5%-1/2ns Iv Soln) 1,000 mls @ 125 mls/hr IV .Q8H [facility] Last Admin: 05/31/22 13:16 Dose: 125 mls/hr Insulin Aspart (Insulin Aspart (Novolog) 100 Unit/Ml Vial) 0 unit SQ AC-TID [facility]; Protocol Last Admin: 05/31/22 17:46 Dose: Not Given Lactulose (Lactulose 20 Gm/30 Ml Cup) 20 gm PO DAILY PRN PRN Reason: Constipation Levothyroxine Sodium (Levothyroxine 125 Mcg Tab) 250 mcg PO DAILY@0630 [facility] Last Admin: 05/31/22 05:57 Dose: 250 mcg Lisinopril (Lisinopril 20 Mg Tab) 20 mg PO DAILY [facility] Last Admin: 05/31/22 09:38 Dose: 20 mg Lorazepam (Lorazepam 0.5 Mg Tab) 0.5 mg PO Q6HR PRN PRN Reason: Anxiety Last Admin: 05/29/22 14:37 Dose: 0.5 mg Morphine Sulfate (Morphine Sulfate 4 Mg/Ml Syringe) 8 mg IVP Q4HR PRN PRN Reason: Pain/Discomfort Last Admin: 05/31/22 19:37 Dose: 8 mg Naloxone HCl (Naloxone 0.4 Mg/Ml 1 Ml Vial) 0.2 mg IV Q2M PRN PRN Reason: Opioid Reversal Mounjaro 2.5 Mg 2.5 mg SQ LOZANO [facility] Last Admin: 05/30/22 21:03 Dose: 2.5 mg Ondansetron HCl (Ondansetron 4 Mg/2 Ml Vial) 4 mg IVP Q8HR PRN PRN Reason: Nausea And Vomiting Ondansetron HCl (Ondansetron 4 Mg Tab) 8 mg PO Q8HR PRN PRN Reason: Nausea Pantoprazole Sodium (Pantoprazole 40 Mg Tablet) 40 mg PO BID [facility] Last Admin: 05/31/22 09:38 Dose: 40 mg Psyllium Hydrophilic Mucilloid (Psyllium Husk 100% 6 Gm Packet) 6 gm PO BID [facility] Last Admin: 05/31/22 09:40 Dose: 6 gm Sertraline HCl (Sertraline 50 Mg Tab) 150 mg PO DAILY [facility] Last Admin: 05/31/22 09:37 Dose: 150 mg Temazepam (Temazepam 15 Mg Cap) 15 mg PO HS PRN PRN Reason: Insomnia Tiotropium Kerrick (Tiotropium 2.5 Mcg Inhaler) 1 puff INHALATION RT-DAILY [facility] Last Admin: 05/31/22 07:47 Dose: 1 puff Tizanidine HCl (Tizanidine 4 Mg Tab) 4 mg PO TID [facility] Last Admin: 05/31/22 15:43 Dose: 4 mg Past medical history to include: COPD, diabetes, GERD, hypertension, hyperlipidemia, prostatitis, obstetrical sleep apnea does not use CPAP, hypothyroid, lung cancer diagnosed in October 2020 Mnire's disease, splenic infarct, thyroid cancer 6 years ago, fatty liver, varicose veins Social history: This with her and son. Does use a walker. Patient smoked for about 37 years stopped in 2008. No alcohol. Physical examination: VITAL SIGNS: 98.4, 62, 18, 132/68, 91% room air GENERAL: in bed, not in distress EYES: Pupils equal. Conjunctiva palel. HEENT: External appearance of nose and ears normal, oral cavity grossly normal. NECK: JVD not raised; masses not palpable. HEART: First and second heart sounds are normal; no edema. LUNGS: Respiratory rate normal; decreased breath sounds. ABDOMEN: Soft, diffuse tenderness, no guarding rigidity, liver spleen not palpable, no masses palpable. PSYCH: Alert and oriented x3; mood and affect anxiousl. MUSCULOSKELETAL:No Clubbing/cyanosis;muscles-grossly intact INVESTIGATIONS, reviewed in the clinical context: Thoracolumbar spine MRI: Metastatic lesion to L3. Superior aspect of S1. Slight mass effect. On the left S1 nerve. L3-L4 interval extramedullary metastatic deposit. Mild cord compression from metastatic lesion involving T12 posterior extension. White count 8.17 globin 13.8 platelets 361 progression 3.5 BUN 18 creatinine 0.46 TSH 5.1 EKG tracing personally reviewed by me-normal sinus rhythm. Some ST deviations depression. Chest x-ray film personally reviewed by me-portable/mediastinum to the right. PFO closure device reported. Hyperinflation. CT abdomen pelvis: Plastic disease progression. Metastatic alonzo masses in the gastrohepatic ligament and shimon hepatic lesion up to 6.1 cm. Right pericardiac, portocaval, anterior perihepatic the pancreatic right retrocrural, upper abdominal retroperitoneal adenopathy up to 3.07 cm progression of osseous metastatic disease. T12 lactic lesion showing fixed extension into the ventral epidural space. Focal spinal canal stenosis. Fluid-filled small bowel loops and liquid stools. Large bilateral periuterine varices. 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 followed by Dr. fernandez. Has received chemo and radiation treatment. Of late patient been having progressive worsening systemic symptoms including weight loss loss of appetite. Increasing generalized pain including bone and abdominal pain. Computed tomography scan is showing extensive metastatic disease. - intra-abdominal lymphadenopathy. Follow with Dr. Fernandez -Clinical dehydration from poor oral intake Ensure one can 3 times a day. 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 She will mass causing severe compression and cord and conus at T12. NSAIDs. IV Solu-Medrol. Dr. Enamorado: As Dr. the family about T9-L3 stabilization with T12 decompression biopsy and separation surgery. Patient high risk for surgery with no absolute contraindications -GERD Prilosec -Depression Zoloft -Acute on chronic medical debility from progressive malignancy -Essential hypertension Prinivil, Norvasc -DO NOT RESUSCITATE Discussed with Dr. Fernandez from oncology. Discussed with patient and family at the bedside. Continue medical treatment. Pain medications adjusted. Diarrhea better. Consult cardiology for perioperative cardiovascular management.
[2022-05-31 20:32] LABS: Glucose,Whole Blood 139 mg/dL (70-110)
[2022-06-01] MEDS: MORPHINE SULFATE 4 MG/ML SYRINGE IVP PRN ×5 (01:57→22:40)
[2022-06-01] MEDS: LEVOTHYROXINE 125 MCG TAB PO SCH (06:18)
[2022-06-01] MEDS: DEXTROSE 5%-0.45% NACL 1,000 ML IV SCH ×3 (06:18→17:02)
[2022-06-01 07:09] LABS: Glucose,Whole Blood 109 mg/dL (70-110)
[2022-06-01] MEDS: INSULIN ASPART (NovoLOG) 100 UNIT/ML VIAL SQ SCH ×3 (07:36→18:11)
[2022-06-01] MEDS: ALBUTEROL HFA INHALER INHALATION PRN ×3 (08:02→19:39)
[2022-06-01] MEDS: TIOTROPIUM 2.5 MCG INHALER INHALATION SCH (08:02)
[2022-06-01] MEDS: SYMBICORT 160-4.5 MCG INHALER INHALATION SCH ×2 (08:02→19:39)
[2022-06-01] MEDS: PANTOPRAZOLE 40 MG TABLET PO SCH ×2 (09:24→21:02)
[2022-06-01] MEDS: DEXAMETHASONE SOD PHOSPHATE 10 MG/ML 1 ML VIAL IVP SCH ×2 (09:24→15:15)
[2022-06-01] MEDS: amLODIPine 5 MG TAB PO SCH (09:25)
[2022-06-01] MEDS: FENOFIBRATE 160 MG TAB PO SCH (09:25)
[2022-06-01] MEDS: FLUTICASONE 50MCG/SPRAY NASAL 16GM EA NOSTRIL SCH (09:25)
[2022-06-01] MEDS: PSYLLIUM HUSK 100% 6 GM PACKET PO SCH ×2 (09:25→20:36)
[2022-06-01] MEDS: tiZANidine 4 MG TAB PO SCH ×3 (09:25→21:02)
[2022-06-01] MEDS: SERTRALINE 50 MG TAB PO SCH (09:25)
[2022-06-01] MEDS: lisinopriL 20 MG TAB PO SCH (09:25)
[2022-06-01] MEDS: CLOPIDOGREL 75 MG TAB PO SCH (09:25)
[2022-06-01] MEDS: ENOXAPARIN 40 MG/0.4 ML SYRINGE SQ SCH (09:26)
--- NOTE | 2022-06-01 09:27 | P.PN ---
Subjective Progress Note Date: 06/01/22 Principal diagnosis: T12 metastatic lesion/fracture patient was seen at bedside this morning lying semirecumbent position in moderate amount of pain. Patient is complaining of back pain currently. Patient denies any new changes since yesterday. Patient is currently NPO planning for surgery later this afternoon T9-L3 stabilization for T12 pathological fracture. Nurse did mention cardiology has yet to clear patient. Objective - Vital Signs Vital signs: Vital Signs Temp 98.0 F 06/01/22 07:03 Pulse 62 06/01/22 07:03 Resp 18 06/01/22 07:03 BP 171/85 06/01/22 07:03 Pulse Ox 94 L 06/01/22 07:03 FiO2 21 05/29/22 19:29 Intake & Output 05/31/22 06/01/22 06/01/22 18:59 06:59 18:59 Intake Total 1500 Balance 1500 Intake: Intake, IV Titration 1500 Amount Dextrose 5%-0.45% NaCl 1, 1500 000 ml @ 125 mls/hr IV . Q8H [facility] Rx#:[id number] Other: Voiding Method Bedside Commode Bedside Commode # Voids 4 1 # Bowel Movements 1 - Exam negative for any open fractures, and significantly erythema/ecchymosis/ulcers. Sensation is equal, symmetric, bilateral intact throughout upper and lower extremities. There is moderate TTP over midline in throacic and lumbar region as well as paraspinal TTP in these regions. NTTP throughout rest of exam. Patient does have some limited ROM in bilateral hips+knees in flexion/extension due to referred pain from back and LE weakness. full ROM in BUE and in BLE in ankle dorsi/plantar flexion. 4/5 in resisted hip and knee flexion/ext bilaterally. 4+/5 in all other major motor groups. Radial pulses intact, 2+ bilaterally. Cap refill <3 sec in digits of BUE. Negative Homans, Carrillo, clonus bilaterally. - Labs CBC & Chem 7: 05/28/22 11:05 05/31/22 05:43 Labs: Abnormal Lab Results - Last 24 Hours (Table) 05/31/22 05/31/22 05/31/22 Range/Units 11:21 17:33 20:30 POC Glucose (mg/dL) 130 H 123 H 139 H (70-110) mg/dL Assessment and Plan Assessment: -T12 metastatic lesion/pathological fracture -LE weakness - Metastatic lung cancer Plan: 1. T12 metastatic lesion/pathological fracture - surgery scheduled for today - T9-L3 stabilization and decompression of T12 w/biopsy. patient to remain nothing by mouth at this time. TLSO script has been placed in chart 2. Appreciate medical/oncology/cardio management 3. pain management - tylenol; zanaflex 4. DVT ppx - withhold thinners at this time 5. GI ppx - tums; protonix 6. PT/OT - TLSO brace on while up and about with walker and assistance 7. Encourage incentive spirometer use Time with Patient: Less than 30
[2022-06-01 09:50] LABS: African American GFR (CKD) >90 (>60 ml/min/1.73 sqM); Anion Gap 7 mmol/L; Blood Urea Nitrogen 10 mg/dL (7-17); Calcium 8.3 mg/dL (8.4-10.2); Carbon Dioxide 27 mmol/L (22-30); Chloride 104 mmol/L (98-107); Glucose 116 mg/dL (74-99); Non-African American GFR(CKD) >90 (>60 ml/min/1.73 sqM); Potassium 3.1 mmol/L (3.5-5.1); Sodium 138 mmol/L (137-145)
[2022-06-01 11:28] LABS: Glucose,Whole Blood 129 mg/dL (70-110)
[2022-06-01 12:24] LABS: Basophils % (A) 0 %; Eosinophils # (A) 0.1 k/uL (0-0.7); Eosinophils % (A) 1 %; HGB 13.2 gm/dL (11.4-16.0); Lymphocytes % (A) 12 %; MCH 28.8 pg (25.0-35.0); MCHC 32.1 g/dL (31.0-37.0); MCV 89.7 fL (80.0-100.0); Mean Platelet Volume 7.8; Monocytes # (A) 0.4 k/uL (0-1.0); Monocytes % (A) 5 %; Neutrophils # (A) 6.9 k/uL (1.3-7.7); Neutrophils % (A) 82 %; Platelet Count 347 k/uL (150-450); RBC 4.57 m/uL (3.80-5.40); RDW 13.6 % (11.5-15.5); WBC 8.4 k/uL (3.8-10.6)
[2022-06-01] MEDS: POTASSIUM CHLORIDE 10 MEQ in WATER FOR INJECTION 1 100ML.BAG IVPB SCH ×4 (12:27→17:05)
[2022-06-01] MEDS ORDERED: POTASSIUM CHLORIDE ER 10 MEQ TAB.ER.PRT PO ONE (16:00)
[2022-06-01 17:28] LABS: Glucose,Whole Blood 184 mg/dL (70-110)
[2022-06-01 20:55] LABS: Glucose,Whole Blood 126 mg/dL (70-110)
--- NOTE | 2022-06-01 21:04 | P.PN ---
Progress Note - Text Progress Note Date: 06/01/22 Chief Complaint: Weak tired This is a pleasant 66-year-old patient was family doctor is out of the area . She follows locally with her oncologist Dr. Fernandez. Patient was diagnosed with lung cancer around October 2020. Patient has received several rounds of chemotherapy and radiation treatment. As of her last visit she would hold things are coming along fine. But for last few weeks patient is being having decreased appetite. Increasing weight loss. Abdominal pain. Has normally 5-7 bowel movements loose every day. Last chemotherapy was about a month ago. Finding it difficult to get about. Patient is accompanied by her in the room, her daughters on the phone and a sister at the bedside. No fever no chills. Patient was told earlier today by Dr. Fernandez that other alternative treatments will be looked into. Because of her back pain. She doesn't finding it difficult to get up. May 29: Patient completed thoracolumbar spine MRI today. Does show lytic lesions. Continues to have back pain. On IV Solu-Medrol and NSAIDs. Having some liquid stools. Tolerated some full liquids. Discussed with patient several family members at the bedside. Increase Metamucil to twice a day May 30: Started morphine sulfate oral 5 mg every 4 when necessary for pain. Patient diary is better with Metamucil. Up to 2 bowel movements the last 24 hours. Diet is being changed to ground diet. Discussed with the daughter the bedside. Etc. for a few minutes at the site of the bed. Patient is seen by Dr. Enamorado from orthopedics. May 31: Patient is actually 3 BMs since yesterday. Metamucil working. Morphine dose adjusted by oncology. Discussed with family at the bedside.. Dr. Enamorado spoke to the family about surgical intervention to the metastatic spine. Patient eating about 25%. Because of patient's comorbidities and poor function status patient is high risk for surgery with no absolute contra indications to proceed for surgery. We'll consult cardiology-for perioperative cardiovascular risk management. June 01: Seen by me this morning. Was awaiting surgery. Family at the bedside. Was pending cardiac clearance Active Medications Acetaminophen (Acetaminophen Tab 325 Mg Tab) 650 mg PO Q6HR PRN PRN Reason: Mild Pain or Fever > 100.5 Albuterol Sulfate (Albuterol Hfa Inhaler) 1 puff INHALATION RT-Q4H PRN PRN Reason: COPD Last Admin: 06/01/22 19:39 Dose: 1 puff Amlodipine Besylate (Amlodipine 5 Mg Tab) 5 mg PO DAILY [facility] Last Admin: 06/01/22 09:25 Dose: 5 mg Budesonide/Formoterol Fumarate (Symbicort 160-4.5 Mcg Inhaler) 2 puff INHALATION RT-BID [facility] Last Admin: 06/01/22 19:39 Dose: 2 puff Calcium Carbonate/Glycine (Calcium Carbonate 500 Mg Chewable) 1,000 mg PO Q4HR PRN PRN Reason: Dyspepsia Dexamethasone Sodium Phosphate (Dexamethasone Sod Phosphate 10 Mg/Ml 1 Ml Vial) 6 mg IVP Q8HR [facility] Last Admin: 06/01/22 15:15 Dose: 6 mg Dextrose/Water (Dextrose 50% Syringe 50 Ml) 25 ml IVP PER PROTOCOL PRN; Protocol PRN Reason: Hypoglycemia Dextrose/Water (Dextrose 50% Syringe 50 Ml) 50 ml IVP PER PROTOCOL PRN; Protocol PRN Reason: Hypoglycemia Enoxaparin Sodium (Enoxaparin 40 Mg/0.4 Ml Syringe) 40 mg SQ DAILY [facility] Last Admin: 06/01/22 09:26 Dose: Not Given Fenofibrate (Fenofibrate 160 Mg Tab) 160 mg PO DAILY [facility] Last Admin: 06/01/22 09:25 Dose: 160 mg Fluticasone Propionate (Fluticasone 50mcg/[place] Nasal 16gm) 2 spray EA NOSTRIL DAILY [facility] Last Admin: 06/01/22 09:25 Dose: 2 spray Dextrose/Sodium Chloride (Dextrose 5%-1/2ns Iv Soln) 1,000 mls @ 125 mls/hr IV .Q8H [facility] Last Admin: 06/01/22 17:02 Dose: 125 mls/hr Insulin Aspart (Insulin Aspart (Novolog) 100 Unit/Ml Vial) 0 unit SQ AC-TID [facility]; Protocol Last Admin: 06/01/22 18:11 Dose: 2 unit Lactulose (Lactulose 20 Gm/30 Ml Cup) 20 gm PO DAILY PRN PRN Reason: Constipation Levothyroxine Sodium (Levothyroxine 125 Mcg Tab) 250 mcg PO DAILY@0630 [facility] Last Admin: 06/01/22 06:18 Dose: 250 mcg Lisinopril (Lisinopril 20 Mg Tab) 20 mg PO DAILY [facility] Last Admin: 06/01/22 09:25 Dose: 20 mg Lorazepam (Lorazepam 0.5 Mg Tab) 0.5 mg PO Q6HR PRN PRN Reason: Anxiety Last Admin: 05/29/22 14:37 Dose: 0.5 mg Morphine Sulfate (Morphine Sulfate 4 Mg/Ml Syringe) 8 mg IVP Q4HR PRN PRN Reason: Pain/Discomfort Last Admin: 06/01/22 18:17 Dose: 8 mg Naloxone HCl (Naloxone 0.4 Mg/Ml 1 Ml Vial) 0.2 mg IV Q2M PRN PRN Reason: Opioid Reversal Mounjaro 2.5 Mg 2.5 mg SQ LOZANO [facility] Last Admin: 05/30/22 21:03 Dose: 2.5 mg Ondansetron HCl (Ondansetron 4 Mg/2 Ml Vial) 4 mg IVP Q8HR PRN PRN Reason: Nausea And Vomiting Ondansetron HCl (Ondansetron 4 Mg Tab) 8 mg PO Q8HR PRN PRN Reason: Nausea Pantoprazole Sodium (Pantoprazole 40 Mg Tablet) 40 mg PO BID [facility] Last Admin: 06/01/22 21:02 Dose: 40 mg Psyllium Hydrophilic Mucilloid (Psyllium Husk 100% 6 Gm Packet) 6 gm PO BID [facility] Last Admin: 06/01/22 20:36 Dose: Not Given Sertraline HCl (Sertraline 50 Mg Tab) 150 mg PO DAILY [facility] Last Admin: 06/01/22 09:25 Dose: 150 mg Temazepam (Temazepam 15 Mg Cap) 15 mg PO HS PRN PRN Reason: Insomnia Tiotropium [place] (Tiotropium 2.5 Mcg Inhaler) 1 puff INHALATION RT-DAILY [facility] Last Admin: 06/01/22 08:02 Dose: 1 puff Tizanidine HCl (Tizanidine 4 Mg Tab) 4 mg PO TID [facility] Last Admin: 06/01/22 21:02 Dose: 4 mg Past medical history to include: COPD, diabetes, GERD, hypertension, hyperlipidemia, prostatitis, obstetrical sleep apnea does not use CPAP, hypothyroid, lung cancer diagnosed in October 2020 Mnire's disease, splenic infarct, thyroid cancer 6 years ago, fatty liver, varicose veins Social history: This with her and son. Does use a walker. Patient smoked for about 37 years stopped in 2008. No alcohol. Physical examination: VITAL SIGNS: 97.8, 60, 16, 140/63, 91% room air GENERAL: in bed, EYES: Pupils equal. Conjunctiva palel. HEENT: External appearance of nose and ears normal, oral cavity grossly normal. NECK: JVD not raised; masses not palpable. HEART: First and second heart sounds are normal; no edema. LUNGS: Respiratory rate normal; decreased breath sounds. ABDOMEN: Soft, diffuse tenderness, no guarding rigidity, liver spleen not palpable, no masses palpable. PSYCH: Alert and oriented x3; mood and affect anxiousl. MUSCULOSKELETAL:No Clubbing/cyanosis;muscles-grossly intact INVESTIGATIONS, reviewed in the clinical context: June 01: White count 8.4 hemoglobin 13.2 platelets 347 potassium 3.1 crit and 0.51 Thoracolumbar spine MRI: Metastatic lesion to L3. Superior aspect of S1. Slight mass effect. On the left S1 nerve. L3-L4 interval extramedullary metastatic deposit. Mild cord compression from metastatic lesion involving T12 posterior extension. White count 8.17 globin 13.8 platelets 361 progression 3.5 BUN 18 creatinine 0.46 TSH 5.1 EKG tracing personally reviewed by me-normal sinus rhythm. Some ST deviations depression. Chest x-ray film personally reviewed by me-portable/mediastinum to the right. PFO closure device reported. Hyperinflation. CT abdomen pelvis: Plastic disease progression. Metastatic alonzo masses in the gastrohepatic ligament and shimon hepatic lesion up to 6.1 cm. Right pericardiac, portocaval, anterior perihepatic the pancreatic right retrocrural, upper abdominal retroperitoneal adenopathy up to 3.07 cm progression of osseous metastatic disease. T12 lactic lesion showing fixed extension into the ventral epidural space. Focal spinal canal stenosis. Fluid-filled small bowel loops and liquid stools. Large bilateral periuterine varices. 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 followed by Dr. fernandez. Has received chemo and radiation treatment. Of late patient been having progressive worsening systemic symptoms including weight loss loss of appetite. Increasing generalized pain including bone and abdominal pain. Computed tomography scan is showing extensive metastatic disease. - intra-abdominal lymphadenopathy. Follow with Dr. Fernandez -Clinical dehydration from poor oral intake Ensure one can 3 times a day. 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 She will mass causing severe compression and cord and conus at T12. NSAIDs. IV Solu-Medrol. Dr. Enamorado: As Dr. the family about T9-L3 stabilization with T12 decompression biopsy and separation surgery. Patient high risk for surgery with no absolute contraindications -GERD Prilosec -Depression Zoloft -Acute on chronic medical debility from progressive malignancy -Essential hypertension Prinivil, Norvasc -DO NOT RESUSCITATE Pending surgery. Discussed with family at the bedside. Medications to continue. Nothing by mouth.
--- NOTE | 2022-06-01 21:31 | CONS ---
CONSULTATION CHIEF COMPLAINT: Preop cardiac evaluation. HISTORY OF PRESENT ILLNESS: Molly is a 66-year-old lady with history of PFO, status post device closure, who is admitted to the hospital with back pain and has been diagnosed with metastatic disease involving the thoracic and lumbar spine and apparently has some form of compression for which she is to undergo surgery. She is to get palliative radiation for symptomatic vertebral disease. The patient does not have history of coronary artery disease or congestive heart failure. EKG shows normal sinus rhythm without significant ST-T wave changes. An echocardiogram in April of 2021 revealed normal LV systolic function. The patient had been on Plavix for the PFO, for the Amplatz device and you can stop it to do surgery. PAST MEDICAL HISTORY: Significant for recent COPD, hypertension, PFO status post closure. MEDICATIONS: At home included Ventolin, Prinivil, Norvasc, Spiriva, Zoloft, levothyroxine, [place], fenofibrate, and Plavix. ALLERGIES: No known drug allergies. FAMILY HISTORY: Negative for premature coronary artery disease. SOCIAL HISTORY: Negative for current smoking, EtOH abuse or drug abuse. REVIEW OF SYSTEMS: A 14 out of 14 review of systems has been performed. Most pertinent symptom is the musculoskeletal pain. PHYSICAL EXAMINATION: VITAL SIGNS: Afebrile, heart rate is 60 beats per minute. Blood pressure is 150/70, respiratory rate is 18, O2 saturation is 94%. NECK: There is jugular venous distention. CHEST: Reveals good air entry bilaterally. HEART: Reveals first and second heart sounds. No gallop. No murmur. ABDOMEN: Soft. EXTREMITIES: Exam of extremities did not reveal any edema. Peripheral pulses are felt. ASSESSMENT: 1. Preop cardiac evaluation. 2. Hypertension. 3. Patent foramen ovale, status post closure with an Amplatz device. 4. Lung cancer with metastatic disease. PLAN: The patient is an acceptable risk candidate for surgery under anesthesia. She is on Plavix. We can stop the Plavix at this time. We do not need to restart it after surgery. MMODL / IJN: [id number] /
[2022-06-02] MEDS: DEXAMETHASONE SOD PHOSPHATE 10 MG/ML 1 ML VIAL IVP SCH ×4 (00:08→23:35)
[2022-06-02] MEDS: LEVOTHYROXINE 125 MCG TAB PO SCH (05:49)
[2022-06-02] MEDS: MORPHINE SULFATE 4 MG/ML SYRINGE IVP PRN ×3 (05:50→19:38)
[2022-06-02] MEDS: DEXTROSE 5%-0.45% NACL 1,000 ML IV SCH ×3 (05:50→20:24)
[2022-06-02 06:19] LABS: African American GFR (CKD) >90 (>60 ml/min/1.73 sqM); Anion Gap 9 mmol/L; Blood Urea Nitrogen 11 mg/dL (7-17); Carbon Dioxide 27 mmol/L (22-30); Chloride 103 mmol/L (98-107); Glucose 135 mg/dL (74-99); Non-African American GFR(CKD) >90 (>60 ml/min/1.73 sqM); Potassium 3.6 mmol/L (3.5-5.1); Sodium 139 mmol/L (137-145)
[2022-06-02 07:18] LABS: Glucose,Whole Blood 114 mg/dL (70-110)
[2022-06-02] MEDS: INSULIN ASPART (NovoLOG) 100 UNIT/ML VIAL SQ SCH ×3 (08:00→17:24)
[2022-06-02] MEDS: ALBUTEROL HFA INHALER INHALATION PRN ×3 (08:04→15:15)
[2022-06-02] MEDS: SYMBICORT 160-4.5 MCG INHALER INHALATION SCH ×2 (08:04→19:53)
[2022-06-02] MEDS: TIOTROPIUM 2.5 MCG INHALER INHALATION SCH (08:04)
--- NOTE | 2022-06-02 08:15 | P.PN ---
Progress Note - Text Progress Note Date: 06/01/22 Delayed charting. Surgery cx due to staffing issues in OR as well as plavix admin this AM when it was supposed to be held. Spoke with family at length we will reschedule for Tuesday AM. They are in agreement.
[2022-06-02] MEDS: amLODIPine 5 MG TAB PO SCH (08:35)
[2022-06-02] MEDS: lisinopriL 20 MG TAB PO SCH (08:35)
[2022-06-02] MEDS: FENOFIBRATE 160 MG TAB PO SCH (08:35)
[2022-06-02] MEDS: PANTOPRAZOLE 40 MG TABLET PO SCH ×2 (08:35→21:23)
[2022-06-02] MEDS: FLUTICASONE 50MCG/SPRAY NASAL 16GM EA NOSTRIL SCH (08:35)
[2022-06-02] MEDS: PSYLLIUM HUSK 100% 6 GM PACKET PO SCH ×2 (08:35→21:24)
[2022-06-02] MEDS: tiZANidine 4 MG TAB PO SCH ×3 (08:36→21:23)
[2022-06-02] MEDS: SERTRALINE 50 MG TAB PO SCH (08:36)
[2022-06-02] MEDS: ENOXAPARIN 40 MG/0.4 ML SYRINGE SQ SCH (08:39)
--- NOTE | 2022-06-02 10:12 | P.PN ---
Subjective Progress Note Date: 06/02/22 Principal diagnosis: T12 metastatic lesion/fracture Patient was seen at bedside this morning. Patient says she is still having back pain at this time and patient denies any changes from yesterday. Patient is aware that spine surgery has been moved to Tuesday. Patient says she sat up at bedside early this morning with TLSO brace on. Patient says she has urinated and had several bowel movements since yesterday Objective - Vital Signs Vital signs: Vital Signs Temp 98.1 F 06/02/22 07:15 Pulse 58 L 06/02/22 07:15 Resp 18 06/02/22 07:15 BP 161/78 06/02/22 07:15 Pulse Ox 98 06/02/22 08:05 FiO2 21 06/02/22 08:05 Intake & Output 06/01/22 06/02/22 06/02/22 18:59 06:59 18:59 Intake Total 1200 Output Total 5 Balance 1195 Intake: Intake, IV Titration 1200 Amount Dextrose 5%-0.45% NaCl 1, 900 000 ml @ 125 mls/hr IV . Q8H [facility] Rx#:[id number] Potassium Chloride 10 meq 300 In Water For Injection 1 100ml.bag @ 100 mls/hr IVPB Q1H [facility] Rx#: [id number] Output: Urine 5 Other: Voiding Method Bedside Commode Bedside Commode # Voids 2 # Bowel Movements 1 2 - Exam negative for any open fractures, and significantly erythema/ecchymosis/ulcers. Sensation is equal, symmetric, bilateral intact throughout upper and lower extremities. There is moderate TTP over midline in throacic and lumbar region as well as paraspinal TTP in these regions. NTTP throughout rest of exam. Patient does have some limited ROM in bilateral hips+knees in flexion/extension due to referred pain from back and LE weakness. full ROM in BUE and in BLE in ankle dorsi/plantar flexion. 4/5 in resisted hip and knee flexion/ext bilaterally. 4+/5 in all other major motor groups. Radial pulses intact, 2+ bilaterally. Cap refill <3 sec in digits of BUE. Negative Homans, Carrillo, clonus bilaterally. - Labs CBC & Chem 7: 06/01/22 09:10 06/02/22 05:18 Labs: Abnormal Lab Results - Last 24 Hours (Table) 06/01/22 06/01/22 06/01/22 Range/Units 11:25 17:22 20:53 Creatinine (0.52-1.04) mg/dL Glucose (74-99) mg/dL POC Glucose (mg/dL) 129 H 184 H 126 H (70-110) mg/dL Calcium (8.4-10.2) mg/dL 06/02/22 06/02/22 Range/Units 05:18 07:17 Creatinine 0.49 L (0.52-1.04) mg/dL Glucose 135 H (74-99) mg/dL POC Glucose (mg/dL) 114 H (70-110) mg/dL Calcium 8.0 L (8.4-10.2) mg/dL Assessment and Plan Assessment: -T12 metastatic lesion/pathological fracture -LE weakness - Metastatic lung cancer Plan: 1. T12 metastatic lesion/pathological fracture - surgery moved to and planned for Tuesday06/04/2022 - T9-L3 stabilization and decompression of T12 w/biopsy. TLSO brace at bedside. TLSO brace on while up and about. We will continue to follow patient during her stay. 2. Appreciate medical/oncology/cardio management 3. pain management - tylenol; zanaflex 4. DVT ppx - withhold thinners at this time 5. GI ppx - tums; protonix 6. PT/OT - TLSO brace on while up and about with walker and assistance 7. Encourage incentive spirometer use Time with Patient: Less than 30
[2022-06-02 11:04] LABS: Glucose,Whole Blood 140 mg/dL (70-110)
--- NOTE | 2022-06-02 12:01 | P.PN ---
Subjective Progress Note Date: 06/02/22 History of present illness: This is a 66 year old woman with past medical history of PFO status post device closure, admitted to the hospital with back pain and diagnosed with metastatic disease involving the thoracic and lumbar spine with some form of compression for which she is to undergo surgery. Patient is to get palliative radiation for symptomatic vertebral disease. Patient does not have any history of coronary artery disease or congestive heart failure. EKG shows normal sinus rhythm with no significant ST-T wave changes. Echocardiogram in April 2021 revealed normal LV systolic function. Patient has been on Plavix for PFO for the Amplatz device and can stop Plavix prior to surgery. We discontinued this yesterday. Patient has been cleared for surgical intervention scheduled for Tuesday. Plavix will need to be resumed following surgery. Heart rate has been in the 50s, blood pressure 161/78, pulse ox 93% on room air. Potassium 3.6, BUN 11 creatinine 0.49. Physical examination: Gen: This is a 66-year-old female. She appears to be in no acute distress. VS: reviewed HEENT: Head is atraumatic, normocephalic. Pupils equal, round. Sclerae is anicteric. NECK: No JVD. LUNGS: Clear to auscultation. No wheezes or rhonchi. No intercostal retractions. HEART: Regular rate and rhythm. No murmur. ABDOMEN: Soft. No tenderness. EXTREMITIES: No pedal edema. NEUROLOGICAL: Patient is awake, alert and oriented x3. Assessment: Preop cardiac evaluation Hypertension Patent foramen ovale status post closure with Amplatz device Lung cancer with metastatic disease Plan: Patient is acceptable risk candidate for surgery under anesthesia. Plavix has been placed on hold and will need to be resumed following surgical intervention. Further recommendations to follow based upon clinical course Thank you kindly for this consultation. Nurse practitioner note has been reviewed, I agree with documented findings and plan of care. Patient was seen and examined. Objective - Vital Signs Vital signs: Vital Signs Temp 98.1 F 06/02/22 07:15 Pulse 58 L 06/02/22 07:15 Resp 18 06/02/22 07:15 BP 161/78 06/02/22 07:15 Pulse Ox 98 06/02/22 08:05 FiO2 21 06/02/22 08:05 Intake & Output 01/06/02/22 06/02/22 18:59 06:59 18:59 Intake Total 1200 Output Total 5 Balance 1195 Intake: Intake, IV Titration 1200 Amount Dextrose 5%-0.45% NaCl 1, 900 000 ml @ 125 mls/hr IV . Q8H [facility] Rx#:[id number] Potassium Chloride 10 meq 300 In Water For Injection 1 100ml.bag @ 100 mls/hr IVPB Q1H [facility] Rx#: [id number] Output: Urine 5 Other: Voiding Method Bedside Commode Bedside Commode # Voids 2 # Bowel Movements 1 2 - Labs CBC & Chem 7: 06/01/22 09:10 06/02/22 05:18 Labs: Abnormal Lab Results - Last 24 Hours (Table) 06/01/22 06/01/22 06/02/22 Range/Units 17:22 20:53 05:18 Creatinine 0.49 L (0.52-1.04) mg/dL Glucose 135 H (74-99) mg/dL POC Glucose (mg/dL) 184 H 126 H (70-110) mg/dL Calcium 8.0 L (8.4-10.2) mg/dL 06/02/22 06/02/22 Range/Units 07:17 11:02 Creatinine (0.52-1.04) mg/dL Glucose (74-99) mg/dL POC Glucose (mg/dL) 114 H 140 H (70-110) mg/dL Calcium (8.4-10.2) mg/dL
[2022-06-02 17:11] LABS: Glucose,Whole Blood 128 mg/dL (70-110)
[2022-06-02 20:00] LABS: Glucose,Whole Blood 202 mg/dL (70-110)
--- NOTE | 2022-06-02 20:28 | P.PN ---
Progress Note - Text Progress Note Date: 06/02/22 Chief Complaint: Weak tired This is a pleasant 66-year-old patient was family doctor is out of the area . She follows locally with her oncologist Dr. Fernandez. Patient was diagnosed with lung cancer around October 2020. Patient has received several rounds of chemotherapy and radiation treatment. As of her last visit she would hold things are coming along fine. But for last few weeks patient is being having decreased appetite. Increasing weight loss. Abdominal pain. Has normally 5-7 bowel movements loose every day. Last chemotherapy was about a month ago. Finding it difficult to get about. Patient is accompanied by her in the room, her daughters on the phone and a sister at the bedside. No fever no chills. Patient was told earlier today by Dr. Fernandez that other alternative treatments will be looked into. Because of her back pain. She doesn't finding it difficult to get up. May 29: Patient completed thoracolumbar spine MRI today. Does show lytic lesions. Continues to have back pain. On IV Solu-Medrol and NSAIDs. Having some liquid stools. Tolerated some full liquids. Discussed with patient several family members at the bedside. Increase Metamucil to twice a day May 30: Started morphine sulfate oral 5 mg every 4 when necessary for pain. Patient diary is better with Metamucil. Up to 2 bowel movements the last 24 hours. Diet is being changed to ground diet. Discussed with the daughter the bedside. Etc. for a few minutes at the site of the bed. Patient is seen by Dr. Enamorado from orthopedics. May 31: Patient is actually 3 BMs since yesterday. Metamucil working. Morphine dose adjusted by oncology. Discussed with family at the bedside.. Dr. Enamorado spoke to the family about surgical intervention to the metastatic spine. Patient eating about 25%. Because of patient's comorbidities and poor function status patient is high risk for surgery with no absolute contra indications to proceed for surgery. We'll consult cardiology-for perioperative cardiovascular risk management. June 01: Seen by me this morning. Was awaiting surgery. Family at the bedside. Was pending cardiac clearance June 02: Spinal surgery postponed through Tuesday because of getting blood tenderness. Family is at bedside. Pain better controlled. Having about 3 BMs a day. Tolerating some diet.. Active Medications Acetaminophen (Acetaminophen Tab 325 Mg Tab) 650 mg PO Q6HR PRN PRN Reason: Mild Pain or Fever > 100.5 Albuterol Sulfate (Albuterol Hfa Inhaler) 1 puff INHALATION RT-Q4H PRN PRN Reason: COPD Last Admin: 06/02/22 15:15 Dose: 1 puff Amlodipine Besylate (Amlodipine 5 Mg Tab) 5 mg PO DAILY [facility] Last Admin: 06/02/22 08:35 Dose: 5 mg Budesonide/Formoterol Fumarate (Symbicort 160-4.5 Mcg Inhaler) 2 puff INHALATION RT-BID [facility] Last Admin: 06/02/22 19:53 Dose: 2 puff Calcium Carbonate/Glycine (Calcium Carbonate 500 Mg Chewable) 1,000 mg PO Q4HR PRN PRN Reason: Dyspepsia Dexamethasone Sodium Phosphate (Dexamethasone Sod Phosphate 10 Mg/Ml 1 Ml Vial) 6 mg IVP Q8HR [facility] Last Admin: 06/02/22 16:28 Dose: 6 mg Dextrose/Water (Dextrose 50% Syringe 50 Ml) 25 ml IVP PER PROTOCOL PRN; Protocol PRN Reason: Hypoglycemia Dextrose/Water (Dextrose 50% Syringe 50 Ml) 50 ml IVP PER PROTOCOL PRN; Protocol PRN Reason: Hypoglycemia Fenofibrate (Fenofibrate 160 Mg Tab) 160 mg PO DAILY [facility] Last Admin: 06/02/22 08:35 Dose: 160 mg Fluticasone Propionate (Fluticasone 50mcg/[place] Nasal 16gm) 2 spray EA NOSTRIL DAILY [facility] Last Admin: 06/02/22 08:35 Dose: 2 spray Dextrose/Sodium Chloride (Dextrose 5%-1/2ns Iv Soln) 1,000 mls @ 125 mls/hr IV .Q8H [facility] Last Admin: 06/02/22 20:24 Dose: Not Given Insulin Aspart (Insulin Aspart (Novolog) 100 Unit/Ml Vial) 0 unit SQ AC-TID [facility]; Protocol Last Admin: 06/02/22 17:24 Dose: Not Given Lactulose (Lactulose 20 Gm/30 Ml Cup) 20 gm PO DAILY PRN PRN Reason: Constipation Levothyroxine Sodium (Levothyroxine 125 Mcg Tab) 250 mcg PO DAILY@0630 [facility] Last Admin: 06/02/22 05:49 Dose: 250 mcg Lisinopril (Lisinopril 20 Mg Tab) 20 mg PO DAILY [facility] Last Admin: 06/02/22 08:35 Dose: 20 mg Lorazepam (Lorazepam 0.5 Mg Tab) 0.5 mg PO Q6HR PRN PRN Reason: Anxiety Last Admin: 05/29/22 14:37 Dose: 0.5 mg Morphine Sulfate (Morphine Sulfate 4 Mg/Ml Syringe) 8 mg IVP Q4HR PRN PRN Reason: Pain/Discomfort Last Admin: 06/02/22 19:38 Dose: 8 mg Naloxone HCl (Naloxone 0.4 Mg/Ml 1 Ml Vial) 0.2 mg IV Q2M PRN PRN Reason: Opioid Reversal Mounjaro 2.5 Mg 2.5 mg SQ LOZANO [facility] Last Admin: 05/30/22 21:03 Dose: 2.5 mg Ondansetron HCl (Ondansetron 4 Mg/2 Ml Vial) 4 mg IVP Q8HR PRN PRN Reason: Nausea And Vomiting Ondansetron HCl (Ondansetron 4 Mg Tab) 8 mg PO Q8HR PRN PRN Reason: Nausea Pantoprazole Sodium (Pantoprazole 40 Mg Tablet) 40 mg PO BID [facility] Last Admin: 06/02/22 08:35 Dose: 40 mg Psyllium Hydrophilic Mucilloid (Psyllium Husk 100% 6 Gm Packet) 6 gm PO BID [facility] Last Admin: 06/02/22 08:35 Dose: 6 gm Sertraline HCl (Sertraline 50 Mg Tab) 150 mg PO DAILY [facility] Last Admin: 06/02/22 08:36 Dose: 150 mg Temazepam (Temazepam 15 Mg Cap) 15 mg PO HS PRN PRN Reason: Insomnia Tiotropium [place] (Tiotropium 2.5 Mcg Inhaler) 1 puff INHALATION RT-DAILY [facility] Last Admin: 06/02/22 08:04 Dose: 1 puff Tizanidine HCl (Tizanidine 4 Mg Tab) 4 mg PO TID [facility] Last Admin: 06/02/22 16:29 Dose: 4 mg Past medical history to include: COPD, diabetes, GERD, hypertension, hyperlipidemia, prostatitis, obstetrical sleep apnea does not use CPAP, hypothyroid, lung cancer diagnosed in October 2020 Mnire's disease, splenic infarct, thyroid cancer 6 years ago, fatty liver, varicose veins Social history: This with her and son. Does use a walker. Patient smoked for about 37 years stopped in 2008. No alcohol. Physical examination: VITAL SIGNS: 97.9, 62, 18, 130/81, 92% on room air GENERAL: in bed, comfortable EYES: Pupils equal. Conjunctiva pale. HEENT: External appearance of nose and ears normal, oral cavity grossly normal. NECK: JVD not raised; masses not palpable. HEART: First and second heart sounds are normal; no edema. LUNGS: Respiratory rate normal; decreased breath sounds. ABDOMEN: Soft, diffuse tenderness, no guarding rigidity, liver spleen not palpable, no masses palpable. PSYCH: Alert and oriented x3; mood and affect anxiousl. MUSCULOSKELETAL:No Clubbing/cyanosis;muscles-grossly intact INVESTIGATIONS, reviewed in the clinical context: June 01: White count 8.4 hemoglobin 13.2 platelets 347 potassium 3.1 crit and 0.51 Thoracolumbar spine MRI: Metastatic lesion to L3. Superior aspect of S1. Slight mass effect. On the left S1 nerve. L3-L4 interval extramedullary metastatic deposit. Mild cord compression from metastatic lesion involving T12 posterior extension. White count 8.17 globin 13.8 platelets 361 progression 3.5 BUN 18 creatinine 0.46 TSH 5.1 EKG tracing personally reviewed by me-normal sinus rhythm. Some ST deviations depression. Chest x-ray film personally reviewed by me-portable/mediastinum to the right. PFO closure device reported. Hyperinflation. CT abdomen pelvis: Plastic disease progression. Metastatic alonzo masses in the gastrohepatic ligament and shimon hepatic lesion up to 6.1 cm. Right pericardiac, portocaval, anterior perihepatic the pancreatic right retrocrural, upper abdominal retroperitoneal adenopathy up to 3.07 cm progression of osseous metastatic disease. T12 lactic lesion showing fixed extension into the ventral epidural space. Focal spinal canal stenosis. Fluid-filled small bowel loops and liquid stools. Large bilateral periuterine varices. 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 followed by Dr. fernandez. Has received chemo and radiation treatment. Of late patient been having progressive worsening systemic symptoms including weight loss loss of appetite. Increasing generalized pain including bone and abdominal pain. Computed tomography scan is showing extensive metastatic disease. - intra-abdominal lymphadenopathy. Follow with Dr. Fernandez -Clinical dehydration from poor oral intake Ensure one can 3 times a day. 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 She will mass causing severe compression and cord and conus at T12. NSAIDs. IV Solu-Medrol. Dr. Enamorado: As Dr. the family about T9-L3 stabilization with T12 decompression biopsy and separation surgery. Patient high risk for surgery with no absolute contraindications -GERD Prilosec -Depression Zoloft -Acute on chronic medical debility from progressive malignancy -Essential hypertension Prinivil, Norvasc -DO NOT RESUSCITATE Discussed with patient and family the bedside. Surgery scheduled for Tuesday. Other medications to continue.
[2022-06-03] MEDS: LEVOTHYROXINE 125 MCG TAB PO SCH (05:53)
[2022-06-03] MEDS: DEXTROSE 5%-0.45% NACL 1,000 ML IV SCH ×2 (05:54→12:00)
[2022-06-03] MEDS: MORPHINE SULFATE 4 MG/ML SYRINGE IVP PRN ×3 (05:59→17:44)
[2022-06-03 06:41] LABS: Glucose,Whole Blood 129 mg/dL (70-110)
[2022-06-03] MEDS: INSULIN ASPART (NovoLOG) 100 UNIT/ML VIAL SQ SCH ×3 (07:04→17:35)
--- NOTE | 2022-06-03 07:31 | P.PN ---
Subjective Progress Note Date: 06/03/22 patient seen and examined no issues overnight awaiting surgery continues to have back pain is severe preventing her from getting up and moving around as well as lower extremity radiculopathy. Denies any bowel or bladder issues. Objective - Vital Signs Vital signs: Vital Signs Temp 99 F 06/03/22 07:11 Pulse 55 L 06/03/22 07:11 Resp 18 06/03/22 07:11 BP 162/85 06/03/22 07:11 Pulse Ox 94 L 06/03/22 07:11 FiO2 21 06/02/22 08:05 Intake & Output 06/02/22 06/03/22 06/03/22 18:59 06:59 18:59 Intake Total 1000 Balance 1000 Intake: Intake, IV Titration 1000 Amount Dextrose 5%-0.45% NaCl 1, 1000 000 ml @ 125 mls/hr IV . Q8H [facility] Rx#:[id number] Other: Voiding Method Bedside Commode Bedside Commode # Voids 2 2 - Exam exam is stable at this time - Labs CBC & Chem 7: 06/01/22 09:10 06/02/22 05:18 Labs: Abnormal Lab Results - Last 24 Hours (Table) 06/02/22 06/02/22 06/02/22 Range/Units 11:02 17:09 19:58 POC Glucose (mg/dL) 140 H 128 H 202 H (70-110) mg/dL 06/03/22 Range/Units 06:38 POC Glucose (mg/dL) 129 H (70-110) mg/dL Assessment and Plan Assessment: 66 yo female known metestatic CA T12 lytic expansile lesion with pathological fracture LE weakness Difficulty with ADLs Plan: -plan for surgery tomorrow 06/04/2022 - nothing by mouth at midnight - antibiotics 2 g Ancef for surgery - tranexamic acid for surgery
[2022-06-03] MEDS: SERTRALINE 50 MG TAB PO SCH (08:19)
[2022-06-03] MEDS: PSYLLIUM HUSK 100% 6 GM PACKET PO SCH ×2 (08:19→21:46)
[2022-06-03] MEDS: amLODIPine 5 MG TAB PO SCH (08:19)
[2022-06-03] MEDS: PANTOPRAZOLE 40 MG TABLET PO SCH ×2 (08:20→21:46)
[2022-06-03] MEDS: lisinopriL 20 MG TAB PO SCH ×2 (08:20→21:46)
[2022-06-03] MEDS: DEXAMETHASONE SOD PHOSPHATE 10 MG/ML 1 ML VIAL IVP SCH ×2 (08:20→17:44)
[2022-06-03] MEDS: FENOFIBRATE 160 MG TAB PO SCH (08:20)
[2022-06-03] MEDS: FLUTICASONE 50MCG/SPRAY NASAL 16GM EA NOSTRIL SCH (08:20)
[2022-06-03] MEDS: tiZANidine 4 MG TAB PO SCH ×3 (08:24→21:46)
[2022-06-03] MEDS: LORazepam 0.5 MG TAB PO PRN (08:26)
[2022-06-03] MEDS: SYMBICORT 160-4.5 MCG INHALER INHALATION SCH ×2 (08:28→20:21)
[2022-06-03] MEDS: TIOTROPIUM 2.5 MCG INHALER INHALATION SCH (08:28)
[2022-06-03] MEDS: ALBUTEROL HFA INHALER INHALATION PRN ×2 (08:29→20:22)
[2022-06-03 11:33] LABS: Glucose,Whole Blood 131 mg/dL (70-110)
[2022-06-03 15:21] VITALS: BMI 34.1
[2022-06-03 17:11] LABS: Glucose,Whole Blood 105 mg/dL (70-110)
--- NOTE | 2022-06-03 20:01 | P.PN ---
Progress Note - Text Progress Note Date: 06/03/22 Chief Complaint: Weak tired This is a pleasant 66-year-old patient was family doctor is out of the area . She follows locally with her oncologist Dr. Fernandez. Patient was diagnosed with lung cancer around October 2020. Patient has received several rounds of chemotherapy and radiation treatment. As of her last visit she would hold things are coming along fine. But for last few weeks patient is being having decreased appetite. Increasing weight loss. Abdominal pain. Has normally 5-7 bowel movements loose every day. Last chemotherapy was about a month ago. Finding it difficult to get about. Patient is accompanied by her in the room, her daughters on the phone and a sister at the bedside. No fever no chills. Patient was told earlier today by Dr. Fernandez that other alternative treatments will be looked into. Because of her back pain. She doesn't finding it difficult to get up. May 29: Patient completed thoracolumbar spine MRI today. Does show lytic lesions. Continues to have back pain. On IV Solu-Medrol and NSAIDs. Having some liquid stools. Tolerated some full liquids. Discussed with patient several family members at the bedside. Increase Metamucil to twice a day May 30: Started morphine sulfate oral 5 mg every 4 when necessary for pain. Patient diary is better with Metamucil. Up to 2 bowel movements the last 24 hours. Diet is being changed to ground diet. Discussed with the daughter the bedside. Etc. for a few minutes at the site of the bed. Patient is seen by Dr. Enamorado from orthopedics. May 31: Patient is actually 3 BMs since yesterday. Metamucil working. Morphine dose adjusted by oncology. Discussed with family at the bedside.. Dr. Enamorado spoke to the family about surgical intervention to the metastatic spine. Patient eating about 25%. Because of patient's comorbidities and poor function status patient is high risk for surgery with no absolute contra indications to proceed for surgery. We'll consult cardiology-for perioperative cardiovascular risk management. June 01: Seen by me this morning. Was awaiting surgery. Family at the bedside. Was pending cardiac clearance June 02: Spinal surgery postponed through Tuesday because of getting blood tenderness. Family is at bedside. Pain better controlled. Having about 3 BMs a day. Tolerating some diet.. June 03: Sitting edge of bed. Tolerating diet. BM controlled. Pain control. Scheduled for surgery tomorrow. Nothing by mouth after midnight. Active Medications Acetaminophen (Acetaminophen Tab 325 Mg Tab) 650 mg PO Q6HR PRN PRN Reason: Mild Pain or Fever > 100.5 Albuterol Sulfate (Albuterol Hfa Inhaler) 1 puff INHALATION RT-Q4H PRN PRN Reason: COPD Last Admin: 06/03/22 08:29 Dose: 1 puff Amlodipine Besylate (Amlodipine 5 Mg Tab) 5 mg PO DAILY [facility] Last Admin: 06/03/22 08:19 Dose: 5 mg Budesonide/Formoterol Fumarate (Symbicort 160-4.5 Mcg Inhaler) 2 puff INHALATION RT-BID [facility] Last Admin: 06/03/22 08:28 Dose: 2 puff Calcium Carbonate/Glycine (Calcium Carbonate 500 Mg Chewable) 1,000 mg PO Q4HR PRN PRN Reason: Dyspepsia Dexamethasone Sodium Phosphate (Dexamethasone Sod Phosphate 10 Mg/Ml 1 Ml Vial) 6 mg IVP Q8HR [facility] Last Admin: 06/03/22 17:44 Dose: 6 mg Dextrose/Water (Dextrose 50% Syringe 50 Ml) 25 ml IVP PER PROTOCOL PRN; Protocol PRN Reason: Hypoglycemia Dextrose/Water (Dextrose 50% Syringe 50 Ml) 50 ml IVP PER PROTOCOL PRN; Protocol PRN Reason: Hypoglycemia Fenofibrate (Fenofibrate 160 Mg Tab) 160 mg PO DAILY [facility] Last Admin: 06/03/22 08:20 Dose: 160 mg Fluticasone Propionate (Fluticasone 50mcg/[place] Nasal 16gm) 2 spray EA NOSTRIL DAILY [facility] Last Admin: 06/03/22 08:20 Dose: 2 spray Dextrose/Sodium Chloride (Dextrose 5%-1/2ns Iv Soln) 1,000 mls @ 125 mls/hr IV .Q8H [facility] Last Admin: 06/03/22 12:00 Dose: 125 mls/hr Insulin Aspart (Insulin Aspart (Novolog) 100 Unit/Ml Vial) 0 unit SQ AC-TID [facility]; Protocol Last Admin: 06/03/22 17:35 Dose: Not Given Lactulose (Lactulose 20 Gm/30 Ml Cup) 20 gm PO DAILY PRN PRN Reason: Constipation Levothyroxine Sodium (Levothyroxine 125 Mcg Tab) 250 mcg PO DAILY@0630 [facility] Last Admin: 06/03/22 05:53 Dose: 250 mcg Lisinopril (Lisinopril 20 Mg Tab) 20 mg PO DAILY [facility] Last Admin: 06/03/22 08:20 Dose: 20 mg Lorazepam (Lorazepam 0.5 Mg Tab) 0.5 mg PO Q6HR PRN PRN Reason: Anxiety Last Admin: 06/03/22 08:26 Dose: 0.5 mg Morphine Sulfate (Morphine Sulfate 4 Mg/Ml Syringe) 8 mg IVP Q4HR PRN PRN Reason: Pain/Discomfort Last Admin: 06/03/22 17:44 Dose: 8 mg Naloxone HCl (Naloxone 0.4 Mg/Ml 1 Ml Vial) 0.2 mg IV Q2M PRN PRN Reason: Opioid Reversal Mounjaro 2.5 Mg 2.5 mg SQ LOZANO [facility] Last Admin: 05/30/22 21:03 Dose: 2.5 mg Ondansetron HCl (Ondansetron 4 Mg/2 Ml Vial) 4 mg IVP Q8HR PRN PRN Reason: Nausea And Vomiting Ondansetron HCl (Ondansetron 4 Mg Tab) 8 mg PO Q8HR PRN PRN Reason: Nausea Pantoprazole Sodium (Pantoprazole 40 Mg Tablet) 40 mg PO BID [facility] Last Admin: 06/03/22 08:20 Dose: 40 mg Psyllium Hydrophilic Mucilloid (Psyllium Husk 100% 6 Gm Packet) 6 gm PO BID [facility] Last Admin: 06/03/22 08:19 Dose: 6 gm Sertraline HCl (Sertraline 50 Mg Tab) 150 mg PO DAILY [facility] Last Admin: 06/03/22 08:19 Dose: 150 mg Temazepam (Temazepam 15 Mg Cap) 15 mg PO HS PRN PRN Reason: Insomnia Tiotropium [place] (Tiotropium 2.5 Mcg Inhaler) 1 puff INHALATION RT-DAILY [facility] Last Admin: 06/03/22 08:28 Dose: 1 puff Tizanidine HCl (Tizanidine 4 Mg Tab) 4 mg PO TID [facility] Last Admin: 06/03/22 17:45 Dose: 4 mg Past medical history to include: COPD, diabetes, GERD, hypertension, hyperlipidemia, prostatitis, obstetrical sleep apnea does not use CPAP, hypothyroid, lung cancer diagnosed in October 2020 Mnire's disease, splenic infarct, thyroid cancer 6 years ago, fatty liver, varicose veins Social history: This with her and son. Does use a walker. Patient smoked for about 37 years stopped in 2008. No alcohol. Physical examination: VITAL SIGNS: 98, 58, 18, 169/75, 94% room air GENERAL: Sitting at the edge of the bed, EYES: Pupils equal. Conjunctiva pale. HEENT: External appearance of nose and ears normal, oral cavity grossly normal. NECK: JVD not raised; masses not palpable. HEART: First and second heart sounds are normal; no edema. LUNGS: Respiratory rate normal; decreased breath sounds. ABDOMEN: Soft, decrease tenderness, no guarding rigidity, liver spleen not palpable, no masses palpable. PSYCH: Alert and oriented x3; mood and affect anxiousl. MUSCULOSKELETAL:No Clubbing/cyanosis;muscles-grossly intact INVESTIGATIONS, reviewed in the clinical context: June 01: White count 8.4 hemoglobin 13.2 platelets 347 potassium 3.1 crit and 0.51 Thoracolumbar spine MRI: Metastatic lesion to L3. Superior aspect of S1. Slight mass effect. On the left S1 nerve. L3-L4 interval extramedullary metastatic deposit. Mild cord compression from metastatic lesion involving T12 posterior extension. White count 8.17 globin 13.8 platelets 361 progression 3.5 BUN 18 creatinine 0.46 TSH 5.1 EKG tracing personally reviewed by me-normal sinus rhythm. Some ST deviations depression. Chest x-ray film personally reviewed by me-portable/mediastinum to the right. PFO closure device reported. Hyperinflation. CT abdomen pelvis: Plastic disease progression. Metastatic alonzo masses in the gastrohepatic ligament and shimon hepatic lesion up to 6.1 cm. Right pericardiac, portocaval, anterior perihepatic the pancreatic right retrocrural, upper abdominal retroperitoneal adenopathy up to 3.07 cm progression of osseous metastatic disease. T12 lactic lesion showing fixed extension into the ventral epidural space. Focal spinal canal stenosis. Fluid-filled small bowel loops and liquid stools. Large bilateral periuterine varices. 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 followed by Dr. fernandez. Has received chemo and radiation treatment. Of late patient been having progressive worsening systemic symptoms including weight loss loss of appetite. Increasing generalized pain including bone and abdominal pain. Computed tomography scan is showing extensive metastatic disease. - intra-abdominal lymphadenopathy. Follow with Dr. Fernandez -Clinical dehydration from poor oral intake: Better Ensure one can 3 times a day. 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 She will mass causing severe compression and cord and conus at T12. NSAIDs. IV Solu-Medrol. Dr. Enamorado: As Dr. the family about T9-L3 stabilization with T12 decompression biopsy and separation surgery. Patient high risk for surgery with no absolute contraindications. Scheduled for surgery tomorrow -GERD Prilosec -Depression Zoloft -Acute on chronic medical debility from progressive malignancy -Essential hypertension uncontrolled Increase Prinivil 20 mg twice a day, Norvasc -DO NOT RESUSCITATE Discussed with patient. Nothing by mouth after midnight. Increase lisinopril to 20 mg twice a day for blood pressure.
[2022-06-03 20:13] LABS: Glucose,Whole Blood 202 mg/dL (70-110)
[2022-06-04] MEDS: DEXAMETHASONE SOD PHOSPHATE 10 MG/ML 1 ML VIAL IVP SCH ×4 (02:09→23:44)
[2022-06-04] MEDS: MORPHINE SULFATE 4 MG/ML SYRINGE IVP PRN (02:16)
[2022-06-04] MEDS: DEXTROSE 5%-0.45% NACL 1,000 ML IV SCH ×3 (02:30→16:10)
[2022-06-04] MEDS: LEVOTHYROXINE 125 MCG TAB PO SCH (05:47)
[2022-06-04 05:55] LABS: Glucose,Whole Blood 128 mg/dL (70-110)
[2022-06-04] MEDS ORDERED: LACTATED RINGERS 1,000 ML IV ONE ×3 (05:58→13:32)
[2022-06-04] MEDS ORDERED: ONDANSETRON 4 MG/2 ML VIAL IVP ONE ×2 (05:59→06:31)
--- NOTE | 2022-06-04 06:26 | P.PN ---
Progress Note - Text Progress Note Date: 06/04/22 [facility] [address], [place] [address] Progress Note - Text Patient Name: Molly Whitfield Date of : 1955 Patient Status: Inpatient Attending Provider: Donell Galindo Date: 05/31/22 13:30 Initialization Date: 05/31/22 13:30 Progress Note - Text Progress Note Date: 05/31/22 Spine Surgery Clinical and Risk Review Molly Whitfield is a 66 yo female presenting for evaluation of low back pain, recent ffs, severe pain when up and about, hx of Lung CA with LE weakness. It was my pleasure to have seen and examined Molly Whitfield . In our visit today we have had a chance to go over subjective complaints, physical examination findings and treatments including the natural course history without intervention and various interventional options. The patients imaging demonstrates T12 erosive metestatic lesion with pathological fracture through T12. Tumor mass causing severe compression on cord and conus at T12. Diffuse metestatic findings in remainder of spine. On physical exam, Molly Whitfield demonstrates pain with any motion. Inability to ambulate due to pain in her back. B/L LE radiculopathy and weakness secondary to pain and debility. I have explained to the patient that as their condition progresses it will cause further neurological deficits and eventual paralysis. Based on the patients imaging, physical exam, and the rapid progression and disabling nature of their symptoms, at this time I recommend surgery in the form or a: T9-L3 stabilization with T12 decompression, biopsy and separation surgery. I discussed the risk and benefits of this procedure at length with Molly Whitfield and her family at bedside. The patient and her daughter at bedside agreed to considered pursuing the p rocedure abovementioned. Prior to surgery, she should follow up with her PCP (Cardio, ID, IM etc) for clearance. Questions were invited and answered, and the patient wishes to proceed as outlined below. Currently, I am recommendin. T9-L3 stabilization with T12 decompression, biopsy and separation surgery 2. Follow up with PCP for surgical clearance 3. Review of surgical risks and benefits as well as an educational packet on the proposed surgical procedure. Risks: All surgical procedures come with inherent risks, including those related to positioning, anesthesia, intraoperative findings, and postoperative complications. It is important to understand that surgery does not come with any guarantee of a successful outcome as complications and adverse events are always possible. The patient was given a handout in office today discussing the surgical procedure and risks associated with the intervention, both of which were discussed with the patient. These risks include but are not limited to the following: * Experiencing same, different or even worse symptoms in back, neck, arms, or legs compared to before surgery. * Requiring further surgery or other forms of treatment presently or at some time in the future at same or other levels of the intended spine surgery. * On an extreme but fortunately relatively rare basis severe complication such as blindness, stroke, heart attack, temporary and/or permanent nerve injury, paralysis, coma, or may occur, sometimes without known explanation. * Surgical complications may include but are not limited to risk of infection, fluid accumulation in the surgical dissection site, including a seroma or hematoma, that requires additional surgery, wound drainage, bleeding, new numbness or weakness, vision changes/loss, spinal fluid leakage, non-healing and/or infected incision, headaches, difficulty or inability to swallow, hoarseness, hemopneumothorax, pneumothorax, impotence, retrograde ejaculation, vaginal dryness; injury to nerves, spinal cord, blood vessels, lymphatics or other vital organs (i.e., bowel injury, injury to the great vessels); heterotopic bone formation; complications related to the hardware such as screws, rods, cages including misplaced hardware, device failure, inst rumentation at the wrong spine level, hardware fracture/breakage, or hardware loosening; vertebral failure of the spinal column above or below the newly placed hardware; retained surgical instrumentations or devices and the need for further surgery. * Medical risks of the planned spine surgery include but are not limited to generalized Infections to the whole body or local areas outside of the surgical site (sepsis), heart attack, bleeding, anaphylaxis, meningitis, seizure, epilepsy, hearing loss, burn calhoun, laceration of the head or other areas of the body, bruising, hypersensitivity of the skin, bladder over distension; allergic reaction; shoulder injury related to positioning; fat, blood and air clots to other areas of the body like heart, lungs, brain; failure of internal organs such as lungs, kidneys, liver and excessive bleeding. If blood transfusions are necessary, note that transfusions may cause intolerance reactions such as anaphylaxis or other complex reactions. * Despite best efforts, the results of spine surgery might not heal in terms of bone, soft tissues such as skin, fascia, ligaments, and joints. Additionally, in order to achieve best possible results, spine surgery may be carried out beyond the initially planned levels and involve decompression, fusion including insertion of hardware at levels other than the original intended area of surgical interest change some portions of the procedure in order to ensure the best possible outcomes. * With spine surgery and spinal fusion, there are different off label uses of instrumentation (devices, implants and hardware) as well as biological substances (bone morphogenic proteins, demineralized bone matrix) as well as using extra bone from allograft sources (i.e. cadaver bone) or autograft (iliac crest bone, ribs, or the spine itself). The patient has been given information about these practices and their inherent risks and benefits. The patient has had a chance to review all the listed information, has been given print outs detailing this information, and has had all his/her questions answered to their satisfaction. It was my pleasure to have seen and examined Molly Whitfield . In our visit today we have had a chance to go over my understanding of our patient's current condition, the natural course history without intervention and various interventional options. Questions were invited and answered, and the patient wishes to proceed as outlined above. I have seen and examined the patient for 25 minutes and we have spent more than 50% of the time in repeat and detailed counseling about the patient's condition, its natural course history with out and as much as can be predicted with surgery and re-review of various surgical treatment options. In conclusion, Molly Whitfield and her daughter requested we proceed with the above suggested surgery and are willing to accept risks and limitations of the suggested surgery as nature of the disease process and our best attempts at treatment for the condition. Thank you again for allowing us to be part of your patient's care. Please don't hesitate to contact me if you have any further questions. Signed and authenticated by: Jonathan [facility] [address] [facility], [address] [address]
[2022-06-04] MEDS ORDERED: DEXAMETHASONE SOD PHOSPHATE 4 MG/ML 1 ML VIAL IV ONE (06:31)
[2022-06-04] MEDS ORDERED: LIDOCAINE 1% (10MG/ML) FOR IV START INTRADERMA PRN (06:31)
[2022-06-04] MEDS ORDERED: MIDAZOLAM 2 MG/2 ML VIAL IVP ONE (06:40)
[2022-06-04] MEDS ORDERED: GELATIN SPONGE,ABSORB (LARGE) 1 EACH SPONGE TOPICAL ONE (07:16)
[2022-06-04] MEDS ORDERED: THROMBIN (BOVINE) 5,000 UNIT VIAL TOPICAL ONE (07:16)
[2022-06-04] MEDS ORDERED: SUCCINYLCHOLINE CHLORIDE 200 MG/10 ML VIAL IV ONE (07:16)
[2022-06-04] MEDS ORDERED: KETAMINE 10 MG/ML 20 ML VIAL ONE (07:16)
[2022-06-04] MEDS ORDERED: fentaNYL (PF) 50 MCG/ML 2 ML AMP ONE (07:16)
[2022-06-04] MEDS ORDERED: GLYCOPYRROLATE 0.2 MG/ML 2 ML VIAL ONE (07:16)
[2022-06-04] MEDS ORDERED: ePHEDrine 50 MG/ML 1 ML VIAL ONE (07:16)
[2022-06-04] MEDS ORDERED: LIDOCAINE 2% INJ 20 MG/ML (2 ML VIAL) ONE (07:16)
[2022-06-04] MEDS ORDERED: PROPOFOL 10 MG/ML 20 ML VIAL IV ONE (07:16)
[2022-06-04] MEDS ORDERED: ROCURONIUM 10 MG/ML (5 ML VIAL) IV ONE (07:16)
[2022-06-04] MEDS ORDERED: TRANEXAMIC ACID IN NACL,ISO-OS 1,000 MG/100 ML BAG ONE (07:16)
[2022-06-04] MEDS ORDERED: HYDROmorphone (PF) 1 MG/ML ONE (07:16)
[2022-06-04] MEDS: SYMBICORT 160-4.5 MCG INHALER INHALATION SCH ×2 (07:36→20:23)
[2022-06-04] MEDS ORDERED: TRANEXAMIC ACID 1,000 MG in SODIUM CHLORIDE 0.9% 100 ML IVPB PRN (07:53)
[2022-06-04] MEDS ORDERED: GENTAMICIN 80 MG in SODIUM CHLORIDE 0.9% IRRIGATIO 3,000 ML IRRIGATION ONE (08:14)
[2022-06-04] MEDS ORDERED: ceFAZolin 3,000 MG in SODIUM CHLORIDE 0.9% IRRIGATIO 3,000 ML IRRIGATION ONE (08:14)
[2022-06-04] MEDS ORDERED: IOPAMIDOL M200 10 ML VIAL MISCELLANE ONE (08:51)
[2022-06-04] MEDS ORDERED: MINERAL OIL 1 APPLIC/ML OIL MISCELLANE ONE (08:51)
[2022-06-04] MEDS ORDERED: VANCOMYCIN 1,000 MG VIAL MISCELLANE ONE (11:04)
[2022-06-04] MEDS: TIOTROPIUM 2.5 MCG INHALER INHALATION SCH (11:30)
[2022-06-04] MEDS ORDERED: LIDOCAINE 1%-EPI 1:100,000 20 ML VIAL SQ ONE (11:36)
--- NOTE | 2022-06-04 11:53 | P.ANPRN ---
Procedure Note - Anesthesia - Invasive Line Right Arterial Line Time Out Performed: Yes (0640) Date of Procedure: 06/04/22 Time of Procedure: 06:51 Location of Patient: PreOp Preparation: Sterile Prep, Sterile Dressing Arterial Line Location: Radial (right) Ultrasound Used: Yes Purpose - Visualization and Identification of Vasculature: Yes Needle Guage: 20g Image Stored and Saved: Yes Narrative: Central line placement per sterile protocol utilized. sterile protocol
--- NOTE | 2022-06-04 11:53 | P.ANPRN ---
Procedure Note - Anesthesia - Invasive Line Right Central Line Time Out Performed: Yes (0640) Date of Procedure: 06/04/22 Time of Procedure: 06:41 Location of Patient: PreOp Preparation: Sterile Prep, Sterile Dressing Central Line Location: Internal Jugular (right) Ultrasound Used: Yes Purpose - Visualization and Identification of Vasculature: Yes Needle Guage: 18g angio Image Stored and Saved: Yes Narrative: Central line placement per sterile protocol utilized. right neck prepped Sterile protocol. +local +angio +cvp +jwire +uneventful dilation and introduction right IJ tlc. bled back and flushed x3.
[2022-06-04] MEDS: HYDROmorphone 0.5 MG/0.5 ML SYRINGE IVP PRN ×4 (12:17→12:58)
[2022-06-04] MEDS ORDERED: MAGNESIUM HYDROXIDE 2,400 MG/10 ML CUP PO PRN (12:21)
[2022-06-04] MEDS ORDERED: HYDROcodone/APAP 5-325MG 1 EACH TAB PO PRN (12:21)
[2022-06-04] MEDS ORDERED: SENNOSIDES-DOCUSATE SODIUM 1 EACH TAB PO PRN (12:21)
--- NOTE | 2022-06-04 12:46 | XR ---
Fluoroscopy INDICATION: Pain FINDINGS: Fluoroscopy time: 1 minute 16 seconds. Images obtained: 0. IMPRESSIONS: 1. Documentation of fluoroscopy.
--- NOTE | 2022-06-04 12:53 | P.PN ---
Progress Note - Text Progress Note Date: 06/04/22 Postop: . Patient seen and examined they are doing well. Their pain is under control at this time. They are moving all 4 extremities without any issues. Vital signs are stable.. They are currently recovering and will be transferred to the floor once deemed stable by the PACU team and anesthesiologist. No Other issues at this time they deny fever chills shortness of breath or chest pain. [Medical management pending] [Continue with intravenous fluids, pain medication, muscle relaxers, home medication] [Soft diet to start to advance as tolerated] We will evaluate the patient in the morning.
--- NOTE | 2022-06-04 13:07 | XR ---
EXAMINATION TYPE: XR chest 1V portable DATE OF EXAM: 06/04/2022 COMPARISON: 05/28/2022 INDICATION: Line placement TECHNIQUE: Single frontal view of the chest is obtained. FINDINGS: The heart size is normal. The pulmonary vasculature is normal. The lungs are clear. No pneumothorax is evident. Right central venous catheter is in place the tip in superior vena cava r egion IMPRESSION: 1. No acute pulmonary process. 2. No pneumothorax post central venous catheter placement. Tip is in the superior vena cava region.
[2022-06-04] MEDS: LACTATED RINGERS 1,000 ML IV SCH (14:25)
[2022-06-04] MEDS: INSULIN ASPART (NovoLOG) 100 UNIT/ML VIAL SQ SCH ×3 (14:25→18:23)
[2022-06-04] MEDS: PSYLLIUM HUSK 100% 6 GM PACKET PO SCH ×2 (14:27→21:16)
[2022-06-04] MEDS: lisinopriL 20 MG TAB PO SCH ×2 (14:27→21:16)
[2022-06-04] MEDS: tiZANidine 4 MG TAB PO SCH ×3 (14:27→21:16)
[2022-06-04] MEDS: PANTOPRAZOLE 40 MG TABLET PO SCH ×2 (14:27→21:16)
--- NOTE | 2022-06-04 14:38 | CT ---
EXAMINATION TYPE: CT thor lumbar spine wo con DATE OF EXAM: 06/04/2022 COMPARISON: Prior CT 5 days ago HISTORY: S/P T9-L3 stabilization, T-[address] DLP: 2208 mGycm Automated exposure control for dose reduction was used. FINDINGS: Interval placement of posterior interpedicular rods and screws from T9 level through the L3 level reid aterally with sparing of the T12 level. There is interval vertebroplasty at T9 and L3 levels. There i s lucency from biopsy with vertebroplasty at the T12 level. At T12 level there are bilateral laminect naun defects and spinous process resection. Streak artifact from surgical change except evaluation sli ghtly suboptimal. The bilateral scrotal position appears grossly satisfactory on the axial images. Th ere is percutaneous drainage catheter terminating near the right posterior L1-L2 articulation seen be st on coronal image 54. There is ill-defined fluid along with subcutaneous and deeper gas at T12 leve l extending to the posterior aspect of the spinal canal. Alignment is stable and satisfactory after s urgery. Prior obstructive mass posterior T12 vertebral level difficult to differentiate from adjacent fluid and spinal canal likely protruding into anterior spinal canal remains present sagittal image 5 7 for reference. Posttreatment changes right suprahilar region in the right lung are redemonstrated. Pedro masslike consolidation and/or scarring near sutures is again seen. Surgical change of level of the atrial sept um is again seen. Cholecystectomy clips are redemonstrated. Calcified uterine fundal fibroid is again seen. Cardiomegaly redemonstrated. Note is made of some new areas of subsegmental emboli bilaterally, for reference left mid lung arteri al branch coronal image 29. IMPRESSION: As above. Successful posterior decompression changes at T12 level with adjacent long segm ent stabilization. Alignment is stable and satisfactory. Note is made of some new cement emboli in th e bilateral lungs.
[2022-06-04] MEDS: ALBUTEROL HFA INHALER INHALATION PRN (15:17)
[2022-06-04] MEDS: HYDROcodone/APAP 10-325MG 1 EACH TAB PO PRN (16:10)
[2022-06-04] MEDS: FLUTICASONE 50MCG/SPRAY NASAL 16GM EA NOSTRIL SCH (16:10)
[2022-06-04] MEDS: FENOFIBRATE 160 MG TAB PO SCH (16:11)
[2022-06-04] MEDS: SERTRALINE 50 MG TAB PO SCH (16:11)
[2022-06-04] MEDS: amLODIPine 5 MG TAB PO SCH (16:11)
[2022-06-04] MEDS: GABAPENTIN 300 MG CAP PO SCH ×2 (16:11→21:16)
[2022-06-04 16:49] LABS: Glucose,Whole Blood 131 mg/dL (70-110)
--- NOTE | 2022-06-04 17:10 | P.PN ---
Progress Note - Text Progress Note Date: 06/04/22 Chief Complaint: Weak tired This is a pleasant 66-year-old patient was family doctor is out of the area . She follows locally with her oncologist Dr. Fernandez. Patient was diagnosed with lung cancer around October 2020. Patient has received several rounds of chemotherapy and radiation treatment. As of her last visit she would hold things are coming along fine. But for last few weeks patient is being having decreased appetite. Increasing weight loss. Abdominal pain. Has normally 5-7 bowel movements loose every day. Last chemotherapy was about a month ago. Finding it difficult to get about. Patient is accompanied by her in the room, her daughters on the phone and a sister at the bedside. No fever no chills. Patient was told earlier today by Dr. Fernandez that other alternative treatments will be looked into. Because of her back pain. She doesn't finding it difficult to get up. May 29: Patient completed thoracolumbar spine MRI today. Does show lytic lesions. Continues to have back pain. On IV Solu-Medrol and NSAIDs. Having some liquid stools. Tolerated some full liquids. Discussed with patient several family members at the bedside. Increase Metamucil to twice a day May 30: Started morphine sulfate oral 5 mg every 4 when necessary for pain. Patient diary is better with Metamucil. Up to 2 bowel movements the last 24 hours. Diet is being changed to ground diet. Discussed with the daughter the bedside. Etc. for a few minutes at the site of the bed. Patient is seen by Dr. Enamorado from orthopedics. May 31: Patient is actually 3 BMs since yesterday. Metamucil working. Morphine dose adjusted by oncology. Discussed with family at the bedside.. Dr. Enamorado spoke to the family about surgical intervention to the metastatic spine. Patient eating about 25%. Because of patient's comorbidities and poor function status patient is high risk for surgery with no absolute contra indications to proceed for surgery. We'll consult cardiology-for perioperative cardiovascular risk management. June 01: Seen by me this morning. Was awaiting surgery. Family at the bedside. Was pending cardiac clearance June 02: Spinal surgery postponed through Tuesday because of getting blood tenderness. Family is at bedside. Pain better controlled. Having about 3 BMs a day. Tolerating some diet.. June 03: Sitting edge of bed. Tolerating diet. BM controlled. Pain control. Scheduled for surgery tomorrow. Nothing by mouth after midnight. June 04: Patient underwent spinal surgery by Dr. Enamorado today. Family at the bedside. Postoperative pain present. Awake. Active Medications Acetaminophen (Acetaminophen Tab 325 Mg Tab) 650 mg PO Q6HR PRN PRN Reason: Mild Pain or Fever > 100.5 Hydrocodone Bitart/Acetaminophen (Hydrocodone/Apap 5-325mg 1 Each Tab) 1 each PO Q6HR PRN PRN Reason: Pain Scale 4 - 6 Hydrocodone Bitart/Acetaminophen (Hydrocodone/Apap 10-325mg 1 Each Tab) 1 each PO Q6H PRN PRN Reason: Pain Scale 7 - 10 Last Admin: 06/04/22 16:10 Dose: 1 each Albuterol Sulfate (Albuterol Hfa Inhaler) 1 puff INHALATION RT-Q4H PRN PRN Reason: COPD Last Admin: 06/03/22 20:22 Dose: 1 puff Amlodipine Besylate (Amlodipine 5 Mg Tab) 5 mg PO DAILY [facility] Last Admin: 06/04/22 16:11 Dose: 5 mg Budesonide/Formoterol Fumarate (Symbicort 160-4.5 Mcg Inhaler) 2 puff INHALATION RT-BID [facility] Last Admin: 06/04/22 07:36 Dose: Not Given Calcium Carbonate/Glycine (Calcium Carbonate 500 Mg Chewable) 1,000 mg PO Q4HR PRN PRN Reason: Dyspepsia Cyclobenzaprine HCl (Cyclobenzaprine 5 Mg Tab) 5 mg PO TID PRN PRN Reason: Muscle Spasm Dexamethasone Sodium Phosphate (Dexamethasone Sod Phosphate 10 Mg/Ml 1 Ml Vial) 6 mg IVP Q8HR [facility] Last Admin: 06/04/22 16:08 Dose: 6 mg Dextrose/Water (Dextrose 50% Syringe 50 Ml) 25 ml IVP PER PROTOCOL PRN; Protocol PRN Reason: Hypoglycemia Dextrose/Water (Dextrose 50% Syringe 50 Ml) 50 ml IVP PER PROTOCOL PRN; Protocol PRN Reason: Hypoglycemia Droperidol (Droperidol 5 Mg/2 Ml Vial) 0.625 mg IVP ONCE PRN PRN Reason: Phase 1 or 2 - Nausea/Vomiting Stop: 06/04/22 23:00 Fenofibrate (Fenofibrate 160 Mg Tab) 160 mg PO DAILY [facility] Last Admin: 06/04/22 16:11 Dose: 160 mg Fluticasone Propionate (Fluticasone 50mcg/Goodwin Nasal 16gm) 2 spray EA NOSTRIL DAILY [facility] Last Admin: 06/04/22 16:10 Dose: 2 spray Gabapentin (Gabapentin 300 Mg Cap) 300 mg PO TID [facility] Last Admin: 06/04/22 16:11 Dose: 300 mg Hydromorphone HCl (Hydromorphone 0.5 Mg/0.5 Ml Syringe) 0.5 mg IVP Q3HR PRN PRN Reason: Pain Scale 4 - 6 Hydromorphone HCl (Hydromorphone 1 Mg/Ml 1 Ml Syringe) 1 mg IVP Q3HR PRN PRN Reason: Pain Scale of 7 - 10 Dextrose/Sodium Chloride (Dextrose 5%-1/2ns Iv Soln) 1,000 mls @ 125 mls/hr IV .Q8H [facility] Last Admin: 06/04/22 16:10 Dose: 125 mls/hr Lactated Ringer's (Lactated Ringers) 1,000 mls @ 20 mls/hr IV .Q24H [facility] Last Admin: 06/04/22 14:25 Dose: Not Given Cefazolin Sodium 2 gm/ Sodium (Chloride) 50 mls @ 100 mls/hr IVPB Q8HR [facility]; Protocol Last Admin: 06/04/22 16:12 Dose: 100 mls/hr Insulin Aspart (Insulin Aspart (Novolog) 100 Unit/Ml Vial) 0 unit SQ AC-TID [facility]; Protocol Last Admin: 06/04/22 16:11 Dose: Not Given Lactulose (Lactulose 20 Gm/30 Ml Cup) 20 gm PO DAILY PRN PRN Reason: Constipation Last Admin: 06/03/22 21:46 Dose: 20 gm Levothyroxine Sodium (Levothyroxine 125 Mcg Tab) 250 mcg PO DAILY@0630 [facility] Last Admin: 06/04/22 05:47 Dose: Not Given Lidocaine HCl (Lidocaine 1% (10mg/Ml) For Iv Start) 0.1 ml INTRADERMA PER PROTOCOL PRN PRN Reason: IV Start Lisinopril (Lisinopril 20 Mg Tab) 20 mg PO BID [facility] Last Admin: 06/04/22 14:27 Dose: Not Given Lorazepam (Lorazepam 0.5 Mg Tab) 0.5 mg PO Q6HR PRN PRN Reason: Anxiety Last Admin: 06/03/22 08:26 Dose: 0.5 mg Magnesium Hydroxide (Magnesium Hydroxide 2,400 Mg/10 Ml Cup) 2,400 mg PO DAILY PRN PRN Reason: Constipation Morphine Sulfate (Morphine Sulfate 4 Mg/Ml Syringe) 8 mg IVP Q4HR PRN PRN Reason: Pain/Discomfort Last Admin: 06/04/22 02:16 Dose: 8 mg Naloxone HCl (Naloxone 0.4 Mg/Ml 1 Ml Vial) 0.2 mg IV Q2M PRN PRN Reason: Opioid Reversal Mounjaro 2.5 Mg 2.5 mg SQ LOZANO [facility] Last Admin: 05/30/22 21:03 Dose: 2.5 mg Ondansetron HCl (Ondansetron 4 Mg/2 Ml Vial) 4 mg IVP Q8HR PRN PRN Reason: Nausea And Vomiting Ondansetron HCl (Ondansetron 4 Mg Tab) 8 mg PO Q8HR PRN PRN Reason: Nausea Pantoprazole Sodium (Pantoprazole 40 Mg Tablet) 40 mg PO BID [facility] Last Admin: 06/04/22 14:27 Dose: Not Given Psyllium Hydrophilic Mucilloid (Psyllium Husk 100% 6 Gm Packet) 6 gm PO BID [facility] Last Admin: 06/04/22 14:27 Dose: Not Given Senna/Docusate Sodium (Sennosides-Docusate Sodium 1 Each Tab) 2 each PO DAILY PRN PRN Reason: Constipation Sertraline HCl (Sertraline 50 Mg Tab) 150 mg PO DAILY [facility] Last Admin: 06/04/22 16:11 Dose: 150 mg Temazepam (Temazepam 15 Mg Cap) 15 mg PO HS PRN PRN Reason: Insomnia Tiotropium [place] (Tiotropium 2.5 Mcg Inhaler) 1 puff INHALATION RT-DAILY [facility] Last Admin: 06/04/22 11:30 Dose: Not Given Tizanidine HCl (Tizanidine 4 Mg Tab) 4 mg PO TID [facility] Last Admin: 06/04/22 16:11 Dose: 4 mg Past medical history to include: COPD, diabetes, GERD, hypertension, hyperlipidemia, prostatitis, obstetrical sleep apnea does not use CPAP, hypothyroid, lung cancer diagnosed in October 2020 Mnire's disease, splenic infarct, thyroid cancer 6 years ago, fatty liver, varicose veins Social history: This with her and son. Does use a walker. Patient smoked for about 37 years stopped in 2008. No alcohol. Physical examination: VITAL SIGNS: 97.4, 58, 16, 120/74, 92% on nasal cannula GENERAL: Reclining in bed, uncomfortable EYES: Pupils equal. Conjunctiva pale. HEENT: External appearance of nose and ears normal, oral cavity grossly normal. NECK: JVD not raised; masses not palpable. HEART: First and second heart sounds are normal; no edema. LUNGS: Respiratory rate normal; decreased breath sounds. ABDOMEN: Soft, decrease tenderness, no guarding rigidity, liver spleen not palpable, no masses palpable. PSYCH: Alert and oriented x3; mood and affect anxiousl. MUSCULOSKELETAL:No Clubbing/cyanosis;muscles-grossly intact INVESTIGATIONS, reviewed in the clinical context: June 01: White count 8.4 hemoglobin 13.2 platelets 347 potassium 3.1 crit and 0.51 Thoracolumbar spine MRI: Metastatic lesion to L3. Superior aspect of S1. Slight mass effect. On the left S1 nerve. L3-L4 interval extramedullary metastatic deposit. Mild cord compression from metastatic lesion involving T12 posterior extension. White count 8.17 globin 13.8 platelets 361 progression 3.5 BUN 18 creatinine 0.46 TSH 5.1 EKG tracing personally reviewed by me-normal sinus rhythm. Some ST deviations depression. Chest x-ray film personally reviewed by me-portable/mediastinum to the right. PFO closure device reported. Hyperinflation. CT abdomen pelvis: Plastic disease progression. Metastatic alonzo masses in the gastrohepatic ligament and shimon hepatic lesion up to 6.1 cm. Right pericardiac, portocaval, anterior perihepatic the pancreatic right retrocrural, upper abdominal retroperitoneal adenopathy up to 3.07 cm progression of osseous metastatic disease. T12 lactic lesion showing fixed extension into the ventral epidural space. Focal spinal canal stenosis. Fluid-filled small bowel loops and liquid stools. Large bilateral periuterine varices. 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 followed by Dr. fernandez. Has received chemo and radiation treatment. Of late patient been having progressive worsening systemic symptoms including weight loss loss of appetite. Increasing generalized pain including bone and abdominal pain. Computed tomography scan is showing extensive metastatic disease. - intra-abdominal lymphadenopathy. Follow with Dr. Fernandez -Clinical dehydration from poor oral intake: Better Ensure one can 3 times a day. 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 She will mass causing severe compression and cord and conus at T12. NSAIDs. IV Solu-Medrol. Dr. Enamorado: As Dr. the family about T9-L3 stabilization with T12 decompression biopsy and separation surgery. Patient high risk for surgery with no absolute contraindications. Spinal surgery today by Dr. Enamorado. -GERD Prilosec -Depression Zoloft -Acute on chronic medical debility from progressive malignancy -Essential hypertension uncontrolled Increase Prinivil 20 mg twice a day, Norvasc -DO NOT RESUSCITATE Patient postop spinal surgery today. Pain control. Other medications to continue. Diet as tolerated. IV fluids.[id number]
[2022-06-04 20:28] LABS: Glucose,Whole Blood 177 mg/dL (70-110)
[2022-06-04] MEDS: CYCLOBENZAPRINE 5 MG TAB PO PRN (23:46)
[2022-06-04] MEDS: HYDROmorphone 1 MG/ML 1 ML SYRINGE IVP PRN (23:46)
[2022-06-05] MEDS: DEXTROSE 5%-0.45% NACL 1,000 ML IV SCH ×5 (03:18→23:12)
[2022-06-05] MEDS: HYDROcodone/APAP 10-325MG 1 EACH TAB PO PRN ×3 (03:26→18:21)
[2022-06-05] MEDS: LEVOTHYROXINE 125 MCG TAB PO SCH (05:46)
[2022-06-05] MEDS: HYDROmorphone 1 MG/ML 1 ML SYRINGE IVP PRN ×3 (05:46→15:23)
[2022-06-05 07:12] LABS: Glucose,Whole Blood 124 mg/dL (70-110)
[2022-06-05] MEDS: SYMBICORT 160-4.5 MCG INHALER INHALATION SCH ×2 (07:19→20:33)
[2022-06-05] MEDS: TIOTROPIUM 2.5 MCG INHALER INHALATION SCH (07:20)
[2022-06-05] MEDS: ALBUTEROL HFA INHALER INHALATION PRN ×3 (07:23→20:33)
[2022-06-05] MEDS: INSULIN ASPART (NovoLOG) 100 UNIT/ML VIAL SQ SCH ×3 (07:34→17:33)
[2022-06-05] MEDS: LACTATED RINGERS 1,000 ML IV SCH (07:34)
[2022-06-05 07:39] LABS: Basophils % (A) 0 %; Eosinophils % (A) 0 %; HCT 38.1 % (34.0-46.0); HGB 12.3 gm/dL (11.4-16.0); Lymphocytes # (A) 0.6 k/uL (1.0-4.8); Lymphocytes % (A) 5 %; MCH 28.5 pg (25.0-35.0); MCHC 32.2 g/dL (31.0-37.0); MCV 88.5 fL (80.0-100.0); Monocytes # (A) 0.5 k/uL (0-1.0); Monocytes % (A) 4 %; Neutrophils # (A) 11.3 k/uL (1.3-7.7); Neutrophils % (A) 90 %; Platelet Count 326 k/uL (150-450); RBC 4.31 m/uL (3.80-5.40); RDW 13.9 % (11.5-15.5); WBC 12.5 k/uL (3.8-10.6)
[2022-06-05 07:53] LABS: African American GFR (CKD) >90 (>60 ml/min/1.73 sqM); Anion Gap 5 mmol/L; Blood Urea Nitrogen 13 mg/dL (7-17); Calcium 7.1 mg/dL (8.4-10.2); Carbon Dioxide 27 mmol/L (22-30); Chloride 105 mmol/L (98-107); Glucose 121 mg/dL (74-99); Non-African American GFR(CKD) >90 (>60 ml/min/1.73 sqM); Potassium 3.5 mmol/L (3.5-5.1); Sodium 137 mmol/L (137-145)
[2022-06-05] MEDS: DEXAMETHASONE SOD PHOSPHATE 10 MG/ML 1 ML VIAL IVP SCH ×3 (09:35→23:09)
[2022-06-05] MEDS: FENOFIBRATE 160 MG TAB PO SCH (09:35)
[2022-06-05] MEDS: amLODIPine 5 MG TAB PO SCH (09:35)
[2022-06-05] MEDS: GABAPENTIN 300 MG CAP PO SCH ×3 (09:35→21:03)
[2022-06-05] MEDS: ENOXAPARIN 40 MG/0.4 ML SYRINGE SQ SCH (09:35)
[2022-06-05] MEDS: PSYLLIUM HUSK 100% 6 GM PACKET PO SCH ×3 (09:37→21:13)
[2022-06-05] MEDS: SERTRALINE 50 MG TAB PO SCH (09:37)
[2022-06-05] MEDS: PANTOPRAZOLE 40 MG TABLET PO SCH ×2 (09:37→21:04)
[2022-06-05] MEDS: lisinopriL 20 MG TAB PO SCH ×2 (09:37→21:04)
[2022-06-05] MEDS: tiZANidine 4 MG TAB PO SCH ×3 (09:38→21:04)
[2022-06-05] MEDS: FLUTICASONE 50MCG/SPRAY NASAL 16GM EA NOSTRIL SCH (09:50)
--- NOTE | 2022-06-05 12:06 | P.PN ---
Subjective Progress Note Date: 06/05/22 Principal diagnosis: T12 metastatic lesion/fracture Patient seen and examined this morning. Patient was just assisted back to bed from sitting at edge of bed by staff. Patient tolerated activity well, increasing pain mid back. Patient does state pain is managed on current reg imen. Patient denies any numbness or tingling to bilateral lower extremities. Surgical dressing does have slight shadowing, dressing will be changed tomorrow. Hemovac is present and patent with 180 mL output overnight. Patient has been afebrile, denies nausea/vomiting, or chest pain. Objective - Vital Signs Vital signs: Vital Signs Temp 99 F 06/05/22 07:03 Pulse 65 06/05/22 07:03 Resp 14 06/05/22 07:03 BP 133/80 06/05/22 07:03 Pulse Ox 95 06/05/22 07:23 FiO2 21 06/03/22 08:29 Intake & Output 06/04/22 06/05/22 06/05/22 18:59 06:59 18:59 Intake Total 1652 200 Output Total 725 400 180 Balance 927 -200 -180 Intake: IV 1652 Oral 200 Output: Drainage 100 180 Back 100 180 Urine 325 400 Estimated Blood Loss 300 Other: Voiding Method Indwelling Catheter Indwelling Catheter Indwelling Catheter - Exam Physical Examination General: The patient is awake and alert, in no acute distress Skin: Skin is warm and dry with no obvious rashes or lesions. Hairy patches absent, no dorsal skin dimples, no cafe au lait spots. Surgical incision to the cervical lumbar region, surgical dressing has slight shadowing, Hemovac intact and patent. Eye: Pupils are equal, round and reactive to light, extra-ocular movements are intact; there is normal conjunctiva bilaterally. Neck: The neck is supple, there is no tenderness and ROM intact. Cardiovascular: There is a regular rate and rhythm. No murmur, rub or gallop is appreciated. Respiratory: Lungs are clear to auscultation, respirations are non-labored, breath sounds are equal. Gastrointestinal: Soft, non-distended, non-tender abdomen. Back: There is no tenderness to palpation in the midline, paralumbar, parathoracic or buttocks region. There is no obvious deformity . Musculoskeletal: ROM limited secondary to pain and stiffness from surgical procedure. Muscle strength in all major muscle groups of bilateral upper extremities 5/5, bilateral lower extremities 4/5. Neurological: CN 2-12 intact. There are no obvious motor or sensory deficits. Movement and coordination equal and intact. Sensory exam to light touch intact C5-T1 and intact from L2-S1. Reflexes 2/4 in bilateral upper and lower extremities. Negative Hoffmans, babinski, and clonus signs. Psychiatric: Cooperative, appropriate mood & affect, normal judgment. - Labs CBC & Chem 7: 06/05/22 06:52 06/05/22 06:52 Labs: Abnormal Lab Results - Last 24 Hours (Table) 06/04/22 06/04/22 06/05/22 Range/Units 16:48 20:14 06:52 WBC 12.5 H (3.8-10.6) k/uL Neutrophils # 11.3 H (1.3-7.7) k/uL Lymphocytes # 0.6 L (1.0-4.8) k/uL Creatinine (0.52-1.04) mg/dL Glucose (74-99) mg/dL POC Glucose (mg/dL) 131 H 177 H (70-110) mg/dL Calcium (8.4-10.2) mg/dL 06/05/22 06/05/22 Range/Units 06:52 07:06 WBC (3.8-10.6) k/uL Neutrophils # (1.3-7.7) k/uL Lymphocytes # (1.0-4.8) k/uL Creatinine 0.51 L (0.52-1.04) mg/dL Glucose 121 H (74-99) mg/dL POC Glucose (mg/dL) 124 H (70-110) mg/dL Calcium 7.1 L (8.4-10.2) mg/dL Assessment and Plan Assessment: Postop day 1: T9-L3 stabilization with decompression metestatic CA T12 lytic expansile lesion with pathological fracture LE weakness Plan: Plan: -Appreciate informatics consultant and team management. -Activity: Ambulate QID, OOB all meals, up and about, limit lifting bending twisting to less than 5 lbs. Use walker or cane if needed for stability. -Daily PT/OT, increase ambulation strength and balance. -Brace when up and about, not needed in bed or chair -Pain control: Adequate at this time -Meds: reviewed -GI ppx: senna, Miralax -DC brooks when up and about, bedside commode if needed -DVT PPX: Lovenox, Plavix to restart one 06/07/2022 -Hygiene: Shower today. Maintain dressing clean and dry. Meticulous cleaning after BMs away from the incision site -Drains: Maintain for now. -Encourage IS 10x/hr -Dispo: We will continue to follow *I reviewed and discussed this case with my attending Dr. Enamorado, whom has reviewed this chart and films and is in agreement with assessment and plan of care as outlined above. I have personally seen and examined the patient, performed the documentation and the assessment and plan as written. Number of minutes spent on the visit: 15m.
[2022-06-05 12:16] LABS: Glucose,Whole Blood 152 mg/dL (70-110)
[2022-06-05 17:09] LABS: Glucose,Whole Blood 138 mg/dL (70-110)
[2022-06-05 20:43] LABS: Glucose,Whole Blood 212 mg/dL (70-110)
[2022-06-05] MEDS: HYDROmorphone 0.5 MG/0.5 ML SYRINGE IVP PRN (21:04)
--- NOTE | 2022-06-05 23:17 | PN ---
PROGRESS NOTE DATE OF SERVICE: 06/05/2022 SUBJECTIVE: This is a 66-year-old woman, who was admitted after spinal surgery, is still complaining of some back pain. The patient has a large neuroendocrine tumor of the lung. No fever. No cough. OBJECTIVE: VITAL SIGNS: Pulse is 58, blood pressure 101/58, respirations 13. CHEST: Few scattered rhonchi. CARDIOVASCULAR: S1 and S2. ABDOMEN: Soft. NERVOUS SYSTEM: Diffusely weak. LABORATORY DATA: Reviewed. ASSESSMENT: 1. Status post spinal surgery. 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 3. Dehydration. 4. Chronic obstructive pulmonary disease. 5. Hypothyroidism. 6. Metastatic bone pain. RECOMMENDATION AND DISCUSSION: recommend to continue current medications, symptomatic treatment. Otherwise at this time, I would recommend to continue the current medications, continue with monitoring. The prognosis guarded. Further recommendations to follow. Symptomatic treatment will be provided. MMODL / PARISN: [id number] / MTDD
[2022-06-06] MEDS: HYDROmorphone 0.5 MG/0.5 ML SYRINGE IVP PRN ×2 (02:48→06:48)
[2022-06-06] MEDS: LEVOTHYROXINE 125 MCG TAB PO SCH (05:30)
[2022-06-06] MEDS: HYDROcodone/APAP 10-325MG 1 EACH TAB PO PRN ×5 (05:31→23:42)
[2022-06-06 07:09] LABS: Glucose,Whole Blood 136 mg/dL (70-110)
[2022-06-06] MEDS: INSULIN ASPART (NovoLOG) 100 UNIT/ML VIAL SQ SCH ×3 (07:15→17:32)
[2022-06-06] MEDS: FENOFIBRATE 160 MG TAB PO SCH (07:27)
[2022-06-06] MEDS: lisinopriL 20 MG TAB PO SCH ×2 (07:27→21:18)
[2022-06-06] MEDS: PSYLLIUM HUSK 100% 6 GM PACKET PO SCH ×2 (07:27→21:17)
[2022-06-06] MEDS: GABAPENTIN 300 MG CAP PO SCH ×3 (07:27→21:18)
[2022-06-06] MEDS: SERTRALINE 50 MG TAB PO SCH (07:27)
[2022-06-06] MEDS: amLODIPine 5 MG TAB PO SCH (07:27)
[2022-06-06] MEDS: ENOXAPARIN 40 MG/0.4 ML SYRINGE SQ SCH (07:28)
[2022-06-06] MEDS: PANTOPRAZOLE 40 MG TABLET PO SCH ×2 (07:28→21:18)
[2022-06-06] MEDS: tiZANidine 4 MG TAB PO SCH ×3 (07:28→21:18)
[2022-06-06] MEDS: ALBUTEROL HFA INHALER INHALATION PRN ×2 (07:31→19:03)
[2022-06-06] MEDS: TIOTROPIUM 2.5 MCG INHALER INHALATION SCH (07:31)
[2022-06-06] MEDS: SYMBICORT 160-4.5 MCG INHALER INHALATION SCH ×2 (07:32→19:03)
--- NOTE | 2022-06-06 07:48 | P.PN ---
Subjective Progress Note Date: 06/06/22 Principal diagnosis: T12 metastatic lesion/fracture Patient seen and examined this morning. Patient resting in bed. She currently has c/o nausea. Staff notified. She also reports she feels her pain is not managed at this time. Medications will be adjusted. Patient denies any numbness or tingling to bilateral lower extremities. Surgical dressing does have slight shadowing, dressing will be changed today. Hemovac is present and patent with 120 mL output overnight. Patient has been afebrile, denies nausea/vomiting, or chest pain. Objective - Vital Signs Vital signs: Vital Signs Temp 98.4 F 06/06/22 02:04 Pulse 64 06/06/22 02:04 Resp 18 06/06/22 02:04 BP 118/68 06/06/22 02:04 Pulse Ox 96 06/06/22 07:32 FiO2 21 06/03/22 08:29 Intake & Output 06/05/22 06/06/22 06/06/22 18:59 06:59 18:59 Intake Total 1630 500 Output Total 930 800 Balance 700 -300 Intake: Intake, IV Titration 1450 Amount Dextrose 5%-0.45% NaCl 1, 1350 000 ml @ 125 mls/hr IV . Q8H SHIRA Rx#:[id number] ceFAZolin 2 gm In Sodium 100 Chloride 0.9% 50 ml @ 100 mls/hr IVPB Q8HR SHIRA Rx# :[id number] Oral 180 500 Output: Drainage 280 Back 280 Urine 650 800 Other: Voiding Method Indwelling Catheter Indwelling Catheter # Bowel Movements 1 - Exam Physical Examination General: The patient is awake and alert, in no acute distress Skin: Skin is warm and dry with no obvious rashes or lesions. Hairy patches absent, no dorsal skin dimples, no cafe au lait spots. Surgical incision to the cervical lumbar region, surgical dressing has slight shadowing, Hemovac intact and patent. Eye: Pupils are equal, round and reactive to light, extra-ocular movements are intact; there is normal conjunctiva bilaterally. Neck: The neck is supple, there is no tenderness and ROM intact. Cardiovascular: There is a regular rate and rhythm. No murmur, rub or gallop is appreciated. Respiratory: Lungs are clear to auscultation, respirations are non-labored, breath sounds are equal. Gastrointestinal: Soft, non-distended, non-tender abdomen. Back: There is no tenderness to palpation in the midline, paralumbar, parathoracic or buttocks region. There is no obvious deformity . Musculoskeletal: ROM limited secondary to pain and stiffness from surgical procedure. Muscle strength in all major muscle groups of bilateral upper extremities 5/5, bilateral lower extremities 4/5. Neurological: CN 2-12 intact. There are no obvious motor or sensory deficits. Movement and coordination equal and intact. Sensory exam to light touch intact C5-T1 and intact from L2-S1. Reflexes 2/4 in bilateral upper and lower e xtremities. Negative Hoffmans, babinski, and clonus signs. Psychiatric: Cooperative, appropriate mood & affect, normal judgment. - Labs CBC & Chem 7: 06/05/22 06:52 06/05/22 06:52 Labs: Abnormal Lab Results - Last 24 Hours (Table) 06/05/22 06/05/22 06/05/22 Range/Units 06:52 12:08 17:07 Creatinine 0.51 L (0.52-1.04) mg/dL Glucose 121 H (74-99) mg/dL POC Glucose (mg/dL) 152 H 138 H (70-110) mg/dL Calcium 7.1 L (8.4-10.2) mg/dL 06/05/22 06/06/22 Range/Units 20:30 07:07 Creatinine (0.52-1.04) mg/dL Glucose (74-99) mg/dL POC Glucose (mg/dL) 212 H 136 H (70-110) mg/dL Calcium (8.4-10.2) mg/dL Assessment and Plan Assessment: Postop day 2: T9-L3 stabilization with decompression metestatic CA T12 lytic expansile lesion with pathological fracture LE weakness Plan: Plan: -Appreciate vocational rehabilitation consultant and team management. -Activity: Ambulate QID, OOB all meals, up and about, limit lifting bending twisting to less than 5 lbs. Use walker or cane if needed for stability. -Daily PT/OT, increase ambulation strength and balance. -Brace when up and about, not needed in bed or chair -Pain control: Adequate at this time -Meds: reviewed -GI ppx: senna, Miralax -DC brooks when up and about, bedside commode if needed -DVT PPX: Lovenox, Plavix to restart one 06/07/2022 -Hygiene: Shower today. Maintain dressing clean and dry. Meticulous cleaning after BMs away from the incision site -Drains: Maintain for now. -Encourage IS 10x/hr -Dispo: We will continue to follow *I reviewed and discussed this case with my attending Dr. Enamorado, whom has reviewed this chart and films and is in agreement with assessment and plan of care as outlined above. I have personally seen and examined the patient, performed the documentation and the assessment and plan as written. Number of minutes spent on the visit: 15m.
[2022-06-06] MEDS: LACTATED RINGERS 1,000 ML IV SCH (08:09)
[2022-06-06] MEDS: DEXAMETHASONE SOD PHOSPHATE 10 MG/ML 1 ML VIAL IVP SCH ×3 (08:19→23:42)
[2022-06-06] MEDS: FLUTICASONE 50MCG/SPRAY NASAL 16GM EA NOSTRIL SCH (08:21)
[2022-06-06] MEDS: DEXTROSE 5%-0.45% NACL 1,000 ML IV SCH ×2 (08:21→21:17)
[2022-06-06] MEDS ORDERED: HYDROcodone/APAP 5-325MG 1 EACH TAB PO PRN (08:46)
[2022-06-06] MEDS ORDERED: HYDROcodone/APAP 10-325MG 1 EACH TAB PO PRN (08:47)
[2022-06-06 09:51] LABS: Basophils % (A) 0 %; Eosinophils # (A) 0.1 k/uL (0-0.7); Eosinophils % (A) 1 %; HCT 33.6 % (34.0-46.0); HGB 10.5 gm/dL (11.4-16.0); Lymphocytes # (A) 0.4 k/uL (1.0-4.8); Lymphocytes % (A) 4 %; MCH 28.3 pg (25.0-35.0); MCHC 31.3 g/dL (31.0-37.0); MCV 90.5 fL (80.0-100.0); Mean Platelet Volume 7.1; Monocytes # (A) 0.3 k/uL (0-1.0); Monocytes % (A) 3 %; Neutrophils # (A) 8.6 k/uL (1.3-7.7); Neutrophils % (A) 91 %; Platelet Count 208 k/uL (150-450); RBC 3.71 m/uL (3.80-5.40); RDW 13.4 % (11.5-15.5); WBC 9.4 k/uL (3.8-10.6)
[2022-06-06] MEDS: HYDROmorphone 1 MG/ML 1 ML SYRINGE IVP PRN ×2 (10:09→21:18)
[2022-06-06 10:16] LABS: ALT 17 U/L (4-34); AST 53 U/L (14-36); African American GFR (CKD) >90 (>60 ml/min/1.73 sqM); Albumin 2.9 g/dL (3.5-5.0); Albumin/Globulin Ratio 1.2; Alkaline Phosphatase 65 U/L (38-126); Anion Gap 5 mmol/L; Blood Urea Nitrogen 13 mg/dL (7-17); Calcium 6.5 mg/dL (8.4-10.2); Carbon Dioxide 23 mmol/L (22-30); Chloride 107 mmol/L (98-107); Globulin 2.5 g/dL; Glucose 222 mg/dL (74-99); Non-African American GFR(CKD) >90 (>60 ml/min/1.73 sqM); Potassium 3.2 mmol/L (3.5-5.1); Sodium 135 mmol/L (137-145); Total Bilirubin 0.5 mg/dL (0.2-1.3); Total Protein 5.4 g/dL (6.3-8.2)
[2022-06-06 11:38] LABS: Glucose,Whole Blood 157 mg/dL (70-110)
--- NOTE | 2022-06-06 12:54 | P.PN ---
Subjective Progress Note Date: 06/06/22 -She is currently postoperative day 2 from T9-L3 stabilization with decompression -No acute events overnight -Notes having increased back discomfort during my examination -She also has pain at the bilateral hips, which she has had prior to admission Objective - Vital Signs Vital signs: Vital Signs Temp 98 F 06/06/22 12:12 Pulse 61 06/06/22 12:12 Resp 16 06/06/22 12:12 BP 112/66 06/06/22 12:12 Pulse Ox 91 L 06/06/22 12:12 FiO2 21 06/03/22 08:29 Intake & Output 06/05/22 06/06/22 06/06/22 18:59 06:59 18:59 Intake Total 1630 500 Output Total 930 800 Balance 700 -300 Intake: Intake, IV Titration 1450 Amount Dextrose 5%-0.45% NaCl 1, 1350 000 ml @ 125 mls/hr IV . Q8H SHIRA Rx#:[id number] ceFAZolin 2 gm In Sodium 100 Chloride 0.9% 50 ml @ 100 mls/hr IVPB Q8HR SI[facility]RA Rx# :[id number] Oral 180 500 Output: Drainage 280 Back 280 Urine 650 800 Other: Voiding Method Indwelling Catheter Indwelling Catheter Indwelling Catheter # Bowel Movements 1 - Constitutional General appearance: Present: mild distress - EENT Eyes: Present: EOMI - Respiratory Details: No labored breathing or accessory muscle use - Cardiovascular Rhythm: regular - Gastrointestinal General gastrointestinal: Present: soft. Absent: distended - Integumentary Integumentary: Absent: rash - Neurologic Neurologic: Present: CNII-XII intact - Labs CBC & Chem 7: 06/06/22 09:39 06/06/22 09:39 Labs: Abnormal Lab Results - Last 24 Hours (Table) 06/05/22 06/05/22 06/06/22 Range/Units 17:07 20:30 07:07 RBC (3.80-5.40) m/uL Hgb (11.4-16.0) gm/dL Hct (34.0-46.0) % Neutrophils # (1.3-7.7) k/uL Lymphocytes # (1.0-4.8) k/uL Sodium (137-145) mmol/L Potassium (3.5-5.1) mmol/L Creatinine (0.52-1.04) mg/dL Glucose (74-99) mg/dL POC Glucose (mg/dL) 138 H 212 H 136 H (70-110) mg/dL Calcium (8.4-10.2) mg/dL AST (14-36) U/L Total Protein (6.3-8.2) g/dL Albumin (3.5-5.0) g/dL 06/06/22 06/06/22 06/06/22 Range/Units 09:39 09:39 11:37 RBC 3.71 L (3.80-5.40) m/uL Hgb 10.5 L (11.4-16.0) gm/dL Hct 33.6 L (34.0-46.0) % Neutrophils # 8.6 H (1.3-7.7) k/uL Lymphocytes # 0.4 L (1.0-4.8) k/uL Sodium 135 L (137-145) mmol/L Potassium 3.2 L (3.5-5.1) mmol/L Creatinine 0.51 L (0.52-1.04) mg/dL Glucose 222 H (74-99) mg/dL POC Glucose (mg/dL) 157 H (70-110) mg/dL Calcium 6.5 L (8.4-10.2) mg/dL AST 53 H (14-36) U/L Total Protein 5.4 L (6.3-8.2) g/dL Albumin 2.9 L (3.5-5.0) g/dL Assessment and Plan (1) Metastatic primary lung cancer Current Visit: Yes Status: Acute Code(s): C34.90 - MALIGNANT NEOPLASM OF UNSP PART OF UNSP BRONCHUS OR LUNG SNOMED Code(s): 50511390 Plan: #Metastatic non-small cell lung cancer -Initially had resection of stage I neuroendocrine carcinoma in February 2021 -She was evaluated at [facility] and no adjuvant chemotherapy was recommended at that time -She was found to have recurrent mediastinal disease on CT scan on 11/06/2021 -She completed concurrent carboplatin/paclitaxel with radiation therapy from 12/21/2021 through 01/25/2022 -Posttreatment CT abdomen/pelvis revealed no evidence of disease progression -She received 3 cycles of consolidative durvalumab from 03/03/2022 through 04/27/2022 -Imaging on admission noted T12 vertebral body metastasis with compression fracture along with gastrohepatic, shimon hepatis, and anterior peripancreatic lymphadenopathy concerning for disease progression -She is currently status post day 2 of T9-L3 stabilization with decompression -Follow-up on final pathology from T12 vertebral body -Pathology can be sent for NGS and PD-L1 testing -Guardant 360 testing can be obtained outpatient -Once she is recovered from surgery, brain MRI will be needed to complete staging -Defer to orthopedic team with regards to postoperative pain management, appreciate their assistance
[2022-06-06] MEDS: LORazepam 0.5 MG TAB PO PRN (13:46)
[2022-06-06] MEDS ORDERED: Potassium Replacement Protocol 1 EACH MISC MISCELLANE PRN (15:40)
[2022-06-06] MEDS: POTASSIUM CHLORIDE ER 20 MEQ TAB.ER PO SCH ×2 (16:00→17:37)
[2022-06-06 17:13] LABS: Glucose,Whole Blood 138 mg/dL (70-110)
[2022-06-06 20:46] LABS: Glucose,Whole Blood 173 mg/dL (70-110)
[2022-06-06] MEDS ORDERED: POTASSIUM CHLORIDE ER 20 MEQ TAB.ER PO SCH (21:00)
[2022-06-06] MEDS: MOUNJARO 2.5 MG SQ SCH (21:27)
[2022-06-07] MEDS: LACTATED RINGERS 1,000 ML IV SCH (01:28)
[2022-06-07] MEDS: DEXTROSE 5%-0.45% NACL 1,000 ML IV SCH ×2 (05:12→13:42)
[2022-06-07] MEDS: LEVOTHYROXINE 125 MCG TAB PO SCH (05:12)
[2022-06-07] MEDS: HYDROmorphone 1 MG/ML 1 ML SYRINGE IVP PRN (05:13)
[2022-06-07 07:17] LABS: Glucose,Whole Blood 124 mg/dL (70-110)
[2022-06-07] MEDS: INSULIN ASPART (NovoLOG) 100 UNIT/ML VIAL SQ SCH ×3 (07:50→18:04)
[2022-06-07] MEDS: SYMBICORT 160-4.5 MCG INHALER INHALATION SCH ×2 (08:08→19:38)
[2022-06-07] MEDS: ALBUTEROL HFA INHALER INHALATION PRN ×4 (08:08→19:38)
[2022-06-07] MEDS: TIOTROPIUM 2.5 MCG INHALER INHALATION SCH (08:08)
--- NOTE | 2022-06-07 08:16 | PN ---
PROGRESS NOTE DATE OF SERVICE: 06/06/2022 SUBJECTIVE: This is a 66-year-old woman who was admitted after spinal surgery, also had a large cell neuroendocrine carcinoma of the lung. The patient will be closely monitored for multiple concerns. No chest pain. No palpitations. No fever. OBJECTIVE: VITAL SIGNS: Pulse 61, blood pressure 112/60, respirations 16. CHEST: Clear to auscultation. CARDIOVASCULAR: S1, S2. ABDOMEN: Soft. NERVOUS SYSTEM: No focal deficits. LABORATORY DATA: Reviewed. Potassium 3.2. ASSESSMENT: 1. Status post spinal surgery. 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 3. Dehydration. 4. Chronic obstructive pulmonary disease. 5. Hypothyroidism. 6. Metastatic bone pain. RECOMMENDATIONS AND DISCUSSION: Recommend to continue current management and symptomatic treatment. Otherwise, I would recommend repeat labs in the morning. Potassium supplementation. Closely follow with Hematology, Oncology, and Surgery. Further recommendations to follow. MMODL / IJN: [id number] /
--- NOTE | 2022-06-07 09:21 | P.PN ---
Subjective Progress Note Date: 06/07/22 Principal diagnosis: T12 metastatic lesion/fracture Patient seen and examined this morning. Patient resting in bed on her left side. She states her pain is managed on current regimen. Patient denies any numbness or tingling to bilateral lower extremities. Surgical dressing has been changed this morning. Hemovac has been discontinued. Surgical incision is well approximated, nhi are intact. Brooks catheter remains present, this can be removed this morning. Patient has been afebrile, denies nausea/vomiting, or chest pain. Objective - Vital Signs Vital signs: Vital Signs Temp 98.1 F 06/07/22 02:03 Pulse 62 06/07/22 02:03 Resp 18 06/07/22 02:03 BP 153/75 06/07/22 02:03 Pulse Ox 94 L 06/07/22 02:03 FiO2 21 06/03/22 08:29 Intake & Output 06/06/22 06/07/22 06/07/22 18:59 06:59 18:59 Intake Total 300 Output Total 240 710 Balance -240 -410 Intake: Oral 300 Output: Drainage 240 10 Back 240 10 Urine 700 Other: Voiding Method Indwelling Catheter Indwelling Catheter - Exam Physical Examination General: The patient is awake and alert, in no acute distress Skin: Skin is warm and dry with no obvious rashes or lesions. Hairy patches absent, no dorsal skin dimples, no cafe au lait spots. Surgical incision to the cervical lumbar region, surgical dressing has been changed this morning 06/07/22. Hemovac discontinued. Eye: Pupils are equal, round and reactive to light, extra-ocular movements are intact; there is normal conjunctiva bilaterally. Neck: The neck is supple, there is no tenderness and ROM intact. Cardiovascular: There is a regular rate and rhythm. No murmur, rub or gallop is appreciated. Respiratory: Lungs are clear to auscultation, respirations are non-labored, breath sounds are equal. Gastrointestinal: Soft, non-distended, non-tender abdomen. Back: There is no tenderness to palpation in the midline, paralumbar, parathoracic or buttocks region. There is no obvious deformity . Musculoskeletal: ROM limited secondary to pain and stiffness from surgical procedure. Muscle strength in all major muscle groups of bilateral upper extremities 5/5, bilateral lower extremities 4/5. Neurological: CN 2-12 intact. There are no obvious motor or sensory deficits. Movement and coordination equal and intact. Sensory exam to light touch intact C5-T1 and intact from L2-S1. Reflexes 2/4 in bilateral upper and lower extremities. Negative Hoffmans, babinski, and clonus signs. Psychiatric: Cooperative, appropriate mood & affect, normal judgment. - Labs CBC & Chem 7: 06/06/22 09:39 06/06/22 19:27 Labs: Abnormal Lab Results - Last 24 Hours (Table) 06/06/22 06/06/22 06/06/22 Range/Units 09:39 09:39 11:37 RBC 3.71 L (3.80-5.40) m/uL Hgb 10.5 L (11.4-16.0) gm/dL Hct 33.6 L (34.0-46.0) % Neutrophils # 8.6 H (1.3-7.7) k/uL Lymphocytes # 0.4 L (1.0-4.8) k/uL Sodium 135 L (137-145) mmol/L Potassium 3.2 L (3.5-5.1) mmol/L Creatinine 0.51 L (0.52-1.04) mg/dL Glucose 222 H (74-99) mg/dL POC Glucose (mg/dL) 157 H (70-110) mg/dL Calcium 6.5 L (8.4-10.2) mg/dL AST 53 H (14-36) U/L Total Protein 5.4 L (6.3-8.2) g/dL Albumin 2.9 L (3.5-5.0) g/dL 06/06/22 06/06/22 06/07/22 Range/Units 17:11 20:29 07:15 RBC (3.80-5.40) m/uL Hgb (11.4-16.0) gm/dL Hct (34.0-46.0) % Neutrophils # (1.3-7.7) k/uL Lymphocytes # (1.0-4.8) k/uL Sodium (137-145) mmol/L Potassium (3.5-5.1) mmol/L Creatinine (0.52-1.04) mg/dL Glucose (74-99) mg/dL POC Glucose (mg/dL) 138 H 173 H 124 H (70-110) mg/dL Calcium (8.4-10.2) mg/dL AST (14-36) U/L Total Protein (6.3-8.2) g/dL Albumin (3.5-5.0) g/dL Assessment and Plan Assessment: Postop day 3: T9-L3 stabilization with decompression metestatic CA T12 lytic expansile lesion with pathological fracture LE weakness Plan: Plan: -Appreciate mobile sales consultant and team management. -Activity: Ambulate QID, OOB all meals, up and about, limit lifting bending twisting to less than 5 lbs. Use walker or cane if needed for stability. -Daily PT/OT, increase ambulation strength and balance. -Brace when up and about, not needed in bed or chair -Pain control: Adequate at this time -Meds: reviewed -GI ppx: senna, Miralax -DC brooks -DVT PPX: Lovenox, Plavix -Hygiene: Shower today. Maintain dressing clean and dry. Meticulous cleaning after BMs away from the incision site -Drains: Maintain for now. -Encourage IS 10x/hr -Dispo: Patient is cleared from orthopedic standpoint for discharge. Patient will follow up in office in 2 weeks. Our services will be signing off at this time, please feel free to reach out with any questions or concerns. *I reviewed and discussed this case with my attending Dr. Enamorado, whom has reviewed this chart and films and is in agreement with assessment and plan of care as outlined above. I have personally seen and examined the patient, performed the documentation and the assessment and plan as written. Number of minutes spent on the visit: 15m.
[2022-06-07] MEDS: HYDROcodone/APAP 10-325MG 1 EACH TAB PO PRN ×3 (09:52→21:02)
[2022-06-07] MEDS: ENOXAPARIN 40 MG/0.4 ML SYRINGE SQ SCH (09:53)
[2022-06-07] MEDS: PSYLLIUM HUSK 100% 6 GM PACKET PO SCH (09:53)
[2022-06-07] MEDS: SERTRALINE 50 MG TAB PO SCH (09:53)
[2022-06-07] MEDS: amLODIPine 5 MG TAB PO SCH (09:54)
[2022-06-07] MEDS: tiZANidine 4 MG TAB PO SCH ×3 (09:54→21:02)
[2022-06-07] MEDS: DEXAMETHASONE SOD PHOSPHATE 10 MG/ML 1 ML VIAL IVP SCH ×3 (09:54→23:36)
[2022-06-07] MEDS: FENOFIBRATE 160 MG TAB PO SCH (09:54)
[2022-06-07] MEDS: PANTOPRAZOLE 40 MG TABLET PO SCH ×2 (09:54→21:02)
[2022-06-07] MEDS: lisinopriL 20 MG TAB PO SCH ×2 (09:54→21:02)
[2022-06-07] MEDS: CLOPIDOGREL 75 MG TAB PO SCH (09:54)
[2022-06-07] MEDS: GABAPENTIN 300 MG CAP PO SCH ×3 (09:54→21:02)
[2022-06-07] MEDS: FLUTICASONE 50MCG/SPRAY NASAL 16GM EA NOSTRIL SCH (09:56)
[2022-06-07 10:39] LABS: Basophils # (A) 0 X 10*3/uL (0.00-0.10); Basophils % (A) 0 %; Eosinophils # (A) 0 X 10*3/uL (0.04-0.35); Eosinophils % (A) 0 %; HCT 34.3 % (37.2-46.3); HGB 10.6 g/dL (12.0-15.0); Immature Grans, Automated 0.7 %; Lymphocytes # (A) 0.61 X 10*3/uL (0.90-5.00); Lymphocytes % (A) 6.4 %; MCH 28.2 pg (27.0-32.0); MCHC 30.9 g/dL (32.0-37.0); MCV 91.2 fL (80.0-97.0); Monocytes # (A) 0.44 X 10*3/uL (0.20-1.00); Monocytes % (A) 4.7 %; NRBC Per 100 WBC 0 /100 WBCS (0.0-0.0); Neutrophils # (A) 8.34 X 10*3/uL (1.80-7.70); Neutrophils % (A) 88.2 %; Platelet Count 214 X 10*3/uL (140-440); RBC 3.76 X 10*6/uL (4.10-5.20); RDW 13.2 % (11.5-14.5); WBC 9.46 X 10*3/uL (4.50-10.00)
[2022-06-07 10:51] LABS: African American GFR (CKD) 125.8 (60.0-200.0); Albumin 3.2 g/dL (3.8-4.9); Albumin/Globulin Ratio 1.45 (1.60-3.17); Anion Gap 9.6 mmol/L (10.00-18.00); Blood Urea Nitrogen 10.4 mg/dL (9.0-27.0); Calcium 7.4 mg/dL (8.7-10.3); Carbon Dioxide 24.4 mmol/L (20.0-27.5); Globulin 2.2 g/dL (1.6-3.3); Non-African American GFR(CKD) 108.5 (60.0-200.0); Potassium 4.3 mmol/L (3.5-5.5); Total Bilirubin 0.4 mg/dL (0.30-1.20); Total Protein 5.4 g/dL (6.2-8.2)
[2022-06-07 12:10] LABS: Glucose,Whole Blood 133 mg/dL (70-110)
[2022-06-07 17:27] LABS: Glucose,Whole Blood 140 mg/dL (70-110)
[2022-06-07 20:05] LABS: Glucose,Whole Blood 202 mg/dL (70-110)
[2022-06-08] MEDS: HYDROcodone/APAP 10-325MG 1 EACH TAB PO PRN ×3 (02:31→10:27)
[2022-06-08] MEDS: LACTATED RINGERS 1,000 ML IV SCH (02:31)
[2022-06-08] MEDS: CYCLOBENZAPRINE 5 MG TAB PO PRN (03:07)
--- NOTE | 2022-06-08 03:44 | P.PN ---
Subjective Progress Note Date: 06/07/22 Chief Complaint: Weak tired This is a pleasant 66-year-old patient was family doctor is out of the area . She follows locally with her oncologist Dr. Fernandez. Patient was diagnosed with lung cancer around October 2020. Patient has received several rounds of chemotherapy and radiation treatment. As of her last visit she would hold things are coming along fine. But for last few weeks patient is being having decreased appetite. Increasing weight loss. Abdominal pain. Has normally 5-7 bowel movements loose every day. Last chemotherapy was about a month ago. Finding it difficult to get about. Patient is accompanied by her in the room, her daughters on the phone and a sister at the bedside. No fever no chills. Patient was told earlier today by Dr. Fernandez that other alternative treatments will be looked into. Because of her back pain. She doesn't finding it difficult to get up. May 29: Patient completed thoracolumbar spine MRI today. Does show lytic lesions. Continues to have back pain. On IV Solu-Medrol and NSAIDs. Having some liquid stools. Tolerated some full liquids. Discussed with patient several family members at the bedside. Increase Metamucil to twice a day May 30: Started morphine sulfate oral 5 mg every 4 when necessary for pain. Patient diary is better with Metamucil. Up to 2 bowel movements the last 24 hours. Diet is being changed to ground diet. Discussed with the daughter the bedside. Etc. for a few minutes at the site of the bed. Patient is seen by Dr. Enamorado from orthopedics. May 31: Patient is actually 3 BMs since yesterday. Metamucil working. Morphine dose adjusted by oncology. Discussed with family at the bedside.. Dr. Enamorado spoke to the family about surgical intervention to the metastatic spine. Patient eating about 25%. Because of patient's comorbidities and poor function status patient is high risk for surgery with no absolute contra indications to proceed for surgery. We'll consult cardiology-for perioperative cardiovascular risk management. June 01: Seen by me this morning. Was awaiting surgery. Family at the bedside. Was pending cardiac clearance June 02: Spinal surgery postponed through Tuesday because of getting blood tenderness. Family is at bedside. Pain better controlled. Having about 3 BMs a day. Tolerating some diet.. June 03: Sitting edge of bed. Tolerating diet. BM controlled. Pain control. Scheduled for surgery tomorrow. Nothing by mouth after midnight. June 04: Patient underwent spinal surgery by Dr. Enamorado today. Family at the bedside. Postoperative pain present. Awake. 06/07/2022 Patient seen and evaluated and follow-up sitting up at the site of the bed with orthopedics following and has cleared the patient is stable for discharge to outpatient follow-up. Patient underwent T9 to L3 stabilization with decompression for any noted T12 fracture. Brace was ordered and pending. Family at the bedside reporting she was receiving stool softeners and now is having loose stools will order C. diff. Patient has been maintained on antibiotics during hospitalization. Patient also found to have a UTI with E. coli maintained on cefazolin. Patient also was continued on IV dexamethasone and discuss with oncology and will taper. Plan is for returning home with family and wants becoming more stable resuming chemotherapy as patient has non- small cell lung carcinoma. Patient currently afebrile denies nausea or vomiting reporting abdominal pain is improved. Patient had Jeong removed and reports his voiding. Patient is having bowel movements. Encouraged to increase activity as tolerated and recommend limiting IV narcotic use. Review of systems: Constitutional: No reports of fatigue, fever, or chills Cardiovascular: No reports of chest pain or palpitations Respiratory: No reports of shortness of breath or cough GI: No reports of nausea, vomiting, or diarrhea : No reports of dysuria or retention Neurovascular: No reports of weakness or numbness, reports some back discomfort currently managed All medications have been reviewed Physical examination: GENERAL: Sitting up at the side of the bed EYES: Pupils equal. Conjunctiva pale. HEENT: External appearance of nose and ears normal, oral cavity grossly normal. NECK: JVD not raised; masses not palpable. HEART: First and second heart sounds are normal; no edema. LUNGS: Respiratory rate normal; decreased breath sounds. ABDOMEN: Soft, nontender obese,, no guarding rigidity, bowel sounds noted, no masses palpable. 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 followed by Dr. fernandez. Has received chemo and radiation treatment. Of late patient been having progressive worsening systemic symptoms including weight loss loss of appetite. Increasing generalized pain including bone and abdominal pain. Computed tomography scan is showing extensive metastatic disease. - intra-abdominal lymphadenopathy. -Clinical dehydration from poor oral intake: Improved -COPD in a previous smoker, not in exacerbation -Hypothyroid -Metastatic bone pain at thoracolumbar spine: T12 erosive metastatic lesion with pathological fracture through T12. There is a mass causing severe compression and cord and conus at T12. -Status post T9-L3 stabilization with T12 decompression intervention with biopsy -GERD -Depression -Acute on chronic medical debility from progressive malignancy -Essential hypertension uncontrolled -DO NOT RESUSCITATE Plan: Recommend continue current medications and management with orthopedics following Patient is status post T9 to L3 decompression and biopsy reports to follow will follow-up outpatient Oncology following and patient has follow-up appointments. Discussed IV dexamethasone and will add taper to discharge planning Patient is tolerating diet reporting passing gas and having bowel movements. Patient was on bowel regimen and is now having loose stools will order C. diff to rule out as patient has been maintained on antibiotics and if negative will add some Imodium. Recommend making stool softeners as needed Recommend limiting IV narcotic use and transitioned oral for better pain management and discharge planning Plan is to go home with family for support and working on discharge planning in the next 24-48 hours Encouraged increased activity as tolerated and brace is ordered per orthopedics The impression and plan of care has been dictated by Alba Schofield, nurse practitioner as directed. Dr. Aquiles MD I have performed a history and examination and MDM of this patient, discussed the same with the dictator, and agree with the dictator's assessment and plan as written ,documented as a scribe. Based on total visit time, I have performed more than 50% of the visit. Any additional findings or plans will be noted. Objective - Vital Signs Vital signs: Vital Signs Temp 98 F 06/07/22 08:00 Pulse 82 06/07/22 08:00 Resp 18 06/07/22 08:00 BP 144/73 06/07/22 08:00 Pulse Ox 98 06/07/22 08:00 FiO2 21 06/03/22 08:29 Intake & Output 06/06/22 06/07/22 06/07/22 18:59 06:59 18:59 Intake Total 300 Output Total 240 710 Balance -240 -410 Intake: Oral 300 Output: Drainage 240 10 Back 240 10 Urine 700 Other: Voiding Method Indwelling Catheter Indwelling Catheter - Labs CBC & Chem 7: 06/07/22 05:26 06/07/22 05:26 Labs: Abnormal Lab Results - Last 24 Hours (Table) 06/06/22 06/06/22 06/06/22 Range/Units 09:39 11:37 17:11 Sodium 135 L (137-145) mmol/L Potassium 3.2 L (3.5-5.1) mmol/L Creatinine 0.51 L (0.52-1.04) mg/dL Glucose 222 H (74-99) mg/dL POC Glucose (mg/dL) 157 H 138 H (70-110) mg/dL Calcium 6.5 L (8.4-10.2) mg/dL AST 53 H (14-36) U/L Total Protein 5.4 L (6.3-8.2) g/dL Albumin 2.9 L (3.5-5.0) g/dL 06/06/22 06/07/22 Range/Units 20:29 07:15 Sodium (137-145) mmol/L Potassium (3.5-5.1) mmol/L Creatinine (0.52-1.04) mg/dL Glucose (74-99) mg/dL POC Glucose (mg/dL) 173 H 124 H (70-110) mg/dL Calcium (8.4-10.2) mg/dL AST (14-36) U/L Total Protein (6.3-8.2) g/dL Albumin (3.5-5.0) g/dL
[2022-06-08] MEDS: MORPHINE SULFATE 4 MG/ML SYRINGE IVP PRN (04:51)
[2022-06-08] MEDS: LEVOTHYROXINE 125 MCG TAB PO SCH (06:04)
[2022-06-08 06:59] LABS: Glucose,Whole Blood 124 mg/dL (70-110)
[2022-06-08] MEDS: ALBUTEROL HFA INHALER INHALATION PRN ×2 (07:16→15:16)
[2022-06-08] MEDS: TIOTROPIUM 2.5 MCG INHALER INHALATION SCH (07:16)
[2022-06-08] MEDS: SYMBICORT 160-4.5 MCG INHALER INHALATION SCH (07:16)
--- NOTE | 2022-06-08 07:20 | P.OP ---
Date of Procedure: 06/04/22 Preoperative Diagnosis: 1. T12 metastatic lesion with pathological fracture 2. Metastatic breast CA 3. Mechanical back pain 4. LE weakness Postoperative Diagnosis: 1. T12 metastatic lesion with pathological fracture 2. Metastatic breast CA 3. Mechanical back pain 4. LE weakness Procedure(s) Performed: 1. T12 pedicle subtraction with tumor biopsy and debulking (49460) 2. T9-L3 stabilized posteriolateral fusion (34233, 35007, 86312x8) 3. Segmental instrumentation T9-L3 (13321) 4. Bilateral laminectomy complete facetectomy and foraminotomy T11-L1 (62113, 32387) 5. T12 kyphoplasty with biopsy and Tumor ablation T12 using Shira ablation (50894, 68982) 6. Use of Shira intraoperative navigation for screw placement (76086) use of IONM Implants: -Shira everest screw and jian system -Allocel -Allograft -MagnatOs -[place] Cement Anesthesia: GETA Surgeon: Jonathan Enamorado School Treasurer #1: Levi Robb (Was present and assisted with all aspects of the case from positioning to dressing placement) Estimated Blood Loss (ml): 300 IV fluids (ml): 2,000 Pathology: other Condition: stable Disposition: PACU Indications for Procedure: Molly Whitfield is a 66 yo female presenting for evaluation of low back pain, recent ffs, severe pain when up and about, hx of Lung CA with LE weakness. It was my pleasure to have seen and examined Molly Whitfield . In our visit today we have had a chance to go over subjective complaints, physical examination findings and treatments including the natural course history without intervention and various interventional options. The patients imaging demonstrates T12 erosive metestatic lesion with pathological fracture through T12. Tumor mass causing severe compression on cord and conus at T12. Diffuse metestatic findings in remainder of spine. On physical exam, Molly Whitfield demonstrates pain with any motion. Inability to ambulate due to pain in her back. B/L LE radiculopathy and weakness secondary to pain and debility. I have explained to the patient that as their condition progresses it will cause further neurological deficits and eventual paralysis. Based on the patients imaging, physical exam, and the rapid progression and disabling nature of their symptoms, at this time I recommend surgery in the form or a: T9-L3 stabilization with T12 decompression, biopsy and separation surgery. I discussed the risk and benefits of this procedure at length with Molly Whitfield and her family at bedside. The patient and her daughter at bedside agreed to considered pursuing the procedure abovementioned. Prior to surgery, she should follow up with her PCP (Cardio, ID, IM etc) for clearance. Questions were invited and answered, and the patient wishes to proceed as outlined below. Currently, I am recommendin. T9-L3 stabilization with T12 decompression, biopsy and separation surgery Description of Procedure: The patient was seen and examined in the preoperative area. All preoperative protocols were followed. Informed consent was obtained, risks and benefits of the procedure were discussed at length. Risks including bleeding infection damage to the surrounding tissue and risk of reoperation were discussed with the patient. Risk of anesthesia up to and including was discussed with the patient. These are outlined in the risk review. They were willing to accept these risks and all of the risks of surgery. The patient was given a weight- based dose of antibiotics in the form of 2 g Ancef. The patient was seen and evaluated by the anesthesia team who deemed them fit for surgery. The site was marked, the patient was willing to proceed with the procedure. The patient was transferred to the operative suite by the Department of anesthesia. They were then drifted off to sleep by the department anesthesia and GETA was performed. The patient tolerated this well. [Jeong catheter was placed by nursing staff, atraumatically]. Once confirmation of lines and ventilation the patient was transferred to a [prone Tai table very carefully]. All bony prominences including wrists, elbows, axilla, chest, hips, and thighs, and feet were padded very well. Special attention was paid to the genitalia and these were padded accordingly. SCDs were placed on bilateral lower extremities and were connected. Arms were well padded and placed [on arm boards up and out in the 90/90 position]. Once in position, again we confirmed good ventilation capabilities and that lines were running appropriately. The patient's thoracolumbar spine was then exposed. 1010s were placed outlining the incision site. Standard alcohol was used to clean the incision site and allowed to dry. C-arm was used to needle localize T12 and then biomark the patient and confirm level for incision which was marked with a skin marker. Operative briefing was performed with all teams and everyone in agreement to proceed. The patient was then prepped and draped in a normal sterile fashion. Timeout was then performed and all parties were in agreement with the procedure to be performed. MIdling skin incision was made and dissection taken down to the thoracolumbar fascia. Midling faciiotomy made and subperiosteal dissection taken down over lamina and facet joints of T9-L3 and out over TVP of L1-3. We then took a lateral Xray with marker at pedicle of L3 and confirmed our levles. Fiduciary screws were then placed into L3, T12 and T9 pedicles for marking purposes. Wound was irrigated. SP clamp for Coubic Thanh tracker then placed on T12. The wound was then draped in a 3-D C-arm and was obtained from the area of interest for [place] navigation. Once then was registered and confirmed to be accurate screws were placed bilateral at T9-T11 using navgated sudeep to make menhaden vessel pilot hole followed by navigated awl tap and finally navigated screw local combination truck driver. Once screws were in place they were confirmed to be in accurate position on AP and lateral flouroscopic images. The SP clam was then replaced at L3 and secured. A second 3D C arm spin was obtained and confirmed to be accurate. Screws were then placed b/l from L1-3 in a similar fashion as described above. Screws were then confirmed on AP and lateral image. The screws were tested and all tested above 20 mA. We then proceeded with Decompression, biopsy, debulking, ablation and kyphoplasty of T12. High speed sudeep was used to perform b/l laminectomy complete facetectomy and foraminotomies of T11-L1. Upon unroofing there was epidural mass which was identified and carefully removed from dura with penfield 4 and sent for biopsy. Once the decompression was accomplished, the b/l pedicles of T12 were drilled out for pedicle subtraction to allow wide access to the posterior body and separation was done between here and the tumor mass which was visible. Tumor debulking was done with pituitary and samples sent to pathology from vertebral body as well. Jamshidis were then introduced b/l into the T12 vertebral body in optimal position on AP and lateral and the ablation probes placed inside the body. 7 min ablation process was then performed as indicated. Once this was accomplished the probes removed and cement was placed through the Jamshidi into the body. Reasonable fill was noted, but it followed the fracture line and to avoid extravasation it was stopped after 3 cc of cement placed. We then cemented T9 and L3 screws without incident. The patient remained stable throughout cementation and there was no cement extravasation angiogram a myelogram. We then sized and selected rods for the area rods bent them were then placed them through the tulips of each screw. Set screws were then placed and all screws to secure the rods bilaterally. Set screws were then final tightened. Two cross-links selected placed and final tightened. Final imaging confirmed good placement of rods and screws, good reduction and stabilization. We irrigated the wounds thoroughly with 3L ancef irrigation, 3L gentamycin irrigation and 3L NSS. Vancomycin powder placed deep in the wound. Surgicel placed over the dura. Deep drain placed. Decortication done of the TVP of L1-3 as wel as facet joints of T9-L3. MagnatOs , allograft and allocel placed for fusion. The deep fascia was closed with #1 PDS, 0 vicrylin the deep subq and 2-0 in the superficial subq. Skin closed with 2-0 nylon in a horizontal mattress fashion the wound edges approximated very well. wounds were then cleaned and sterilely dressed with optifoam dressing. Drain was secured with a stitch and dressed. The patient was transferred back to their hospital bed atraumatically. Patient was then awakened and extubated by the department of anesthesia having tolerated the procedure very well with no complications. Drain continued to hold suction. They were transferred to the postoperative care unit in stable condition.
[2022-06-08 07:54] VITALS: RESP 18
[2022-06-08] MEDS: INSULIN ASPART (NovoLOG) 100 UNIT/ML VIAL SQ SCH ×2 (08:29→12:22)
[2022-06-08] MEDS: FLUTICASONE 50MCG/SPRAY NASAL 16GM EA NOSTRIL SCH (08:43)
[2022-06-08] MEDS: GABAPENTIN 300 MG CAP PO SCH (08:44)
[2022-06-08] MEDS: SERTRALINE 50 MG TAB PO SCH (08:44)
[2022-06-08] MEDS: amLODIPine 5 MG TAB PO SCH (08:44)
[2022-06-08] MEDS: DEXAMETHASONE SOD PHOSPHATE 10 MG/ML 1 ML VIAL IVP SCH (08:44)
[2022-06-08] MEDS: CLOPIDOGREL 75 MG TAB PO SCH (08:45)
[2022-06-08] MEDS: ENOXAPARIN 40 MG/0.4 ML SYRINGE SQ SCH (08:45)
[2022-06-08] MEDS: PANTOPRAZOLE 40 MG TABLET PO SCH (08:45)
[2022-06-08] MEDS: FENOFIBRATE 160 MG TAB PO SCH (08:45)
[2022-06-08] MEDS: lisinopriL 20 MG TAB PO SCH (08:45)
[2022-06-08] MEDS: tiZANidine 4 MG TAB PO SCH (08:47)
[2022-06-08] MEDS: MOUNJARO 2.5 MG SQ SCH (08:47)
[2022-06-08 11:02] LABS: Glucose,Whole Blood 120 mg/dL (70-110)
[2022-06-08] MEDS ORDERED: dexAMETHasone 4 MG TAB PO SCH (11:30)
[2022-06-08 12:38] VITALS: BP 162/83; PULSE 69; TEMP 97.9
[2022-06-08] MEDS ORDERED: HYDROcodone/APAP 10-325MG 1 EACH TAB PO PRN (13:25)
--- NOTE | 2022-06-08 17:43 | P.PN ---
Subjective Progress Note Date: 06/08/22 Principal diagnosis: Abd pain, cord compression, metastatic neuroendocrine large cell lung carcinoma Pt is currently postoperative day 4 from T9-L3 stabilization with decompression. No acute events overnight. Pt reports persistent low back pain, IV pain medications do help with pain but oral pain medications are not helping. Also reports fatigue. She is tolerating fluids and food ok. No other reported complaints at this time Objective - Vital Signs Vital signs: Vital Signs Temp 97.9 F 06/08/22 12:05 Pulse 69 06/08/22 12:05 Resp 18 06/08/22 12:05 BP 162/83 06/08/22 12:05 Pulse Ox 94 L 06/08/22 12:05 FiO2 21 06/07/22 19:39 Intake & Output 06/07/22 06/08/22 06/08/22 18:59 06:59 18:59 Intake Total 120 Balance 120 Weight 98.883 kg Intake: Intake, IV Titration 120 Amount Dextrose 5%-0.45% NaCl 1, 120 000 ml @ 125 mls/hr IV . Q8H SHIRA Rx#:[id number] Other: Voiding Method Bedside Commode Bedside Commode # Voids 1 1 - Constitutional General appearance: Present: cooperative, mild distress, obese - EENT Eyes: Present: anicteric sclerae, EOMI ENT: Present: hearing grossly normal - Respiratory Details: breathing is even and unlabored - Integumentary Integumentary: Present: normal - Neurologic Neurologic Comment(s): grossly intact Neurologic: Present: CNII-XII intact - Musculoskeletal Musculoskeletal Comment(s): decreased ROM of lower spine Musculoskeletal: Present: strength equal bilaterally - Psychiatric Psychiatric: Present: A&O x's 3, appropriate affect, intact judgment & insight - Labs CBC & Chem 7: 06/07/22 05:26 06/07/22 05:26 Labs: Abnormal Lab Results - Last 24 Hours (Table) 06/07/22 06/07/22 06/08/22 Range/Units 17:25 20:02 06:58 POC Glucose (mg/dL) 140 H 202 H 124 H (70-110) mg/dL 06/08/22 Range/Units 11:01 POC Glucose (mg/dL) 120 H (70-110) mg/dL Assessment and Plan (1) Neuroendocrine carcinoma of lung Status: Acute Priority: High Code(s): C7A.8 - OTHER MALIGNANT NEUROENDOCRINE TUMORS SNOMED Code(s): 162435897 Plan: Metastatic large cell neuroendocrine carcinoma of the lung -Disease progression in Oct, started imfinzi. Unfortunately, no significant disease control, had rapid onset of disease progression. -New plan for treatment. No treatment until pt has recovered from surgery and is adequately healed -Will schedule outpatient MRI brain and PET scan, with f/u with Dr. Mary Arambula to discuss further treatment options Spinal cord compression -Postoperative day 4 from T9-L3 stabilization with decompression with Dr. Enamorado -Bone biopsy pending. Will request tissue blocks for NGS-PDL 1 testing. Guardant testing in office -Oral steroid taper sent to pharmacy. PPI ordered for prevention of steroid induced gastritis. Medications sent to [facility]. -Pt follows up with Dr. De Los Santos for [facility]. She will see him 1-2 weeks after surgery, possible palliative radiation. Attests: I have seen and examined pt, performed H&P, developed impression and plan of care. Discussed with dictator. Agree with dictation, documented as a scribe.
== END 2022-06-08 16:57 | disposition home health service (06) | DRG 457 ==
LOC: EC 10:35 → 5NMEDONC 13:57
PROVIDERS: ADMIT Hospitalist; ATTEND Hospitalist
PROC: 0RGA0AJ Fusion of Thoracolumbar Vertebral Joint with Interbody Fusion Device, Posterior Approach, Anterior Column, Open Approach (ICD-10-PCS; principal; 2022-06-04 07:00)
PROC: 0SG10AJ Fusion of 2 or more Lumbar Vertebral Joints with Interbody Fusion Device, Posterior Approach, Anterior Column, Open Approach (ICD-10-PCS; principal; 2022-06-04 07:00)
PROC: 8E0WXBZ Computer Assisted Procedure of Trunk Region (ICD-10-PCS; principal; 2022-06-04 07:00)
PROC: 0PB40ZZ Excision of Thoracic Vertebra, Open Approach (ICD-10-PCS; principal; 2022-06-04 07:00)
PROC: 01NB0ZZ Release Lumbar Nerve, Open Approach (ICD-10-PCS; principal; 2022-06-04 07:00)
PROC: [UNRECOGNIZED PROCEDURE] (principal; 2022-06-04 07:00)
PROC: 0RG70AJ Fusion of 2 to 7 Thoracic Vertebral Joints with Interbody Fusion Device, Posterior Approach, Anterior Column, Open Approach (ICD-10-PCS; principal; 2022-06-04 07:00)
PROC: 0PS43ZZ Reposition Thoracic Vertebra, Percutaneous Approach (ICD-10-PCS; principal; 2022-06-04 07:00)
PROC: 0PB40ZX Excision of Thoracic Vertebra, Open Approach, Diagnostic (ICD-10-PCS; principal; 2022-06-04 07:00)
PROC: 01N80ZZ Release Thoracic Nerve, Open Approach (ICD-10-PCS; principal; 2022-06-04 07:00)
PROC: 0RG707J Fusion of 2 to 7 Thoracic Vertebral Joints with Autologous Tissue Substitute, Posterior Approach, Anterior Column, Open Approach (ICD-10-PCS; principal; 2022-06-04 07:00)
DX: M84.58XA Pathological fracture in neoplastic disease, other specified site, initial encounter for fracture (principal); C78.6 Secondary malignant neoplasm of retroperitoneum and peritoneum; C79.51 Secondary malignant neoplasm of bone; C7A.8 Other malignant neuroendocrine tumors; G95.20 Unspecified cord compression; N39.0 Urinary tract infection, site not specified; G89.3 Neoplasm related pain (acute) (chronic); M48.04 Spinal stenosis, thoracic region; D73.5 Infarction of spleen; C50.919 Malignant neoplasm of unspecified site of unspecified female breast; K76.0 Fatty (change of) liver, not elsewhere classified; E86.0 Dehydration; E11.9 Type 2 diabetes mellitus without complications; E89.0 Postprocedural hypothyroidism; F32.A Depression, unspecified; I10 Essential (primary) hypertension; Z53.09 Procedure and treatment not carried out because of other contraindication; Z66 Do not resuscitate; R13.10 Dysphagia, unspecified; R59.0 Localized enlarged lymph nodes; I86.2 Pelvic varices; B96.20 Unspecified Escherichia coli [E. coli] as the cause of diseases classified elsewhere; E78.00 Pure hypercholesterolemia, unspecified; G47.30 Sleep apnea, unspecified; M54.14 Radiculopathy, thoracic region; R53.81 Other malaise; K21.9 Gastro-esophageal reflux disease without esophagitis; Z28.310 Unvaccinated for COVID-19; Z92.3 Personal history of irradiation; Z92.21 Personal history of antineoplastic chemotherapy; Z87.74 Personal history of (corrected) congenital malformations of heart and circulatory system; Z85.850 Personal history of malignant neoplasm of thyroid; Z79.899 Other long term (current) drug therapy; Z79.890 Hormone replacement therapy; Z79.51 Long term (current) use of inhaled steroids; Z79.1 Long term (current) use of non-steroidal anti-inflammatories (NSAID); Z79.02 Long term (current) use of antithrombotics/antiplatelets; Z86.16 Personal history of COVID-19; Z87.891 Personal history of nicotine dependence; Z91.018 Allergy to other foods; Z91.048 Other nonmedicinal substance allergy status; Z85.118 Personal history of other malignant neoplasm of bronchus and lung
CPT/HCPCS: 36415; 71045; 72100; 72128; 72131; 72146; 72147; 72148; 72149; 74177; 80048; 80053; 81001; 83605; 83735; 84100; 84132; 84439; 84443; 84481; 85025; 87077; 87086; 87186; 87324; 88307; 88311; 88341; 88342; 93005; 94640; 94760; 96361; 96374; 96375; 99285